=== PATIENT | female | born 1960 | race Caucasian/White ===

== ENCOUNTER 2017-04-27 23:20 | Inpatient (IN) ==
[2017-04-28] MEDS ORDERED: Naloxone 0.4 MG/ML INJ IVP PRN ×2 (04:39→05:28)
[2017-04-28] MEDS ORDERED: Ipratropium/Albuterol Neb 3 ML IH PRN (04:43)
--- NOTE | 2017-04-28 04:47 | Internal Med History&Physical ---
<Michael Armstrong - Last Filed: 04/28/17 05:49> Date of Encounter: 04/28/17 Time of Encounter: 04:30 Assessment and Plan (1) Acute respiratory failure with hypoxia and hypercapnia Current visit: Yes Status: Acute Acute resp failure with hypoxia and hypercapnia secondary to acute on chronic exacerbation of COPD +/- possible pneumonia. PA/Lat XR. Repeat ABG. Currently saturating 96% on bipap 40% Fio2 16/8. Duoneb q4, steroid, bipap titration with [employer]. Continue Rocephin and Azithromycin. (2) Acute exacerbation of chronic obstructive airways disease Current visit: No Status: Acute (1) (3) Cxeyy-6-pbeayvdlapx deficiency Current visit: Yes Status: Acute Receives supplementation once a week. (4) Rheumatoid arthritis Current visit: Yes Status: Acute On MTX, will hold in setting of possible pneumonia. Qualifiers: Rheumatoid arthritis location: unspecified site Rheumatoid factor presence : unspecified presence Qualified Code(s): M06.9 - Rheumatoid arthritis, unspecified (5) DVT prophylaxis Current visit: Yes Status: Acute Heparin 5000U SQ q12h. Internal Medicine - H&P: HPI Admitted From: Hospital to Hospital Transfer Plans for Post Hospital Care: Home History of present illness: Ms. Dawkins is a 57 year old female, transferred from [facility], presenting with 1 week onset of worsening difficulty breathing. Patient has PMH of alpha-1- antitrypsin deficiency, w/o liver involvement, former smoker 2PPD quit 8 years ago currently on 2.5-3L home O2. Patient states she has increased difficulty ambulating and breathing at rest despite compliance to COPD meds, baseline is minimal walking, has a home health aide that visits daily. Patient denies fever , chills, n/v/d, chest pain, or hemoptysis. No recent travel, and no hx malignancy/recent immobilization. [facility] workup shows negative troponin, negative UA, ABG pH of 7.32, pCO2 of 68, PO2 of 67. Pt responded to bipap in [facility], currently on 40% Fio2, saturating 95%+. Past Med Surg Social Fam HX - Past Medical History Medical history: asthma, COPD, fibromyalgia, hypertension, RA, other Psychiatric history: anxiety - Social History Smoking Status: Former smoker Smokeless Tobacco Status: No Alcohol use: none Drug use: none - Family History Father Name: Chandan Javed Age: 50 Family Member Ethnicity: Non- Living Status: Age at : 50 Cause of : throat cancer, ETOH Hx Family Cardiac Disorders: No Hx Family Respiratory Disorders: No Hx Family Cancer: Yes Hx Family GI Disorders: No Hx Family Genitourinary Disorders: No Hx Family Endocrine Disorder: Yes Hx Family Musculoskeletal Disorders: Yes Hx Family Neuromuscular Disorders: No Hx Family Neurologic Disorders: No Hx Family HEENT Disorders: No Hx Family Autoimmune Disorders: No Hx Family Reproductive Disorders: No Hx Family Psychosocial Disorders: No Hx Family Medical Disorders: No Internal Medicine - H&P: Meds Albuterol Sulfate [Albuterol Inhaler] 2 puff IH Q4HR PRN 12/18/14 [History] Aspirin 325 mg PO DAILY 12/18/14 [History] DULoxetine [Cymbalta] 60 mg PO DAILY 12/18/14 [History] Fluticasone/Salmeterol [Advair 500-50 Diskus] 1 each IH BID 12/18/14 [History] Folic Acid 1 mg PO DAILY 12/18/14 [History] GuaiFENesin ER [Mucinex] 600 mg PO BID 12/18/14 [History] Meloxicam [Mobic] 7.5 mg PO DAILY 12/18/14 [History] Methotrexate [Otrexup] 7.5 mg PO QWEEK 12/18/14 [History] Omeprazole [PriLOSEC] 40 mg PO DAILY 12/18/14 [History] OxyCODONE/APAP 10/325 [Percocet 10/325] 2 each PO Q4HR 12/18/14 [History] Roflumilast [Daliresp] 500 mcg PO DAILY 12/18/14 [History] Sertraline [Zoloft] 50 mg PO DAILY 12/18/14 [History] Tiotropium [Spiriva] 18 mcg IH DAILY 12/18/14 [History] Azithromycin [Zithromax] 250 mg PO Q24H #3 tablet 12/22/14 [Rx] clonazePAM [Klonopin] 0.5 mg PO TID #30 tablet 12/22/14 [Rx] predniSONE [PredniSONE] 10 mg PO DAILY #18 tablet 12/22/14 [Rx] Cyclobenzaprine [Flexeril] 10 mg PO TID #30 tablet 06/08/16 [Rx] Pregabalin [Lyrica] 75 mg PO BID #20 capsule 06/08/16 [Rx] 3 Allergy/AdvReac Type Severity Reaction Status Date / Time levofloxacin [From Levaquin] Allergy Swelling Verified 06/08/16 13:53 of Lip/Tongue/Throat morphine Allergy See Verified 06/08/16 13:53 Comments cinnamon [Cinnamon] AdvReac Nausea Verified 06/08/16 13:53 All Systems PM: A 10-system review of systems was performed and is negative for pertinent findings except as documented above in the HPI. - Constitutional Vitals: Temp Pulse Resp BP Pulse Ox 97.4 F L 106 18 93/60 99 04/28/17 04:44 04/28/17 04:44 04/28/17 04:44 04/28/17 04:44 04/28/17 02:17 General appearance: Present: A&O X 3, no acute distress - Head Head exam: Present: normal inspection, normocephalic - Eye Eye exam: Present: EOMI. Absent: scleral icterus - ENT ENT exam: Present: mucous membranes moist - Neck Neck exam general surgery: Present: full ROM. Absent: lymphadenopathy - Respiratory Respiratory exam: Present: prolonged expiratory phase. Absent: accessory muscle use, respiratory distress, tachypnea Additional comments: equal chest excursion bilaterally, clear to ausc without crackles. - Cardiovascular Cardiovascular exam: Present: RRR, +S1, +S2, tachycardia. Absent: JVD - Extremities Exam Extremities exam: Absent: calf tenderness, cyanotic, pedal edema - Neurological Exam Neurological exam: Present: no focal deficits - Skin Skin exam: Present: normal color. Absent: cyanosis Internal Med - H&P Results - Labs Labs: [facility] Labs: PT 13.1; INR 1.11 ABG: pH 7.32, pO2 67, PCO2 68. Troponin negative Flu swab negative ECG sinus tachycardia without ischemic changes. - ABG Interpretation Interpretation: ABG interpreted by me Interpretation: respiratory acidosis - EKG Data -: EKG Interpreted by Myself EKG shows normal: sinus rhythm Rate: tachycardia <Pablo Gonzalez H - Last Filed: 04/28/17 06:07> Date of Encounter: 04/28/17 Internal Medicine - H&P: HPI History of present illness: Ms. Dawkins is a 57 year old female All Systems PM: A 10-system review of systems was performed and is negative for pertinent findings except as documented above in the HPI. - Constitutional Vitals: Temp Pulse Resp BP Pulse Ox 97.4 F L 106 18 93/60 99 04/28/17 04:44 04/28/17 04:44 04/28/17 04:44 04/28/17 04:44 04/28/17 02:17 Internal Med - H&P Results - Impressions ITS Impressions Chest X-Ray 04/28/17 05:06 IMPRESSION: COPD and chronic interstitial change with no acute finding in the chest. D/ / Lucas Walker MD / Lucas Walker MD Interpreting Provider: Lucas Walker MD - Attending Attestation 1. Acute on chronic hypoxic hypercapnic respiratory failure secondary to acute COPD exacerbation due to possible community-acquired pneumonia No report of the checks x-ray has been sent from [facility] Influenza negative, white blood cell count 7.1 Repeat chest x-ray Repeat ABG Continue Rocephin and azithromycin, Solu-Medrol, BiPAP, DuoNeb nebs and oxygen therapy 2. History of alpha-1 antitrypsin deficiency, receiving enzyme supplements once weekly 3. History of rheumatoid arthritis, hold methotrexate for now 4. Fibromyalgia, stable 5. Depression, stable 6. GERD, stable History of multiple surgeries/abdominal surgeries, PEG tube removed, tracheostomy due to unclear reasons Quit smoking 8 years ago used to smoke 2 packs per day. Family history: Hypertension Metatarsal for GI prophylaxis and subcutaneous heparin for DVT prophylaxis patient will be admitted for observation, if her condition worsens she will be switched to inpatient status. Full code. Time spent on this admission 40 minutes. I examined this patient and my medical decision-making was reviewed with the Resident Physician. I agree with the documented findings, disposition and treatment plan as described except to the extent set forth below.
[2017-04-28] MEDS ORDERED: Ondansetron 4 MG/2 ML VIAL IVP PRN (05:28)
[2017-04-28] MEDS ORDERED: Acetaminophen 325 MG TABLET PO PRN (05:28)
[2017-04-28] MEDS ORDERED: *HR* OxyCODONE Immed Rel 5 MG TABLET PO PRN (05:28)
--- NOTE | 2017-04-28 05:35 | Event Note ---
Date of Encounter: 04/28/17 Time of Encounter: 05:32 1. Acute on chronic hypoxic hypercapnic respiratory failure secondary to acute COPD exacerbation due to possible community-acquired pneumonia No report of the checks x-ray has been sent from [facility] Influenza negative, white blood cell count 7.1 Repeat chest x-ray Repeat ABG Continue Rocephin and azithromycin, Solu-Medrol, BiPAP, DuoNeb nebs and oxygen therapy 2. History of alpha-1 antitrypsin deficiency, receiving enzyme supplements once weekly 3. History of pneumothorax arthritis, hold methotrexate for now 4. Fibromyalgia, stable 5. Depression, stable 6. GERD, stable History of multiple surgeries/abdominal surgeries, PEG tube removed, tracheostomy due to unclear reasons Quit smoking 8 years ago used to smoke 2 packs per day. Family history: Hypertension Metatarsal for GI prophylaxis and subcutaneous heparin for DVT prophylaxis patient will be admitted for observation, if her condition worsens she will be switched to inpatient status. Full code. Time spent on this admission 40 minutes.
[2017-04-28 06:23] LABS: ABG Base Excess 6 mEq/L (-2 to 3); ABG HCO3 34 mEq/L (21-27); ABG Oxygen Saturation 91 % (95-98); ABG PCO2 64 mmHg (35-45); ABG PH 7.34 pH Units (7.32-7.45); ABG PO2 68 mmHg (85-104); ABG TCO2 36 mEq/L (20-26)
[2017-04-28 06:45] LABS: BUN/Creatinine Ratio 21 (6-26); Blood Urea Nitrogen 13 mg/dL (6-20); Calcium 9.1 mg/dL (8.6-10.3); Carbon Dioxide 32 mEq/L (23-29); Chloride 103 mEq/L (98-107); Glucose 188 mg/dL (70-105); Osmolality,Calculated 291 (280-300); Potassium 4.2 mEq/L (3.5-5.1); Sodium 138 mEq/L (136-145); eGFR For African Americans > 60 (> 60); eGFR For Non-African Americans > 60 (> 60)
[2017-04-28] MEDS: 0.9 % Sodium Chloride 1,000 ML IVC SCH (07:39)
[2017-04-28] MEDS: *HR* Heparin 5,000 UNIT/ML VIAL SQ SCH ×2 (07:40→17:26)
[2017-04-28] MEDS: methylPREDNISolone 125 MG/2 ML VIAL IVP SCH ×3 (07:40→17:26)
[2017-04-28] MEDS: Azithromycin 500 MG in D5% in Water 250 ML IVPB SCH (07:40)
[2017-04-28] MEDS: cefTRIAXone 1,000 MG in Water for inj. (sterile) 20 ML 10 ML IVPB SCH (07:41)
[2017-04-28] MEDS: Pregabalin 75 MG CAPSULE PO SCH ×2 (07:42→19:55)
[2017-04-28] MEDS: clonazePAM 0.5 MG TABLET PO SCH ×3 (07:42→19:55)
[2017-04-28] MEDS: Aspirin 325 MG TABLET PO SCH (07:42)
[2017-04-28] MEDS: (Roflumilast [Daliresp] 500 MCG PO SCH (07:43)
[2017-04-28] MEDS ORDERED: *HR* OxyCODONE/APAP 10/325 TABLET PO SCH ×2 (08:00)
[2017-04-28] MEDS: Tiotropium 18 MCG inhalation IH SCH (09:54)
[2017-04-28] MEDS: Budesonide/Formoterol 160/4.5 MDI IH SCH ×2 (09:56→22:37)
[2017-04-28] MEDS: Ipratropium/Albuterol Neb 3 ML IH SCH ×3 (09:56→22:37)
[2017-04-28] MEDS: *HR* OxyCODONE/APAP 10/325 TABLET PO PRN ×2 (12:03→21:18)
--- NOTE | 2017-04-28 18:28 | Event Note ---
Date of Encounter: 04/28/17 Time of Encounter: 11:00 Patient evaluated by manager ethics this morning and also by myself Will continue coverage for acute on chronic hypoxic/hypercapnic respiratory failure secondary to COPD exacerbation with IV ceftriaxone and IV azithromycin in addition to IV Solu-Medrol and DuoNeb's
[2017-04-29] MEDS: 0.9 % Sodium Chloride 1,000 ML IVC SCH (00:24)
[2017-04-29] MEDS: methylPREDNISolone 125 MG/2 ML VIAL IVP SCH ×4 (00:25→17:31)
[2017-04-29] MEDS: Ipratropium/Albuterol Neb 3 ML IH SCH ×4 (04:42→22:25)
[2017-04-29 04:53] LABS: Basophils % 0.1 %; Eosinophils % 0.1 %; Hemoglobin 9.3 g/dL (11.5-15.4); Immature Granulocytes % 0.6 % (0-4); Lymphocytes # 0.6 K/mcL (0.6-4.6); Lymphocytes % 6.4 %; Mean Corpuscular Hemoglobin 30.6 pg (28.0-33.3); Mean Corpuscular Volume 98.7 fL (83.0-100.0); Mean Platelet Volume 10.1 fL (9.4-12.4); Monocytes # 0.5 K/mcL (0.0-1.3); Monocytes % 5.7 %; Platelet Count 401 K/mcL (140-400); Red Blood Count 3.04 M/mcL (3.82-4.97); Red Cell Distribution Width 13.4 % (11.5-14.5); Segmented Neutrophils % 87.1 %
[2017-04-29 05:06] LABS: Alanine Aminotransferase 5 Units/L (7-52); Albumin 3.2 g/dL (3.5-5.7); Albumin/Globulin Ratio 1.4 (1.1-2.2); Alkaline Phosphatase 64 Units/L (34-104); Aspartate Amino Transferase 7 Units/L (13-39); BUN/Creatinine Ratio 17 (6-26); Bilirubin,Total 0.2 mg/dL (0.3-1.0); Blood Urea Nitrogen 11 mg/dL (6-20); Carbon Dioxide 31 mEq/L (23-29); Chloride 107 mEq/L (98-107); Globulin 2.3 g/dL (2.4-3.5); Glucose 154 mg/dL (70-105); Osmolality,Calculated 300 (280-300); Sodium 144 mEq/L (136-145); Total Protein 5.5 g/dL (6.4-8.9); eGFR For African Americans > 60 (> 60); eGFR For Non-African Americans > 60 (> 60)
[2017-04-29] MEDS: Azithromycin 500 MG in D5% in Water 250 ML IVPB SCH (06:19)
[2017-04-29] MEDS: *HR* Heparin 5,000 UNIT/ML VIAL SQ SCH ×2 (06:19→17:31)
[2017-04-29] MEDS: clonazePAM 0.5 MG TABLET PO SCH ×3 (08:34→20:16)
[2017-04-29] MEDS: Aspirin 325 MG TABLET PO SCH (08:34)
[2017-04-29] MEDS: cefTRIAXone 1,000 MG in Water for inj. (sterile) 20 ML 10 ML IVPB SCH (08:35)
[2017-04-29] MEDS: Pregabalin 75 MG CAPSULE PO SCH ×2 (08:35→20:16)
[2017-04-29] MEDS: *HR* OxyCODONE/APAP 10/325 TABLET PO PRN ×3 (08:35→22:37)
[2017-04-29] MEDS: (Roflumilast [Daliresp] 500 MCG PO SCH (08:36)
[2017-04-29] MEDS: Budesonide/Formoterol 160/4.5 MDI IH SCH ×2 (10:02→22:25)
[2017-04-29] MEDS: Tiotropium 18 MCG inhalation IH SCH (10:02)
[2017-04-29 11:28] LABS: ABG Base Excess 9 mEq/L (-2 to 3); ABG HCO3 36 mEq/L (21-27); ABG Oxygen Saturation 94 % (95-98); ABG PCO2 63 mmHg (35-45); ABG PH 7.36 pH Units (7.32-7.45); ABG PO2 77 mmHg (85-104); ABG TCO2 38 mEq/L (20-26)
--- NOTE | 2017-04-29 16:08 | Pulmonology Consult Note ---
Date of Encounter: 04/29/17 Time of Encounter: 13:00 Assessment and Plan (1) Acute exacerbation of chronic obstructive airways disease Current Visit: No Status: Acute Patient with multiple hospitalization and advanced lung disease and I have explained to her I expect her condition would deteriorate based on her pulmonary function test which was done in 2013 she had very severe FEV1 and she has noticed her hypoxia is worsened. Patient has appointment in clinic clinic next Tuesday and I have told her to keep that appointment and twisting either to transfer her by ambulance or since her oxygen saturation is above 90% when she is not active and she feels better then she can be transported by the car with her family. Otherwise patient is on appropriate treatment currently. Bruce dilators and systemic steroids and noninvasive ventilation. (2) Qmffr-2-vmjmpdhmwrp deficiency Current Visit: Yes Status: Chronic Patient has been receiving IV augmentation therapy. History of Present Illness Consult date: 04/29/17 Requesting physician: Sea Finley Reason for consult: COPD Chief complaint: Shortness of breath History of present illness: This is a pleasant 57-year-old female with history of advanced lung disease with alpha-1 deficiency syndrome and advanced COPD. Patient is known to me when she was hospitalized in 2013 and she has been following up with Dr. Clark in [place] for her COPD and she has been seen in [facility]. Patient stated her oxygenation is worsening and she was told in [facility] that she has to wait 5 years. Patient has hypoxia on minimal activities and she has wheezing and some productive cough reactive she has been hospitalized multiple times in the past 6 months and she has been losing weight. Patient denies any chest pain and she has been concerned about her condition. Past Med Surg Social Fam HX - Past Medical History Medical history: asthma, COPD, fibromyalgia, hypertension, RA, other Psychiatric history: anxiety - Social History Smoking Status: Former smoker Smokeless Tobacco Status: No Alcohol use: none Drug use: none - Family History Father Name: Chandan Javed Age: 50 Family Member Ethnicity: Non- Living Status: Age at : 50 Cause of : throat cancer, ETOH Hx Family Cardiac Disorders: No Hx Family Respiratory Disorders: No Hx Family Cancer: Yes Hx Family GI Disorders: No Hx Family Genitourinary Disorders: No Hx Family Endocrine Disorder: Yes Hx Family Musculoskeletal Disorders: Yes Hx Family Neuromuscular Disorders: No Hx Family Neurologic Disorders: No Hx Family HEENT Disorders: No Hx Family Autoimmune Disorders: No Hx Family Reproductive Disorders: No Hx Family Psychosocial Disorders: No Hx Family Medical Disorders: No Medications and Allergies Albuterol Sulfate [Albuterol Inhaler] 2 puff IH Q4HR PRN 12/18/14 [History] Aspirin 325 mg PO DAILY 12/18/14 [History] DULoxetine [Cymbalta] 60 mg PO DAILY 12/18/14 [History] Fluticasone/Salmeterol [Advair 500-50 Diskus] 1 each IH BID 12/18/14 [History] Folic Acid 1 mg PO DAILY 12/18/14 [History] GuaiFENesin ER [Mucinex] 600 mg PO BID 12/18/14 [History] Meloxicam [Mobic] 7.5 mg PO DAILY 12/18/14 [History] Methotrexate [Otrexup] 17.5 mg PO TU 12/18/14 [History] Omeprazole [PriLOSEC] 40 mg PO DAILY 12/18/14 [History] OxyCODONE/APAP 10/325 [Percocet 10/325] 1 each PO Q6H PRN 12/18/14 [History] Roflumilast [Daliresp] 500 mcg PO DAILY 12/18/14 [History] Sertraline [Zoloft] 50 mg PO DAILY 12/18/14 [History] clonazePAM [Klonopin] 0.5 mg PO TID #30 tablet 12/22/14 [Rx] Cyclobenzaprine [Flexeril] 10 mg PO TID #30 tablet 06/08/16 [Rx] Pregabalin [Lyrica] 75 mg PO BID #20 capsule 06/08/16 [Rx] Riekp-8-Xfqcockavq Inhibitor [Zemaira] 1,000 mg IV TU 04/28/17 [History] Etanercept [Enbrel] 50 mg SQ TU 04/28/17 [History] Umeclidinium [place] [Incruse Ellipta] 62.5 mcg IH DAILY 04/28/17 [History] 3 Allergy/AdvReac Type Severity Reaction Status Date / Time levofloxacin [From Levaquin] Allergy Swelling Verified 06/08/16 13:53 of Lip/Tongue/Throat morphine Allergy See Verified 06/08/16 13:53 Comments cinnamon [Cinnamon] AdvReac Nausea Verified 06/08/16 13:53 All Systems: A 10-system review of systems was performed and is negative for pertinent findings except as documented above in the HPI. Physical Examination Vital Signs: Vital Signs, Last 4 Hours Temp Pulse Resp BP Pulse Ox 04/29/17 16:03 20 97 04/29/17 15:50 98.4 F 116 20 112/84 General appearance: other (Mild respiratory distress) Eyes: nonicteric ENT: oropharynx moist Neck: supple Effort: mildly labored Inspection: hyperextended Auscultation: bilateral: diminished breath sounds, rhonchi Percussion: bilateral: not dull Cardiovascular: regular rate and rhythm Gastrointestinal: normoactive bowel sounds, non-distended Integumentary: normal Extremities: no cyanosis, edema normal mental status, non-focal exam anxious Results - Laboratory Findings CBC and BMP: 04/29/17 04:30 04/29/17 04:30 ABG ABG pH 7.36 pH Units (7.32-7.45) 04/29/17 11:25 ABG pCO2 63 mmHg (35-45) H 04/29/17 11:25 ABG pO2 77 mmHg (85-104) L 04/29/17 11:25 ABG O2 Saturation 94 % (95-98) L 04/29/17 11:25 Abnormal lab findings: Abnormal lab results RBC 3.04 M/mcL (3.82-4.97) L 04/29/17 04:30 Hgb 9.3 g/dL (11.5-15.4) L 04/29/17 04:30 Hct 30.0 % (35.3-44.9) L 04/29/17 04:30 MCHC 31.0 g/dL (31.6-35.5) L 04/29/17 04:30 Plt Count 401 K/mcL (140-400) H 04/29/17 04:30 ABG pCO2 63 mmHg (35-45) H 04/29/17 11:25 ABG pO2 77 mmHg (85-104) L 04/29/17 11:25 ABG HCO3 36 mEq/L (21-27) H 04/29/17 11:25 ABG Total CO2 38 mEq/L (20-26) H 04/29/17 11:25 ABG O2 Saturation 94 % (95-98) L 04/29/17 11:25 ABG Base Excess 9 mEq/L (-2 to 3) H 04/29/17 11:25 Carbon Dioxide 31 mEq/L (23-29) H 04/29/17 04:30 Glucose 154 mg/dL (70-105) H 04/29/17 04:30 Total Bilirubin 0.2 mg/dL (0.3-1.0) L 04/29/17 04:30 AST 7 Units/L (13-39) L 04/29/17 04:30 ALT 5 Units/L (7-52) L 04/29/17 04:30 Serum Total Protein 5.5 g/dL (6.4-8.9) L 04/29/17 04:30 Albumin 3.2 g/dL (3.5-5.7) L 04/29/17 04:30 Globulin 2.3 g/dL (2.4-3.5) L 04/29/17 04:30 - Diagnostic Findings Chest x-ray: report reviewed, image reviewed - Clinical Findings Intake & Output: Intake & Output 04/29/17 04/29/17 04/29/17 07:59 15:59 23:59 Intake Total 1000 / 1000 1440 / 1440 Output Total 600 / 600 Balance 1000 / 1000 840 / 840 Weight 62.4 kg Consult Discharge Plan - Plan Referrals: Alana Abraham MD [Primary Care Provider] - 05/09/17 1:30 pm
--- NOTE | 2017-04-29 18:45 | Internal Med Progress Note ---
Date of Encounter: 04/29/17 Time of Encounter: 11:00 - Assessment and plan (1) Acute respiratory failure with hypoxia and hypercapnia Current Visit: Yes Status: Acute Assessment and plan: -Suspect secondary to COPD exacerbation complicated by end-stage lung disease -Pulmonology consulted and appreciate recommendations (2) Acute exacerbation of chronic obstructive airways disease Current Visit: No Status: Acute Assessment and plan: -Continue dual nebs with IV Solu-Medrol in addition to IV azithromycin and IV ceftriaxone. (3) Yuikd-3-mgtenpvsmhu deficiency Current Visit: Yes Status: Chronic Assessment and plan: -Patient with end-stage lung disease and being seen by [facility] with discussions of placing patient on lung transplant list (4) Rheumatoid arthritis Current Visit: Yes Status: Acute Assessment and plan: -MTX held due to infection Qualifiers: Rheumatoid arthritis location: unspecified site Rheumatoid factor presence : unspecified presence Qualified Code(s): M06.9 - Rheumatoid arthritis, unspecified (5) DVT prophylaxis Current Visit: Yes Status: Acute Assessment and plan: Subcutaneous heparin - Subjective Interval history: Patient continues to be on BiPAP this morning with not much improvement overnight Pulmonology consulted for recommendations to end-stage lung disease with alpha 1 antitrypsin deficiency - Constitutional Vitals: Temp Pulse Resp BP Pulse Ox 98.4 F 116 20 112/84 97 04/29/17 15:50 04/29/17 15:50 04/29/17 16:03 04/29/17 15:50 04/29/17 16:03 General appearance: Present: A&O X 3, no acute distress - Respiratory Respiratory exam: Present: CTAB. Absent: accessory muscle use, rales, rhonchi, wheezes - Cardiovascular Cardiovascular exam: Present: RRR, +S1, +S2. Absent: diastolic murmur, gallop, rubs, systolic murmur Internal Medicine: Result - Labs CBC & Chem 7: 04/29/17 04:30 04/29/17 04:30 Labs: Short CBC 04/29/17 Range/Units 04:30 WBC 9.2 (4.3-11.1) K/mcL Hgb 9.3 L (11.5-15.4) g/dL Hct 30.0 L (35.3-44.9) % Plt Count 401 H (140-400) K/mcL Neutrophils # 8.0 (1.6-8.9) K/mcL BMP 04/29/17 04:30 Sodium 144 Potassium 4.0 Chloride 107 Carbon Dioxide 31 H BUN 11 Creatinine 0.65 Glucose 154 H Calcium 9.0 Liver Function 04/29/17 Range/Units 04:30 Total Bilirubin 0.2 L (0.3-1.0) mg/dL AST 7 L (13-39) Units/L ALT 5 L (7-52) Units/L Alkaline Phosphatase 64 (34-104) Units/L Albumin 3.2 L (3.5-5.7) g/dL - ABG Interpretation ABG results: ABG ABG pH 7.36 pH Units (7.32-7.45) 04/29/17 11:25 ABG pCO2 63 mmHg (35-45) H 04/29/17 11:25 ABG pO2 77 mmHg (85-104) L 04/29/17 11:25 ABG O2 Saturation 94 % (95-98) L 04/29/17 11:25 Consult Discharge Plan - Plan Referrals: Alana Arbaham MD [Primary Care Provider] - 05/09/17 1:30 pm
--- NOTE | 2017-04-29 18:59 | Electrocardiograph Report ---
[place] [id number] Test Date: 2017-04-28 Pat Name: Effie Dawkins Department: 110 Room: 2N11 Gender: F Community Planning Technician: : 1960 Requested By: Sea Finley Order Number: [id number] Reading MD: Sid Hagen MD Measurements Intervals [place] Rate: 117 P: 77 VA: 167 QRS: 58 QRSD: 94 T: 73 QT: 304 QTc: 373 Interpretive Statements SINUS TACHYCARDIA Electronically Signed On 04-29-2017 18:58:28 EST by Sid Hagen MD
[2017-04-30] MEDS: methylPREDNISolone 125 MG/2 ML VIAL IVP SCH ×5 (00:41→23:50)
[2017-04-30] MEDS: Ipratropium/Albuterol Neb 3 ML IH SCH ×5 (03:51→21:00)
[2017-04-30] MEDS: Azithromycin 500 MG in D5% in Water 250 ML IVPB SCH (04:25)
[2017-04-30] MEDS: *HR* Heparin 5,000 UNIT/ML VIAL SQ SCH ×2 (04:25→17:28)
[2017-04-30] MEDS: *HR* OxyCODONE/APAP 10/325 TABLET PO PRN ×5 (04:26→21:07)
[2017-04-30] MEDS: Pregabalin 75 MG CAPSULE PO SCH ×2 (08:37→21:07)
[2017-04-30] MEDS: Aspirin 325 MG TABLET PO SCH (08:38)
[2017-04-30] MEDS: cefTRIAXone 1,000 MG in Water for inj. (sterile) 20 ML 10 ML IVPB SCH (08:38)
[2017-04-30] MEDS: clonazePAM 0.5 MG TABLET PO SCH ×3 (08:38→21:07)
[2017-04-30] MEDS: (Roflumilast [Daliresp] 500 MCG PO SCH (08:39)
[2017-04-30 09:19] LABS: Basophils % 0.1 %; Hematocrit 30.9 % (35.3-44.9); Hemoglobin 9.7 g/dL (11.5-15.4); Immature Granulocytes % 0.2 % (0-4); Lymphocytes # 1.1 K/mcL (0.6-4.6); Lymphocytes % 13.9 %; Mean Corpuscular HGB Conc 31.4 g/dL (31.6-35.5); Mean Corpuscular Hemoglobin 31.1 pg (28.0-33.3); Monocytes # 0.2 K/mcL (0.0-1.3); Monocytes % 1.8 %; Neutrophils # 6.9 K/mcL (1.6-8.9); Platelet Count 444 K/mcL (140-400); Red Blood Count 3.12 M/mcL (3.82-4.97); Red Cell Distribution Width 13.8 % (11.5-14.5)
[2017-04-30 09:47] LABS: BUN/Creatinine Ratio 28 (6-26); Blood Urea Nitrogen 16 mg/dL (6-20); Calcium 9.1 mg/dL (8.6-10.3); Carbon Dioxide 35 mEq/L (23-29); Chloride 103 mEq/L (98-107); Glucose 119 mg/dL (70-105); Osmolality,Calculated 296 (280-300); Potassium 3.7 mEq/L (3.5-5.1); Sodium 142 mEq/L (136-145); eGFR For African Americans > 60 (> 60); eGFR For Non-African Americans > 60 (> 60)
--- NOTE | 2017-04-30 10:41 | Pulmonology Progress Note ---
Date of Encounter: 04/30/17 Time of Encounter: 10:25 Assessment and Plan (1) Acute exacerbation of chronic obstructive airways disease Current Visit: No Status: Acute Overall patient is responding to the current treatment and she is making arrangement regarding her visit to [facility]. Continue the per systemic steroid and bronchodilators and please call for any questions patient is tolerating noninvasive ventilation. Thank you for the consult and will follow up when necessary (2) Qqrsn-8-nvxmltjyeej deficiency Current Visit: Yes Status: Chronic Subjective Principal diagnosis: COPD exacerbation Interval history: Patient had good night sleep and feeling slightly better but she still anxious about her condition and she goes home might deteriorate Objective PUL Vital signs: Last Vital Signs Temp 97.8 F 04/30/17 07:37 Pulse 110 04/30/17 08:40 Resp 26 04/30/17 07:37 BP 125/75 04/30/17 08:40 Pulse Ox 96 04/30/17 08:40 General appearance: no acute distress Eyes: nonicteric ENT: oropharynx moist Effort: normal Auscultation: bilateral: diminished breath sounds Percussion: bilateral: not dull Cardiovascular: regular rate and rhythm Gastrointestinal: normoactive bowel sounds, non-distended Extremities: no cyanosis normal mental status, non-focal exam Results - Laboratory Findings CBC and BMP: 04/30/17 08:54 04/30/17 08:54 ABG ABG pH 7.36 pH Units (7.32-7.45) 04/29/17 11:25 ABG pCO2 63 mmHg (35-45) H 04/29/17 11:25 ABG pO2 77 mmHg (85-104) L 04/29/17 11:25 ABG O2 Saturation 94 % (95-98) L 04/29/17 11:25 Abnormal lab findings: Abnormal lab results RBC 3.12 M/mcL (3.82-4.97) L 04/30/17 08:54 Hgb 9.7 g/dL (11.5-15.4) L 04/30/17 08:54 Hct 30.9 % (35.3-44.9) L 04/30/17 08:54 MCHC 31.4 g/dL (31.6-35.5) L 04/30/17 08:54 Plt Count 444 K/mcL (140-400) H 04/30/17 08:54 ABG pCO2 63 mmHg (35-45) H 04/29/17 11:25 ABG pO2 77 mmHg (85-104) L 04/29/17 11:25 ABG HCO3 36 mEq/L (21-27) H 04/29/17 11:25 ABG Total CO2 38 mEq/L (20-26) H 04/29/17 11:25 ABG O2 Saturation 94 % (95-98) L 04/29/17 11:25 ABG Base Excess 9 mEq/L (-2 to 3) H 04/29/17 11:25 Carbon Dioxide 35 mEq/L (23-29) H 04/30/17 08:54 Creatinine 0.58 mg/dL (0.60-1.20) L 04/30/17 08:54 BUN/Creatinine Ratio 28 (6-26) H 04/30/17 08:54 Glucose 119 mg/dL (70-105) H 04/30/17 08:54 Total Bilirubin 0.2 mg/dL (0.3-1.0) L 04/29/17 04:30 AST 7 Units/L (13-39) L 04/29/17 04:30 ALT 5 Units/L (7-52) L 04/29/17 04:30 Serum Total Protein 5.5 g/dL (6.4-8.9) L 04/29/17 04:30 Albumin 3.2 g/dL (3.5-5.7) L 04/29/17 04:30 Globulin 2.3 g/dL (2.4-3.5) L 04/29/17 04:30 - Clinical Findings Intake & Output: Intake & Output 04/29/17 04/30/17 04/30/17 23:59 07:59 15:59 Intake Total 240 / 240 730 / 730 510 / 510 Output Total 1000 / 1000 120 / 120 Balance -760 / -760 730 / 730 390 / 390 Weight 63.1 kg Consult Discharge Plan - Plan Referrals: Alana Abraham MD [Primary Care Provider] - 05/09/17 1:30 pm
[2017-04-30] MEDS: Budesonide/Formoterol 160/4.5 MDI IH SCH ×2 (10:43→21:00)
[2017-04-30] MEDS: Tiotropium 18 MCG inhalation IH SCH (10:43)
[2017-04-30] MEDS: Chloraseptic Spray 177 ML BOTTLE MM PRN ×3 (10:45→23:50)
--- NOTE | 2017-04-30 18:45 | Internal Med Progress Note ---
Date of Encounter: 04/30/17 Time of Encounter: 11:00 - Assessment and plan (1) Acute respiratory failure with hypoxia and hypercapnia Current Visit: Yes Status: Acute Assessment and plan: -Suspect secondary to COPD exacerbation complicated by end-stage lung disease -Pulmonology consulted with recommendations for patient to follow-up with [facility] -Patient trying to make arrangements with [facility] (2) Acute exacerbation of chronic obstructive airways disease Current Visit: No Status: Acute Assessment and plan: -Continue dual nebs with IV Solu-Medrol in addition to IV azithromycin and IV ceftriaxone. (3) Atzhz-8-ybauohemkpp deficiency Current Visit: Yes Status: Chronic Assessment and plan: -Patient with end-stage lung disease and being seen by [facility] with discussions of placing patient on lung transplant list (4) Rheumatoid arthritis Current Visit: Yes Status: Acute Assessment and plan: -MTX held due to infection Qualifiers: Rheumatoid arthritis location: unspecified site Rheumatoid factor presence : unspecified presence Qualified Code(s): M06.9 - Rheumatoid arthritis, unspecified (5) DVT prophylaxis Current Visit: Yes Status: Acute Assessment and plan: Subcutaneous heparin - Subjective Interval history: Patient continues to be on BiPAP this morning with not much improvement overnight Pulmonology consulted for recommendations to end-stage lung disease with alpha 1 antitrypsin deficiency Patient trying to make arrangements for evaluation at [facility] - Constitutional Vitals: Temp Pulse Resp BP Pulse Ox 97.8 F 122 20 112/76 93 04/30/17 13:00 04/30/17 13:00 04/30/17 16:16 04/30/17 13:00 04/30/17 16:16 General appearance: Present: A&O X 3, no acute distress - Respiratory Respiratory exam: Present: CTAB. Absent: accessory muscle use, rales, rhonchi, wheezes Internal Medicine: Result - Labs CBC & Chem 7: 04/30/17 08:54 04/30/17 08:54 Labs: Short CBC 04/30/17 Range/Units 08:54 WBC 8.2 (4.3-11.1) K/mcL Hgb 9.7 L (11.5-15.4) g/dL Hct 30.9 L (35.3-44.9) % Plt Count 444 H (140-400) K/mcL Neutrophils # 6.9 (1.6-8.9) K/mcL BMP 04/30/17 08:54 Sodium 142 Potassium 3.7 Chloride 103 Carbon Dioxide 35 H BUN 16 Creatinine 0.58 L Glucose 119 H Calcium 9.1 - ABG Interpretation ABG results: ABG ABG pH 7.36 pH Units (7.32-7.45) 04/29/17 11:25 ABG pCO2 63 mmHg (35-45) H 04/29/17 11:25 ABG pO2 77 mmHg (85-104) L 04/29/17 11:25 ABG O2 Saturation 94 % (95-98) L 04/29/17 11:25 Consult Discharge Plan - Plan Referrals: Alana Abraham MD [Primary Care Provider] - 05/09/17 1:30 pm
[2017-05-01] MEDS: Ipratropium/Albuterol Neb 3 ML IH SCH ×4 (03:40→22:19)
[2017-05-01] MEDS: Azithromycin 500 MG in D5% in Water 250 ML IVPB SCH (06:23)
[2017-05-01] MEDS: methylPREDNISolone 125 MG/2 ML VIAL IVP SCH ×4 (06:23→22:55)
[2017-05-01] MEDS: *HR* Heparin 5,000 UNIT/ML VIAL SQ SCH ×2 (06:24→19:17)
[2017-05-01] MEDS: *HR* OxyCODONE/APAP 10/325 TABLET PO PRN ×4 (06:35→22:57)
[2017-05-01] MEDS: clonazePAM 0.5 MG TABLET PO SCH ×3 (09:51→20:15)
[2017-05-01] MEDS: Aspirin 325 MG TABLET PO SCH (09:52)
[2017-05-01] MEDS: cefTRIAXone 1,000 MG in Water for inj. (sterile) 20 ML 10 ML IVPB SCH (09:52)
[2017-05-01] MEDS: Pregabalin 75 MG CAPSULE PO SCH ×2 (09:52→20:15)
[2017-05-01] MEDS: (Roflumilast [Daliresp] 500 MCG PO SCH (09:53)
[2017-05-01 10:43] LABS: Basophils % 0.1 %; Hematocrit 32.7 % (35.3-44.9); Hemoglobin 10.4 g/dL (11.5-15.4); Immature Granulocytes % 0.7 % (0-4); Lymphocytes # 0.4 K/mcL (0.6-4.6); Lymphocytes % 5.9 %; Mean Corpuscular HGB Conc 31.8 g/dL (31.6-35.5); Mean Corpuscular Hemoglobin 31.3 pg (28.0-33.3); Mean Corpuscular Volume 98.5 fL (83.0-100.0); Mean Platelet Volume 9.7 fL (9.4-12.4); Monocytes # 0.1 K/mcL (0.0-1.3); Monocytes % 0.8 %; Neutrophils # 6.6 K/mcL (1.6-8.9); Platelet Count 430 K/mcL (140-400); Red Blood Count 3.32 M/mcL (3.82-4.97); Red Cell Distribution Width 13.6 % (11.5-14.5); Segmented Neutrophils % 92.5 %
[2017-05-01 11:06] LABS: BUN/Creatinine Ratio 21 (6-26); Blood Urea Nitrogen 14 mg/dL (6-20); Calcium 9.2 mg/dL (8.6-10.3); Carbon Dioxide 32 mEq/L (23-29); Chloride 100 mEq/L (98-107); Glucose 192 mg/dL (70-105); Osmolality,Calculated 296 (280-300); Potassium 3.9 mEq/L (3.5-5.1); Sodium 140 mEq/L (136-145); eGFR For African Americans > 60 (> 60); eGFR For Non-African Americans > 60 (> 60)
[2017-05-01] MEDS: Budesonide/Formoterol 160/4.5 MDI IH SCH ×2 (11:19→22:20)
[2017-05-01] MEDS: Tiotropium 18 MCG inhalation IH SCH (11:21)
--- NOTE | 2017-05-01 11:33 | Discharge Summary ---
Date of Encounter: 05/01/17 Time of Encounter: 11:00 - Discharge Diagnosis (1) Acute respiratory failure with hypoxia and hypercapnia Status: Acute (2) Acute exacerbation of chronic obstructive airways disease Status: Acute (3) Xpfbg-6-djtglmddovj deficiency Status: Chronic (4) Rheumatoid arthritis Status: Acute Qualifiers: Rheumatoid arthritis location: unspecified site Rheumatoid factor presence : unspecified presence Qualified Code(s): M06.9 - Rheumatoid arthritis, unspecified (5) DVT prophylaxis Status: Acute - Discharge Medications Home Medications: Albuterol Sulfate [Albuterol Inhaler] 2 puff IH Q4HR PRN 12/18/14 [History] Aspirin 325 mg PO DAILY 12/18/14 [History] DULoxetine [Cymbalta] 60 mg PO DAILY 12/18/14 [History] Fluticasone/Salmeterol [Advair 500-50 Diskus] 1 each IH BID 12/18/14 [History] Folic Acid 1 mg PO DAILY 12/18/14 [History] GuaiFENesin ER [Mucinex] 600 mg PO BID 12/18/14 [History] Meloxicam [Mobic] 7.5 mg PO DAILY 12/18/14 [History] Methotrexate [Otrexup] 17.5 mg PO TU 12/18/14 [History] Omeprazole [PriLOSEC] 40 mg PO DAILY 12/18/14 [History] OxyCODONE/APAP 10/325 [Percocet 10/325] 1 each PO Q6H PRN 12/18/14 [History] Roflumilast [Daliresp] 500 mcg PO DAILY 12/18/14 [History] Sertraline [Zoloft] 50 mg PO DAILY 12/18/14 [History] clonazePAM [Klonopin] 0.5 mg PO TID #30 tablet 12/22/14 [Rx] Cyclobenzaprine [Flexeril] 10 mg PO TID #30 tablet 06/08/16 [Rx] Pregabalin [Lyrica] 75 mg PO BID #20 capsule 06/08/16 [Rx] Rzqbs-1-Amyciazkqr Inhibitor [Zemaira] 1,000 mg IV TU 04/28/17 [History] Etanercept [Enbrel] 50 mg SQ TU 04/28/17 [History] Umeclidinium [place] [Incruse Ellipta] 62.5 mcg IH DAILY 04/28/17 [History] Allergies/Adverse Reactions: 3 Allergy/AdvReac Type Severity Reaction Status Date / Time levofloxacin [From Levaquin] Allergy Swelling Verified 06/08/16 13:53 of Lip/Tongue/Throat morphine Allergy See Verified 06/08/16 13:53 Comments cinnamon [Cinnamon] AdvReac Nausea Verified 06/08/16 13:53 Procedures/tests Complete & Pending: Procedures Performed prior 72 hours Category Date Time Status EKG [ECG 12 lead ECG] [ECG] Routine Y 04/28/17 11:31 Completed Date of admission: 04/29/17 13:55 Primary care physician: Alana Delgado Consults: 04/28/17 03:01 Consult to Plant Hr Manager [CONS] Routine Reason for SW Consult: advance directives 04/29/17 10:52 Consult to Pulmonology [CONS] Routine Consulting Provider: Pulm Crit Care [facility] [place] Reason for Consult: copd, increasing shortness of breath. Dr. Finley to call Call Completed: No - Patient Status Disposition: Home, Self-Care - Discharge Instructions Follow Up With: Alana Abraham MD [Primary Care Provider] - 05/09/17 1:30 pm Hospital course: Ms. Dawkins is a 57 year old female - Time Spent with Patient Total time spent providing and/or coordinating discharge services: - Constitutional Vitals: Temp Pulse Resp BP Pulse Ox 98.5 F 100 18 121/69 97 05/01/17 10:34 05/01/17 10:34 05/01/17 11:21 05/01/17 10:34 05/01/17 11:21 General appearance: Present: A&O X 3, no acute distress - Respiratory Respiratory exam: Present: CTAB. Absent: accessory muscle use, rales, rhonchi, wheezes - Cardiovascular Cardiovascular exam: Present: RRR, +S1, +S2. Absent: diastolic murmur, gallop, rubs, systolic murmur
[2017-05-01] MEDS ORDERED: dilTIAZem HCl 100 MG in D5% in Water 50 ML IVC SCH (18:15)
--- NOTE | 2017-05-01 18:27 | Internal Med Progress Note ---
Date of Encounter: 05/01/17 Time of Encounter: 11:00 - Assessment and plan (1) Atrial flutter with rapid ventricular response Current Visit: Yes Status: Acute Assessment and plan: -We will elevated heart rate and 12-lead EKG showed atrial flutter with RVR -Patient given a Cardizem bolus and will be placed on Cardizem drip for rate control (2) Acute respiratory failure with hypoxia and hypercapnia Current Visit: Yes Status: Acute Assessment and plan: -Suspect secondary to COPD exacerbation complicated by end-stage lung disease -Pulmonology consulted with recommendations for patient to follow-up with [facility] -Patient trying to make arrangements with [facility] (3) Acute exacerbation of chronic obstructive airways disease Current Visit: No Status: Acute Assessment and plan: -Continue dual nebs with IV Solu-Medrol in addition to IV azithromycin and IV ceftriaxone. (4) Iqshd-4-jpvbixaccdu deficiency Current Visit: Yes Status: Chronic Assessment and plan: -Patient with end-stage lung disease and being seen by [facility] with discussions of placing patient on lung transplant list (5) Rheumatoid arthritis Current Visit: Yes Status: Acute Assessment and plan: -MTX held due to infection Qualifiers: Rheumatoid arthritis location: unspecified site Rheumatoid factor presence : unspecified presence Qualified Code(s): M06.9 - Rheumatoid arthritis, unspecified (6) DVT prophylaxis Current Visit: Yes Status: Acute Assessment and plan: Subcutaneous heparin - Subjective Interval history: Pulmonology consulted for recommendations to end-stage lung disease with alpha 1 antitrypsin deficiency Patient able from a respiratory standpoint per pulmonologyiit was scheduled to go to the [facility] for appointment on 05/02/17 Patient however developed atrial flutter with RVR and had to be started on Cardizem drip - Constitutional Vitals: Temp Pulse Resp BP Pulse Ox 98.2 F 119 19 130/73 91 05/01/17 15:30 05/01/17 15:30 05/01/17 16:34 05/01/17 15:30 05/01/17 16:34 General appearance: Present: A&O X 3, no acute distress - Cardiovascular Cardiovascular exam: Present: RRR, +S1, +S2. Absent: diastolic murmur, gallop, rubs, systolic murmur - GI/Abdominal GI/Abdominal exam: Present: normal bowel sounds, soft, no peritoneal signs. Absent: distended, tenderness Internal Medicine: Result - Labs CBC & Chem 7: 05/01/17 10:14 05/01/17 10:14 Labs: Short CBC 05/01/17 Range/Units 10:14 WBC 7.1 (4.3-11.1) K/mcL Hgb 10.4 L (11.5-15.4) g/dL Hct 32.7 L (35.3-44.9) % Plt Count 430 H (140-400) K/mcL Neutrophils # 6.6 (1.6-8.9) K/mcL BMP 05/01/17 10:14 Sodium 140 Potassium 3.9 Chloride 100 Carbon Dioxide 32 H BUN 14 Creatinine 0.66 Glucose 192 H Calcium 9.2 - ABG Interpretation ABG results: ABG ABG pH 7.36 pH Units (7.32-7.45) 04/29/17 11:25 ABG pCO2 63 mmHg (35-45) H 04/29/17 11:25 ABG pO2 77 mmHg (85-104) L 04/29/17 11:25 ABG O2 Saturation 94 % (95-98) L 04/29/17 11:25 Consult Discharge Plan - Plan Referrals: Alana Abraham MD [Primary Care Provider] - 05/09/17 1:30 pm
[2017-05-01] MEDS ORDERED: 0.9 % Sodium Chloride 500 ML ONE (18:59)
[2017-05-02] MEDS: Ipratropium/Albuterol Neb 3 ML IH SCH ×3 (03:33→15:58)
[2017-05-02] MEDS: methylPREDNISolone 125 MG/2 ML VIAL IVP SCH (06:15)
[2017-05-02] MEDS: *HR* Heparin 5,000 UNIT/ML VIAL SQ SCH (06:15)
[2017-05-02] MEDS: *HR* OxyCODONE/APAP 10/325 TABLET PO PRN ×2 (06:16→10:33)
[2017-05-02] MEDS: Azithromycin 500 MG in D5% in Water 250 ML IVPB SCH (06:16)
[2017-05-02] MEDS: Pregabalin 75 MG CAPSULE PO SCH (08:43)
[2017-05-02] MEDS: Aspirin 325 MG TABLET PO SCH (08:43)
[2017-05-02] MEDS: clonazePAM 0.5 MG TABLET PO SCH ×2 (08:43→14:58)
[2017-05-02] MEDS: cefTRIAXone 1,000 MG in Water for inj. (sterile) 20 ML 10 ML IVPB SCH (08:43)
[2017-05-02] MEDS: (Roflumilast [Daliresp] 500 MCG PO SCH (08:44)
--- NOTE | 2017-05-02 10:29 | Electrocardiograph Report ---
[place] [id number] Test Date: 2017-05-01 Pat Name: Effie Dawkins Department: 110 Room: 2N11 Gender: F Manufacturing Engineering Technologist: KELLY : 1960 Requested By: Sea Finley Order Number: [id number] Reading MD: Sid aHgen MD Measurements Intervals [place] Rate: 122 P: [place]: 0 QRS: 42 QRSD: 80 T: 65 QT: 285 QTc: 357 Interpretive Statements SINUS RHYTHM Poor R wave progression Electronically Signed On 05-02-2017 10:27:53 EST by Sid Hagen MD
[2017-05-02] MEDS: Budesonide/Formoterol 160/4.5 MDI IH SCH (10:32)
[2017-05-02] MEDS: Tiotropium 18 MCG inhalation IH SCH (10:33)
[2017-05-02 13:03] VITALS: BP 112/76
--- NOTE | 2017-05-02 16:31 | Discharge Summary ---
Date of Encounter: 05/02/17 Time of Encounter: 11:00 - Discharge Diagnosis (1) Acute respiratory failure with hypoxia and hypercapnia Priority: Primary Status: Acute (2) Acute exacerbation of chronic obstructive airways disease Priority: Primary Status: Acute (3) Hdfow-1-lxdpafbsmzy deficiency Priority: Primary Status: Chronic (4) Rheumatoid arthritis Priority: Secondary Status: Acute Qualifiers: Rheumatoid arthritis location: unspecified site Rheumatoid factor presence : unspecified presence Qualified Code(s): M06.9 - Rheumatoid arthritis, unspecified - Discharge Medications Prescriptions: Metoprolol [Lopressor] 25 mg PO BID #30 tablet Home Medications: Albuterol Sulfate [Albuterol Inhaler] 2 puff IH Q4HR PRN 12/18/14 [History] Aspirin 325 mg PO DAILY 12/18/14 [History] DULoxetine [Cymbalta] 60 mg PO DAILY 12/18/14 [History] Fluticasone/Salmeterol [Advair 500-50 Diskus] 1 each IH BID 12/18/14 [History] Folic Acid 1 mg PO DAILY 12/18/14 [History] GuaiFENesin ER [Mucinex] 600 mg PO BID 12/18/14 [History] Meloxicam [Mobic] 7.5 mg PO DAILY 12/18/14 [History] Methotrexate [Otrexup] 17.5 mg PO TU 12/18/14 [History] Omeprazole [PriLOSEC] 40 mg PO DAILY 12/18/14 [History] OxyCODONE/APAP 10/325 [Percocet 10/325] 1 each PO Q6H PRN 12/18/14 [History] Roflumilast [Daliresp] 500 mcg PO DAILY 12/18/14 [History] Sertraline [Zoloft] 50 mg PO DAILY 12/18/14 [History] clonazePAM [Klonopin] 0.5 mg PO TID #30 tablet 12/22/14 [Rx] Cyclobenzaprine [Flexeril] 10 mg PO TID #30 tablet 06/08/16 [Rx] Pregabalin [Lyrica] 75 mg PO BID #20 capsule 06/08/16 [Rx] Vkjkr-6-Qjjjmftnos Inhibitor [Zemaira] 1,000 mg IV TU 04/28/17 [History] Etanercept [Enbrel] 50 mg SQ TU 04/28/17 [History] Umeclidinium [place] [Incruse Ellipta] 62.5 mcg IH DAILY 04/28/17 [History] Metoprolol [Lopressor] 25 mg PO BID #30 tablet 05/02/17 [Rx] Allergies/Adverse Reactions: 3 Allergy/AdvReac Type Severity Reaction Status Date / Time levofloxacin [From Levaquin] Allergy Swelling Verified 06/08/16 13:53 of Lip/Tongue/Throat morphine Allergy See Verified 06/08/16 13:53 Comments cinnamon [Cinnamon] AdvReac Nausea Verified 06/08/16 13:53 Procedures/tests Complete & Pending: Procedures Performed prior 72 hours Category Date Time Status EKG [ECG 12 lead ECG] [ECG] Routine Y 05/01/17 12:42 Completed Date of admission: 04/29/17 13:55 Primary care physician: Alana Delgado Consults: 04/28/17 03:01 Consult to Human Resources Director [CONS] Routine Reason for SW Consult: advance directives 04/29/17 10:52 Consult to Pulmonology [CONS] Routine Consulting Provider: Pulm Crit Care [facility] Sleep [place] Reason for Consult: copd, increasing shortness of breath. Dr. Finley to call Call Completed: No - Patient Status Disposition: Home Health Service - Discharge Instructions Instructions: Metoprolol (By mouth), Acute Respiratory Distress Syndrome (DC) Follow Up With: Alana Abraham MD [Primary Care Provider] - 05/09/17 1:30 pm Hospital course: Patient is a 57-year-old female with past medical history significant for alpha 1 antitrypsin deficiency with chronic respiratory failure and COPD in addition to being a smoker who presents from [facility], due to 1 week onset of worsening difficulty breathing. Patient has mzcqv-9-ssnvmweozka deficiency, w/o liver involvement, former smoker 2PPD quit 8 years ago currently on 2.5-3L home O2. Patient states she has increased difficulty ambulating and breathing at rest despite compliance to COPD meds, baseline is minimal walking, has a home health aide that visits daily. In the ER at [facility], workup showed negative troponin, negative UA, ABG pH of 7.32, pCO2 of 68, PO2 of 67. Patient responded to bipap in [facility], currently on 40% Fio2, saturating 95%+. She was transferred to [facility] for further medical management. During patients hospital stay pulmonology, was consulted with recommendations that patient follow-up with [facility] as she has been considered for a lung transplant there. Patient also had elevated blood pressures and tachycardia which resolved after increasing her dose of beta ansley. Patient will be discharged to follow-up at the [facility]. - Time Spent with Patient Total time spent providing and/or coordinating discharge services: Less than 30 minutes - Constitutional Vitals: Temp Pulse Resp BP Pulse Ox 98.6 F 82 18 112/76 96 05/02/17 11:15 05/02/17 13:02 05/02/17 16:00 05/02/17 13:02 05/02/17 16:00 General appearance: Present: A&O X 3, no acute distress - Respiratory Respiratory exam: Present: CTAB. Absent: accessory muscle use, rales, rhonchi, wheezes - Cardiovascular Cardiovascular exam: Present: RRR, +S1, +S2. Absent: diastolic murmur, gallop, rubs, systolic murmur
--- NOTE | 2017-05-02 16:33 | Physician Discharge Referral ---
Home Health/Hosp Referral Info Transfer to: Home Health - Diagnosis (1) Acute respiratory failure with hypoxia and hypercapnia Priority: Primary Status: Acute (2) Acute exacerbation of chronic obstructive airways disease Priority: Primary Status: Acute (3) Qcshe-4-kayylktxgnj deficiency Priority: Primary Status: Chronic (4) Rheumatoid arthritis Priority: Secondary Status: Acute - Respiratory Orders Smoking Cessation: Smoking cessation has been advised. For more information, call the [place] Tobacco Quit Line at 2-205-WKDA-NOW. - Services Needed Following services are medically necessary services: Physical Therapy - Transfer Medications Prescriptions: Metoprolol [Lopressor] 25 mg PO BID #30 tablet Home Medications: Albuterol Sulfate [Albuterol Inhaler] 2 puff IH Q4HR PRN 12/18/14 [History] Aspirin 325 mg PO DAILY 12/18/14 [History] DULoxetine [Cymbalta] 60 mg PO DAILY 12/18/14 [History] Fluticasone/Salmeterol [Advair 500-50 Diskus] 1 each IH BID 12/18/14 [History] Folic Acid 1 mg PO DAILY 12/18/14 [History] GuaiFENesin ER [Mucinex] 600 mg PO BID 12/18/14 [History] Meloxicam [Mobic] 7.5 mg PO DAILY 12/18/14 [History] Methotrexate [Otrexup] 17.5 mg PO TU 12/18/14 [History] Omeprazole [PriLOSEC] 40 mg PO DAILY 12/18/14 [History] OxyCODONE/APAP 10/325 [Percocet 10/325] 1 each PO Q6H PRN 12/18/14 [History] Roflumilast [Daliresp] 500 mcg PO DAILY 12/18/14 [History] Sertraline [Zoloft] 50 mg PO DAILY 12/18/14 [History] clonazePAM [Klonopin] 0.5 mg PO TID #30 tablet 12/22/14 [Rx] Cyclobenzaprine [Flexeril] 10 mg PO TID #30 tablet 06/08/16 [Rx] Pregabalin [Lyrica] 75 mg PO BID #20 capsule 06/08/16 [Rx] Xtgeo-1-Ejpabwbcad Inhibitor [Zemaira] 1,000 mg IV TU 04/28/17 [History] Etanercept [Enbrel] 50 mg SQ 04/28/17 [History] Umeclidinium [place] [Incruse Ellipta] 62.5 mcg IH DAILY 04/28/17 [History] Metoprolol [Lopressor] 25 mg PO BID #30 tablet 05/02/17 [Rx] Allergies/Adverse Reactions: 3 Allergy/AdvReac Type Severity Reaction Status Date / Time levofloxacin [From Levaquin] Allergy Swelling Verified 06/08/16 13:53 of Lip/Tongue/Throat morphine Allergy See Verified 06/08/16 13:53 Comments cinnamon [Cinnamon] AdvReac Nausea Verified 06/08/16 13:53 Certification: Further, I certify that my clinical findings support that this patient is homebound (i.e. absences from home require considerable and taxing effort and are for medical reasons or mormon services or infrequently or short duration when for other reasons) because: Homebound Reason: Patient requires assistance of a person or device to safely leave home Attestation: My signature below is to certify that this patient is under my care and that I, or nurse practitioner, or a physician's assistant service manager working with me, has a face-to -face encounter with this patient.
[2017-05-03] MEDS ORDERED: Azithromycin 250 MG TABLET PO SCH (06:00)
== END 2017-05-02 16:40 | disposition home health service (06) | DRG 190 ==
LOC: 2NNU → SUATTDRO 04-28 01:44
PROVIDERS: ADMIT Internal Medicine; ATTEND Hospitalist

== ENCOUNTER 2018-06-05 17:20 | Inpatient (IN) ==
--- NOTE | 2018-06-05 20:20 | Internal Med History&Physical ---
Addendum entered and electronically signed by Magdi Ornelas MD 06/06/18 01:02: NOTE: Date and time of my encounter was 06-05-18 at 22:35, not 06-06-18. Original Note: <Evans Rosario S - Last Filed: 06/05/18 22:02> Date of Encounter: 06/05/18 Time of Encounter: 20:19 Internal Medicine - H&P: HPI Chief complaint: "short of breath" Admitted From: Hospital to Hospital Transfer Plans for Post Hospital Care: Home History of present illness: Ms. Dawkins is a 58 year old female w/ PMH of anxiety, GERD, rheumatoid arthritis, COPD on 2L, and alpha 1 antitrypsin deficinecy. She presented to the hospital as a [facility] transfer. reported a 4 day hx of increasing AMS and increasing cough. Pt reports that she had to turn oxygen up from 2 to 6 L and was having a hard time completing ADL, including walking from the couch to the bathroom. She does have a hx of A1AT and is in need of a lung transplant. reported that the pt began having a hard time telling him who she was or where she was. She was extremely disoriented. He denies that she has had any recent falls or head trauma. She reported that she has had increasing sputum production and that the color has changed. She has had increasing dyspnea on exertion. She denies any chest pain, N/V/D, or constipation. She denies any current confusion. She had a BM last night. At [facility] the pt had a CXR which was negatvie for acute cardiopulmonary process. Troponin negative. CBC and BMP unremarkable. She was given a dose of duonebs and transferred to [facility] for further workup and evaluation. Past Med Surg Social Fam HX - Past Medical History Medical history: asthma, COPD, fibromyalgia, hypertension, RA, other Additional medical history: Reynaud's disease, Alpha-1 Anti Tripson, emphasema, Psychiatric history: anxiety - Past Surgical History Additional surgical history: Trach, Tonsillectomy, Peg Tube, abdominal surgery r/t infection - Social History Smoking Status: Former smoker Smokeless Tobacco Status: No Alcohol use: none Drug use: none - Family History Father Family Member Ethnicity: Non- Living Status: Hx Family Cardiac Disorders: No Hx Family Respiratory Disorders: No Hx Family Cancer: Yes Hx Family GI Disorders: No Hx Family Endocrine Disorder: Yes Hx Family Neuromuscular Disorders: No Hx Family Neurologic Disorders: No Hx Family HEENT Disorders: No Hx Family Autoimmune Disorders: No Internal Medicine - H&P: Meds Albuterol Sulfate [Albuterol Inhaler] 1 puff IH Q4-6H PRN 06/05/18 [History] Cyclobenzaprine [Flexeril] mg PO HS 06/05/18 [History] Etanercept 06/05/18 [History] Fluticasone/Salmeterol [Advair 250-50 Diskus] 1 each IH BID 06/05/18 [History] Folic Acid 1 mg PO DAILY 06/05/18 [History] Methotrexate [Otrexup] PO DAILY 06/05/18 [History] Omeprazole [PriLOSEC] 40 mg PO DAILY 06/05/18 [History] OxyCODONE/APAP 5/325 [Percocet 5/325 MG] 1 each PO Q6-8H PRN 06/05/18 [History] Tiotropium [Spiriva] 18 mcg IH DAILY 06/05/18 [History] clonazePAM [Clonazepam] 0.5 mg PO TID 06/05/18 [History] Allergy/AdvReac Type Severity Reaction Status Date / Time levofloxacin [From Levaquin] Allergy Swelling Verified 06/08/16 13:53 of Lip/Tongue/Throat morphine Allergy See Verified 06/08/16 13:53 Comments cinnamon [Cinnamon] AdvReac Nausea Verified 06/08/16 13:53 All Systems PM: A 10-system review of systems was performed and is negative for pertinent find ings except as documented above in the HPI. - Constitutional Constitutional: chills, fever(s) - Cardiovascular Cardiovascular ROS IM: dyspnea, dyspnea on exertion, no chest pain - Respiratory Respiratory: cough, dyspnea, dyspnea on exertion, chest congestion, excessive phlegm production, change in phlegm color - Gastrointestinal Gastrointestinal: abdominal pain, no constipation, no nausea, no vomiting - Genitourinary Genitourinary: no urinary frequency, no urinary hesitancy, no urinary urgency - Musculoskeletal Musculoskeletal ROS IM: back pain - Integumentary Integumentary IM: no non-healing lesions, no rash, no jaundice - Neurological Neurological ROS: frequent falls, weakness - Psychiatric Psychiatric: behavioral changes - Endocrine Endocrine IM: fatigue - Hematologic/Lymphatic Hematologic/Lymphatic: no easy bruising - Constitutional Vitals: Temp Pulse Resp BP Pulse Ox 100.0 F H 105 15 126/85 97 06/05/18 07:15 06/05/18 07:15 06/05/18 07:15 06/05/18 07:15 06/05/18 07:15 General appearance: Present: cooperative, A&O X 3, pleasant Exam: x - Head Head exam: Present: atraumatic, normocephalic - Eye Eye exam: Present: sclera anicteric - ENT Additional comments: BiPAP in place - Neck Neck exam general surgery: Present: trachea midline - Respiratory Respiratory exam: Present: decreased breath sounds, prolonged expiratory phase. Absent: accessory muscle use, respiratory distress, rhonchi, stridor, wheezes - Expanded Respiratory Exam Location: decreased breath sounds: Left, Right, Upper, Lower - Cardiovascular Cardiovascular exam: Present: +S1, +S2, tachycardia. Absent: clicks, gallop, JVD, rubs - GI/Abdominal GI/Abdominal exam: Present: firm, tenderness, no peritoneal signs. Absent: distended, guarding, rebound, rigid - Extremities Exam Extremities exam: Present: normal capillary refill, normal inspection. Absent: calf tenderness, tenderness - Back Exam Back exam: Absent: rash noted - Neurological Exam Neurological exam: Present: alert, oriented X3, no focal deficits - Psychiatric Psychiatric exam: Present: normal affect, normal mood - Skin Skin exam: Present: dry, intact, warm Internal Med - H&P Results - Labs CBC & Chem 7: 06/05/18 21:13 06/05/18 21:13 - Assessment and plan (1) Acute exacerbation of chronic obstructive airways disease Current Visit: No Status: Acute Assessment and plan: 58yo female presents with increasing SOB and AMS x 4 days. [facility] transfer. - has had increasing SOB and sputum production, change of sputum color - increasing oxygen demands, increased 2L to 6L - unable to complete ADL and has had increasing trouble walking to bathroom from couch - reported AMS, unable to tell him where she was or what was going on At [facility] the pt had a negative CXR for acute cardopulmonary process - does NOT meet sepsis criteria; only SIRS criteria met is for HR of 105 - initial WBC count at [facility] was WNL EKG negative for acute ST changes at [facility] - HR was 124, normal axis, normal intervals - troponin negative ABG showed a respiratory acidosis - pH 7.19, pCO2 93, HCO3 35 - repeat ABG showed pH 7.2, pCO2 86, HCO3 36 Plan: - duonebs q4hr scheduled - ABG stat, with repeat in AM - CBC and BMP in AM - IV steroids 80mg q6hr - continue BiPAP, spoke to pt about CODE STATUS and she wishes to remain a FULL CODE she will want intubation if needed, however, at this time she is protecting her airway - NPO now - consult to pulmonology, known to Dr. Hawley. Will call in AM. - at this time will not start abx as pt is afebrile with no WBC count, CXR negative (2) [id number] deficiency Current Visit: No Status: Chronic Assessment and plan: Contributing to COPD exacerbation - pt has chronic hx of A1AT deficiency - is currently on lung transplant list (3) Altered mental status Current Visit: Yes Status: Acute Assessment and plan: Likely secondary to COPD exacerbation with respiratory acidosis, CO2 of 91 at [facility] - check ammonia - see plan as above - has largely resolved, pt is AOx3 and able to give hx of illness Qualifiers: Altered mental status type: disorientation Qualified Code(s): R41.0 - Disorientation, unspecified (4) Acute respiratory failure with hypoxia and hypercapnia Current Visit: No Status: Acute Assessment and plan: Acute on chronic - pt with increasing oxygen demands has required increasing 2L ---> 6L (5) Anxiety Current Visit: No Status: Acute Assessment and plan: On clonazepam - will switch to IV lorazepam 0.5mg , holding home PO meds (6) DVT prophylaxis Current Visit: No Status: Acute Assessment and plan: sq Heparin (7) Rheumatoid arthritis Current Visit: No Status: Acute Assessment and plan: Chronic - on MTX and etancercept Qualifiers: Rheumatoid arthritis location: unspecified site Rheumatoid factor presence: unspecified presence Qualified Code(s): M06.9 - Rheumatoid arthritis, unspecified (8) GERD (gastroesophageal reflux disease) Current Visit: No Status: Chronic Assessment and plan: Takes Prilosec at home, will hold home PO meds for now. Qualifiers: Esophagitis presence: esophagitis presence not specified Qualified Code(s): K21.9 - Gastro-esophageal reflux disease without esophagitis (9) Back pain Current Visit: No Status: Chronic Assessment and plan: Has chronic hx of LBP, no new changes - takes percocet at home, will hold home PO meds for now Qualifiers: Back pain location: low back pain Chronicity: chronic Back pain laterality: unspecified Sciatica presence: unspecified whether sciatica present Qualified Code(s): M54.5 - Low back pain; G89.29 - Other chronic pain - Time Spent With Patient Total time spent is greater than 50% in coordination of care (as documented) at patient's floor/unit and/or counseling patient: 25 - 35 minutes <Magdi Ornelas - Last Filed: 06/06/18 00:58> Date of Encounter: 06/06/18 Time of Encounter: 22:35 - Constitutional Constitutional: chills, fever(s) - EENT Ears: no ear pain, no tinnitus Nose, mouth and throat: nasal congestion, no sinus pressure, no sore throat - Cardiovascular Cardiovascular ROS IM: dyspnea, dyspnea on exertion - Respiratory Respiratory: cough, dyspnea on exertion, chest congestion, excessive phlegm production, change in phlegm color - Gastrointestinal Gastrointestinal: abdominal pain, no diarrhea, no vomiting - Constitutional Vitals: Temp Pulse Resp BP Pulse Ox 99.6 F 112 21 115/68 100 06/05/18 23:56 06/05/18 23:56 06/05/18 23:56 06/05/18 23:56 06/05/18 23:56 General appearance: Present: cooperative, A&O X 3, pleasant Exam: moderate respiratory distress, especially off BiPap - Head Head exam: Present: normal inspection - Eye Eye exam: Present: EOMI, PERRL. Absent: scleral icterus - ENT ENT exam: Present: mucous membranes dry, normal exam - Neck Neck exam general surgery: Present: supple, trachea midline - Respiratory Respiratory exam: Present: decreased breath sounds, prolonged expiratory phase, respiratory distress, rhonchi, wheezes, tachypnea - Cardiovascular Cardiovascular exam: Present: distant heart sounds, +S1, +S2. Absent: diastolic murmur, systolic murmur - GI/Abdominal GI/Abdominal exam: Present: normal bowel sounds, soft. Absent: tenderness - Extremities Exam Extremities exam: Present: normal capillary refill, warm, radial pulses palpable and symmetrical. Absent: calf tenderness, pedal edema, tenderness - Neurological Exam Neurological exam: Present: alert, oriented X3, no focal deficits - Psychiatric Psychiatric exam: Present: normal affect, normal mood Internal Med - H&P Results - Labs CBC & Chem 7: 06/05/18 21:13 06/05/18 21:13 Labs: Short CBC 06/05/18 Range/Units 21:13 WBC 6.6 (4.3-11.1) K/mcL Hgb 10.1 L (11.5-15.4) g/dL Hct 32.8 L (35.3-44.9) % Plt Count 286 (140-400) K/mcL Neutrophils # 3.8 (1.6-8.9) K/mcL BMP 06/05/18 21:13 Sodium 140 Potassium 4.0 Chloride 101 Carbon Dioxide 33 H BUN 10 Creatinine 0.81 Glucose 87 Calcium 9.2 Liver Function 06/05/18 Range/Units 21:13 Total Bilirubin 0.3 (0.3-1.0) mg/dL Direct Bilirubin 0.1 (0.0-0.2) mg/dL AST 14 (13-39) Units/L ALT 13 (7-52) Units/L Alkaline Phosphatase 80 (34-104) Units/L Albumin 3.7 (3.5-5.7) g/dL - ABG Interpretation ABG results: 06/05/18 20:30 ABG pH 7.30 L ABG pCO2 72 H* ABG pO2 89 ABG HCO3 35 H ABG Total CO2 37 H ABG O2 Saturation 95 ABG Base Excess 6 H - Time Spent With Patient Total time spent is greater than 50% in coordination of care (as documented) at patient's floor/unit and/or counseling patient: - Attending Attestation I discussed the patient [place], past medical history, review of systems, lab findings, and exam findings, and imaging findings from [facility] with Dr. Rosario. I then saw and examined and assessed patient independently as well. I met with both patient and her as well. Patient is currently being worked up at [facility] for lung transplantation. She is not officially on the transplant list. However, she is being followed closely by her funeral arranger in [place], Dr. Clark. He referred her to [facility] for lung transplant workup. She is dependent on her BiPAP now almost 24 hours a day for the last several weeks. Despite this, she was having increasing difficulty breathing, hypoxemia, and now with altered mental status. She has had subjective fevers, mucopurulent productive cough, and some GI upset. Based upon that, I would add antibiotics, culture sputum, and aggressively treat her COPD flareup. We will consult our pulmonologists. However, if she declines any further, I have a very low threshold to contact [facility] and transfer her there for further specialty care and possible transplantation workup. She and her voiced understanding and agreed to plan of care. Other than my documentation above and noted physical exam findings, I agree with Dr. Rosario's assessment and plan.
[2018-06-05] MEDS ORDERED: Ipratropium/Albuterol Neb 3 ML IH SCH (20:30)
[2018-06-05] MEDS: Ipratropium/Albuterol Neb 3 ML IH SCH ×2 (20:31→23:38)
[2018-06-05 20:48] LABS: ABG Base Excess 6 mEq/L (-2 to 3); ABG HCO3 35 mEq/L (21-27); ABG Oxygen Saturation 95 % (95-98); ABG PCO2 72 mmHg (35-45); ABG PO2 89 mmHg (85-104); ABG TCO2 37 mEq/L (20-26); Blood Gas Modality BIVENT; Blood Gas PEEP 6 cm H2O; Blood Gas Respiration Rate 10
[2018-06-05 21:32] LABS: Basophils % 0.6 %; Eosinophils % 0.3 %; Hematocrit 32.8 % (35.3-44.9); Hemoglobin 10.1 g/dL (11.5-15.4); Immature Granulocytes % 0.5 % (0-4); Lymphocytes # 1.8 K/mcL (0.6-4.6); Lymphocytes % 27.2 %; Mean Corpuscular HGB Conc 30.8 g/dL (31.6-35.5); Mean Corpuscular Hemoglobin 28.5 pg (28.0-33.3); Mean Corpuscular Volume 92.4 fL (83.0-100.0); Mean Platelet Volume 10.1 fL (9.4-12.4); Monocytes # 0.9 K/mcL (0.0-1.3); Monocytes % 14.1 %; Neutrophils # 3.8 K/mcL (1.6-8.9); Nucleated Red Blood Cells 0.3 /100 WBC (0); Platelet Count 286 K/mcL (140-400); Red Blood Count 3.55 M/mcL (3.82-4.97); Red Cell Distribution Width 13.4 % (11.5-14.5); Segmented Neutrophils % 57.3 %
[2018-06-05] MEDS: *HR* Heparin 5,000 UNIT/ML VIAL SQ SCH (21:43)
[2018-06-05 21:49] LABS: Alanine Aminotransferase 13 Units/L (7-52); Albumin 3.7 g/dL (3.5-5.7); Albumin/Globulin Ratio 1.4 (1.1-2.2); Alkaline Phosphatase 80 Units/L (34-104); Aspartate Amino Transferase 14 Units/L (13-39); BUN/Creatinine Ratio 12 (6-26); Bilirubin,Direct 0.1 mg/dL (0.0-0.2); Bilirubin,Indirect 0.2 mg/dL (0.0-1.2); Bilirubin,Total 0.3 mg/dL (0.3-1.0); Blood Urea Nitrogen 10 mg/dL (6-20); Calcium 9.2 mg/dL (8.6-10.3); Carbon Dioxide 33 mEq/L (23-29); Chloride 101 mEq/L (98-107); Globulin 2.7 g/dL (2.4-3.5); Glucose 87 mg/dL (70-105); Osmolality,Calculated 288 (280-300); Sodium 140 mEq/L (136-145); Total Protein 6.4 g/dL (6.4-8.9); eGFR For Non-African Americans > 60 (> 60)
[2018-06-05] MEDS ORDERED: Levalbuterol Neb 1.25 MG/3 ML IH SCH (22:00)
[2018-06-06] MEDS: *HR* LORazepam 2 MG/ML VIAL IVP SCH ×3 (00:09→17:04)
[2018-06-06] MEDS: methylPREDNISolone 125 MG/2 ML VIAL IVP SCH ×4 (00:09→17:04)
[2018-06-06] MEDS ORDERED: Albuterol 2.5 MG/3 ML NEBULIZER IH PRN (00:45)
[2018-06-06] MEDS: cefTRIAXone 2,000 MG in Water for inj. (sterile) 20 ML 20 ML IVPB SCH (01:43)
[2018-06-06] MEDS: Azithromycin 500 MG in D5% in Water 250 ML IVPB SCH (01:47)
[2018-06-06] MEDS: Ipratropium/Albuterol Neb 3 ML IH SCH ×2 (04:24→07:17)
[2018-06-06 04:46] LABS: ABG Base Excess 6 mEq/L (-2 to 3); ABG HCO3 35 mEq/L (21-27); ABG Oxygen Saturation 94 % (95-98); ABG PCO2 76 mmHg (35-45); ABG PH 7.27 pH Units (7.32-7.45); ABG PO2 86 mmHg (85-104); ABG TCO2 37 mEq/L (20-26); Blood Gas PEEP 6 cm H2O
[2018-06-06] MEDS: *HR* Heparin 5,000 UNIT/ML VIAL SQ SCH ×2 (04:59→17:05)
[2018-06-06] MEDS: Artificial Tears SOLN 15 ML BOTTLE BOTH EYES SCH ×5 (05:39→21:08)
--- NOTE | 2018-06-06 08:47 | Pulmonology Consult Note ---
<Norma Connors - Last Filed: 06/06/18 16:38> Date of Encounter: 06/06/18 Time of Encounter: 09:00 Assessment and Plan (1) Acute respiratory failure with hypercapnia Current Visit: Yes Status: Acute 58 year old female presented with increased shortness of breath as well as confusion for the past 4 days, secondary to underlying lung disease. Her oxygen demand increased from 2 L to 6 L she was unable to ambulate due to increased dyspnea. Her ABG is at [facility] showed: pH 7.19, pCO2 93, HCO3 35. This morning pH 7.27, pCO2 76, HCO3 35. -Continue DuoNeb's -Continue home daliresp -Continue theophylline (2) Acute exacerbation of chronic obstructive airways disease Current Visit: Yes Status: Acute 58 year old female presented with increased shortness of breath as well as confusion for the past 4 days, secondary to underlying lung disease. Her oxygen demand increased from 2 L to 6 L she was unable to ambulate due to increased dyspnea. Her ABG is at [facility] showed: pH 7.19, pCO2 93, HCO3 35. This morning pH 7.27, pCO2 76, HCO3 35. -Continue DuoNeb's -Continue supplemental oxygen, titrate as tolerated (3) Zjjqb-[id number] deficiency Current Visit: Yes Status: Chronic History of alpha-1 antitrypsin deficiency was diagnosed 13 years ago. Follows with [facility] for lung transplant workup. Currently getting immunologic therapy with Zemaira once a week. History of Present Illness Consult date: 06/05/18 Requesting physician: Evans Rosario Reason for consult: dyspnea Chief complaint: shortness of breath History of present illness: Ms. Dawkins is 58-year-old female with past medical history of anxiety, GERD, rheumatoid arthritis, COPD on home 2 L of oxygen. Also has history of alpha-1 antitrypsin deficiency and follows with a blaster helper at [place]. He additionally noted that she sees a lung transplant physician at [facility] but is currently not on the lung transplant list. He was presented to the hospital because for the past 4 days per she has had increased confusion as well as cough. She had also increased her luminal oxygen from 2 L to 6 L. She also noted increased dyspnea on exertion. She denies fever, chills, chest pain, nausea or emesis. Past Med Surg Social Fam HX - Past Medical History Medical history: asthma, COPD, fibromyalgia, hypertension, RA, other Additional medical history: Reynaud's disease, Alpha-1 Antitripsyn, emphasema, Psychiatric history: anxiety - Past Surgical History Additional surgical history: Trach, Tonsillectomy, Peg Tube, abdominal surgery r/t infection - Social History Smoking Status: Former smoker Smokeless Tobacco Status: No Alcohol use: none Drug use: none - Family History Father Family Member Ethnicity: Non- Living Status: Hx Family Cardiac Disorders: No Hx Family Respiratory Disorders: No Hx Family Cancer: Yes Hx Family GI Disorders: No Hx Family Endocrine Disorder: Yes Hx Family Neuromuscular Disorders: No Hx Family Neurologic Disorders: No Hx Family HEENT Disorders: No Hx Family Autoimmune Disorders: No Medications and Allergies 0.9 % Sodium Chloride [Normal Saline Flush] 10 ml IV AD PRN 06/06/18 [History] Acetaminophen [Acetaminophen ER] 650 mg PO Q4H PRN 06/06/18 [History] Csilo-2-[id number] Inhibitor [Zemaira] 3,816 mg IV QWEEK 06/06/18 [History] Aspirin Enteric Coated [Aspirin EC] 81 mg PO DAILY 06/06/18 [History] Atenolol [Tenormin] 12.5 mg PO BID 06/06/18 [History] Atorvastatin [Lipitor] 40 mg PO HS 06/06/18 [History] Azithromycin [Zithromax] 250 mg PO MOWEFR 06/06/18 [History] Cyclobenzaprine [Flexeril] 10 mg PO TID PRN 06/06/18 [History] DULoxetine [Cymbalta] 30 mg PO DAILY 06/06/18 [History] Etanercept [Enbrel] 50 mg SQ QWEEK 06/06/18 [History] Guaifenesin [Mucinex] 1,200 mg PO BID 06/06/18 [History] Meloxicam [Mobic] 7.5 mg PO DAILY 06/06/18 [History] Omeprazole [PriLOSEC] 40 mg PO DAILY 06/06/18 [History] Oxycodone HCl/Acetaminophen [Percocet 10-325 mg Tablet] 1 each PO TID PRN 06/06/18 [History] Potassium Chloride [Klor-Con 10] 10 meq PO DAILY 06/06/18 [History] Pregabalin [Lyrica] 75 mg PO BID 06/06/18 [History] RX: Folic Acid 1 mg PO DAILY 06/06/18 [History] RX: Heparin LOCK 500 unit IV AD PRN 06/06/18 [History] RX: Oxygen 3 l .ROUTE CONT 06/06/18 [History] Roflumilast [Daliresp] 500 mcg PO DAILY 06/06/18 [History] Sennosides [Senokot] 1 tab PO DAILY 06/06/18 [History] Sulfasalazine [Azulfidine] 500 mg PO DAILY 06/06/18 [History] Theophylline Anhydrous [Aubrey-24] 100 mg PO BID 06/06/18 [History] Umeclidinium [place] [Incruse Ellipta] 62.5 mcg IH DAILY 06/06/18 [History] clonazePAM [Clonazepam] 0.5 mg PO TID PRN 06/06/18 [History] Allergy/AdvReac Type Severity Reaction Status Date / Time levofloxacin [From Levaquin] Allergy Swelling Verified 06/08/16 13:53 of Lip/Tongue/Throat morphine Allergy See Verified 06/08/16 13:53 Comments cinnamon [Cinnamon] AdvReac Nausea Verified 06/08/16 13:53 All Systems: The remainder of the systems were reviewed and are negative - Constitutional Constitutional: weakness, no chills, no fever(s) - EENT Nose, mouth and throat: no dysphagia, no epistaxis - Cardiovascular Cardiovascular: dyspnea, dyspnea on exertion, no chest pain, no chest pain at rest, no palpitations - Respiratory Respiratory: dyspnea, dyspnea on exertion, no cough, no excessive phlegm produc tion - Gastrointestinal Gastrointestinal: no abdominal pain, no diarrhea - Integumentary Integumentary: no erythema, no rash - Neurological Neurological: confusion (Resolved), no focal weakness, no numbness, no paresthesias, no syncope - Hematologic/Lymphatic Hematologic/Lymphatic: no easy bleeding, no easy bruising Physical Examination Vital Signs: Vital Signs, Last 4 Hours Temp Pulse Resp BP Pulse Ox 06/06/18 07:48 98.3 F 109 20 98/62 90 06/06/18 07:22 24 100 06/06/18 07:18 19 95 06/06/18 05:20 78 General appearance: no acute distress Eyes: nonicteric ENT: oropharynx moist Neck: supple Auscultation: bilateral: diminished breath sounds Cardiovascular: regular rate and rhythm Gastrointestinal: normoactive bowel sounds, soft, non-tender, non-distended Extremities: no cyanosis, no edema normal mental status, pupils equal and round mood appropriate, affect normal Ventilator Settings Ventilator Settings: Ventilator Settings, Last 8 Hours Ventilator Respiratory Rate 10 Setting Results - Laboratory Findings CBC and BMP: 06/06/18 12:00 06/06/18 12:00 ABG ABG pH 7.27 pH Units (7.32-7.45) L 06/06/18 04:41 ABG pCO2 76 mmHg (35-45) H* 06/06/18 04:41 ABG pO2 86 mmHg (85-104) 06/06/18 04:41 ABG O2 Saturation 94 % (95-98) L 06/06/18 04:41 Abnormal lab findings: Abnormal lab results RBC 3.55 M/mcL (3.82-4.97) L 06/05/18 21:13 Hgb 10.1 g/dL (11.5-15.4) L 06/05/18 21:13 Hct 32.8 % (35.3-44.9) L 06/05/18 21:13 MCHC 30.8 g/dL (31.6-35.5) L 06/05/18 21:13 Nucleated RBCs/100 WBC 0.3 /100 WBC (0) H 06/05/18 21:13 ABG pH 7.27 pH Units (7.32-7.45) L 06/06/18 04:41 ABG pCO2 76 mmHg (35-45) H* 06/06/18 04:41 ABG HCO3 35 mEq/L (21-27) H 06/06/18 04:41 ABG Total CO2 37 mEq/L (20-26) H 06/06/18 04:41 ABG O2 Saturation 94 % (95-98) L 06/06/18 04:41 ABG Base Excess 6 mEq/L (-2 to 3) H 06/06/18 04:41 Carbon Dioxide 33 mEq/L (23-29) H 06/05/18 21:13 - Microbiology Findings Microbiology Findings: Microbiology, Last 48 Hours 06/06/18 01:29 Respiratory Syncytial Virus Ag - Final Nasopharyngeal Influenza Types A,B Antigen - Final 06/05/18 21:13 Blood Culture - Preliminary Peripheral Venipuncture Culture is incubating and being continuously monitored for growth. Final report to follow. 06/05/18 21:11 Blood Culture - Preliminary Peripheral Venipuncture Culture is incubating and being continuously monitored for growth. Final report to follow. - Clinical Findings Intake & Output: Intake & Output 06/05/18 06/06/18 06/06/18 23:59 07:59 15:59 Intake Total Output Total 500 / 500 Balance -480 / -480 Weight 64.6 kg Consult Discharge Plan - Plan Referrals: Alana Abraham MD [Non-Partnered Physician] - 06/13/18 2:00 pm <Kumar Hawley - Last Filed: 06/06/18 22:41> Date of Encounter: 06/06/18 All Systems: The remainder of the systems were reviewed and are negative Physical Examination Vital Signs: Vital Signs, Last 4 Hours Temp Pulse Resp BP Pulse Ox 06/06/18 22:16 19 130/76 100 06/06/18 19:45 98.6 F 115 20 130/76 98 Results - Laboratory Findings CBC and BMP: 06/06/18 12:00 06/06/18 12:00 ABG ABG pH 7.27 pH Units (7.32-7.45) L 06/06/18 04:41 ABG pCO2 76 mmHg (35-45) H* 06/06/18 04:41 ABG pO2 86 mmHg (85-104) 06/06/18 04:41 ABG O2 Saturation 94 % (95-98) L 06/06/18 04:41 Abnormal lab findings: Abnormal lab results WBC 3.2 K/mcL (4.3-11.1) L D 06/06/18 12:00 RBC 3.72 M/mcL (3.82-4.97) L 06/06/18 12:00 Hgb 10.6 g/dL (11.5-15.4) L 06/06/18 12:00 Hct 33.8 % (35.3-44.9) L 06/06/18 12:00 MCHC 31.4 g/dL (31.6-35.5) L 06/06/18 12:00 Nucleated RBCs/100 WBC 0.6 /100 WBC (0) H 06/06/18 12:00 ABG pH 7.27 pH Units (7.32-7.45) L 06/06/18 04:41 ABG pCO2 76 mmHg (35-45) H* 06/06/18 04:41 ABG HCO3 35 mEq/L (21-27) H 06/06/18 04:41 ABG Total CO2 37 mEq/L (20-26) H 06/06/18 04:41 ABG O2 Saturation 94 % (95-98) L 06/06/18 04:41 ABG Base Excess 6 mEq/L (-2 to 3) H 06/06/18 04:41 Carbon Dioxide 32 mEq/L (23-29) H 06/06/18 12:00 Glucose 149 mg/dL (70-105) H 06/06/18 12:00 - Microbiology Findings Microbiology Findings: Microbiology, Last 48 Hours 06/06/18 01:29 Respiratory Syncytial Virus Ag - Final Nasopharyngeal Influenza Types A,B Antigen - Final 06/05/18 21:13 Blood Culture - Preliminary Peripheral Venipuncture Culture is incubating and being continuously monitored for growth. Final report to follow. 06/05/18 21:11 Blood Culture - Preliminary Peripheral Venipuncture Culture is incubating and being continuously monitored for growth. Final report to follow. - Clinical Findings Intake & Output: Intake & Output 06/06/18 06/06/18 06/06/18 07:59 15:59 23:59 Intake Total 850 / 850 0 / 0 Output Total 500 / 500 1350 / 1350 200 / 200 Balance -480 / -480 -500 / -500 -200 / -200 - Attending Attestation I examined this patient and my medical decision-making was reviewed with the Resident Physician. I agree with the documented findings, disposition and kwame atment plan as described except to the extent set forth below. Patient seen and examined. Labs, radiology, chart personally reviewed. Agree with resident's history and physical, assessment, plan with following comments: DUST HANDLER: Patient follows commands, Pulmonary: Acceptable oxygenation and ventilation. this is very pleasant patient who is known to me and she has history of alpha-1 antitrypsin deficiency and I suspect her condition is worsening. She has never been listed for lung transplant, but she has been seen by the team in [facility]. I had long discussion with the patient and her family at the bedside in the presence of the nurse and in my opinion since she already has an appointment this month to follow up with transplant team and her overall condition stable at this time and does not need to be transferred to [facility] since most likely nothing will be done, but to treat her what looks like exacerbation with systemic steroid and bronchodilators, they agreed to wait for now and to keep her appointment this month with them. Continue BiPAP when necessary and at night and wean off FiO2 to keep SPO2 around 90%. As far as augmentation therapy for alpha-1 antitrypsin deficiency, there is no strong data to suggest it will change the outcome for her saturations. Thank you For consultation and we will continue follow-up.
[2018-06-06] MEDS ORDERED: Perflutren Lipid Microsphere 1.3 ML in 0.9 % Sodium Chloride 8.7 ML IVP ONE (10:51)
[2018-06-06 12:30] LABS: Basophils % 0.6 %; Hematocrit 33.8 % (35.3-44.9); Hemoglobin 10.6 g/dL (11.5-15.4); Immature Granulocytes % 0.3 % (0-4); Lymphocytes % 26.7 %; Mean Corpuscular HGB Conc 31.4 g/dL (31.6-35.5); Mean Corpuscular Hemoglobin 28.5 pg (28.0-33.3); Mean Corpuscular Volume 90.9 fL (83.0-100.0); Mean Platelet Volume 10.4 fL (9.4-12.4); Monocytes # 0.1 K/mcL (0.0-1.3); Monocytes % 3.8 %; Neutrophils # 2.2 K/mcL (1.6-8.9); Nucleated Red Blood Cells 0.6 /100 WBC (0); Platelet Count 329 K/mcL (140-400); Red Blood Count 3.72 M/mcL (3.82-4.97); Red Cell Distribution Width 13.2 % (11.5-14.5); Segmented Neutrophils % 68.6 %
[2018-06-06 12:31] LABS: Lymphocytes # 0.9 K/mcL (0.6-4.6)
[2018-06-06 12:50] LABS: BUN/Creatinine Ratio 14 (6-26); Blood Urea Nitrogen 12 mg/dL (6-20); Calcium 9.5 mg/dL (8.6-10.3); Carbon Dioxide 32 mEq/L (23-29); Chloride 100 mEq/L (98-107); Glucose 149 mg/dL (70-105); Osmolality,Calculated 295 (280-300); Potassium 3.8 mEq/L (3.5-5.1); Sodium 141 mEq/L (136-145); eGFR For Non-African Americans > 60 (> 60)
--- NOTE | 2018-06-06 14:14 | Internal Med Progress Note ---
<Augusto Mackey - Last Filed: 06/06/18 17:35> Hospitalist Progress Note - Encounter Date of Encounter: 06/06/18 Time of Encounter: 09:00 - Subjective Interval History: Ms. Dawkins is a 58 year old female w/ PMH of anxiety, GERD, rheumatoid arthritis, COPD on 2L, and alpha 1 antitrypsin deficinecy. She presented to the hospital as a fany transfer. Today she appears well nourished, well developed in moderate distress. Her oxygen was up to 6 L at home but she is now at 4 L of oxygen with 99% saturation when I saw her. She reports a cough w/ a blackish sputum over the last couple of days. She believes her breathing is better this morning. She is afebrile. - Exam Vitals: Temp Pulse Resp BP Pulse Ox 98.5 F 114 19 116/77 97 06/06/18 11:31 06/06/18 11:50 06/06/18 11:31 06/06/18 11:50 06/06/18 11:50 Exam: General appearance: Present: cooperative, A&O X 3 Exam: - Head Head exam: Present: atraumatic, normocephalic - ENT ENT exam: mucus membranes moist, oropharynx normal - Neck Neck exam general surgery: Present: trachea midline, non deviated - Respiratory Respiratory exam: Present: decreased breath sounds, prolonged expiratory phase. Absent: accessory muscle use, respiratory distress, rhonchi, stridor, wheezes - Expanded Respiratory Exam Location: decreased breath sounds: Left, Right, Upper, Lower - Cardiovascular Cardiovascular exam: Present: +S1, +S2, tachycardia. Absent: clicks, gallop, JVD, rubs - GI/Abdominal GI/Abdominal exam: Present: firm, tenderness, no peritoneal signs. Absent: distended, guarding, rebound, rigid - Extremities Exam Extremities exam: Present: normal capillary refill, normal inspection. Absent: calf tenderness, tenderness - Neurological Exam Neurological exam: Present: alert, oriented X3, no focal deficits - Psychiatric Psychiatric exam: Present: normal affect, normal mood - Skin Skin exam: Present: intact, warm - Assessment and Plan (1) Acute exacerbation of chronic obstructive airways disease Current Visit: Yes Status: Acute Assessment and Plan: 58yo female presents with increasing SOB and AMS x 4 days. Fany transfer. - has had increasing SOB and sputum production and change of sputum color - increasing oxygen demands, increased 2L to 6L at home - unable to complete ADL and has had increasing trouble walking to bathroom from couch. -Currently on 4L of oxygen, O2 sat 99% Patient currently meets SIRS criteria. CXR at [facility] was negative for any acute processes. Tachycardia HR of 110, Tachypnea at 22, and wbc is 3.2. Respiratory infectious panel is negative. Influenza panel is negative. No infectious process identified. CXR has been ordered, lactate ordered, started IV normal saline. EKG negative for acute ST changes at [facility]. - HR was 124, normal axis, normal intervals - troponin negative Repeat EKG done on 06/06/[address] Irby and showed sinus tachycardia. negative for any ischemic changes. Echo done today showed impression of LVEF 55-60% w/ normal left ventricular diastolic function, Mild concentric left ventricular hypertrophy, Normal right ventricular structure and function, Mild tricuspid regurgitation and Mild pulmonary hypertension. Plan: -Duoneb discontinued. Xopenex Q6 started. - continue IV steroids 80mg q6hr - continue BiPAP - NPO now - at this time will not start abx as pt is afebrile, CXR negative -Pulmonology consulted. They have ordered another CXR. (2) Fkxhb-4-[id number] deficiency Current Visit: Yes Status: Chronic Assessment and Plan: Contributing to COPD exacerbation - pt has chronic hx of A1AT deficiency (3) Metabolic encephalopathy Current Visit: Yes Status: Acute Assessment and Plan: Upon admission, reported AMS, unable to tell him where she was or what was going on. Most likely due to respiratory acidosis. - ABG upon admission showed respiratory acidosis. most recent ABG showed respiratory acidosis w/pH 7.27, pCO2 76, HCO3 35 -Today patients mental status is improved admits. -continue to monitor O2 saturation and electrolytes. (4) Acute respiratory failure with hypoxia and hypercapnia Current Visit: Yes Status: Acute Assessment and Plan: Acute on chronic - pt with increasing oxygen demands has required increasing 2L ---> 6L at home. -Currently on 5 L of oxygen. (5) Anxiety Current Visit: No Status: Acute Assessment and Plan: -On IV Lorazepam 0.5mg (6) Rheumatoid arthritis Current Visit: No Status: Acute Assessment and Plan: Chronic - on MTX and etancercept (7) GERD (gastroesophageal reflux disease) Current Visit: No Status: Chronic Assessment and Plan: Takes Prilosec at home, will hold home PO meds for now. (8) Back pain Current Visit: No Status: Chronic Assessment and Plan: Has chronic Low back pain. - takes percocet at home, will hold home PO meds for now DVT Prophylaxis: on sq heparin currently. - Time Spent with Patient Total time spent is greater than 50% in coordination of care (as documented) at patient's floor/unit and/or counseling patient: Internal Medicine: Result - Labs CBC & Chem 7: 06/06/18 12:00 06/06/18 12:00 Labs: Short CBC 06/05/18 06/06/18 Range/Units 21:13 12:00 WBC 6.6 3.2 L D (4.3-11.1) K/mcL Hgb 10.1 L 10.6 L (11.5-15.4) g/dL Hct 32.8 L 33.8 L (35.3-44.9) % Plt Count 286 329 (140-400) K/mcL Neutrophils # 3.8 2.2 (1.6-8.9) K/mcL BMP 06/05/18 06/06/18 21:13 12:00 Sodium 140 141 Potassium 4.0 3.8 Chloride 101 100 Carbon Dioxide 33 H 32 H BUN 10 12 Creatinine 0.81 0.85 Glucose 87 149 H Calcium 9.2 9.5 Liver Function 06/05/18 Range/Units 21:13 Total Bilirubin 0.3 (0.3-1.0) mg/dL Direct Bilirubin 0.1 (0.0-0.2) mg/dL AST 14 (13-39) Units/L ALT 13 (7-52) Units/L Alkaline Phosphatase 80 (34-104) Units/L Albumin 3.7 (3.5-5.7) g/dL - ABG Interpretation ABG results: ABG ABG pH 7.27 pH Units (7.32-7.45) L 06/06/18 04:41 ABG pCO2 76 mmHg (35-45) H* 06/06/18 04:41 ABG pO2 86 mmHg (85-104) 06/06/18 04:41 ABG O2 Saturation 94 % (95-98) L 06/06/18 04:41 Consult Discharge Plan - Plan Referrals: Alana Abraham MD [Non-Partnered Physician] - 06/13/18 2:00 pm <Shyanne Montoya - Last Filed: 06/06/18 17:42> Hospitalist Progress Note - Encounter Date of Encounter: 06/06/18 - Exam Vitals: Temp Pulse Resp BP Pulse Ox 98.3 F 115 20 136/96 96 06/06/18 16:53 06/06/18 17:19 06/06/18 16:53 06/06/18 16:53 06/06/18 17:19 - Time Spent with Patient Total time spent is greater than 50% in coordination of care (as documented) at patient's floor/unit and/or counseling patient: Internal Medicine: Result - Labs CBC & Chem 7: 06/06/18 12:00 06/06/18 12:00 Labs: Short CBC 06/05/18 06/06/18 Range/Units 21:13 12:00 WBC 6.6 3.2 L D (4.3-11.1) K/mcL Hgb 10.1 L 10.6 L (11.5-15.4) g/dL Hct 32.8 L 33.8 L (35.3-44.9) % Plt Count 286 329 (140-400) K/mcL Neutrophils # 3.8 2.2 (1.6-8.9) K/mcL BMP 06/05/18 06/06/18 21:13 12:00 Sodium 140 141 Potassium 4.0 3.8 Chloride 101 100 Carbon Dioxide 33 H 32 H BUN 10 12 Creatinine 0.81 0.85 Glucose 87 149 H Calcium 9.2 9.5 Liver Function 06/05/18 Range/Units 21:13 Total Bilirubin 0.3 (0.3-1.0) mg/dL Direct Bilirubin 0.1 (0.0-0.2) mg/dL AST 14 (13-39) Units/L ALT 13 (7-52) Units/L Alkaline Phosphatase 80 (34-104) Units/L Albumin 3.7 (3.5-5.7) g/dL - ABG Interpretation ABG results: ABG ABG pH 7.27 pH Units (7.32-7.45) L 06/06/18 04:41 ABG pCO2 76 mmHg (35-45) H* 06/06/18 04:41 ABG pO2 86 mmHg (85-104) 06/06/18 04:41 ABG O2 Saturation 94 % (95-98) L 06/06/18 04:41 - Impressions Impressions Echocardiogram 06/06/18 09:32 Impressions: LVEF 55-60%. Normal left ventricular diastolic function. Mild concentric left ventricular hypertrophy. Normal right ventricular structure and function. Mild tricuspid regurgitation. Mild pulmonary hypertension. Clinical correlation is advised. Left Ventricular Wall Motion: Rest Echo Findings All wall segments showed normal motion. Findings: Study Quality * Technically sub-optimal due to poor echocardiographic windows. ECG Findings * Sinus tachycardia. Left Ventricle * LVEF 55-60%. * Normal left ventricular diastolic function. * Mild concentric left ventricular hypertrophy. Right Ventricle * Normal right ventricular structure and function. Left Atrium * Normal left atrial size. Right Atrium * Normal right atrial size. Interatrial Septum * No evidence of PFO by color Doppler. Aortic Valve * Aortic valve not well visualized. * No aortic regurgitation. * No aortic stenosis. Mitral Valve * No mitral stenosis. * Normal mitral valve structure. * Mild mitral regurgitation. Tricuspid Valve * No tricuspid stenosis. * Normal tricuspid valve structure. * Mild tricuspid regurgitation. * Mild pulmonary hypertension. * Estimated RVSP is 41 mmHg. * Estimated RA pressure is 5 mmHg. Pulmonic Valve * Pulmonic valve not well visualized. Aorta * Normally sized aortic root. Pericardium * The pericardium appears normal. IVC * Normal IVC dimensions and inspiratory collapse. Pulmonary Artery * Normal visualized portions of the main pulmonary artery. Chest X-Ray 06/06/18 16:06 IMPRESSION: No acute cardiopulmonary process. COPD. D/ / 06/06/2018 16:47:11 Keegan Carroll MD / [email or web address] Interpreting Provider: Keegan Carroll MD - Attending Attestation The history, physical exam, and medical decision making was performed by the medical student Key either while I was physically present and actively involved or I personally re-performed the exam and medical decision making. I have verified the accuracy of the medical student's documentation with regards to the history, physical exam findings, and medical decision making. Ms Dawkins is admitted for acute on chronic resp failure. she has copd history and a1atd being worked up for lung transplant at [facility]. She was transferred from [facility] with mentation changes x4 days and increased o2 requirement, basically wearing bipap 15/11, with change in sputum color. Found to have resp acidosis and sent here for further management. at bedside. She is awake and alert, mildly confused, denies confusion and he feels not back to baseline but improved. She is refusing to wear bipap due to not liking the mask. Educated in detail about need to wear. She is denying cp, pressure, palpitations, sob on current o2 nc. no recent calf pain, edema or chest pain at home. No presyncope, syncope. iPERSONALLY D/W DR Cotton FIRST THING THIS SHIFT AND HE WILL SEE PT gen- alert, awake,appears stated age eyes- pupils equal round cv- tachy rate and regular rhythm, normal s1,s2, no murmurs appreciated, no le edema, no jvd, radial pulses 2+ and regular lungs- poor aeration throughout, scattered exp wheezing, no rhonchi or crackles, mild accessory muscle use on o2 nc abd- soft, non tender, non distended, + bs neuro- AAOxperson, city, hospital and situation, CN grossly intact, no focal deficits on exam 1. acute on chronic resp failure with hypoxia and hypercarbia -hx copd with sputum change and increased o2 requirement, A1ATD with [facility] transplant work up on immunosuppression suspect at this time this is a COPDE No evidence of yet of cardiac event, trop neg, ekg personally reviewed is sinus tach, no ischemic changes, we obtained echo and normal function, no wall motion abnormality and no RV strain Cannot rule out PE at this time, no cp or calf pain, would no be stable enough for a CTA at this time, dimer would be expected to be high, AWAIT PULM RECS -cont bipap as she allows, get abg for any mental status changes today, s upplemental o2 -awaiting pulm recs -treating as copde at this time- identify organism, labs ordered, azithro + rocephin, nebs, iv steroids 2. Metabolic encephalopathy- most likely 2/2 hypoxia and hypercarbia She has no focal neuro deficits to suggest neuro event at this time and mental status improved with bipap per -bipap, cont to monitor, treating with abx 3. Sinus tachycardia- personally reviewed ekg and sinus tach- treat hypoxia, awaiting pulm recs re further imaging, give gentle IVFs and monitor for improvement, monitor lytes, holding home benzo today but if persists may indica te withdrawal, changed duonebs to xopenex 4. Noted on admit to meet SIRS criteria Now given her HR, tachypnea and suspected pulm infection- she would technically meet for sepsis I suspect rate of breathing and heart is being driven by hypoxia and non compliance with biapap at this time, she is afebrile without leukocytosis however she is immunosuppressed -would hesitate to fluid bolus her and give aggressive fluids prior to pulm seeing her, in fear it could compromise her resp status, echo is reassuring -start with gentle ivfs, monitoring for fever, copde work up and treatment -if any fever, hemodynamic changes would have low threshold to bolus and broaden abx -check lactate as i do not see one obtained on admission, check ua with reflex to cx, bl cxs ngtd await pulm recs today vte ppx sqhep <Augusto Mackey - Last Filed: 06/06/18 17:35> (6) Rheumatoid arthritis Qualifiers: Rheumatoid arthritis location: unspecified site Rheumatoid factor presence: unspecified presence Qualified Code(s): M06.9 - Rheumatoid arthritis, unspecified (7) GERD (gastroesophageal reflux disease) Qualifiers: Esophagitis presence: esophagitis presence not specified Qualified Code(s): K21.9 - Gastro-esophageal reflux disease without esophagitis (8) Back pain Qualifiers: Back pain location: low back pain Chronicity: chronic Back pain laterality: unspecified Sciatica presence: unspecified whether sciatica present Qualified Code(s): M54.5 - Low back pain; G89.29 - Other chronic pain
[2018-06-06 15:07] LABS: Adenovirus Not Detected (Not Detect); Bordetella Pertussis Not Detected (Not Detect); Chlamydophila pneumoniae Not Detected (Not Detect); Coronavirus 229E Not Detected (Not Detect); Coronavirus HKU1 Not Detected (Not Detect); Coronavirus NL63 Not Detected (Not Detect); Coronavirus OC43 Not Detected (Not Detect); Human Metapneumovirus Not Detected (Not Detect); Human Rhinovirus/Enterovirus Not Detected (Not Detect); Influenza A Subtype 2009 H1 Not Detected (Not Detect); Influenza A Untypeable Not Detected (Not Detect); Influenza B Not Detected (Not Detect); Mycoplasma pneumoniae Not Detected (Not Detect); Parainfluenza Virus 1 Not Detected (Not Detect); Parainfluenza Virus 2 Not Detected (Not Detect); Parainfluenza Virus 3 Not Detected (Not Detect); Parainfluenza Virus 4 Not Detected (Not Detect); Respiratory Syncytial Virus Not Detected (Not Detect)
[2018-06-06] MEDS: Levalbuterol Neb 1.25 MG/3 ML IH SCH ×2 (16:07→22:16)
--- NOTE | 2018-06-06 17:41 | Event Note ---
Date of Encounter: 06/06/18 Time of Encounter: 09:00 The history, physical exam, and medical decision making was performed by the medical student Key either while I was physically present and actively involved or I personally re-performed the exam and medical decision making. I have verified the accuracy of the medical student's documentation with regards to the history, physical exam findings, and medical decision making. to serve as attestation pending completion of prog note by student Ms Dawkins is admitted for acute on chronic resp failure. she has copd history and a1atd being worked up for lung transplant at [facility]. She was transferred from [facility] with mentation changes x4 days and increased o2 requirement, basically wearing bipap 15/11, with change in sputum color. Found to have resp acidosis and sent here for further management. at bedside. She is awake and alert, mildly confused, denies confusion and he feels not back to baseline but improved. She is refusing to wear bipap due to not liking the mask. Educated in detail about need to wear. She is denying cp, pressure, palpitations, sob on current o2 nc. no recent calf pain, edema or chest pain at home. No presyncope, syncope. iPERSONALLY D/W DR Cotton FIRST THING THIS SHIFT AND HE WILL SEE PT gen- alert, awake,appears stated age eyes- pupils equal round cv- tachy rate and regular rhythm, normal s1,s2, no murmurs appreciated, no le edema, no jvd, radial pulses 2+ and regular lungs- poor aeration throughout, scattered exp wheezing, no rhonchi or crackles, mild accessory muscle use on o2 nc abd- soft, non tender, non distended, + bs neuro- AAOxperson, city, hospital and situation, CN grossly intact, no focal deficits on exam 1. acute on chronic resp failure with hypoxia and hypercarbia -hx copd with sputum change and increased o2 requirement, A1ATD with [facility] transplant work up on immunosuppression suspect at this time this is a COPDE No evidence of yet of cardiac event, trop neg, ekg personally reviewed is sinus tach, no ischemic changes, we obtained echo and normal function, no wall motion abnormality and no RV strain Cannot rule out PE at this time, no cp or calf pain, would no be stable enough for a CTA at this time, dimer would be expected to be high, AWAIT PULM RECS -cont bipap as she allows, get abg for any mental status changes today, supplemental o2 -awaiting pulm recs -treating as copde at this time- identify organism, labs ordered, azithro + rocephin, nebs, iv steroids 2. Metabolic encephalopathy- most likely 2/2 hypoxia and hypercarbia She has no focal neuro deficits to suggest neuro event at this time and mental status improved with bipap per -bipap, cont to monitor, treating with abx 3. Sinus tachycardia- personally reviewed ekg and sinus tach- treat hypoxia, awaiting pulm recs re further imaging, give gentle IVFs and monitor for improvement, monitor lytes, holding home benzo today but if persists may indicate withdrawal, changed duonebs to xopenex 4. Noted on admit to meet SIRS criteria Now given her HR, tachypnea and suspected pulm infection- she would technically meet for sepsis I suspect rate of breathing and heart is being driven by hypoxia and non compliance with biapap at this time, she is afebrile without leukocytosis however she is immunosuppressed -would hesitate to fluid bolus her and give aggressive fluids prior to pulm seeing her, in fear it could compromise her resp status, echo is reassuring -start with gentle ivfs, monitoring for fever, copde work up and treatment -if any fever, hemodynamic changes would have low threshold to bolus and broaden abx -check lactate as i do not see one obtained on admission, check ua with reflex to cx, bl cxs ngtd await pulm recs today vte ppx sqhep
--- NOTE | 2018-06-06 17:47 | Electrocardiograph Report ---
[place] [id number] Test Date: 2018-06-06 Pat Name: Effie Dawkins Department: 110 Room: 2N08 Gender: F Loom Operator: PACO : 1960 Requested By: Shyanne Montoya Order Number: [id number] Reading MD: Elaina Brown Measurements Intervals [place] Rate: 110 P: 75 NM: 164 QRS: 8 QRSD: 89 T: 66 QT: 336 QTc: 401 Interpretive Statements SINUS TACHYCARDIA ABNORMAL RHYTHM ECG Electronically Signed On 06-06-2018 17:45:44 EST by Elaina Brown
[2018-06-06] MEDS ORDERED: 0.9 % Sodium Chloride 1,000 ML ONE (18:12)
[2018-06-06] MEDS: 0.9 % Sodium Chloride 1,000 ML IVC SCH (19:00)
[2018-06-07] MEDS: methylPREDNISolone 125 MG/2 ML VIAL IVP SCH ×4 (00:26→17:23)
[2018-06-07] MEDS: *HR* LORazepam 2 MG/ML VIAL IVP SCH ×3 (00:26→15:31)
[2018-06-07] MEDS: Azithromycin 500 MG in D5% in Water 250 ML IVPB SCH (00:27)
[2018-06-07] MEDS: cefTRIAXone 2,000 MG in Water for inj. (sterile) 20 ML 20 ML IVPB SCH (00:27)
[2018-06-07 00:33] LABS: Bilirubin,Urine Negative (Negative); Blood,Urine Negative (Negative); Clarity,Urine Clear (Clear); Color,Urine Yellow (Yellow); Glucose,Urine (UA) Normal (Normal); Ketones,Urine Trace mg/dL (Negative); Leukocyte Esterase,Urine Negative (Negative); Nitrite,Urine Negative (Negative); PH,Urine 6.5 pH Units (5.0-8.0); Protein,Urine Trace mg/dL (Neg-Trace); Urobilinogen,Urine Normal (Normal)
[2018-06-07] MEDS: Levalbuterol Neb 1.25 MG/3 ML IH SCH ×4 (03:54→22:25)
[2018-06-07 05:04] LABS: ABG Base Excess 9 mEq/L (-2 to 3); ABG HCO3 36 mEq/L (21-27); ABG Oxygen Saturation 98 % (95-98); ABG PCO2 65 mmHg (35-45); ABG PH 7.35 pH Units (7.32-7.45); ABG PO2 114 mmHg (85-104); ABG TCO2 38 mEq/L (20-26); Blood Gas PEEP 6 cm H2O
[2018-06-07] MEDS: *HR* Heparin 5,000 UNIT/ML VIAL SQ SCH ×2 (05:27→17:23)
[2018-06-07 05:57] LABS: BUN/Creatinine Ratio 19 (6-26); Blood Urea Nitrogen 15 mg/dL (6-20); Calcium 9.5 mg/dL (8.6-10.3); Carbon Dioxide 34 mEq/L (23-29); Chloride 102 mEq/L (98-107); Glucose 153 mg/dL (70-105); Osmolality,Calculated 296 (280-300); Potassium 3.8 mEq/L (3.5-5.1); Sodium 141 mEq/L (136-145); eGFR For Non-African Americans > 60 (> 60)
[2018-06-07] MEDS: 0.9 % Sodium Chloride 1,000 ML IVC SCH (09:12)
[2018-06-07 09:46] LABS: Basophils % 0.2 %; Hematocrit 33.9 % (35.3-44.9); Hemoglobin 10.5 g/dL (11.5-15.4); Immature Granulocytes % 0.8 % (0-4); Lymphocytes # 0.7 K/mcL (0.6-4.6); Mean Corpuscular Volume 90.4 fL (83.0-100.0); Mean Platelet Volume 10.1 fL (9.4-12.4); Monocytes # 0.3 K/mcL (0.0-1.3); Monocytes % 4.6 %; Neutrophils # 5.3 K/mcL (1.6-8.9); Platelet Count 384 K/mcL (140-400); Red Blood Count 3.75 M/mcL (3.82-4.97); Red Cell Distribution Width 13.5 % (11.5-14.5); Segmented Neutrophils % 83.4 %
--- NOTE | 2018-06-07 10:09 | Pulmonology Progress Note ---
<Norma Connors - Last Filed: 06/07/18 14:53> Date of Encounter: 06/07/18 Time of Encounter: 09:15 Assessment and Plan (1) Acute respiratory failure with hypercapnia Current Visit: Yes Status: Acute 58 year old female presented with increased shortness of breath as well as confusion for the past 4 days, secondary to underlying lung disease. Her oxygen demand increased from 2 L to 6 L she was unable to ambulate due to increased dyspnea. Her ABG is at [facility] [place] showed: pH 7.19, pCO2 93, HCO3 35. This morning pH 7.35, pCO2 65, HCO3 36. -Continue DuoNeb's -Continue home daliresp -Continue theophylline -Continue IV solu medrol, titrate as tolerated (2) Acute exacerbation of chronic obstructive airways disease Current Visit: Yes Status: Acute 58 year old female presented with increased shortness of breath as well as confusion for the past 4 days, secondary to underlying lung disease. Her oxygen demand had increased from 2 L to 6 L at home and she was unable to ambulate due to increased dyspnea. Her ABG is at [facility] [place] showed: pH 7.19, pCO2 93, HCO3 35. This morning pH 7.35, pCO2 64, HCO3 36. -Continue DuoNeb's -Continue supplemental oxygen, titrate as tolerated (3) Npojn-9-floepuikbse deficiency Current Visit: Yes Status: Chronic History of alpha-1 antitrypsin deficiency was diagnosed 13 years ago. Follows with [facility] for lung transplant workup. Currently getting immunologic therapy with Zemaira once a week. Subjective Interval history: Ms. Dawkins was seen at bedside this morning. Her vitals remained stable overnight. This morning she was tachypneic and was on BiPAP. Per her she often wakes up in the morning confused though she is compliant with her BiPAP even at home. He was alert oriented to person place and time. She complained of ongoing shortness of breath. Denied fever, chills, nausea, emesis or chest pain. Objective PUL Vital signs: Last Vital Signs Temp 98.3 F 06/07/18 07:45 Pulse 92 06/07/18 07:45 Resp 24 06/07/18 07:45 BP 139/92 06/07/18 07:45 Pulse Ox 91 06/07/18 07:45 General appearance: no acute distress, alert Eyes: nonicteric ENT: oropharynx moist Auscultation: bilateral: diminished breath sounds (all lung lobes) Cardiovascular: regular rate and rhythm Gastrointestinal: normoactive bowel sounds, soft, non-tender Integumentary: normal Extremities: no cyanosis, no edema Musculoskeletal: no deformities normal mental status, non-focal exam mood appropriate, affect normal Results - Laboratory Findings CBC and BMP: 06/07/18 09:20 06/07/18 05:30 ABG ABG pH 7.35 pH Units (7.32-7.45) 06/07/18 05:00 ABG pCO2 65 mmHg (35-45) H 06/07/18 05:00 ABG pO2 114 mmHg (85-104) H 06/07/18 05:00 ABG O2 Saturation 98 % (95-98) 06/07/18 05:00 Abnormal lab findings: Abnormal lab results RBC 3.75 M/mcL (3.82-4.97) L 06/07/18 09:20 Hgb 10.5 g/dL (11.5-15.4) L 06/07/18 09:20 Hct 33.9 % (35.3-44.9) L 06/07/18 09:20 MCHC 31.0 g/dL (31.6-35.5) L 06/07/18 09:20 Nucleated RBCs/100 WBC 0.6 /100 WBC (0) H 06/06/18 12:00 ABG pCO2 65 mmHg (35-45) H 06/07/18 05:00 ABG pO2 114 mmHg (85-104) H 06/07/18 05:00 ABG HCO3 36 mEq/L (21-27) H 06/07/18 05:00 ABG Total CO2 38 mEq/L (20-26) H 06/07/18 05:00 ABG Base Excess 9 mEq/L (-2 to 3) H 06/07/18 05:00 Carbon Dioxide 34 mEq/L (23-29) H 06/07/18 05:30 Glucose 153 mg/dL (70-105) H 06/07/18 05:30 Urine Ketones Trace mg/dL (Negative) H 06/07/18 00:22 - Microbiology Findings Microbiology Findings: Microbiology, Last 48 Hours 06/06/18 01:29 Respiratory Syncytial Virus Ag - Final Nasopharyngeal Influenza Types A,B Antigen - Final 06/05/18 21:13 Blood Culture - Preliminary Peripheral Venipuncture Culture is incubating and being continuously monitored for growth. Final report to follow. 06/05/18 21:11 Blood Culture - Preliminary Peripheral Venipuncture Culture is incubating and being continuously monitored for growth. Final report to follow. - Clinical Findings Intake & Output: Intake & Output 06/06/18 06/07/18 06/07/18 23:59 07:59 15:59 Intake Total 0 / 0 1000 / 1000 Output Total 200 / 200 600 / 600 Balance -200 / -200 -600 / -600 1000 / 1000 Weight 65.3 kg Consult Discharge Plan - Plan Referrals: Alana Abraham MD [Non-Partnered Physician] - 06/13/18 2:00 pm <Kumar Hawley - Last Filed: 06/07/18 15:19> Date of Encounter: 06/07/18 Objective PUL Vital signs: Last Vital Signs Temp 97.8 F 06/07/18 11:12 Pulse 112 06/07/18 11:12 Resp 25 06/07/18 11:12 BP 124/80 06/07/18 11:12 Pulse Ox 99 06/07/18 11:12 Results - Laboratory Findings CBC and BMP: 06/07/18 09:20 06/07/18 05:30 ABG ABG pH 7.35 pH Units (7.32-7.45) 06/07/18 05:00 ABG pCO2 65 mmHg (35-45) H 06/07/18 05:00 ABG pO2 114 mmHg (85-104) H 06/07/18 05:00 ABG O2 Saturation 98 % (95-98) 06/07/18 05:00 Abnormal lab findings: Abnormal lab results RBC 3.75 M/mcL (3.82-4.97) L 06/07/18 09:20 Hgb 10.5 g/dL (11.5-15.4) L 06/07/18 09:20 Hct 33.9 % (35.3-44.9) L 06/07/18 09:20 MCHC 31.0 g/dL (31.6-35.5) L 06/07/18 09:20 Nucleated RBCs/100 WBC 0.6 /100 WBC (0) H 06/06/18 12:00 ABG pCO2 65 mmHg (35-45) H 06/07/18 05:00 ABG pO2 114 mmHg (85-104) H 06/07/18 05:00 ABG HCO3 36 mEq/L (21-27) H 06/07/18 05:00 ABG Total CO2 38 mEq/L (20-26) H 06/07/18 05:00 ABG Base Excess 9 mEq/L (-2 to 3) H 06/07/18 05:00 Carbon Dioxide 34 mEq/L (23-29) H 06/07/18 05:30 Glucose 153 mg/dL (70-105) H 06/07/18 05:30 Urine Ketones Trace mg/dL (Negative) H 06/07/18 00:22 - Microbiology Findings Microbiology Findings: Microbiology, Last 48 Hours 06/06/18 01:29 Respiratory Syncytial Virus Ag - Final Nasopharyngeal Influenza Types A,B Antigen - Final 06/05/18 21:13 Blood Culture - Preliminary Peripheral Venipuncture Culture is incubating and being continuously monitored for growth. Final report to follow. 06/05/18 21:11 Blood Culture - Preliminary Peripheral Venipuncture Culture is incubating and being continuously monit ored for growth. Final report to follow. - Clinical Findings Intake & Output: Intake & Output 06/06/18 06/07/18 06/07/18 23:59 07:59 15:59 Intake Total 0 / 0 1000 / 1000 Output Total 200 / 200 600 / 600 1350 / 1350 Balance -200 / -200 -600 / -600 -350 / -350 Weight 65.3 kg - Attending Attestation I examined this patient and my medical decision-making was reviewed with the Resident Physician. I agree with the documented findings, disposition and treatment plan as described except to the extent set forth below. Patient seen and examined. Labs, radiology, chart personally reviewed. Agree with resident's history and physical, assessment, plan with following comments: [employer] SPECIALIST: Patient follows commands, Pulmonary: Acceptable oxygenation and ventilation and continue current treatment with systemic steroids as well as bronchodilators and noninvasive ventilation. Physical therapy is important. Recommendation remain the same regarding patient visit at [facility].
[2018-06-07] MEDS: Patient Taking Own Medication 1 EACH PO SCH (10:26)
[2018-06-07] MEDS: Artificial Tears SOLN 15 ML BOTTLE BOTH EYES SCH ×4 (10:26→20:27)
--- NOTE | 2018-06-07 15:41 | Internal Med Progress Note ---
<Augusto Mackey - Last Filed: 06/07/18 16:04> Hospitalist Progress Note - Encounter Date of Encounter: 06/07/18 Time of Encounter: 09:30 - Subjective Interval History: Ms. Dawkins is a 58 year old female w/ PMH of anxiety, GERD, rheumatoid arthritis, COPD on 2L, and alpha 1 antitrypsin deficinecy. Today she appears well nourished, well developed in moderate distress. She believes her breathing is worse this morning. says her mental state is worse this morning. She is afebrile. - Exam Vitals: Temp Pulse Resp BP Pulse Ox 97.8 F 112 25 124/80 99 06/07/18 11:12 06/07/18 11:12 06/07/18 11:12 06/07/18 11:12 06/07/18 11:12 Exam: General appearance: Present: cooperative, A&O X 3. Able to tell place and person easily. Had difficulty with time. Exam: - Head Head exam: Present: atraumatic, normocephalic - ENT ENT exam: mucus membranes moist, oropharynx normal - Neck Neck exam general surgery: Present: trachea midline, non deviated - Respiratory Respiratory exam: Present: decreased breath sounds, wheezes heard on expiration - Expanded Respiratory Exam Location: decreased breath sounds: Left, Right, Upper, Lower - Cardiovascular Cardiovascular exam: Present: +S1, +S2, tachycardia. Absent: clicks, gallop, JVD, rubs - GI/Abdominal GI/Abdominal exam: Present: firm, tenderness, no peritoneal signs. Absent: distended, guarding, rebound, rigid - Extremities Exam Extremities exam: Present: normal capillary refill, normal inspection. Absent: calf tenderness, tenderness - Neurological Exam Neurological exam: Present: alert, no focal deficits - Psychiatric Psychiatric exam: Present: normal affect, normal mood - Assessment and Plan (1) Acute exacerbation of chronic obstructive airways disease Current Visit: Yes Status: Acute Assessment and Plan: - Prior to admission, has had increasing SOB and sputum production and change of sputum color most likely due to acute on chronic exacerbation of COPD - increasing oxygen demands, increased 2L to 6L at home - unable to complete ADL at home and has had increasing trouble walking to bath room from couch. -Currently on Bipap -Patient currently meets SIRS criteria. -CXR at [facility] was negative for any acute processes. -Tachycardia HR of 92, Tachypnea at 24, -resloved leukocytosis. wbc is normal again at 6.4 -Respiratory infectious panel is negative. Influenza panel is negative. No infectious process identified. -Repeat CXR yesterday was negative for any acute processes. UA normal findings. -lactate yesterday in normal range -on roscefin and azithromycin, day 2 EKG negative for acute ST changes at [facility]. - HR was 124, normal axis, normal intervals - troponin negative Repeat EKG done on 06/06/[address] Irby and showed sinus tachycardia. negative for any ischemic changes. Echo done today showed impression of LVEF 55-60% w/ normal left ventricular diastolic function, Mild concentric left ventricular hypertrophy, Normal right ventricular structure and function, Mild tricuspid regurgitation and Mild pulmonary hypertension. Plan: -Continue Xopenex Q6 - continue IV steroids 80mg q6hr and theophylline - continue BiPAP -Pulmonology consulted and following (2) Xwzlk-5-rjztnloshax deficiency Current Visit: Yes Status: Chronic Assessment and Plan: Contributing to COPD exacerbation - pt has chronic hx of A1AT deficiency (3) Metabolic encephalopathy Current Visit: Yes Status: Acute Assessment and Plan: Most likely due to respiratory acidosis state Upon admission, reported AMS, unable to tell him where she was or what was going on. - ABG upon admission showed respiratory acidosis. -ABG today showed improvement on the respiratory acidosis w/pH 7.35, pCO2 75, HCO3 36 -Today patients mental status is improved admits. -continue to monitor O2 saturation and electrolytes. (4) Acute respiratory failure with hypoxia and hypercapnia Current Visit: Yes Status: Acute Assessment and Plan: Acute on chronic - pt with increasing oxygen demands has required increasing 2L ---> 6L at home. (5) Anxiety Current Visit: Yes Status: Acute Assessment and Plan: -On IV Lorazepam 0.5mg (6) Rheumatoid arthritis Current Visit: No Status: Acute Assessment and Plan: Chronic - on MTX and etancercept (7) GERD (gastroesophageal reflux disease) Current Visit: No Status: Chronic Assessment and Plan: Takes Prilosec at home, will hold home PO meds for now. (8) Back pain Current Visit: No Status: Chronic Assessment and Plan: Has chronic Low back pain. - takes percocet at home, will hold home PO meds for now DVT Prophylaxis: on sq heparin currently. - Time Spent with Patient Total time spent is greater than 50% in coordination of care (as documented) at patient's floor/unit and/or counseling patient: Internal Medicine: Result - Labs CBC & Chem 7: 06/07/18 09:20 06/07/18 05:30 Labs: Short CBC 06/07/18 Range/Units 09:20 WBC 6.4 D (4.3-11.1) K/mcL Hgb 10.5 L (11.5-15.4) g/dL Hct 33.9 L (35.3-44.9) % Plt Count 384 (140-400) K/mcL Neutrophils # 5.3 (1.6-8.9) K/mcL BMP 06/07/18 05:30 Sodium 141 Potassium 3.8 Chloride 102 Carbon Dioxide 34 H BUN 15 Creatinine 0.80 Glucose 153 H Calcium 9.5 Urine 06/07/18 Range/Units 00:22 Urine Color Yellow (Yellow) Urine Clarity Clear (Clear) Urine pH 6.5 (5.0-8.0) pH Units Ur Specific [place] 1.010 (1.010-1.025) Urine Protein Trace (Neg-Trace) mg/dL Urine Glucose (UA) Normal (Normal) mg/dL - ABG Interpretation ABG results: ABG ABG pH 7.35 pH Units (7.32-7.45) 06/07/18 05:00 ABG pCO2 65 mmHg (35-45) H 06/07/18 05:00 ABG pO2 114 mmHg (85-104) H 06/07/18 05:00 ABG O2 Saturation 98 % (95-98) 06/07/18 05:00 - Impressions Impressions Chest X-Ray 06/06/18 16:06 IMPRESSION: No acute cardiopulmonary process. COPD. D/ / 06/06/2018 16:47:11 Keegan Carroll MD / bcarter Interpreting Provider: Keegan Carroll MD Consult Discharge Plan - Plan Referrals: Alana Abraham MD [Non-Partnered Physician] - 06/13/18 2:00 pm <Nolan Zavala - Last Filed: 06/07/18 19:19> Hospitalist Progress Note - Encounter Date of Encounter: 06/07/18 - Exam Vitals: Temp Pulse Resp BP Pulse Ox 98.5 F 108 21 124/74 96 06/07/18 19:11 06/07/18 19:11 06/07/18 19:11 06/07/18 19:11 06/07/18 19:11 - Assessment and Plan (1) Acute respiratory failure with hypoxia and hypercapnia Current Visit: Yes Status: Acute (2) Acute exacerbation of chronic obstructive airways disease Current Visit: Yes Status: Acute (3) Lvgih-6-prnmhznztyu deficiency Current Visit: Yes Status: Chronic (4) Rheumatoid arthritis Current Visit: No Status: Acute (5) Chronic respiratory failure with hypercapnia Current Visit: No Status: Chronic (6) GERD (gastroesophageal reflux disease) Current Visit: No Status: Chronic - Time Spent with Patient Total time spent is greater than 50% in coordination of care (as documented) at patient's floor/unit and/or counseling patient: Internal Medicine: Result - Labs CBC & Chem 7: 06/07/18 09:20 06/07/18 05:30 Labs: Short CBC 06/07/18 Range/Units 09:20 WBC 6.4 D (4.3-11.1) K/mcL Hgb 10.5 L (11.5-15.4) g/dL Hct 33.9 L (35.3-44.9) % Plt Count 384 (140-400) K/mcL Neutrophils # 5.3 (1.6-8.9) K/mcL BMP 06/07/18 05:30 Sodium 141 Potassium 3.8 Chloride 102 Carbon Dioxide 34 H BUN 15 Creatinine 0.80 Glucose 153 H Calcium 9.5 Urine 06/07/18 Range/Units 00:22 Urine Color Yellow (Yellow) Urine Clarity Clear (Clear) Urine pH 6.5 (5.0-8.0) pH Units Ur Specific [place] 1.010 (1.010-1.025) Urine Protein Trace (Neg-Trace) mg/dL Urine Glucose (UA) Normal (Normal) mg/dL - ABG Interpretation ABG results: ABG ABG pH 7.35 pH Units (7.32-7.45) 06/07/18 05:00 ABG pCO2 65 mmHg (35-45) H 06/07/18 05:00 ABG pO2 114 mmHg (85-104) H 06/07/18 05:00 ABG O2 Saturation 98 % (95-98) 06/07/18 05:00 - Impressions Impressions Chest X-Ray 06/06/18 16:06 IMPRESSION: No acute cardiopulmonary process. COPD. D/ / 06/06/2018 16:47:11 Keegan Carroll MD / [email or web address] Interpreting Provider: Keegan Carroll MD - Attending Attestation The history, physical exam, and medical decision making was performed by the medical student either while I was physically present and actively involved or I personally re-performed the exam and medical decision making. I have verified the accuracy of the medical student's documentation with regards to the history, physical exam findings, and medical decision making on 06/07/18. Ms Dawkins is currently admitted for acute on chronic resp failure. She remains moderate to high risk due to potential for worsening clinical status. Ms Dawkins woke up confused earlier. She was given meds and is now sleeping. No fever or chills. says she is on bipap most of the day at home. No GI issues. Exam alert but somnolent on bipap. Normocephalic Mucus membranes dry Heart reg - not tachy Lungs decreased with no wheeze at this time Abd soft and nontender No edema Moves all extremities Pulses palpable I/P 1. Resp failure - appreciate pulm help. On bipap. 2. A1ATD - continue home meds 3. RA 4. COPD exac - continue steroids, aerosols and home meds 5. GERD - chronic 6. ANxiety - on meds Further diagnoses and plan as above. <Augusto Mackey - Last Filed: 06/07/18 16:04> (6) Rheumatoid arthritis Qualifiers: Rheumatoid arthritis location: unspecified site Rheumatoid factor presence: unspecified presence Qualified Code(s): M06.9 - Rheumatoid arthritis, uns pecified (7) GERD (gastroesophageal reflux disease) Qualifiers: Esophagitis presence: esophagitis presence not specified Qualified Code(s): K21.9 - Gastro-esophageal reflux disease without esophagitis (8) Back pain Qualifiers: Back pain location: low back pain Chronicity: chronic Back pain laterality: unspecified Sciatica presence: unspecified whether sciatica present Qualified Code(s): M54.5 - Low back pain; G89.29 - Other chronic pain <Nolan Zavala - Last Filed: 06/07/18 19:19> (4) Rheumatoid arthritis Qualifiers: Rheumatoid arthritis location: multiple sites Rheumatoid factor presence: unspecified presence Qualified Code(s): M06.9 - Rheumatoid arthritis, unspecified (6) GERD (gastroesophageal reflux disease) Qualifiers: Esophagitis presence: esophagitis presence not specified Qualified Code(s): K21.9 - Gastro-esophageal reflux disease without esophagitis
[2018-06-07] MEDS: *HR* OxyCODONE/APAP 10/325 TABLET PO PRN ×2 (17:23→22:39)
[2018-06-08] MEDS: *HR* LORazepam 2 MG/ML VIAL IVP SCH ×3 (00:15→15:31)
[2018-06-08] MEDS: cefTRIAXone 2,000 MG in Water for inj. (sterile) 20 ML 20 ML IVPB SCH (00:15)
[2018-06-08] MEDS: methylPREDNISolone 125 MG/2 ML VIAL IVP SCH ×4 (00:15→17:12)
[2018-06-08] MEDS: Azithromycin 500 MG in D5% in Water 250 ML IVPB SCH (00:16)
[2018-06-08 04:14] LABS: Basophils % 0.1 %; Hematocrit 31.1 % (35.3-44.9); Hemoglobin 9.6 g/dL (11.5-15.4); Immature Granulocytes % 0.7 % (0-4); Lymphocytes # 0.7 K/mcL (0.6-4.6); Lymphocytes % 9.7 %; Mean Corpuscular HGB Conc 30.9 g/dL (31.6-35.5); Mean Corpuscular Hemoglobin 28.1 pg (28.0-33.3); Mean Corpuscular Volume 90.9 fL (83.0-100.0); Mean Platelet Volume 9.9 fL (9.4-12.4); Monocytes # 0.4 K/mcL (0.0-1.3); Monocytes % 5.6 %; Neutrophils # 6.1 K/mcL (1.6-8.9); Platelet Count 362 K/mcL (140-400); Red Blood Count 3.42 M/mcL (3.82-4.97); Red Cell Distribution Width 13.4 % (11.5-14.5); Segmented Neutrophils % 83.9 %
[2018-06-08] MEDS: Levalbuterol Neb 1.25 MG/3 ML IH SCH ×4 (04:18→22:32)
[2018-06-08 04:34] LABS: BUN/Creatinine Ratio 20 (6-26); Blood Urea Nitrogen 16 mg/dL (6-20); Calcium 9.1 mg/dL (8.6-10.3); Carbon Dioxide 32 mEq/L (23-29); Chloride 102 mEq/L (98-107); Glucose 163 mg/dL (70-105); Osmolality,Calculated 295 (280-300); Potassium 3.6 mEq/L (3.5-5.1); Sodium 140 mEq/L (136-145); eGFR For Non-African Americans > 60 (> 60)
[2018-06-08] MEDS: *HR* Heparin 5,000 UNIT/ML VIAL SQ SCH ×2 (05:35→17:13)
[2018-06-08] MEDS: Patient Taking Own Medication 1 EACH PO SCH (08:54)
[2018-06-08] MEDS: Artificial Tears SOLN 15 ML BOTTLE BOTH EYES SCH ×4 (08:55→20:37)
[2018-06-08] MEDS ORDERED: ALPHA 1 PROTEINASE INHIBITOR IVP ONE (10:00)
[2018-06-08] MEDS: *HR* OxyCODONE/APAP 10/325 TABLET PO PRN ×2 (12:45→20:36)
--- NOTE | 2018-06-08 15:14 | Pulmonology Progress Note ---
<Norma Connors - Last Filed: 06/08/18 15:12> Date of Encounter: 06/08/18 Time of Encounter: 09:20 Assessment and Plan (1) Acute respiratory failure with hypercapnia Current Visit: Yes Status: Acute 58 year old female presented with increased shortness of breath as well as confusion for the past 4 days, secondary to underlying lung disease. Re commended using BiPAP during the night. -Continue DuoNeb's -Continue Symbicort -Continue azithromycin -Continue home daliresp -Continue theophylline -Continue IV solu medrol, titrate as tolerated (2) Acute exacerbation of chronic obstructive airways disease Current Visit: Yes Status: Acute 58 year old female presented with increased shortness of breath as well as confusion 4 days prior to admission secondary to underlying lung disease. -Continue DuoNeb's -Continue Symbicort -Continue IV Solu-Medrol titrate as tolerated -Continue supplemental oxygen, titrate as tolerated (3) Aowfx-2-jxftjgtectx deficiency Current Visit: Yes Status: Chronic History of alpha-1 antitrypsin deficiency was diagnosed 13 years ago. Follows with [facility] for lung transplant workup. Currently getting immunologic therapy with Zemaira once a week. Subjective Interval history: Ms. Dawkins was seen at bedside this morning. Her vitals remained stable overnight. This morning she was tachypneic and was on BiPAP. She complained of ongoing shortness of breath. He did appear mildly anxious. Denied fever, chills, nausea, emesis or chest pain. Objective PUL Vital signs: Last Vital Signs Temp 98.2 F 06/08/18 15:06 Pulse 97 06/08/18 15:06 Resp 19 06/08/18 15:06 BP 149/93 06/08/18 15:06 Pulse Ox 99 06/08/18 15:06 General appearance: no acute distress, alert Eyes: nonicteric ENT: oropharynx moist Neck: supple Auscultation: bilateral: diminished breath sounds Cardiovascular: other (Increased heart rate with regular rhythm) Gastrointestinal: normoactive bowel sounds, soft, non-tender, non-distended Integumentary: normal Extremities: no cyanosis, no edema Musculoskeletal: no deformities normal mental status, non-focal exam mood appropriate, affect normal Results - Laboratory Findings CBC and BMP: 06/08/18 04:00 06/08/18 04:00 ABG ABG pH 7.35 pH Units (7.32-7.45) 06/07/18 05:00 ABG pCO2 65 mmHg (35-45) H 06/07/18 05:00 ABG pO2 114 mmHg (85-104) H 06/07/18 05:00 ABG O2 Saturation 98 % (95-98) 06/07/18 05:00 Abnormal lab findings: Abnormal lab results RBC 3.42 M/mcL (3.82-4.97) L 06/08/18 04:00 Hgb 9.6 g/dL (11.5-15.4) L 06/08/18 04:00 Hct 31.1 % (35.3-44.9) L 06/08/18 04:00 MCHC 30.9 g/dL (31.6-35.5) L 06/08/18 04:00 Nucleated RBCs/100 WBC 0.6 /100 WBC (0) H 06/06/18 12:00 ABG pCO2 65 mmHg (35-45) H 06/07/18 05:00 ABG pO2 114 mmHg (85-104) H 06/07/18 05:00 ABG HCO3 36 mEq/L (21-27) H 06/07/18 05:00 ABG Total CO2 38 mEq/L (20-26) H 06/07/18 05:00 ABG Base Excess 9 mEq/L (-2 to 3) H 06/07/18 05:00 Carbon Dioxide 32 mEq/L (23-29) H 06/08/18 04:00 Glucose 163 mg/dL (70-105) H 06/08/18 04:00 Urine Ketones Trace mg/dL (Negative) H 06/07/18 00:22 - Microbiology Findings Microbiology Findings: Microbiology, Last 48 Hours 06/07/18 15:15 Sputum Culture - Final Sputum - Clinical Findings Intake & Output: Intake & Output 06/07/18 06/08/18 06/08/18 23:59 07:59 15:59 Intake Total 1480 / 1480 240 / 240 Output Total 200 / 200 100 / 100 200 / 200 Balance 1280 / 1280 -100 / -100 40 / 40 Weight 66.4 kg Consult Discharge Plan - Plan Referrals: Alana Abraham MD [Non-Partnered Physician] - 06/13/18 2:00 pm <PankajstefanyKumar torres M - Last Filed: 06/08/18 15:37> Date of Encounter: 06/08/18 Objective PUL Vital signs: Last Vital Signs Temp 98.2 F 06/08/18 15:06 Pulse 97 06/08/18 15:06 Resp 19 06/08/18 15:06 BP 149/93 06/08/18 15:06 Pulse Ox 99 06/08/18 15:06 Results - Laboratory Findings CBC and BMP: 06/08/18 04:00 06/08/18 04:00 ABG ABG pH 7.35 pH Units (7.32-7.45) 06/07/18 05:00 ABG pCO2 65 mmHg (35-45) H 06/07/18 05:00 ABG pO2 114 mmHg (85-104) H 06/07/18 05:00 ABG O2 Saturation 98 % (95-98) 06/07/18 05:00 Abnormal lab findings: Abnormal lab results RBC 3.42 M/mcL (3.82-4.97) L 06/08/18 04:00 Hgb 9.6 g/dL (11.5-15.4) L 06/08/18 04:00 Hct 31.1 % (35.3-44.9) L 06/08/18 04:00 MCHC 30.9 g/dL (31.6-35.5) L 06/08/18 04:00 Nucleated RBCs/100 WBC 0.6 /100 WBC (0) H 06/06/18 12:00 ABG pCO2 65 mmHg (35-45) H 06/07/18 05:00 ABG pO2 114 mmHg (85-104) H 06/07/18 05:00 ABG HCO3 36 mEq/L (21-27) H 06/07/18 05:00 ABG Total CO2 38 mEq/L (20-26) H 06/07/18 05:00 ABG Base Excess 9 mEq/L (-2 to 3) H 06/07/18 05:00 Carbon Dioxide 32 mEq/L (23-29) H 06/08/18 04:00 Glucose 163 mg/dL (70-105) H 06/08/18 04:00 Urine Ketones Trace mg/dL (Negative) H 06/07/18 00:22 - Microbiology Findings Microbiology Findings: Microbiology, Last 48 Hours 06/07/18 15:15 Sputum Culture - Final Sputum - Clinical Findings Intake & Output: Intake & Output 06/07/18 06/08/18 06/08/18 23:59 07:59 15:59 Intake Total 1480 / 1480 240 / 240 Output Total 200 / 200 100 / 100 200 / 200 Balance 1280 / 1280 -100 / -100 40 / 40 Weight 66.4 kg - Attending Attestation I examined this patient and my medical decision-making was reviewed with the Resident Physician. I agree with the documented findings, disposition and treatment plan as described except to the extent set forth below. Patient seen and examined. Labs, radiology, chart personally reviewed. Agree with resident's history and physical, assessment, plan with following comments: [employer] BAIT PICKER: Patient follows commands, Pulmonary: Acceptable oxygenation and ventilation and patient is comfortable on noninvasive ventilation upon examination. Patient is still not stable enough to be discharge home and that is expected due to her advanced underlying lung disease and same recommendation has outlined previously.
[2018-06-08] MEDS: Budesonide/Formoterol 160/4.5 1 PUFF INH IH SCH ×2 (15:37→22:34)
--- NOTE | 2018-06-08 16:14 | Internal Med Progress Note ---
<Nolan Zavala - Last Filed: 06/08/18 16:35> Hospitalist Progress Note - Encounter Date of Encounter: 06/08/18 - Exam Vitals: Temp Pulse Resp BP Pulse Ox 98.2 F 97 19 149/93 99 06/08/18 15:06 06/08/18 15:06 06/08/18 15:06 06/08/18 15:06 06/08/18 15:06 - Assessment and Plan (1) Acute respiratory failure with hypoxia and hypercapnia Current Visit: Yes Status: Acute (2) Acute exacerbation of chronic obstructive airways disease Current Visit: Yes Status: Acute (3) Jedsk-4-pjqivzvyanh deficiency Current Visit: Yes Status: Chronic (4) Rheumatoid arthritis Current Visit: No Status: Acute (5) Chronic respiratory failure with hypercapnia Current Visit: No Status: Chronic (6) GERD (gastroesophageal reflux disease) Current Visit: No Status: Chronic - Time Spent with Patient Total time spent is greater than 50% in coordination of care (as documented) at patient's floor/unit and/or counseling patient: Internal Medicine: Result - Labs CBC & Chem 7: 06/08/18 04:00 06/08/18 04:00 Labs: Short CBC 06/08/18 Range/Units 04:00 WBC 7.3 (4.3-11.1) K/mcL Hgb 9.6 L (11.5-15.4) g/dL Hct 31.1 L (35.3-44.9) % Plt Count 362 (140-400) K/mcL Neutrophils # 6.1 (1.6-8.9) K/mcL BMP 06/08/18 04:00 Sodium 140 Potassium 3.6 Chloride 102 Carbon Dioxide 32 H BUN 16 Creatinine 0.82 Glucose 163 H Calcium 9.1 - ABG Interpretation ABG results: ABG ABG pH 7.35 pH Units (7.32-7.45) 06/07/18 05:00 ABG pCO2 65 mmHg (35-45) H 06/07/18 05:00 ABG pO2 114 mmHg (85-104) H 06/07/18 05:00 ABG O2 Saturation 98 % (95-98) 06/07/18 05:00 - Impressions Impressions Chest X-Ray 06/08/18 10:29 IMPRESSION: No acute cardiopulmonary disease. D/ / Christy Delvalle MD / Christy Delvalle MD Interpreting Provider: Christy Delvalle MD Consult Discharge Plan - Plan Referrals: Alana Abraham MD [Non-Partnered Physician] - 06/13/18 2:00 pm - Attending Attestation The history, physical exam, and medical decision making was performed by the medical student either while I was physically present and actively involved or I personally re-performed the exam and medical decision making. I have verified the accuracy of the medical student's documentation with regards to the history, physical exam findings, and medical decision making on 06/08/18. Ms. Dawkins is currently admitted with resp failure and COPD exacerbation. She remains moderate to high risk due to potential for worsening clinical status. Ms Dawkins is eating breakfast. She is doing a little better except when she exerts herself. No fever or chills. Coughing some. No GI issues. No CP at this time. Exam Alert More comfortable today. Mucus membranes dry Heart regular - not tachy now Decreased breath sounds throughout. No wheeze at this time Abd nontender Moves all extremities Normocephalic Pulses palpable Neck supple I/P 1. Resp failure - weaning down oxygen and bipap as able. 2. Exac COPD - on steroids, abx, aerosols, supportive care 3. A1ATD 4. RA - on meds from home Further diagnoses and plan as above. <Augusto Mackey P - Last Filed: 06/08/18 17:06> Hospitalist Progress Note - Encounter Date of Encounter: 06/08/18 Time of Encounter: 09:00 - Subjective Interval History: Ms. Dawkins is a 58 year old female w/ PMH of anxiety, GERD, rheumatoid arthritis, COPD on 2L, and alpha 1 antitrypsin deficinecy. Today she appears well nourished, well developed in moderate distress. Patient believes she is breathing better today. She is afebrile. - Exam Vitals: Temp Pulse Resp BP Pulse Ox 98.2 F 97 19 149/93 99 06/08/18 15:06 06/08/18 15:06 06/08/18 15:06 06/08/18 15:06 06/08/18 15:06 Exam: General appearance: Present: cooperative, A&O X 3. Able to tell place and person easily. Had difficulty with time. Exam: - Head Head exam: Present: atraumatic, normocephalic - ENT ENT exam: mucus membranes moist, oropharynx normal - Neck Neck exam general surgery: Present: trachea midline, non deviated - Respiratory Respiratory exam: Present: decreased breath sounds, wheezes heard on expiration - Expanded Respiratory Exam Location: decreased breath sounds: Left, Right, Upper, Lower - Cardiovascular Cardiovascular exam: Present: +S1, +S2, tachycardia. Absent: clicks, gallop, JVD, rubs - GI/Abdominal GI/Abdominal exam: Present: firm, tenderness, no peritoneal signs. Absent: di stended, guarding, rebound, rigid - Extremities Exam Extremities exam: Present: normal capillary refill, normal inspection. Absent: calf tenderness, tenderness - Neurological Exam Neurological exam: Present: alert, no focal deficits - Psychiatric Psychiatric exam: Present: normal affect, normal mood - Assessment and Plan (1) Acute exacerbation of chronic obstructive airways disease Current Visit: Yes Status: Acute Assessment and Plan: - Prior to admission, has had increasing SOB and sputum production and change of sputum color most likely due to acute on chronic exacerbation of COPD - increasing oxygen demands, increased 2L to 6L at home - unable to complete ADL at home and has had increasing trouble walking to bathroom from couch. -Currently on Bipap -Patient currently does not meet SIRS criteria. -CXR at [facility] was negative for any acute processes. -Tachycardia HR of 92, Tachypnea at 24, -resloved leukocytosis. wbc is normal again at 6.4 -Respiratory infectious panel is negative. Influenza panel is negative. No infectious process identified. -Repeat CXR yesterday was negative for any acute processes. UA normal findings. -lactate yesterday in normal range -on roscefin and azithromycin, day 3 EKG negative for acute ST changes at [facility]. - HR was 124, normal axis, normal intervals - troponin negative Repeat EKG done on 06/06/[address] Irby and showed sinus tachycardia. negative for any ischemic changes. Echo done today showed impression of LVEF 55-60% w/ normal left ventricular diastolic function, Mild concentric left ventricular hypertrophy, Normal right ventricular structure and function, Mild tricuspid regurgitation and Mild pulmonary hypertension. Plan: -Continue Xopenex Q6 - continue IV steroids 80mg q6hr and theophylline - continue BiPAP -Pulmonology consulted and following (2) Fnzau-4-tlcodnjievl deficiency Current Visit: Yes Status: Chronic Assessment and Plan: Contributing to COPD exacerbation - pt has chronic hx of A1AT deficiency (3) Metabolic encephalopathy Current Visit: Yes Status: Acute Assessment and Plan: Most likely due to respiratory acidosis state Upon admission, reported AMS, unable to tell him where she was or what was going on. - ABG upon admission showed respiratory acidosis. -most recent ABG showed improvement on the respiratory acidosis w/pH 7.35, pCO2 75, HCO3 36 -Today patients mental status is improved admits. -continue to monitor O2 saturation and electrolytes. (4) Acute respiratory failure with hypoxia and hypercapnia Current Visit: Yes Status: Acute Assessment and Plan: Acute on chronic - pt with increasing oxygen demands has required increasing 2L ---> 6L at home. (5) Anxiety Current Visit: Yes Status: Acute Assessment and Plan: -On IV Lorazepam 0.5mg (6) Rheumatoid arthritis Current Visit: No Status: Acute Assessment and Plan: Chronic - on MTX and etancercept (7) GERD (gastroesophageal reflux disease) Current Visit: No Status: Chronic Assessment and Plan: Takes Prilosec at home, will hold home PO meds for now. (8) Back pain Current Visit: No Status: Chronic Assessment and Plan: Has chronic Low back pain. - takes percocet at home, will hold home PO meds for now DVT Prophylaxis: on sq heparin currently. - Time Spent with Patient Total time spent is greater than 50% in coordination of care (as documented) at patient's floor/unit and/or counseling patient: Internal Medicine: Result - Labs CBC & Chem 7: 06/08/18 04:00 06/08/18 04:00 Labs: Short CBC 06/08/18 Range/Units 04:00 WBC 7.3 (4.3-11.1) K/mcL Hgb 9.6 L (11.5-15.4) g/dL Hct 31.1 L (35.3-44.9) % Plt Count 362 (140-400) K/mcL Neutrophils # 6.1 (1.6-8.9) K/mcL BMP 06/08/18 04:00 Sodium 140 Potassium 3.6 Chloride 102 Carbon Dioxide 32 H BUN 16 Creatinine 0.82 Glucose 163 H Calcium 9.1 - ABG Interpretation ABG results: ABG ABG pH 7.35 pH Units (7.32-7.45) 06/07/18 05:00 ABG pCO2 65 mmHg (35-45) H 06/07/18 05:00 ABG pO2 114 mmHg (85-104) H 06/07/18 05:00 ABG O2 Saturation 98 % (95-98) 06/07/18 05:00 - Impressions Impressions Chest X-Ray 06/08/18 10:29 IMPRESSION: No acute cardiopulmonary disease. D/ / Christy Delvalle MD / Christy Delvalle MD Interpreting Provider: Christy Delvalle MD <Nolan Zavala - Last Filed: 06/08/18 16:35> (4) Rheumatoid arthritis Qualifiers: Rheumatoid arthritis location: multiple sites Rheumatoid factor presence: unspecified presence Qualified Code(s): M06.9 - Rheumatoid arthritis, unspecified (6) GERD (gastroesophageal reflux disease) Qualifiers: Esophagitis presence: esophagitis presence not specified Qualified Code(s): K21.9 - Gastro-esophageal reflux disease without esophagitis <Augusto Mackey P - Last Filed: 06/08/18 17:06> (6) Rheumatoid arthritis Qualifiers: Rheumatoid arthritis location: multiple sites Rheumatoid factor presence: unspecified presence Qualified Code(s): M06.9 - Rheumatoid arthritis, unspecifi ed (7) GERD (gastroesophageal reflux disease) Qualifiers: Esophagitis presence: esophagitis presence not specified Qualified Code(s): K21.9 - Gastro-esophageal reflux disease without esophagitis (8) Back pain Qualifiers: Back pain location: low back pain Chronicity: chronic Back pain laterality: unspecified Sciatica presence: unspecified whether sciatica present Qualified Code(s): M54.5 - Low back pain; G89.29 - Other chronic pain
[2018-06-09] MEDS: *HR* LORazepam 2 MG/ML VIAL IVP SCH ×3 (00:37→15:29)
[2018-06-09] MEDS: methylPREDNISolone 125 MG/2 ML VIAL IVP SCH ×2 (00:37→07:13)
[2018-06-09] MEDS: cefTRIAXone 2,000 MG in Water for inj. (sterile) 20 ML 20 ML IVPB SCH (00:38)
[2018-06-09] MEDS: Azithromycin 500 MG in D5% in Water 250 ML IVPB SCH (00:39)
[2018-06-09] MEDS: *HR* OxyCODONE/APAP 10/325 TABLET PO PRN ×2 (03:52→13:40)
[2018-06-09] MEDS: Levalbuterol Neb 1.25 MG/3 ML IH SCH ×4 (04:28→22:25)
[2018-06-09] MEDS: *HR* Heparin 5,000 UNIT/ML VIAL SQ SCH ×2 (07:13→17:25)
[2018-06-09] MEDS: Patient Taking Own Medication 1 EACH PO SCH (08:58)
[2018-06-09] MEDS: Artificial Tears SOLN 15 ML BOTTLE BOTH EYES SCH ×4 (08:58→21:21)
--- NOTE | 2018-06-09 10:07 | Pulmonology Progress Note ---
<Norma Connors - Last Filed: 06/09/18 15:21> Date of Encounter: 06/09/18 Time of Encounter: 08:15 Assessment and Plan (1) Acute respiratory failure with hypercapnia Current Visit: Yes Status: Acute 58 year old female presented with increased shortness of breath as well as confusion for the past 4 days, secondary to underlying lung disease. Comfortable on nasal canula. Recommended using BiPAP during the night. -Continue DuoNeb's -Continue Symbicort -Continue azithromycin, day four, stop after 5 total days -Continue theophylline -Stopped IV solu medrol -Oral prednisone added, continue to titrate (2) Acute exacerbation of chronic obstructive airways disease Current Visit: Yes Status: Acute 58 year old female presented with increased shortness of breath as well as conf usion 4 days prior to admission secondary to underlying lung disease. -Continue DuoNeb's -Continue Symbicort -Stopped IV Solu-Medrol -Continue oral prednisone, titrate as tolerated -Continue supplemental oxygen, titrate as tolerated (3) Kzdbz-8-jttgzplpsvv deficiency Current Visit: Yes Status: Chronic History of alpha-1 antitrypsin deficiency was diagnosed 13 years ago. Follows with [facility] for lung transplant workup. Currently getting immunologic therapy with Zemaira once a week. -Would benefit from physical therapy Subjective Interval history: Ms. Dawkins was seen at bedside this morning. Her vitals remained stable overnight. This morning she was comfortable on BiPaP. Later transitioned to nasal cannula and noted that her shortness of breath has improved. She was on 6 L of nasal cannula same as home and her oxygen saturation was 100%. Denied fever, chills, nausea, emesis or chest pain. Objective PUL Vital signs: Last Vital Signs Temp 98.6 F 06/09/18 06:38 Pulse 100 06/09/18 06:38 Resp 18 06/09/18 06:38 BP 127/74 06/09/18 06:38 Pulse Ox 98 06/09/18 06:38 General appearance: no acute distress Eyes: nonicteric ENT: oropharynx moist Neck: supple Auscultation: bilateral: diminished breath sounds Cardiovascular: regular rate and rhythm Gastrointestinal: normoactive bowel sounds, soft, non-tender, non-distended Integumentary: normal Extremities: no cyanosis, no edema Musculoskeletal: no deformities normal mental status, non-focal exam mood appropriate, affect normal Results - Laboratory Findings CBC and BMP: 06/09/18 13:35 06/09/18 13:35 ABG ABG pH 7.35 pH Units (7.32-7.45) 06/07/18 05:00 ABG pCO2 65 mmHg (35-45) H 06/07/18 05:00 ABG pO2 114 mmHg (85-104) H 06/07/18 05:00 ABG O2 Saturation 98 % (95-98) 06/07/18 05:00 Abnormal lab findings: Abnormal lab results RBC 3.42 M/mcL (3.82-4.97) L 06/08/18 04:00 Hgb 9.6 g/dL (11.5-15.4) L 06/08/18 04:00 Hct 31.1 % (35.3-44.9) L 06/08/18 04:00 MCHC 30.9 g/dL (31.6-35.5) L 06/08/18 04:00 Nucleated RBCs/100 WBC 0.6 /100 WBC (0) H 06/06/18 12:00 ABG pCO2 65 mmHg (35-45) H 06/07/18 05:00 ABG pO2 114 mmHg (85-104) H 06/07/18 05:00 ABG HCO3 36 mEq/L (21-27) H 06/07/18 05:00 ABG Total CO2 38 mEq/L (20-26) H 06/07/18 05:00 ABG Base Excess 9 mEq/L (-2 to 3) H 06/07/18 05:00 Carbon Dioxide 32 mEq/L (23-29) H 06/08/18 04:00 Glucose 163 mg/dL (70-105) H 06/08/18 04:00 Urine Ketones Trace mg/dL (Negative) H 06/07/18 00:22 - Microbiology Findings Microbiology Findings: Microbiology, Last 48 Hours 06/07/18 15:15 Sputum Culture - Final Sputum - Clinical Findings Intake & Output: Intake & Output 06/08/18 06/09/18 06/09/18 23:59 07:59 15:59 Intake Total 500 / 500 970 / 970 Output Total 400 / 400 400 / 400 200 / 200 Balance 100 / 100 570 / 570 -200 / -200 Consult Discharge Plan - Plan Referrals: Alana Abraham MD [Non-Partnered Physician] - 06/13/18 2:00 pm <Kumar Hawley - Last Filed: 06/09/18 17:09> Date of Encounter: 06/09/18 Objective PUL Vital signs: Last Vital Signs Temp 97.9 F 06/09/18 15:30 Pulse 99 06/09/18 15:30 Resp 18 06/09/18 15:54 BP 136/89 06/09/18 15:30 Pulse Ox 100 06/09/18 15:54 Results - Laboratory Findings CBC and BMP: 06/09/18 13:35 06/09/18 13:35 ABG ABG pH 7.35 pH Units (7.32-7.45) 06/07/18 05:00 ABG pCO2 65 mmHg (35-45) H 06/07/18 05:00 ABG pO2 114 mmHg (85-104) H 06/07/18 05:00 ABG O2 Saturation 98 % (95-98) 06/07/18 05:00 Abnormal lab findings: Abnormal lab results Hgb 11.0 g/dL (11.5-15.4) L 06/09/18 13:35 MCH 27.9 pg (28.0-33.3) L 06/09/18 13:35 MCHC 31.1 g/dL (31.6-35.5) L 06/09/18 13:35 Plt Count 407 K/mcL (140-400) H 06/09/18 13:35 Lymphocytes # 0.5 K/mcL (0.6-4.6) L 06/09/18 13:35 Nucleated RBCs/100 WBC 0.4 /100 WBC (0) H 06/09/18 13:35 ABG pCO2 65 mmHg (35-45) H 06/07/18 05:00 ABG pO2 114 mmHg (85-104) H 06/07/18 05:00 ABG HCO3 36 mEq/L (21-27) H 06/07/18 05:00 ABG Total CO2 38 mEq/L (20-26) H 06/07/18 05:00 ABG Base Excess 9 mEq/L (-2 to 3) H 06/07/18 05:00 Potassium 3.1 mEq/L (3.5-5.1) L 06/09/18 13:35 Chloride 97 mEq/L (98-107) L 06/09/18 13:35 Carbon Dioxide 39 mEq/L (23-29) H 06/09/18 13:35 Glucose 159 mg/dL (70-105) H 06/09/18 13:35 Urine Ketones Trace mg/dL (Negative) H 06/07/18 00:22 - Microbiology Findings Microbiology Findings: Microbiology, Last 48 Hours 06/07/18 15:15 Sputum Culture - Final Sputum - Clinical Findings Intake & Output: Intake & Output 06/09/18 06/09/18 06/09/18 07:59 15:59 23:59 Intake Total 970 / 970 Output Total 400 / 400 200 / 200 Balance 570 / 570 -200 / -200 Weight 61.5 kg - Attending Attestation I examined this patient and my medical decision-making was reviewed with the Resident Physician. I agree with the documented findings, disposition and treatment plan as described except to the extent set forth below. Patient seen and examined. Labs, radiology, chart personally reviewed. Agree with resident's history and physical, assessment, plan with following comments: MAINTENANCE LEADER: Patient follows commands, Pulmonary: Acceptable oxygenation and ventilation Overall patient is improving and explained to the nurse to wean off FiO2 to keep SPO2 around 90% and encouraged patient to participate in physical therapy. Patient will need to be tapered on her systemic steroid and continue bronchodilators. Please call for any questions.
[2018-06-09] MEDS: Budesonide/Formoterol 160/4.5 1 PUFF INH IH SCH ×2 (10:14→22:25)
[2018-06-09 14:01] LABS: Basophils % 0.2 %; Hematocrit 35.4 % (35.3-44.9); Immature Granulocytes % 0.9 % (0-4); Lymphocytes # 0.5 K/mcL (0.6-4.6); Lymphocytes % 9.3 %; Mean Corpuscular HGB Conc 31.1 g/dL (31.6-35.5); Mean Corpuscular Hemoglobin 27.9 pg (28.0-33.3); Mean Corpuscular Volume 89.8 fL (83.0-100.0); Mean Platelet Volume 9.9 fL (9.4-12.4); Monocytes # 0.5 K/mcL (0.0-1.3); Monocytes % 8.8 %; Neutrophils # 4.5 K/mcL (1.6-8.9); Nucleated Red Blood Cells 0.4 /100 WBC (0); Platelet Count 407 K/mcL (140-400); Red Blood Count 3.94 M/mcL (3.82-4.97); Red Cell Distribution Width 13.6 % (11.5-14.5); Segmented Neutrophils % 80.8 %
--- NOTE | 2018-06-09 14:10 | Internal Med Progress Note ---
<Augusto Mackey - Last Filed: 06/09/18 14:20> Hospitalist Progress Note - Encounter Date of Encounter: 06/09/18 Time of Encounter: 09:30 - Subjective Interval History: Ms. Dawkins is a 58 year old female w/ PMH of anxiety, GERD, rheumatoid arthritis, COPD on 2L, and alpha 1 antitrypsin deficinecy. Today she appears well nourished, well developed in moderate distress. Patient believes she is breathing better today. She is afebrile. - Exam Vitals: Temp Pulse Resp BP Pulse Ox 98.4 F 109 16 135/84 99 06/09/18 11:37 06/09/18 11:37 06/09/18 11:37 06/09/18 11:37 06/09/18 11:37 Exam: General appearance: Present: cooperative, A&O X 3. Able to tell place and person easily. Had difficulty with time. Exam: - Head Head exam: Present: atraumatic, normocephalic - ENT ENT exam: mucus membranes moist, oropharynx normal - Neck Neck exam general surgery: Present: trachea midline, non deviated - Respiratory Respiratory exam: Present: decreased breath sounds, wheezes heard on expiration - Expanded Respiratory Exam Location: decreased breath sounds: Left, Right, Upper, Lower - Cardiovascular Cardiovascular exam: Present: +S1, +S2, tachycardia. Absent: clicks, gallop, JVD, rubs - GI/Abdominal GI/Abdominal exam: Present: firm, tenderness, no peritoneal signs. Absent: distended, guarding, rebound, rigid - Extremities Exam Extremities exam: Present: normal capillary refill, normal inspection. Absent: calf tenderness, tenderness - Neurological Exam Neurological exam: Present: alert, no focal deficits - Psychiatric Psychiatric exam: Present: normal affect, normal mood - Assessment and Plan (1) Acute exacerbation of chronic obstructive airways disease Current Visit: Yes Status: Acute Assessment and Plan: - Prior to admission, has had increasing SOB and sputum production and change of sputum color most likely due to acute on chronic exacerbation of COPD - increasing oxygen demands, increased 2L to 6L at home - unable to complete ADL at home and has had increasing trouble walking to bathroom from couch. -Currently on Bipap -Patient currently does not meet SIRS criteria. -CXR at [facility] was negative for any acute processes. -Tachycardia HR of 100. all other vitals normal -resloved leukocytosis. wbc is normal -Respiratory infectious panel is negative. Influenza panel is negative. No infectious process identified. -Repeat CXR yesterday was negative for any acute processes. UA normal findings. -lactate yesterday in normal range -on roscefin and azithromycin, day 4. stop azithromycin after 5 days per pulmonology recommendation. EKG negative for acute ST changes at [facility]. - HR was 124, normal axis, normal intervals - troponin negative Repeat EKG done on 06/06/[address] Irby and showed sinus tachycardia. negative for any ischemic changes. Echo done today showed impression of LVEF 55-60% w/ normal left ventricular diastolic function, Mild concentric left ventricular hypertrophy, Normal right ventricular structure and function, Mild tricuspid regurgitation and Mild pulmonary hypertension. Plan: -Continue Xopenex Q6 - continue theophylline - continue BiPAP -IV methylprednisolone d/c. Oral prednisone has been started per pulmonology recommendation. -Pulmonology consulted and following (2) Tukqj-0-cmvilummaya deficiency Current Visit: Yes Status: Chronic Assessment and Plan: Contributing to COPD exacerbation - pt has chronic hx of A1AT deficiency (3) Metabolic encephalopathy Current Visit: Yes Status: Acute Assessment and Plan: Most likely due to respiratory acidosis state Upon admission, reported AMS, unable to tell him where she was or what was going on. - ABG upon admission showed respiratory acidosis. -most recent ABG showed improvement on the respiratory acidosis w/pH 7.35, pCO2 75, HCO3 36 -Today patients mental status is improved admits. -continue to monitor O2 saturation and electrolytes. (4) Acute respiratory failure with hypoxia and hypercapnia Current Visit: Yes Status: Acute Assessment and Plan: Acute on chronic - pt with increasing oxygen demands has required increasing 2L ---> 6L at home. (5) Anxiety Current Visit: Yes Status: Acute Assessment and Plan: -On IV Lorazepam 0.5mg (6) Rheumatoid arthritis Current Visit: No Status: Acute Assessment and Plan: Chronic - on MTX and etancercept (7) GERD (gastroesophageal reflux disease) Current Visit: No Status: Chronic Assessment and Plan: Takes Prilosec at home, will hold home PO meds for now. (8) Back pain Current Visit: No Status: Chronic Assessment and Plan: Has chronic Low back pain. - takes percocet at home, will hold home PO meds for now DVT Prophylaxis: on sq heparin currently. - Time Spent with Patient Total time spent is greater than 50% in coordination of care (as documented) at patient's floor/unit and/or counseling patient: Internal Medicine: Result - Labs CBC & Chem 7: 06/09/18 13:35 06/08/18 04:00 Labs: Short CBC 06/09/18 Range/Units 13:35 WBC 5.6 (4.3-11.1) K/mcL Hgb 11.0 L (11.5-15.4) g/dL Hct 35.4 (35.3-44.9) % Plt Count 407 H (140-400) K/mcL Neutrophils # 4.5 (1.6-8.9) K/mcL - ABG Interpretation ABG results: ABG ABG pH 7.35 pH Units (7.32-7.45) 06/07/18 05:00 ABG pCO2 65 mmHg (35-45) H 06/07/18 05:00 ABG pO2 114 mmHg (85-104) H 06/07/18 05:00 ABG O2 Saturation 98 % (95-98) 06/07/18 05:00 - Impressions Impressions Chest X-Ray 06/08/18 10:29 IMPRESSION: No acute cardiopulmonary disease. D/ / Christy Delvalle MD / Christy Delvalle MD Interpreting Provider: Christy Delvalle MD Consult Discharge Plan - Plan Referrals: Alana Abraham MD [Non-Partnered Physician] - 06/13/18 2:00 pm <Nolan Zavala - Last Filed: 06/09/18 16:43> Hospitalist Progress Note - Encounter Date of Encounter: 06/09/18 - Exam Vitals: Temp Pulse Resp BP Pulse Ox 97.9 F 99 18 136/89 100 06/09/18 15:30 06/09/18 15:30 06/09/18 15:54 06/09/18 15:30 02/15/19 15:54 - Assessment and Plan (1) Acute respiratory failure with hypoxia and hypercapnia Current Visit: Yes Status: Acute (2) Acute exacerbation of chronic obstructive airways disease Current Visit: Yes Status: Acute (3) Pddml-1-fucrhbqvooc deficiency Current Visit: Yes Status: Chronic (4) Rheumatoid arthritis Current Visit: No Status: Acute (5) Chronic respiratory failure with hypercapnia Current Visit: No Status: Chronic (6) GERD (gastroesophageal reflux disease) Current Visit: No Status: Chronic - Time Spent with Patient Total time spent is greater than 50% in coordination of care (as documented) at patient's floor/unit and/or counseling patient: Internal Medicine: Result - Labs CBC & Chem 7: 06/09/18 13:35 06/09/18 13:35 Labs: Short CBC 06/09/18 Range/Units 13:35 WBC 5.6 (4.3-11.1) K/mcL Hgb 11.0 L (11.5-15.4) g/dL Hct 35.4 (35.3-44.9) % Plt Count 407 H (140-400) K/mcL Neutrophils # 4.5 (1.6-8.9) K/mcL BMP 06/09/18 13:35 Sodium 141 Potassium 3.1 L Chloride 97 L Carbon Dioxide 39 H BUN 16 Creatinine 0.92 Glucose 159 H Calcium 9.3 - ABG Interpretation ABG results: ABG ABG pH 7.35 pH Units (7.32-7.45) 06/07/18 05:00 ABG pCO2 65 mmHg (35-45) H 06/07/18 05:00 ABG pO2 114 mmHg (85-104) H 06/07/18 05:00 ABG O2 Saturation 98 % (95-98) 06/07/18 05:00 - Attending Attestation The history, physical exam, and medical decision making was performed by the medical student either while I was physically present and actively involved or I personally re-performed the exam and medical decision making. I have verified the accuracy of the medical student's documentation with regards to the history, physical exam findings, and medical decision making on 06/09/18. Ms Dawkins is currently admitted for resp failure related to COPD and A1ATD. She remains moderate to high risk due to potential for worsening clinical status. Ms Dawkins is doing a little better. She has times off bipap. No CP. No fever or chills. No GI issues. Exam alert Comfortable Normocephalic Mucus membranes dry Heart not tachy at this time. Abd nontender Moves all extremities Pulses palpable No edema I/P 1. Resp failure - continues to slowly improve with currently treatment. 2. COPD exac - steroids, abx, aerosols, 3. A1ATD - continue home meds Further diagnoses and plan as above. <Augusto Mackey - Last Filed: 06/09/18 14:20> (6) Rheumatoid arthritis Qualifiers: Rheumatoid arthritis location: multiple sites Rheumatoid factor presence: unspecified presence Qualified Code(s): M06.9 - Rheumatoid arthritis, unspecified (7) GERD (gastroesophageal reflux disease) Qualifiers: Esophagitis presence: esophagitis presence not specified Qualified Code(s): K21.9 - Gastro-esophageal reflux disease without esophagitis (8) Back pain Qualifiers: Back pain location: low back pain Chronicity: chronic Back pain laterality: unspecified Sciatica presence: unspecified whether sciatica present Qualified Code(s): M54.5 - Low back pain; G89.29 - Other chronic pain <Nolan Zavala - Last Filed: 06/09/18 16:43> (4) Rheumatoid arthritis Qualifiers: Rheumatoid arthritis location: multiple sites Rheumatoid factor presence: unspecified presence Qualified Code(s): M06.9 - Rheumatoid arthritis, unspecified (6) GERD (gastroesophageal reflux disease) Qualifiers: Esophagitis presence: esophagitis presence not specified Qualified Code(s): K21.9 - Gastro-esophageal reflux disease without esophagitis
[2018-06-09 14:20] LABS: BUN/Creatinine Ratio 17 (6-26); Blood Urea Nitrogen 16 mg/dL (6-20); Calcium 9.3 mg/dL (8.6-10.3); Carbon Dioxide 39 mEq/L (23-29); Chloride 97 mEq/L (98-107); Glucose 159 mg/dL (70-105); Osmolality,Calculated 297 (280-300); Potassium 3.1 mEq/L (3.5-5.1); Sodium 141 mEq/L (136-145); eGFR For Non-African Americans > 60 (> 60)
[2018-06-09] MEDS: predniSONE 20 MG TABLET PO SCH (17:25)
[2018-06-10] MEDS: Azithromycin 500 MG in D5% in Water 250 ML IVPB SCH (00:35)
[2018-06-10] MEDS: *HR* LORazepam 2 MG/ML VIAL IVP SCH ×3 (00:35→16:59)
[2018-06-10] MEDS: cefTRIAXone 2,000 MG in Water for inj. (sterile) 20 ML 20 ML IVPB SCH (00:35)
[2018-06-10] MEDS: *HR* OxyCODONE/APAP 10/325 TABLET PO PRN ×3 (00:44→20:51)
[2018-06-10] MEDS ORDERED: *HR* LORazepam 2 MG/ML VIAL IVP ONE (04:12)
[2018-06-10 05:05] LABS: Basophils % 0.1 %; Hematocrit 34.6 % (35.3-44.9); Hemoglobin 10.4 g/dL (11.5-15.4); Immature Granulocytes % 0.8 % (0-4); Lymphocytes % 14.5 %; Mean Corpuscular HGB Conc 30.1 g/dL (31.6-35.5); Mean Corpuscular Hemoglobin 27.1 pg (28.0-33.3); Mean Corpuscular Volume 90.1 fL (83.0-100.0); Mean Platelet Volume 9.8 fL (9.4-12.4); Monocytes # 1.1 K/mcL (0.0-1.3); Neutrophils # 4.9 K/mcL (1.6-8.9); Platelet Count 408 K/mcL (140-400); Red Blood Count 3.84 M/mcL (3.82-4.97); Red Cell Distribution Width 13.3 % (11.5-14.5); Segmented Neutrophils % 69.6 %
[2018-06-10 05:15] LABS: BUN/Creatinine Ratio 20 (6-26); Blood Urea Nitrogen 18 mg/dL (6-20); Calcium 9.1 mg/dL (8.6-10.3); Carbon Dioxide 39 mEq/L (23-29); Chloride 96 mEq/L (98-107); Glucose 127 mg/dL (70-105); Osmolality,Calculated 291 (280-300); Potassium 3.4 mEq/L (3.5-5.1); Sodium 139 mEq/L (136-145); eGFR For Non-African Americans > 60 (> 60)
[2018-06-10] MEDS: Levalbuterol Neb 1.25 MG/3 ML IH SCH ×4 (05:32→21:07)
[2018-06-10] MEDS: *HR* Heparin 5,000 UNIT/ML VIAL SQ SCH ×2 (06:22→18:22)
--- NOTE | 2018-06-10 08:14 | Internal Med Progress Note ---
Hospitalist Progress Note - Encounter Date of Encounter: 06/10/18 Time of Encounter: 09:30 - Subjective Interval History: Ms Dawkins is currently admitted for hypoxic resp failure from COPD. She remains moderate to high risk due to potential for worsening clinical status. Ms Dawkins just returned from bathroom. She is dyspneic but oxygenating well. Ready to eat breakfast. Needs Mucinex and Prilosec. No CP. No GI issues. at bedside. - Exam Vitals: Temp Pulse Resp BP Pulse Ox 98.0 F 90 19 138/90 99 06/10/18 06:37 06/10/18 06:37 06/10/18 06:37 06/10/18 06:37 06/10/18 06:37 Exam: General: Alert and oriented. Mild respiratory distress at rest. Skin: Normal color, no rash, no lesions. H: Normocephalic. EENT: EOMI, pupils equal. Mucus membranes moist. Cardiovascular: Tachycardic but regular. No murmur. Lungs: Decreased breath sounds with scant end exp wheeze Abdomen: Soft, non-tender, no rigidity. Normal bowel sounds. Extremities: No deformity, no edema or tenderness, Neurological: Normal cognition and motor skills. Pulses: radial pulses normal +2. Rest of the physical exam is non contributory - Assessment and Plan (1) Hypokalemia Current Visit: No Status: Acute Assessment and Plan: New today. Replace. (2) Acute respiratory failure with hypoxia and hypercapnia Current Visit: Yes Status: Acute Assessment and Plan: Pt presented to ED with significant hypoxic resp failure and found to be hypercarbic as well. She has slowly improved with current treatment. Will continue to decrease amount of bipap use as able. Continue oxygen supplementation. (3) Acute exacerbation of chronic obstructive airways disease Current Visit: Yes Status: Acute Assessment and Plan: Pt currently on oxygen, steroids (high dose), aerosols. Appreciate pulmonary input. Add home Mucinex today. (4) Iylml-1-varuxjsvvaz deficiency Current Visit: Yes Status: Chronic Assessment and Plan: Continue home medications. (5) Rheumatoid arthritis Current Visit: No Status: Chronic Assessment and Plan: No acute issues at this time. Continue current home meds. (6) Chronic respiratory failure with hypercapnia Current Visit: No Status: Chronic Assessment and Plan: Chronic issue. (7) GERD (gastroesophageal reflux disease) Current Visit: No Status: Chronic Assessment and Plan: Pt with hx of GERD. Has had symptoms. Restart Prolosec. - Time Spent with Patient Total time spent is greater than 50% in coordination of care (as documented) at patient's floor/unit and/or counseling patient: Internal Medicine: Result - Labs CBC & Chem 7: 06/10/18 04:35 06/10/18 04:35 Labs: Short CBC 06/09/18 06/10/18 Range/Units 13:35 04:35 WBC 5.6 7.1 (4.3-11.1) K/mcL Hgb 11.0 L 10.4 L (11.5-15.4) g/dL Hct 35.4 34.6 L (35.3-44.9) % Plt Count 407 H 408 H (140-400) K/mcL Neutrophils # 4.5 4.9 (1.6-8.9) K/mcL BMP 06/09/18 06/10/18 13:35 04:35 Sodium 141 139 Potassium 3.1 L 3.4 L Chloride 97 L 96 L Carbon Dioxide 39 H 39 H BUN 16 18 Creatinine 0.92 0.91 Glucose 159 H 127 H Calcium 9.3 9.1 - ABG Interpretation ABG results: ABG ABG pH 7.35 pH Units (7.32-7.45) 06/07/18 05:00 ABG pCO2 65 mmHg (35-45) H 06/07/18 05:00 ABG pO2 114 mmHg (85-104) H 06/07/18 05:00 ABG O2 Saturation 98 % (95-98) 06/07/18 05:00 Consult Discharge Plan - Plan Referrals: Alana Abraham MD [Non-Partnered Physician] - 06/13/18 2:00 pm (5) Rheumatoid arthritis Qualifiers: Rheumatoid arthritis location: multiple sites Rheumatoid factor presence: unspecified presence Qualified Code(s): M06.9 - Rheumatoid arthritis, unspecified (7) GERD (gastroesophageal reflux disease) Qualifiers: Esophagitis presence: esophagitis presence not specified Qualified Code(s): K21.9 - Gastro-esophageal reflux disease without esophagitis
[2018-06-10] MEDS: predniSONE 20 MG TABLET PO SCH ×2 (08:42→16:59)
[2018-06-10] MEDS: Artificial Tears SOLN 15 ML BOTTLE BOTH EYES SCH ×4 (08:44→20:52)
[2018-06-10] MEDS: Patient Taking Own Medication 1 EACH PO SCH (08:44)
[2018-06-10] MEDS ORDERED: *HR* OxyCODONE/APAP 10/325 TABLET PO PRN (08:59)
[2018-06-10] MEDS ORDERED: NON-FORMULARY MEDICATION 1 EACH EACH (Oxygen [Oxygen] 3 L) SCH (09:00)
[2018-06-10] MEDS: Budesonide/Formoterol 160/4.5 1 PUFF INH IH SCH ×2 (09:43→21:07)
--- NOTE | 2018-06-10 11:26 | Pulmonology Progress Note ---
Date of Encounter: 06/10/18 Time of Encounter: 09:35 Assessment and Plan (1) Acute exacerbation of chronic obstructive airways disease Current Visit: Yes Status: Acute Overall patient is improving and to wean off FiO2 as recommended to keep SPO2 around 90%. Same recommendations regarding her systemic steroid and bronchodilators. Physical therapy would be extremely important for this patient. Patient to follow-up with her appointment including clinic this month when she is discharged. 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 Please call for any questions. (2) Chronic respiratory failure with hypercapnia Current Visit: No Status: Chronic Subjective Principal diagnosis: Chronic respiratory failure Interval history: Patient stated she is breathing better, however she still feel weak. Objective PUL Vital signs: Last Vital Signs Temp 98.6 F 06/10/18 10:57 Pulse 106 06/10/18 10:57 Resp 14 06/10/18 10:57 BP 154/98 06/10/18 10:57 Pulse Ox 99 06/10/18 10:57 General: Patient is in no acute distress. HEENT: Normocephalic atraumatic, pupils are equal round and reactive to light and accommodation, anicteric sclera, nares is patent, mucous membranes moist, no JVD, trachea is midline Cardiovascular: Normal sinus rhythm, S1 and S2 audible, no murmur or rubs Respiratory: Diminished to auscultation bilaterally. No acute distress. No wheezing. Patient not using accessory muscles. Abdomen: Soft, nontender, nondistended, positive bowel sounds in all 4 quadrants Extremities: Warm, dry, trace lower extremity edema. Normal capillary refill. Neuro: Alert and oriented and follows commands. Grossly no neuro deficits. Skin: Warm to touch : No obvious abnormalities. Psych: Depressed Results - Laboratory Findings CBC and BMP: 06/10/18 04:35 06/10/18 04:35 ABG ABG pH 7.35 pH Units (7.32-7.45) 06/07/18 05:00 ABG pCO2 65 mmHg (35-45) H 06/07/18 05:00 ABG pO2 114 mmHg (85-104) H 06/07/18 05:00 ABG O2 Saturation 98 % (95-98) 06/07/18 05:00 Abnormal lab findings: Abnormal lab results Hgb 10.4 g/dL (11.5-15.4) L 06/10/18 04:35 Hct 34.6 % (35.3-44.9) L 06/10/18 04:35 MCH 27.1 pg (28.0-33.3) L 06/10/18 04:35 MCHC 30.1 g/dL (31.6-35.5) L 06/10/18 04:35 Plt Count 408 K/mcL (140-400) H 06/10/18 04:35 Nucleated RBCs/100 WBC 0.4 /100 WBC (0) H 06/09/18 13:35 ABG pCO2 65 mmHg (35-45) H 06/07/18 05:00 ABG pO2 114 mmHg (85-104) H 06/07/18 05:00 ABG HCO3 36 mEq/L (21-27) H 06/07/18 05:00 ABG Total CO2 38 mEq/L (20-26) H 06/07/18 05:00 ABG Base Excess 9 mEq/L (-2 to 3) H 06/07/18 05:00 Potassium 3.4 mEq/L (3.5-5.1) L 06/10/18 04:35 Chloride 96 mEq/L (98-107) L 06/10/18 04:35 Carbon Dioxide 39 mEq/L (23-29) H 06/10/18 04:35 Glucose 127 mg/dL (70-105) H 06/10/18 04:35 Urine Ketones Trace mg/dL (Negative) H 06/07/18 00:22 - Clinical Findings Intake & Output: Intake & Output 06/09/18 06/10/18 06/10/18 23:59 07:59 15:59 Intake Total 510 / 510 0 / 0 Output Total 0 / 0 250 / 250 Balance 510 / 510 -250 / -250 Weight 68 kg Consult Discharge Plan - Plan Referrals: Alana Abraham MD [Non-Partnered Physician] - 06/13/18 2:00 pm
[2018-06-10] MEDS: Pregabalin 75 MG CAPSULE PO SCH ×2 (12:01→20:52)
[2018-06-10] MEDS: Aspirin Enteric Coated 81 MG Tablet PO SCH (12:01)
[2018-06-10] MEDS: Sennosides 8.6 MG TABLET PO SCH (12:02)
[2018-06-10] MEDS: sulfaSALAzine 500 MG TABLET PO SCH (12:03)
[2018-06-10] MEDS: Folic Acid 1 MG TABLET PO SCH (12:04)
[2018-06-11] MEDS: cefTRIAXone 2,000 MG in Water for inj. (sterile) 20 ML 20 ML IVPB SCH (01:14)
[2018-06-11] MEDS: *HR* LORazepam 2 MG/ML VIAL IVP SCH ×3 (01:14→16:15)
[2018-06-11] MEDS: Azithromycin 500 MG in D5% in Water 250 ML IVPB SCH (01:15)
[2018-06-11] MEDS: *HR* OxyCODONE/APAP 10/325 TABLET PO PRN ×3 (04:47→21:16)
[2018-06-11] MEDS: clonazePAM 0.5 MG TABLET PO PRN ×3 (04:47→21:40)
[2018-06-11] MEDS: Levalbuterol Neb 1.25 MG/3 ML IH SCH ×2 (04:51→10:58)
[2018-06-11 04:57] LABS: Basophils % 0.1 %; Eosinophils % 0.1 %; Hemoglobin 10.8 g/dL (11.5-15.4); Immature Granulocytes % 1.5 % (0-4); Lymphocytes # 1.5 K/mcL (0.6-4.6); Lymphocytes % 21.9 %; Mean Corpuscular HGB Conc 30.9 g/dL (31.6-35.5); Mean Corpuscular Hemoglobin 27.9 pg (28.0-33.3); Mean Corpuscular Volume 90.4 fL (83.0-100.0); Mean Platelet Volume 9.8 fL (9.4-12.4); Monocytes # 1.2 K/mcL (0.0-1.3); Monocytes % 16.8 %; Neutrophils # 4.1 K/mcL (1.6-8.9); Platelet Count 379 K/mcL (140-400); Red Blood Count 3.87 M/mcL (3.82-4.97); Red Cell Distribution Width 13.5 % (11.5-14.5); Segmented Neutrophils % 59.6 %
[2018-06-11 05:12] LABS: BUN/Creatinine Ratio 21 (6-26); Blood Urea Nitrogen 15 mg/dL (6-20); Calcium 8.7 mg/dL (8.6-10.3); Carbon Dioxide 38 mEq/L (23-29); Chloride 101 mEq/L (98-107); Glucose 118 mg/dL (70-105); Osmolality,Calculated 290 (280-300); Potassium 3.7 mEq/L (3.5-5.1); Sodium 139 mEq/L (136-145); eGFR For Non-African Americans > 60 (> 60)
[2018-06-11] MEDS: *HR* Heparin 5,000 UNIT/ML VIAL SQ SCH ×2 (06:26→16:15)
[2018-06-11] MEDS: Aspirin Enteric Coated 81 MG Tablet PO SCH (09:37)
[2018-06-11] MEDS: Pregabalin 75 MG CAPSULE PO SCH ×2 (09:37→21:09)
[2018-06-11] MEDS: predniSONE 20 MG TABLET PO SCH ×2 (09:38→16:15)
[2018-06-11] MEDS: Patient Taking Own Medication 1 EACH PO SCH (09:38)
[2018-06-11] MEDS: sulfaSALAzine 500 MG TABLET PO SCH (09:38)
[2018-06-11] MEDS: Folic Acid 1 MG TABLET PO SCH (09:38)
[2018-06-11] MEDS: Sennosides 8.6 MG TABLET PO SCH (09:38)
[2018-06-11] MEDS: Artificial Tears SOLN 15 ML BOTTLE BOTH EYES SCH ×4 (09:39→21:10)
[2018-06-11] MEDS: Budesonide/Formoterol 160/4.5 1 PUFF INH IH SCH ×2 (10:58→20:36)
[2018-06-11] MEDS ORDERED: Fluconazole 100 MG TABLET PO ONE (11:09)
--- NOTE | 2018-06-11 13:13 | Internal Med Progress Note ---
Hospitalist Progress Note - Encounter Date of Encounter: 06/11/18 Time of Encounter: 10:30 - Subjective Interval History: Ms Dawkins is currently admitted for hypoxic resp failure from COPD. She remains moderate to high risk due to potential for worsening clinical status. Ms Dawkins is beginning to feel better. She is having vaginal yeast symptoms. No fever or chills. Less time on bipap. Sleeping better. No GI issues. - Exam Vitals: Temp Pulse Resp BP Pulse Ox 98.0 F 70 16 118/76 99 06/11/18 11:35 06/11/18 11:35 06/11/18 11:35 06/11/18 11:35 06/11/18 11:35 Exam: General: Alert and oriented. Lying in bed - no dyspnea at this time. Skin: Normal color, no rash, no lesions. H: Normocephalic. EENT: EOMI, pupils equal. Mucus membranes moist. Cardiovascular: Tachycardic but regular. No murmur. Lungs: Decreased breath sounds with scant end exp wheeze Abdomen: Soft, non-tender, no rigidity. Normal bowel sounds. Extremities: No deformity, no edema or tenderness, Neurological: Normal cognition and motor skills. Pulses: radial pulses normal +2. Rest of the physical exam is non contributory - Assessment and Plan (1) Vaginal yeast infection Current Visit: Yes Status: Suspected Assessment and Plan: Pt feels symptoms - usually takes Diflucan Add dose today. Repeat Tuesday. (2) Hypokalemia Current Visit: No Status: Resolved Assessment and Plan: Resolved after replacement. (3) Acute respiratory failure with hypoxia and hypercapnia Current Visit: Yes Status: Acute Assessment and Plan: Pt presented to ED with significant hypoxic resp failure and found to be hypercarbic as well. She has slowly improved with current treatment. Continues to slowly improve. Able to tolerate less time off bipap. Continue to wean. (4) Acute exacerbation of chronic obstructive airways disease Current Visit: Yes Status: Acute Assessment and Plan: Pt currently on oxygen, steroids (high dose), aerosols. Appreciate pulmonary input. Mucinex added with improvement. Will begin wean steroids some tomorrow. (5) Fijtm-5-aifhnjifncd deficiency Current Visit: Yes Status: Chronic Assessment and Plan: Continue home medications. (6) Rheumatoid arthritis Current Visit: No Status: Chronic Assessment and Plan: No acute issues at this time. Continue current home meds. Does not appear to be in flare. (7) Chronic respiratory failure with hypercapnia Current Visit: No Status: Chronic Assessment and Plan: Chronic issue. (8) GERD (gastroesophageal reflux disease) Current Visit: No Status: Chronic Assessment and Plan: Pt with hx of GERD. Has had symptoms. Improved with addition of home Prilosec. - Time Spent with Patient Total time spent is greater than 50% in coordination of care (as documented) at patient's floor/unit and/or counseling patient: Internal Medicine: Result - Labs CBC & Chem 7: 06/11/18 04:46 06/11/18 04:46 Labs: Short CBC 06/11/18 Range/Units 04:46 WBC 6.9 (4.3-11.1) K/mcL Hgb 10.8 L (11.5-15.4) g/dL Hct 35.0 L (35.3-44.9) % Plt Count 379 (140-400) K/mcL Neutrophils # 4.1 (1.6-8.9) K/mcL BMP 06/11/18 04:46 Sodium 139 Potassium 3.7 Chloride 101 Carbon Dioxide 38 H BUN 15 Creatinine 0.72 Glucose 118 H Calcium 8.7 - ABG Interpretation ABG results: ABG ABG pH 7.35 pH Units (7.32-7.45) 06/07/18 05:00 ABG pCO2 65 mmHg (35-45) H 06/07/18 05:00 ABG pO2 114 mmHg (85-104) H 06/07/18 05:00 ABG O2 Saturation 98 % (95-98) 06/07/18 05:00 Consult Discharge Plan - Plan Referrals: Alana Abraham MD [Non-Partnered Physician] - 06/13/18 2:00 pm (6) Rheumatoid arthritis Qualifiers: Rheumatoid arthritis location: multiple sites Rheumatoid factor presence: unspecified presence Qualified Code(s): M06.9 - Rheumatoid arthritis, unspecified (8) GERD (gastroesophageal reflux disease) Qualifiers: Esophagitis presence: esophagitis presence not specified Qualified Code(s): K21.9 - Gastro-esophageal reflux disease without esophagitis
[2018-06-11] MEDS ORDERED: Levalbuterol Neb 1.25 MG/3 ML IH PRN (14:38)
[2018-06-12] MEDS: cefTRIAXone 2,000 MG in Water for inj. (sterile) 20 ML 20 ML IVPB SCH (00:51)
[2018-06-12] MEDS: *HR* LORazepam 2 MG/ML VIAL IVP SCH ×4 (00:51→23:45)
[2018-06-12] MEDS: Azithromycin 500 MG in D5% in Water 250 ML IVPB SCH (00:52)
[2018-06-12 04:13] LABS: Basophils % 0.4 %; Hematocrit 35.3 % (35.3-44.9); Hemoglobin 10.7 g/dL (11.5-15.4); Immature Granulocytes % 1.7 % (0-4); Lymphocytes # 1.3 K/mcL (0.6-4.6); Lymphocytes % 16.8 %; Mean Corpuscular HGB Conc 30.3 g/dL (31.6-35.5); Mean Corpuscular Hemoglobin 27.4 pg (28.0-33.3); Mean Corpuscular Volume 90.5 fL (83.0-100.0); Mean Platelet Volume 9.8 fL (9.4-12.4); Monocytes # 0.9 K/mcL (0.0-1.3); Monocytes % 11.2 %; Neutrophils # 5.5 K/mcL (1.6-8.9); Platelet Count 405 K/mcL (140-400); Red Cell Distribution Width 13.5 % (11.5-14.5); Segmented Neutrophils % 69.9 %
[2018-06-12 04:34] LABS: BUN/Creatinine Ratio 21 (6-26); Blood Urea Nitrogen 17 mg/dL (6-20); Calcium 8.6 mg/dL (8.6-10.3); Carbon Dioxide 36 mEq/L (23-29); Chloride 99 mEq/L (98-107); Glucose 130 mg/dL (70-105); Osmolality,Calculated 291 (280-300); Potassium 3.9 mEq/L (3.5-5.1); Sodium 139 mEq/L (136-145); eGFR For Non-African Americans > 60 (> 60)
[2018-06-12] MEDS: *HR* Heparin 5,000 UNIT/ML VIAL SQ SCH ×2 (06:02→16:59)
[2018-06-12] MEDS: *HR* OxyCODONE/APAP 10/325 TABLET PO PRN ×3 (09:30→21:12)
[2018-06-12] MEDS: Pregabalin 75 MG CAPSULE PO SCH ×2 (09:30→21:12)
[2018-06-12] MEDS: Aspirin Enteric Coated 81 MG Tablet PO SCH (09:31)
[2018-06-12] MEDS: sulfaSALAzine 500 MG TABLET PO SCH (09:31)
[2018-06-12] MEDS: Folic Acid 1 MG TABLET PO SCH (09:31)
[2018-06-12] MEDS: predniSONE 20 MG TABLET PO SCH (09:31)
[2018-06-12] MEDS: Sennosides 8.6 MG TABLET PO SCH (09:32)
[2018-06-12] MEDS: Patient Taking Own Medication 1 EACH PO SCH (09:33)
[2018-06-12] MEDS: Artificial Tears SOLN 15 ML BOTTLE BOTH EYES SCH ×4 (09:33→21:13)
[2018-06-12] MEDS: Budesonide/Formoterol 160/4.5 1 PUFF INH IH SCH ×2 (11:18→20:26)
--- NOTE | 2018-06-12 11:47 | Internal Med Progress Note ---
<Augusto Mackey - Last Filed: 06/12/18 13:23> Hospitalist Progress Note - Encounter Date of Encounter: 06/12/18 Time of Encounter: 09:00 - Subjective Interval History: Ms. Dawkins is a 58 year old female w/ PMH of anxiety, GERD, rheumatoid arthritis, COPD on 2L, and alpha 1 antitrypsin deficinecy. Today she appears well nourished, well developed resting comfortably. Patient believes she is breathing better today. She is afebrile. - Exam Vitals: Temp Pulse Resp BP Pulse Ox 97.9 F 78 17 124/63 93 06/12/18 08:03 06/12/18 08:03 06/12/18 11:20 06/12/18 08:03 06/12/18 11:20 Exam: General appearance: Present: cooperative, A&O X 3. Exam: - Head Head exam: Present: atraumatic, normocephalic - ENT ENT exam: mucus membranes moist, oropharynx normal - Neck Neck exam general surgery: Present: trachea midline, non deviated - Respiratory Respiratory exam: Present: decreased breath sounds - Expanded Respiratory Exam Location: decreased breath sounds: Left, Right, Upper, Lower - Cardiovascular Cardiovascular exam: Present: +S1, +S2, tachycardia. Absent: clicks, gallop, JVD, rubs - GI/Abdominal GI/Abdominal exam: Present: firm, tenderness, no peritoneal signs. Absent: distended, guarding, rebound, rigid - Extremities Exam Extremities exam: Present: normal capillary refill, normal inspection. Absent: calf tenderness, tenderness - Neurological Exam Neurological exam: Present: alert, no focal deficits - Psychiatric Psychiatric exam: Present: normal affect, normal mood - Assessment and Plan (1) Acute exacerbation of chronic obstructive airways disease Current Visit: Yes Status: Acute Assessment and Plan: - Prior to admission, has had increasing SOB and sputum production and change of sputum color most likely due to acute on chronic exacerbation of COPD - increasing oxygen demands, increased 2L to 6L at home - unable to complete ADL at home and has had increasing trouble walking to bathroom from couch. -Currently on 3 L of oxygen and Bipap at night -Patient currently does not meet SIRS criteria. -CXR at [facility] was negative for any acute processes. -Tachycardia HR of 100. all other vitals normal -resloved leukocytosis. wbc is normal -Respiratory infectious panel is negative. Influenza panel is negative. No infectious process identified. -Repeat CXR yesterday was negative for any acute processes. UA normal findings. -lactate yesterday in normal range -roscefin and azithromycin discontinued today EKG negative for acute ST changes at [facility]. - HR was 124, normal axis, normal intervals - troponin negative Repeat EKG done on 06/06/[address] Irby and showed sinus tachycardia. negative for any ischemic changes. Echo done today showed impression of LVEF 55-60% w/ normal left ventricular diastolic function, Mild concentric left ventricular hypertrophy, Normal right ventricular structure and function, Mild tricuspid regurgitation and Mild pulmonary hypertension. Plan: -Continue Xopenex Q6 - continue theophylline - continue BiPAP prn -Start to wean patient off oral prednisone. Was on 40 mg BID prednisone wean to 40 mg once prednisone today -Pulmonology consulted and following (2) Jmvyf-6-jfvrjbhcfso deficiency Current Visit: Yes Status: Chronic Assessment and Plan: Contributing to COPD exacerbation - pt has chronic hx of A1AT deficiency (3) Metabolic encephalopathy Current Visit: Yes Status: Acute Assessment and Plan: Most likely due to respiratory acidosis state Upon admission, reported AMS, unable to tell him where she was or what was going on. - ABG upon admission showed respiratory acidosis. -most recent ABG showed improvement on the respiratory acidosis w/pH 7.35, pCO2 75, HCO3 36 -Today patients mental status is improved admits. -continue to monitor O2 saturation and electrolytes. (4) Acute respiratory failure with hypoxia and hypercapnia Current Visit: Yes Status: Acute Assessment and Plan: Acute on chronic - pt with increasing oxygen demands has required increasing 2L ---> 6L at home. (5) Anxiety Current Visit: Yes Status: Acute Assessment and Plan: -On IV Lorazepam 0.5mg (6) Rheumatoid arthritis Current Visit: No Status: Chronic Assessment and Plan: Chronic - on MTX and etancercept (7) GERD (gastroesophageal reflux disease) Current Visit: No Status: Chronic Assessment and Plan: Takes Prilosec at home, will hold home PO meds for now. (8) Back pain Current Visit: No Status: Chronic Assessment and Plan: Has chronic Low back pain. - takes percocet at home, will hold home PO meds for now DVT Prophylaxis: on sq heparin currently. - Time Spent with Patient Total time spent is greater than 50% in coordination of care (as documented) at patient's floor/unit and/or counseling patient: Internal Medicine: Result - Labs CBC & Chem 7: 06/12/18 04:00 06/12/18 04:00 Labs: Short CBC 06/12/18 Range/Units 04:00 WBC 7.8 (4.3-11.1) K/mcL Hgb 10.7 L (11.5-15.4) g/dL Hct 35.3 (35.3-44.9) % Plt Count 405 H (140-400) K/mcL Neutrophils # 5.5 (1.6-8.9) K/mcL BMP 06/12/18 04:00 Sodium 139 Potassium 3.9 Chloride 99 Carbon Dioxide 36 H BUN 17 Creatinine 0.80 Glucose 130 H Calcium 8.6 - ABG Interpretation ABG results: ABG ABG pH 7.35 pH Units (7.32-7.45) 06/07/18 05:00 ABG pCO2 65 mmHg (35-45) H 06/07/18 05:00 ABG pO2 114 mmHg (85-104) H 06/07/18 05:00 ABG O2 Saturation 98 % (95-98) 06/07/18 05:00 Consult Discharge Plan - Plan Referrals: Alana Abraham MD [Non-Partnered Physician] - 06/13/18 2:00 pm <Nolan Zavala - Last Filed: 06/12/18 15:00> Hospitalist Progress Note - Encounter Date of Encounter: 06/12/18 - Exam Vitals: Temp Pulse Resp BP Pulse Ox 97.9 F 72 16 115/69 100 06/12/18 11:55 06/12/18 11:55 06/12/18 11:55 06/12/18 11:55 06/12/18 11:55 - Assessment and Plan (1) Vaginal yeast infection Current Visit: Yes Status: Suspected (2) Hypokalemia Current Visit: No Status: Resolved (3) Acute respiratory failure with hypoxia and hypercapnia Current Visit: Yes Status: Acute (4) Acute exacerbation of chronic obstructive airways disease Current Visit: Yes Status: Acute (5) Udlle-3-gzylwbmvjqt deficiency Current Visit: Yes Status: Chronic (6) Rheumatoid arthritis Current Visit: No Status: Chronic (7) Chronic respiratory failure with hypercapnia Current Visit: No Status: Chronic (8) GERD (gastroesophageal reflux disease) Current Visit: No Status: Chronic - Time Spent with Patient Total time spent is greater than 50% in coordination of care (as documented) at patient's floor/unit and/or counseling patient: Internal Medicine: Result - Labs CBC & Chem 7: 06/12/18 04:00 06/12/18 04:00 Labs: Short CBC 06/12/18 Range/Units 04:00 WBC 7.8 (4.3-11.1) K/mcL Hgb 10.7 L (11.5-15.4) g/dL Hct 35.3 (35.3-44.9) % Plt Count 405 H (140-400) K/mcL Neutrophils # 5.5 (1.6-8.9) K/mcL BMP 06/12/18 04:00 Sodium 139 Potassium 3.9 Chloride 99 Carbon Dioxide 36 H BUN 17 Creatinine 0.80 Glucose 130 H Calcium 8.6 - ABG Interpretation ABG results: ABG ABG pH 7.35 pH Units (7.32-7.45) 06/07/18 05:00 ABG pCO2 65 mmHg (35-45) H 06/07/18 05:00 ABG pO2 114 mmHg (85-104) H 06/07/18 05:00 ABG O2 Saturation 98 % (95-98) 06/07/18 05:00 - Attending Attestation The history, physical exam, and medical decision making was performed by the medical student either while I was physically present and actively involved or I personally re-performed the exam and medical decision making. I have verified the accuracy of the medical student's documentation with regards to the history, physical exam findings, and medical decision making on06/12/18. Ms Dawkins is currently admitted for acute on chronic resp failure due to COPD. She remains moderate to high risk due to potential for worsening clinical status. Ms Dawkins just got up with therapy. No fever or chills. Breathing is labored after exertion but overall she is slowly improving. No CP. No GI issues. Exam alert Mild resp distress at rest Normocephalic Mucus membranes dry Heart not tachy. Regular Decreased breath sounds. No wheeze at this time. Neck supple Abd soft and nontender No edema Moves all extremities Pulses palpable I/P 1. Resp failure - continues to slowly improve. 2. COPD exac - continue to try to wean steroids. Stop abx. Continue aerosols. 3. A1ATD - on home meds. 4. RA - on home meds 5. GERD - on PPI Further diagnoses and plan as above. Anticipate d/c in next 24-48 hours. <Augusto Mackey - Last Filed: 06/12/18 13:23> (6) Rheumatoid arthritis Qualifiers: Rheumatoid arthritis location: multiple sites Rheumatoid factor presence: unspecified presence Qualified Code(s): M06.9 - Rheumatoid arthritis, unspecified (7) GERD (gastroesophageal reflux disease) Qualifiers: Esophagitis presence: esophagitis presence not specified Qualified Code(s): K21.9 - Gastro-esophageal reflux disease without esophagitis (8) Back pain Qualifiers: Back pain location: low back pain Chronicity: chronic Back pain laterality: unspecified Sciatica presence: unspecified whether sciatica present Qualified Code(s): M54.5 - Low back pain; G89.29 - Other chronic pain <Nolan Zavala - Last Filed: 06/12/18 15:00> (6) Rheumatoid arthritis Qualifiers: Rheumatoid arthritis location: multiple sites Rheumatoid factor presence: unspecified presence Qualified Code(s): M06.9 - Rheumatoid arthritis, unspecified (8) GERD (gastroesophageal reflux disease) Qualifiers: Esophagitis presence: esophagitis presence not specified Qualified Code(s): K21.9 - Gastro-esophageal reflux disease without esophagitis
[2018-06-12] MEDS: clonazePAM 0.5 MG TABLET PO PRN ×2 (13:43→21:12)
[2018-06-13] MEDS: *HR* OxyCODONE/APAP 10/325 TABLET PO PRN ×3 (03:42→16:12)
[2018-06-13] MEDS: clonazePAM 0.5 MG TABLET PO PRN ×2 (03:43→21:07)
[2018-06-13 04:31] LABS: Basophils % 0.3 %; Eosinophils # 0.1 K/mcL (0.0-0.6); Eosinophils % 1.3 %; Hematocrit 35.9 % (35.3-44.9); Hemoglobin 10.8 g/dL (11.5-15.4); Immature Granulocytes % 1.8 % (0-4); Lymphocytes # 2.5 K/mcL (0.6-4.6); Mean Corpuscular HGB Conc 30.1 g/dL (31.6-35.5); Mean Corpuscular Hemoglobin 27.4 pg (28.0-33.3); Mean Corpuscular Volume 91.1 fL (83.0-100.0); Mean Platelet Volume 10.1 fL (9.4-12.4); Monocytes # 1.2 K/mcL (0.0-1.3); Monocytes % 12.2 %; Neutrophils # 5.6 K/mcL (1.6-8.9); Platelet Count 440 K/mcL (140-400); Red Blood Count 3.94 M/mcL (3.82-4.97); Red Cell Distribution Width 13.6 % (11.5-14.5); Segmented Neutrophils % 58.4 %
[2018-06-13 04:40] LABS: BUN/Creatinine Ratio 20 (6-26); Blood Urea Nitrogen 17 mg/dL (6-20); Calcium 8.7 mg/dL (8.6-10.3); Carbon Dioxide 37 mEq/L (23-29); Chloride 100 mEq/L (98-107); Glucose 100 mg/dL (70-105); Osmolality,Calculated 292 (280-300); Potassium 3.5 mEq/L (3.5-5.1); Sodium 140 mEq/L (136-145); eGFR For Non-African Americans > 60 (> 60)
[2018-06-13] MEDS: *HR* Heparin 5,000 UNIT/ML VIAL SQ SCH ×2 (05:46→17:38)
[2018-06-13] MEDS ORDERED: Fluconazole 100 MG TABLET PO ONE (09:00)
[2018-06-13] MEDS: sulfaSALAzine 500 MG TABLET PO SCH (09:41)
[2018-06-13] MEDS: predniSONE 20 MG TABLET PO SCH (09:41)
[2018-06-13] MEDS: Sennosides 8.6 MG TABLET PO SCH (09:42)
[2018-06-13] MEDS: Folic Acid 1 MG TABLET PO SCH (09:42)
[2018-06-13] MEDS: Aspirin Enteric Coated 81 MG Tablet PO SCH (09:42)
[2018-06-13] MEDS: Pregabalin 75 MG CAPSULE PO SCH ×2 (09:42→21:06)
[2018-06-13] MEDS: Artificial Tears SOLN 15 ML BOTTLE BOTH EYES SCH ×4 (09:44→21:08)
[2018-06-13] MEDS: Patient Taking Own Medication 1 EACH PO SCH (09:44)
[2018-06-13] MEDS: Budesonide/Formoterol 160/4.5 1 PUFF INH IH SCH ×2 (10:38→22:23)
--- NOTE | 2018-06-13 14:14 | Internal Med Progress Note ---
<Nolan Zavala - Last Filed: 06/13/18 15:34> Hospitalist Progress Note - Encounter Date of Encounter: 06/13/18 - Exam Vitals: Temp Pulse Resp BP Pulse Ox 97.9 F 75 17 104/67 100 06/13/18 11:21 06/13/18 11:21 06/13/18 10:43 06/13/18 11:21 06/13/18 11:21 - Assessment and Plan (1) Acute respiratory failure with hypoxia and hypercapnia Current Visit: Yes Status: Acute (2) Acute exacerbation of chronic obstructive airways disease Current Visit: Yes Status: Acute (3) Rcgzs-5-foaibleepla deficiency Current Visit: Yes Status: Chronic (4) Rheumatoid arthritis Current Visit: No Status: Chronic (5) Vaginal yeast infection Current Visit: Yes Status: Suspected (6) Chronic respiratory failure with hypercapnia Current Visit: No Status: Chronic (7) GERD (gastroesophageal reflux disease) Current Visit: No Status: Chronic - Time Spent with Patient Total time spent is greater than 50% in coordination of care (as documented) at patient's floor/unit and/or counseling patient: Internal Medicine: Result - Labs CBC & Chem 7: 06/13/18 03:50 06/13/18 03:50 Labs: Short CBC 06/13/18 Range/Units 03:50 WBC 9.5 (4.3-11.1) K/mcL Hgb 10.8 L (11.5-15.4) g/dL Hct 35.9 (35.3-44.9) % Plt Count 440 H (140-400) K/mcL Neutrophils # 5.6 (1.6-8.9) K/mcL BMP 06/13/18 03:50 Sodium 140 Potassium 3.5 Chloride 100 Carbon Dioxide 37 H BUN 17 Creatinine 0.84 Glucose 100 Calcium 8.7 - ABG Interpretation ABG results: ABG ABG pH 7.35 pH Units (7.32-7.45) 06/07/18 05:00 ABG pCO2 65 mmHg (35-45) H 06/07/18 05:00 ABG pO2 114 mmHg (85-104) H 06/07/18 05:00 ABG O2 Saturation 98 % (95-98) 06/07/18 05:00 Consult Discharge Plan - Plan Referrals: Alana Abraham MD [Non-Partnered Physician] - 06/13/18 2:00 pm - Attending Attestation The history, physical exam, and medical decision making was performed by the medical student either while I was physically present and actively involved or I personally re-performed the exam and medical decision making. I have verified the accuracy of the medical student's documentation with regards to the history, physical exam findings, and medical decision making on 06/13/18. Ms Dawkins is currently admitted for acute resp failure and COPD exac. She remains moderate to high risk due to potential for worsening clinical status. Ms Dawkins is breathing about the same. She awoke during the night and had a lot of pain from RA (says it is the weather). Has not moved around much today. No fever or chills. No CP. No GI issues. Exam alert Comfortable in bed. Mucus membranes dry Heart distant - not tachy currently No rhonchi or rales. Scant end exp wheeze Normocephalic Neck supple Abd soft and nontender No edema Moves all extremities - no overt synovitis noted or joint flare I/P 1. Resp failure - slowly improving to baseline. Continue oxygen and supportive care 2. COPD exac - currently on PO steroids. Continue same dose today. 3. A1ATD - infusion today 4. RA - feels she has more joint pain today. Supportive care. Anticipate d/c in next 1-2 days Further diagnoses and plan as above <Augusto Mackey P - Last Filed: 06/13/18 16:36> Hospitalist Progress Note - Encounter Date of Encounter: 06/13/18 Time of Encounter: 09:00 - Subjective Interval History: Ms. Dawkins is a 58 year old female w/ PMH of anxiety, GERD, rheumatoid arthritis, COPD, and alpha 1 antitrypsin deficinecy. Today she appears well nourished, well developed resting comfortably. Patients breathing is seemingly near her baseline. Her only complaint today is that her "joints are hurting her". Nothing seems to make her pain better/worse. No associated symptoms. She attributes her joint pain due to the weather. - Exam Vitals: Temp Pulse Resp BP Pulse Ox 97.9 F 75 17 104/67 100 06/13/18 11:21 06/13/18 11:21 06/13/18 10:43 06/13/18 11:21 06/13/18 11:21 Exam: General appearance: Present: cooperative, A&O X 3. Exam: - Head Head exam: Present: atraumatic, normocephalic - ENT ENT exam: mucus membranes moist, oropharynx normal - Neck Neck exam general surgery: Present: trachea midline, non deviated - Respiratory Respiratory exam: Present: decreased breath sounds - Expanded Respiratory Exam Location: decreased breath sounds: Left, Right, Upper, Lower - Cardiovascular Cardiovascular exam: Present: +S1, +S2, tachycardia. Absent: clicks, gallop, JVD, rubs - GI/Abdominal GI/Abdominal exam: Present: firm, tenderness, no peritoneal signs. Absent: distended, guarding, rebound, rigid - Extremities Exam Extremities exam: Present: normal capillary refill, normal inspection. Absent: calf tenderness, tenderness - Neurological Exam Neurological exam: Present: alert, no focal deficits - Psychiatric Psychiatric exam: Present: normal affect, normal mood Musculoskeletal: no joint swelling or redness - Assessment and Plan (1) Acute exacerbation of chronic obstructive airways disease Current Visit: Yes Status: Acute Assessment and Plan: - Prior to admission, has had increasing SOB and sputum production and change of sputum color most likely due to acute on chronic exacerbation of COPD - increasing oxygen demands, increased 2L to 6L at home - unable to complete ADL at home and has had increasing trouble walking to bathroom from couch. -Currently on 3 L of oxygen and Bipap at night -Patient currently does not meet SIRS criteria. -CXR at [facility] was negative for any acute processes. -Tachycardia HR of 100. all other vitals normal -resloved leukocytosis. wbc is normal -Respiratory infectious panel is negative. Influenza panel is negative. No infectious process identified. -Repeat CXR yesterday was negative for any acute processes. UA normal findings. -lactate yesterday in normal range -roscefin and azithromycin discontinued today EKG negative for acute ST changes at [facility]. - HR was 124, normal axis, normal intervals - troponin negative Repeat EKG done on 06/06/[address] Irby and showed sinus tachycardia. negative for any ischemic changes. Echo done today showed impression of LVEF 55-60% w/ normal left ventricular diastolic function, Mild concentric left ventricular hypertrophy, Normal right ventricular structure and function, Mild tricuspid regurgitation and Mild pulmonary hypertension. (2) Jwrnr-8-wpbszkyxdcb deficiency Current Visit: Yes Status: Chronic Assessment and Plan: Contributing to COPD exacerbation - pt has chronic hx of A1AT deficiency (3) Metabolic encephalopathy Current Visit: Yes Status: Acute Assessment and Plan: Most likely due to respiratory acidosis state Upon admission, reported AMS, unable to tell him where she was or what was going on. - ABG upon admission showed respiratory acidosis. -most recent ABG showed improvement on the respiratory acidosis w/pH 7.35, pCO2 75, HCO3 36 -Today patients mental status is improved admits. -continue to monitor O2 saturation and electrolytes. (4) Acute respiratory failure with hypoxia and hypercapnia Current Visit: Yes Status: Acute Assessment and Plan: Acute on chronic - pt with increasing oxygen demands has required increasing 2L ---> 6L at home. (5) Anxiety Current Visit: Yes Status: Acute Assessment and Plan: -On IV Lorazepam 0.5mg (6) Rheumatoid arthritis Current Visit: No Status: Chronic Assessment and Plan: Chronic - on MTX and etancercept (7) GERD (gastroesophageal reflux disease) Current Visit: No Status: Chronic Assessment and Plan: Takes Prilosec at home, will hold home PO meds for now. (8) Back pain Current Visit: No Status: Chronic Assessment and Plan: Has chronic Low back pain. - takes percocet at home, will hold home PO meds for now DVT Prophylaxis: subcutaneous heparin. - Time Spent with Patient Total time spent is greater than 50% in coordination of care (as documented) at patient's floor/unit and/or counseling patient: Internal Medicine: Result - Labs CBC & Chem 7: 06/13/18 03:50 06/13/18 03:50 Labs: Short CBC 06/13/18 Range/Units 03:50 WBC 9.5 (4.3-11.1) K/mcL Hgb 10.8 L (11.5-15.4) g/dL Hct 35.9 (35.3-44.9) % Plt Count 440 H (140-400) K/mcL Neutrophils # 5.6 (1.6-8.9) K/mcL BMP 06/13/18 03:50 Sodium 140 Potassium 3.5 Chloride 100 Carbon Dioxide 37 H BUN 17 Creatinine 0.84 Glucose 100 Calcium 8.7 - ABG Interpretation ABG results: ABG ABG pH 7.35 pH Units (7.32-7.45) 06/07/18 05:00 ABG pCO2 65 mmHg (35-45) H 06/07/18 05:00 ABG pO2 114 mmHg (85-104) H 06/07/18 05:00 ABG O2 Saturation 98 % (95-98) 06/07/18 05:00 <Nolan Zavala - Last Filed: 06/13/18 15:34> (4) Rheumatoid arthritis Qualifiers: Rheumatoid arthritis location: multiple sites Rheumatoid factor presence: unspecified presence Qualified Code(s): M06.9 - Rheumatoid arthritis, unspecified (7) GERD (gastroesophageal reflux disease) Qualifiers: Esophagitis presence: esophagitis presence not specified Qualified Code(s): K21.9 - Gastro-esophageal reflux disease without esophagitis <Augusto Mackey P - Last Filed: 06/13/18 16:36> (6) Rheumatoid arthritis Qualifiers: Rheumatoid arthritis location: multiple sites Rheumatoid factor presence: unspecified presence Qualified Code(s): M06.9 - Rheumatoid arthritis, unspecified (7) GERD (gastroesophageal reflux disease) Qualifiers: Esophagitis presence: esophagitis presence not specified Qualified Code(s): K21.9 - Gastro-esophageal reflux disease without esophagitis (8) Back pain Qualifiers: Back pain location: low back pain Chronicity: chronic Back pain laterality: unspecified Sciatica presence: unspecified whether sciatica present Qualified Code(s): M54.5 - Low back pain; G89.29 - Other chronic pain
[2018-06-14] MEDS: *HR* OxyCODONE/APAP 10/325 TABLET PO PRN ×4 (02:34→20:01)
[2018-06-14 04:35] LABS: Basophils % 0.2 %; Eosinophils # 0.1 K/mcL (0.0-0.6); Eosinophils % 1.3 %; Immature Granulocytes % 2.1 % (0-4); Lymphocytes % 20.8 %; Mean Corpuscular HGB Conc 30.3 g/dL (31.6-35.5); Mean Corpuscular Hemoglobin 27.8 pg (28.0-33.3); Mean Corpuscular Volume 91.7 fL (83.0-100.0); Mean Platelet Volume 9.8 fL (9.4-12.4); Monocytes # 1.1 K/mcL (0.0-1.3); Monocytes % 11.5 %; Neutrophils # 6.2 K/mcL (1.6-8.9); Platelet Count 400 K/mcL (140-400); Red Cell Distribution Width 13.8 % (11.5-14.5); Segmented Neutrophils % 64.1 %
[2018-06-14 04:52] LABS: BUN/Creatinine Ratio 18 (6-26); Blood Urea Nitrogen 16 mg/dL (6-20); Calcium 8.4 mg/dL (8.6-10.3); Carbon Dioxide 36 mEq/L (23-29); Chloride 103 mEq/L (98-107); Glucose 106 mg/dL (70-105); Osmolality,Calculated 296 (280-300); Potassium 3.8 mEq/L (3.5-5.1); Sodium 142 mEq/L (136-145); eGFR For Non-African Americans > 60 (> 60)
[2018-06-14] MEDS: clonazePAM 0.5 MG TABLET PO PRN ×2 (05:35→20:01)
[2018-06-14] MEDS: *HR* Heparin 5,000 UNIT/ML VIAL SQ SCH ×2 (05:36→18:55)
[2018-06-14] MEDS: Folic Acid 1 MG TABLET PO SCH (08:32)
[2018-06-14] MEDS: sulfaSALAzine 500 MG TABLET PO SCH (08:32)
[2018-06-14] MEDS: Sennosides 8.6 MG TABLET PO SCH (08:32)
[2018-06-14] MEDS: Pregabalin 75 MG CAPSULE PO SCH ×2 (08:33→19:55)
[2018-06-14] MEDS: Artificial Tears SOLN 15 ML BOTTLE BOTH EYES SCH ×4 (08:33→19:54)
[2018-06-14] MEDS: predniSONE 20 MG TABLET PO SCH (08:33)
[2018-06-14] MEDS: Aspirin Enteric Coated 81 MG Tablet PO SCH (08:33)
[2018-06-14] MEDS: Patient Taking Own Medication 1 EACH PO SCH (08:34)
[2018-06-14] MEDS: Budesonide/Formoterol 160/4.5 1 PUFF INH IH SCH ×2 (09:38→20:22)
--- NOTE | 2018-06-14 11:14 | Internal Med Progress Note ---
<Shyanne Montoya - Last Filed: 06/14/18 13:59> Hospitalist Progress Note - Encounter Date of Encounter: 06/14/18 - Exam Vitals: Temp Pulse Resp BP Pulse Ox 98.0 F 69 16 107/60 100 06/14/18 08:00 06/14/18 08:00 06/14/18 09:38 06/14/18 08:00 06/14/18 09:38 - Assessment and Plan (1) Acute exacerbation of chronic obstructive airways disease Current Visit: Yes Status: Acute (2) Chronic respiratory failure with hypercapnia Current Visit: No Status: Chronic (3) Zxddk-2-yimmedbbuhy deficiency Current Visit: Yes Status: Chronic (4) Acute respiratory failure with hypoxia and hypercapnia Current Visit: Yes Status: Acute (5) Rheumatoid arthritis Current Visit: No Status: Chronic (6) GERD (gastroesophageal reflux disease) Current Visit: No Status: Chronic (7) Vaginal yeast infection Current Visit: Yes Status: Suspected - Time Spent with Patient Total time spent is greater than 50% in coordination of care (as documented) at patient's floor/unit and/or counseling patient: Internal Medicine: Result - Labs CBC & Chem 7: 06/14/18 04:05 06/14/18 04:05 Labs: Short CBC 06/14/18 Range/Units 04:05 WBC 9.7 (4.3-11.1) K/mcL Hgb 10.0 L (11.5-15.4) g/dL Hct 33.0 L (35.3-44.9) % Plt Count 400 (140-400) K/mcL Neutrophils # 6.2 (1.6-8.9) K/mcL BMP 06/14/18 04:05 Sodium 142 Potassium 3.8 Chloride 103 Carbon Dioxide 36 H BUN 16 Creatinine 0.87 Glucose 106 H Calcium 8.4 L - ABG Interpretation ABG results: ABG ABG pH 7.35 pH Units (7.32-7.45) 06/07/18 05:00 ABG pCO2 65 mmHg (35-45) H 06/07/18 05:00 ABG pO2 114 mmHg (85-104) H 06/07/18 05:00 ABG O2 Saturation 98 % (95-98) 06/07/18 05:00 Consult Discharge Plan - Plan Referrals: Alana Abraham MD [Non-Partnered Physician] - 06/13/18 2:00 pm - Attending Attestation The history, physical exam, and medical decision making was performed by medical student Key either while I was physically present and actively involved or I personally re-performed the exam and medical decision making. I have verified the accuracy of the medical student's documentation with regards to the history, physical exam findings, and medical decision making on 06/13/18. Ms Dawkins is currently admitted for acute resp failure and COPD exac. Ms Dawkins is awake, and has just ambulated back from bathroom. family at bedside. She is sob with exertion but catches her breath with some time. no cough, wheezing, fevers or chills. overall greatly improved. gen- alert, awake,appears stated age eyes- pupils equal round cv- reg rate and rhythm, normal s1,s2, no murmurs appreciated, no le edema lungs- ctabl, no wheezing, rhonchi or crackles but diminsihed throughout, after sitting for a few minutes she has normal resp effort on nc neuro- AAOx3 1. Acute on Chronic Resp failure - slowly improving to baseline. Continue oxygen and supportive care, SW confirming home rxs and if needs 6 min walk prior to dc 2. COPD exac - currently on PO steroids. Continue same dose today.begin to taper tomorrow, s/p course of azithro + rocephin 3. A1ATD - infusion as per outpt scheduled, pharm assisting 4. RA - Supportive care. Anticipate d/c in next 1-2 days, SW aware and beginning prep for dc to home with C RN PT, bipap and O2 nc, she will fu with Dr Velez outpt <Augusto Mackey P - Last Filed: 06/14/18 16:44> Hospitalist Progress Note - Encounter Date of Encounter: 06/14/18 Time of Encounter: 09:00 - Subjective Interval History: Ms. Dawkins is a 58 year old female w/ PMH of anxiety, GERD, rheumatoid arthritis, COPD, and alpha 1 antitrypsin deficinecy. Today she appears well nourished, well developed resting comfortably. Patients breathing is seemingly near her baseline. Continues to complain today that her "joints are hurting her". Nothing seems to make her pain better/worse. No associated symptoms. She attributes her joint pain due to the weather. - Exam Vitals: Temp Pulse Resp BP Pulse Ox 98.0 F 69 17 107/60 94 06/14/18 08:00 06/14/18 08:00 06/14/18 08:00 06/14/18 08:00 06/14/18 08:00 Exam: General appearance: Present: cooperative, A&O X 3. Exam: - Head Head exam: Present: atraumatic, normocephalic - ENT ENT exam: mucus membranes moist, oropharynx normal - Neck Neck exam general surgery: Present: trachea midline, non deviated - Respiratory Respiratory exam: Present: decreased breath sounds - Expanded Respiratory Exam Location: decreased breath sounds: Left, Right, Upper, Lower - Cardiovascular Cardiovascular exam: Present: +S1, +S2, tachycardia. Absent: clicks, gallop, JVD, rubs - GI/Abdominal GI/Abdominal exam: Present: firm, tenderness, no peritoneal signs. Absent: distended, guarding, rebound, rigid - Extremities Exam Extremities exam: Present: normal capillary refill, normal inspection. Absent: calf tenderness, tenderness - Neurological Exam Neurological exam: Present: alert, no focal deficits - Psychiatric Psychiatric exam: Present: normal affect, normal mood Musculoskeletal: no joint swelling or redness - Assessment and Plan (1) Acute exacerbation of chronic obstructive airways disease Current Visit: Yes Status: Acute Assessment and Plan: - Prior to admission, has had increasing SOB and sputum production and change of sputum color most likely due to acute on chronic exacerbation of COPD - increasing oxygen demands, increased 2L to 6L at home - unable to complete ADL at home and has had increasing trouble walking to bathroom from couch. -Currently on 3 L of oxygen and Bipap at night -Patient currently does not meet SIRS criteria. -CXR at [facility] was negative for any acute processes. -Tachycardia HR of 100. all other vitals normal -resloved leukocytosis. wbc is normal -Respiratory infectious panel is negative. Influenza panel is negative. No infectious process identified. -Repeat CXR yesterday was negative for any acute processes. UA normal findings. -lactate yesterday in normal range -roscefin and azithromycin discontinued today EKG negative for acute ST changes at [facility]. - HR was 124, normal axis, normal intervals - troponin negative Repeat EKG done on 06/06/[address] Irby and showed sinus tachycardia. negative for any ischemic changes. Echo done today showed impression of LVEF 55-60% w/ normal left ventricular diastolic function, Mild concentric left ventricular hypertrophy, Normal right ventricular structure and function, Mild tricuspid regurgitation and Mild pulmonary hypertension. Plan: -Continue Xopenex Q6 - continue theophylline - continue BiPAP -continue w/ Oral prednisone same dose today, begin tapering tomorrow -Pulmonology consulted and following -can do a 6 min walk test if need be (2) Rlznr-0-rzrcosrzxos deficiency Current Visit: Yes Status: Chronic Assessment and Plan: Contributing to COPD exacerbation - pt has chronic hx of A1AT deficiency -Patient has A1AT medication at hospital, pharmacy here is assisting (3) Metabolic encephalopathy Current Visit: Yes Status: Acute Assessment and Plan: Most likely due to respiratory acidosis state Upon admission, reported AMS, unable to tell him where she was or what was going on. - ABG upon admission showed respiratory acidosis. -most recent ABG showed improvement on the respiratory acidosis w/pH 7.35, pCO2 75, HCO3 36 -Today patients mental status is improved admits. -continue to monitor O2 saturation and electrolytes. (4) Acute respiratory failure with hypoxia and hypercapnia Current Visit: Yes Status: Acute Assessment and Plan: Acute on chronic - pt with increasing oxygen demands has required increasing 2L ---> 6L at home. (5) Anxiety Current Visit: Yes Status: Acute Assessment and Plan: -On IV Lorazepam 0.5mg (6) Rheumatoid arthritis Current Visit: No Status: Chronic Assessment and Plan: Chronic - on MTX and etancercept (7) GERD (gastroesophageal reflux disease) Current Visit: No Status: Chronic Assessment and Plan: Takes Prilosec at home, will hold home PO meds for now. (8) Back pain Current Visit: No Status: Chronic Assessment and Plan: Has chronic Low back pain. - takes percocet at home, will hold home PO meds for now DVT Prophylaxis: subcutaneous heparin. - Time Spent with Patient Total time spent is greater than 50% in coordination of care (as documented) at patient's floor/unit and/or counseling patient: Internal Medicine: Result - Labs CBC & Chem 7: 06/14/18 04:05 06/14/18 04:05 Labs: Short CBC 06/14/18 Range/Units 04:05 WBC 9.7 (4.3-11.1) K/mcL Hgb 10.0 L (11.5-15.4) g/dL Hct 33.0 L (35.3-44.9) % Plt Count 400 (140-400) K/mcL Neutrophils # 6.2 (1.6-8.9) K/mcL BMP 06/14/18 04:05 Sodium 142 Potassium 3.8 Chloride 103 Carbon Dioxide 36 H BUN 16 Creatinine 0.87 Glucose 106 H Calcium 8.4 L - ABG Interpretation ABG results: ABG ABG pH 7.35 pH Units (7.32-7.45) 06/07/18 05:00 ABG pCO2 65 mmHg (35-45) H 06/07/18 05:00 ABG pO2 114 mmHg (85-104) H 06/07/18 05:00 ABG O2 Saturation 98 % (95-98) 06/07/18 05:00 <Shyanne Montoya M - Last Filed: 06/14/18 13:59> (5) Rheumatoid arthritis Qualifiers: Rheumatoid arthritis location: multiple sites Rheumatoid factor presence: unspecified presence Qualified Code(s): M06.9 - Rheumatoid arthritis, unspecified (6) GERD (gastroesophageal reflux disease) Qualifiers: Esophagitis presence: esophagitis presence not specified Qualified Code(s): K21.9 - Gastro-esophageal reflux disease without esophagitis <Augusto Mackey P - Last Filed: 06/14/18 16:44> (6) Rheumatoid arthritis Qualifiers: Rheumatoid arthritis location: multiple sites Rheumatoid factor presence: unspecified presence Qualified Code(s): M06.9 - Rheumatoid arthritis, unspecified (7) GERD (gastroesophageal reflux disease) Qualifiers: Esophagitis presence: esophagitis presence not specified Qualified Code(s): K21.9 - Gastro-esophageal reflux disease without esophagitis (8) Back pain Qualifiers: Back pain location: low back pain Chronicity: chronic Back pain laterality: unspecified Sciatica presence: unspecified whether sciatica present Qualified Code(s): M54.5 - Low back pain; G89.29 - Other chronic pain
[2018-06-15] MEDS: *HR* OxyCODONE/APAP 10/325 TABLET PO PRN ×3 (04:56→20:49)
[2018-06-15] MEDS: *HR* Heparin 5,000 UNIT/ML VIAL SQ SCH ×2 (04:56→18:02)
[2018-06-15 05:22] LABS: Basophils % 0.3 %; Eosinophils # 0.2 K/mcL (0.0-0.6); Eosinophils % 1.6 %; Hematocrit 32.1 % (35.3-44.9); Hemoglobin 9.6 g/dL (11.5-15.4); Immature Granulocytes % 2.2 % (0-4); Lymphocytes # 2.7 K/mcL (0.6-4.6); Lymphocytes % 28.9 %; Mean Corpuscular HGB Conc 29.9 g/dL (31.6-35.5); Mean Corpuscular Hemoglobin 27.7 pg (28.0-33.3); Mean Corpuscular Volume 92.5 fL (83.0-100.0); Monocytes % 11.1 %; Neutrophils # 5.3 K/mcL (1.6-8.9); Platelet Count 384 K/mcL (140-400); Red Blood Count 3.47 M/mcL (3.82-4.97); Segmented Neutrophils % 55.9 %
[2018-06-15 05:46] LABS: BUN/Creatinine Ratio 18 (6-26); Blood Urea Nitrogen 14 mg/dL (6-20); Calcium 8.6 mg/dL (8.6-10.3); Carbon Dioxide 33 mEq/L (23-29); Chloride 102 mEq/L (98-107); Glucose 82 mg/dL (70-105); Osmolality,Calculated 296 (280-300); Potassium 3.8 mEq/L (3.5-5.1); Sodium 143 mEq/L (136-145); eGFR For Non-African Americans > 60 (> 60)
[2018-06-15] MEDS: Budesonide/Formoterol 160/4.5 1 PUFF INH IH SCH ×2 (07:38→20:12)
[2018-06-15] MEDS ORDERED: ALPHA IVP ONE (09:00)
[2018-06-15] MEDS ORDERED: PROTEINASE INHIBITOR IVP ONE (09:00)
[2018-06-15] MEDS: predniSONE 10 MG TABLET PO SCH (09:18)
[2018-06-15] MEDS: Pregabalin 75 MG CAPSULE PO SCH ×2 (09:18→20:49)
[2018-06-15] MEDS: sulfaSALAzine 500 MG TABLET PO SCH (09:19)
[2018-06-15] MEDS: Folic Acid 1 MG TABLET PO SCH (09:19)
[2018-06-15] MEDS: Sennosides 8.6 MG TABLET PO SCH (09:19)
[2018-06-15] MEDS: Aspirin Enteric Coated 81 MG Tablet PO SCH (09:19)
[2018-06-15] MEDS: Patient Taking Own Medication 1 EACH PO SCH (09:25)
[2018-06-15] MEDS: clonazePAM 0.5 MG TABLET PO PRN ×2 (09:25→20:49)
[2018-06-15] MEDS: Artificial Tears SOLN 15 ML BOTTLE BOTH EYES SCH ×4 (09:26→20:51)
--- NOTE | 2018-06-15 14:23 | Internal Med Progress Note ---
<Shyanne Montoya - Last Filed: 06/15/18 14:24> Hospitalist Progress Note - Encounter Date of Encounter: 06/15/18 - Exam Vitals: Temp Pulse Resp BP Pulse Ox 98.3 F 69 16 127/83 100 06/15/18 11:47 06/15/18 11:47 06/15/18 11:47 06/15/18 11:47 06/15/18 11:47 - Assessment and Plan (1) Acute exacerbation of chronic obstructive airways disease Current Visit: Yes Status: Acute (2) Chronic respiratory failure with hypercapnia Current Visit: No Status: Chronic (3) Pptxk-7-dvwheieloks deficiency Current Visit: Yes Status: Chronic (4) Acute respiratory failure with hypoxia and hypercapnia Current Visit: Yes Status: Acute (5) Rheumatoid arthritis Current Visit: No Status: Chronic (6) GERD (gastroesophageal reflux disease) Current Visit: No Status: Chronic (7) Vaginal yeast infection Current Visit: Yes Status: Suspected - Time Spent with Patient Total time spent is greater than 50% in coordination of care (as documented) at patient's floor/unit and/or counseling patient: Internal Medicine: Result - Labs CBC & Chem 7: 06/15/18 05:03 06/15/18 05:03 Labs: Short CBC 06/15/18 Range/Units 05:03 WBC 9.4 (4.3-11.1) K/mcL Hgb 9.6 L (11.5-15.4) g/dL Hct 32.1 L (35.3-44.9) % Plt Count 384 (140-400) K/mcL Neutrophils # 5.3 (1.6-8.9) K/mcL BMP 06/15/18 05:03 Sodium 143 Potassium 3.8 Chloride 102 Carbon Dioxide 33 H BUN 14 Creatinine 0.80 Glucose 82 Calcium 8.6 - ABG Interpretation ABG results: ABG ABG pH 7.35 pH Units (7.32-7.45) 06/07/18 05:00 ABG pCO2 65 mmHg (35-45) H 06/07/18 05:00 ABG pO2 114 mmHg (85-104) H 06/07/18 05:00 ABG O2 Saturation 98 % (95-98) 06/07/18 05:00 Consult Discharge Plan - Plan Referrals: Alana Abraham MD [Non-Partnered Physician] - 06/13/18 2:00 pm - Attending Attestation The history, physical exam, and medical decision making was performed by medical student Key either while I was physically present and actively involved or I personally re-performed the exam and medical decision making. I have verified the accuracy of the medical student's documentation with regards to the history, physical exam findings, and medical decision making on 06/13/18. Ms Dawkins is currently admitted for acute resp failure and COPD exac. She was using 6L NC home o2 prior to admission (as per family) and she has remained stable for some days now. We are prepping her for dc to home with assistance of social work. Ms Dawkins is awake, at bedside. She has no sob at rest on 5L NC. no cough, wheezing or sputum production. She continues to have sob on exertion that alleviates with rest. Vick and long discussion with she and regarding her clinical picture. They are aware that she has progressive lung disease, as demonstrated by being work up for lung transplant at [facility], that disease process is not expected to reverse and that with each insult to the lungs, she can expect slow recovery and perhaps new baseline. She and he were encouraged to follow up with dr Velez but also the [facility]. She has appt there monday 06/19. They are aware she is stable at this time, SW is setting up home o2 rxs as there is confusion if she actually has a rx for the amount she has been using at home, and then dc to home will be later today or in am. They are fearful of her resp status on a whole and her prognosis but understand that there is nothing further being done here at this time that she cannot continue at home. Follow up will be of the utmost importance and she understand. gen- alert, awake,appears stated age cv- reg rate and rhythm, normal s1,s2, no murmurs appreciated, no le edema lungs- ctabl, no wheezing, rhonchi or crackles , improved aearation anteriorly and upper posterior lung jones, normal resp effort on o2 nc abd- soft, nt, nd, + bs neuro- AAOx3 1. Acute on Chronic Resp failure - improved. Continue oxygen and supportive care, JOHN confirming home rxs, has been evaluated and followed by pulm this admission and copde exacerbation with underlying progressive lung disease - outpt fu essential, [facility] appt (transplant work up 06/19/18 er family) 2. COPD exac - PO steroids. s/p course of azithro + rocephin. Will complete taper as outpt, jayesh, pcp and [facility] fu 3. A1ATD - infusion as per outpt scheduled, pharm assisting 4. RA - Supportive care. Anticipate d/c today or tomorrow pending O2 rx confirmation, obtain 6 min walk, SW aware and beginning prep for dc to home with C RN PT, bipap and O2 nc, she will fu with Dr Velez outpt and appt being scheduled, [facility] appt 06/19/18 and pt encouraged to keep this appt <Augusto Mackey P - Last Filed: 06/15/18 15:10> Hospitalist Progress Note - Encounter Date of Encounter: 06/15/18 Time of Encounter: 09:30 - Subjective Interval History: Ms. Dawkins is a 58 year old female w/ PMH of anxiety, GERD, rheumatoid arthritis, COPD, and alpha 1 antitrypsin deficinecy. Today she appears well nourished, well developed resting comfortably. Patients breathing is seemingly near her baseline. - Exam Vitals: Temp Pulse Resp BP Pulse Ox 98.3 F 69 16 127/83 100 06/15/18 11:47 06/15/18 11:47 06/15/18 11:47 06/15/18 11:47 06/15/18 11:47 Exam: General appearance: Present: cooperative, A&O X 3. Exam: - Head Head exam: Present: atraumatic, normocephalic - ENT ENT exam: mucus membranes moist, oropharynx normal - Neck Neck exam general surgery: Present: trachea midline, non deviated - Respiratory Respiratory exam: Present: decreased breath sounds - Expanded Respiratory Exam Location: decreased breath sounds: Left, Right, Upper, Lower - Cardiovascular Cardiovascular exam: Present: +S1, +S2, tachycardia. Absent: clicks, gallop, JVD, rubs - GI/Abdominal GI/Abdominal exam: Present: firm, tenderness, no peritoneal signs. Absent: distended, guarding, rebound, rigid - Extremities Exam Extremities exam: Present: normal capillary refill, normal inspection. Absent: calf tenderness, tenderness - Neurological Exam Neurological exam: Present: alert, no focal deficits - Psychiatric Psychiatric exam: Present: normal affect, normal mood Musculoskeletal: no joint swelling or redness - Assessment and Plan (1) Acute exacerbation of chronic obstructive airways disease Current Visit: Yes Status: Acute Assessment and Plan: - Prior to admission, has had increasing SOB and sputum production and change of sputum color most likely due to acute on chronic exacerbation of COPD - increasing oxygen demands, increased 2L to 6L at home - unable to complete ADL at home and has had increasing trouble walking to bathroom from couch. -Currently on 3 L of oxygen and Bipap at night -Patient currently does not meet SIRS criteria. -CXR at [facility] was negative for any acute processes. -Tachycardia HR of 100. all other vitals normal -resloved leukocytosis. wbc is normal -Respiratory infectious panel is negative. Influenza panel is negative. No infectious process identified. -Repeat CXR yesterday was negative for any acute processes. UA normal findings. -lactate yesterday in normal range -roscefin and azithromycin discontinued today EKG negative for acute ST changes at [facility]. - HR was 124, normal axis, normal intervals - troponin negative Repeat EKG done on 06/06/[address] Irby and showed sinus tachycardia. negative for any ischemic changes. Echo done today showed impression of LVEF 55-60% w/ normal left ventricular diastolic function, Mild concentric left ventricular hypertrophy, Normal right ventricular structure and function, Mild tricuspid regurgitation and Mild pulmonary hypertension. Plan: -Continue Xopenex Q6 - continue theophylline - continue BiPAP -recieved 30 mg Oral prednisone dose today, follow 10 day steroid taper plan -Pulmonology consulted and following -6 min walk test to be done today -patient is set to be d/c tomorrow (2) Qpazx-0-rohjqdtfmid deficiency Current Visit: Yes Status: Chronic Assessment and Plan: Contributing to COPD exacerbation - pt has chronic hx of A1AT deficiency -Patient has A1AT medication, pharmacy will assist in outpatient infusion, already scheduled (3) Metabolic encephalopathy Current Visit: Yes Status: Acute Assessment and Plan: Most likely due to respiratory acidosis state Upon admission, reported AMS, unable to tell him where she was or what was going on. - ABG upon admission showed respiratory acidosis. -most recent ABG showed improvement on the respiratory acidosis w/pH 7.35, pCO2 75, HCO3 36 -Today patients mental status is improved admits. -continue to monitor O2 saturation and electrolytes. (4) Acute respiratory failure with hypoxia and hypercapnia Current Visit: Yes Status: Acute Assessment and Plan: Acute on chronic - pt with increasing oxygen demands has required increasing 2L ---> 6L at home. (5) Anxiety Current Visit: Yes Status: Acute Assessment and Plan: -On IV Lorazepam 0.5mg (6) Rheumatoid arthritis Current Visit: No Status: Chronic Assessment and Plan: Chronic - on MTX and etancercept (7) GERD (gastroesophageal reflux disease) Current Visit: No Status: Chronic Assessment and Plan: Takes Prilosec at home, will hold home PO meds for now. (8) Back pain Current Visit: No Status: Chronic Assessment and Plan: Has chronic Low back pain. - takes percocet at home, will hold home PO meds for now DVT Prophylaxis: subcutaneous heparin. - Time Spent with Patient Total time spent is greater than 50% in coordination of care (as documented) at patient's floor/unit and/or counseling patient: Internal Medicine: Result - Labs CBC & Chem 7: 06/15/18 05:03 06/15/18 05:03 Labs: Short CBC 06/15/18 Range/Units 05:03 WBC 9.4 (4.3-11.1) K/mcL Hgb 9.6 L (11.5-15.4) g/dL Hct 32.1 L (35.3-44.9) % Plt Count 384 (140-400) K/mcL Neutrophils # 5.3 (1.6-8.9) K/mcL BMP 06/15/18 05:03 Sodium 143 Potassium 3.8 Chloride 102 Carbon Dioxide 33 H BUN 14 Creatinine 0.80 Glucose 82 Calcium 8.6 - ABG Interpretation ABG results: ABG ABG pH 7.35 pH Units (7.32-7.45) 06/07/18 05:00 ABG pCO2 65 mmHg (35-45) H 06/07/18 05:00 ABG pO2 114 mmHg (85-104) H 06/07/18 05:00 ABG O2 Saturation 98 % (95-98) 06/07/18 05:00 <Shyanne Montoya M - Last Filed: 06/15/18 14:24> (5) Rheumatoid arthritis Qualifiers: Rheumatoid arthritis location: multiple sites Rheumatoid factor presence: unspecified presence Qualified Code(s): M06.9 - Rheumatoid arthritis, unspecified (6) GERD (gastroesophageal reflux disease) Qualifiers: Esophagitis presence: esophagitis presence not specified Qualified Code(s): K21.9 - Gastro-esophageal reflux disease without esophagitis <Augusto Mackey P - Last Filed: 06/15/18 15:10> (6) Rheumatoid arthritis Qualifiers: Rheumatoid arthritis location: multiple sites Rheumatoid factor presence: unspecified presence Qualified Code(s): M06.9 - Rheumatoid arthritis, unspecified (7) GERD (gastroesophageal reflux disease) Qualifiers: Esophagitis presence: esophagitis presence not specified Qualified Code(s): K21.9 - Gastro-esophageal reflux disease without esophagitis (8) Back pain Qualifiers: Back pain location: low back pain Chronicity: chronic Back pain laterality: unspecified Sciatica presence: unspecified whether sciatica present Qualified Code(s): M54.5 - Low back pain; G89.29 - Other chronic pain
--- NOTE | 2018-06-15 18:52 | Physician Discharge Referral ---
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 Concentrator and portable tanks. Length of need: lifetime Height: 1.52 Weight 70.8) Smoking Cessation: Smoking cessation has been advised. For more information, call the [place] Tobacco Quit Line at 2-515-GCQU-NOW. - Diet/Nutrition Diet/Nutrition Orders: Regular - Activity Activity Orders: Ambulate - Services Needed Following services are medically necessary services: Nursing, Home Health Aide, Physical Therapy, Occupational Therapy - Transfer Medications Prescriptions: predniSONE [PredniSONE] See Taper PO DAILY #12 tablet Home Medications: 0.9 % Sodium Chloride [Normal Saline Flush] 10 ml IV AD PRN 06/06/18 [History] Acetaminophen [Acetaminophen ER] 650 mg PO Q4H PRN 06/06/18 [History] Ciaot-3-Ymygnnjzjv Inhibitor [Zemaira] 3,816 mg IV QWEEK 06/06/18 [History] Aspirin Enteric Coated [Aspirin EC] 81 mg PO DAILY 06/06/18 [History] Atenolol [Tenormin] 12.5 mg PO BID 06/06/18 [History] Atorvastatin [Lipitor] 40 mg PO HS 06/06/18 [History] Azithromycin [Zithromax] 250 mg PO MOWEFR 06/06/18 [History] Cyclobenzaprine [Flexeril] 10 mg PO TID PRN 06/06/18 [History] DULoxetine [Cymbalta] 30 mg PO DAILY 06/06/18 [History] Etanercept [Enbrel] 50 mg SQ QWEEK 06/06/18 [History] Folic Acid 1 mg PO DAILY 06/06/18 [History] Guaifenesin [Mucinex] 1,200 mg PO BID 06/06/18 [History] Heparin LOCK 500 unit IV AD PRN 06/06/18 [History] Meloxicam [Mobic] 7.5 mg PO DAILY 06/06/18 [History] Omeprazole [PriLOSEC] 40 mg PO DAILY 06/06/18 [History] Oxycodone HCl/Acetaminophen [Percocet 10-325 mg Tablet] 1 each PO TID PRN 06/06/18 [History] Potassium Chloride [Klor-Con 10] 10 meq PO DAILY 06/06/18 [History] Pregabalin [Lyrica] 75 mg PO BID 06/06/18 [History] Roflumilast [Daliresp] 500 mcg PO DAILY 06/06/18 [History] Sennosides [Senokot] 1 tab PO DAILY 06/06/18 [History] Sulfasalazine [Azulfidine] 500 mg PO DAILY 06/06/18 [History] Theophylline Anhydrous [Aubrey-24] 100 mg PO BID 06/06/18 [History] Umeclidinium [place] [Incruse Ellipta] 62.5 mcg IH DAILY 06/06/18 [History] clonazePAM [Clonazepam] 0.5 mg PO TID PRN 06/06/18 [History] Oxygen 3 l .ROUTE CONT #0 06/16/18 [Rx] predniSONE [PredniSONE] See Taper PO DAILY #12 tablet 06/16/18 [Rx] Allergies/Adverse Reactions: Allergy/AdvReac Type Severity Reaction Status Date / Time levofloxacin [From Levaquin] Allergy Swelling Verified 06/08/16 13:53 of Lip/Tongue/Throat morphine Allergy See Verified 06/08/16 13:53 Comments cinnamon [Cinnamon] AdvReac Nausea Verified 06/08/16 13:53 Certification: Further, I certify that my clinical findings support that this patient is homebound (i.e. absences from home require considerable and taxing effort and are for medical reasons or anabaptism services or infrequently or short duration when for other reasons) because: Homebound Reason: Leaving home requires considerable and taxing effort due to condition, Severity of cardiac or pulmonary status limits activity tolerance Attestation: My signature below is to certify that this patient is under my care and that I, or nurse practitioner, or a physician's podiatric assistant working with me, has a [id number] encounter with this patient. <Shyanne Montoya - Last Filed: 06/16/18 13:58> - Diagnosis (1) Acute exacerbation of chronic obstructive airways disease Status: Acute (2) Chronic respiratory failure with hypercapnia Status: Chronic (3) Ldfjw-2-ypoaoxygfce deficiency Status: Chronic (4) Acute respiratory failure with hypoxia and hypercapnia Status: Resolved (5) Rheumatoid arthritis Status: Chronic (6) GERD (gastroesophageal reflux disease) Status: Chronic (7) Vaginal yeast infection Status: Suspected - Respiratory Orders Smoking Cessation: Smoking cessation has been advised. For more information, call the [employer] Tobacco Quit Line at 0-390-BAJB-NOW. - Diet/Nutrition Diet/Nutrition Orders: Cardiac Certification: Further, I certify that my clinical findings support that this patient is homebound (i.e. absences from home require considerable and taxing effort and are for medical reasons or anabaptism services or infrequently or short duration when for other reasons) because: Attestation: My signature below is to certify that this patient is under my care and that I, or nurse practitioner, or a physician's podiatric assistant working with me, has a [id number]-[id number]-[id number] encounter with this patient.
[2018-06-16] MEDS: *HR* OxyCODONE/APAP 10/325 TABLET PO PRN ×2 (03:07→11:48)
[2018-06-16] MEDS: clonazePAM 0.5 MG TABLET PO PRN ×2 (03:09→11:50)
[2018-06-16] MEDS: *HR* Heparin 5,000 UNIT/ML VIAL SQ SCH (05:09)
[2018-06-16] MEDS: Budesonide/Formoterol 160/4.5 1 PUFF INH IH SCH (07:39)
[2018-06-16] MEDS: predniSONE 10 MG TABLET PO SCH (08:22)
[2018-06-16] MEDS: Pregabalin 75 MG CAPSULE PO SCH (08:23)
[2018-06-16] MEDS: Folic Acid 1 MG TABLET PO SCH (08:23)
[2018-06-16] MEDS: sulfaSALAzine 500 MG TABLET PO SCH (08:23)
[2018-06-16] MEDS: Aspirin Enteric Coated 81 MG Tablet PO SCH (08:24)
[2018-06-16] MEDS: Patient Taking Own Medication 1 EACH PO SCH (08:25)
[2018-06-16] MEDS: Sennosides 8.6 MG TABLET PO SCH (08:26)
[2018-06-16] MEDS: Artificial Tears SOLN 15 ML BOTTLE BOTH EYES SCH ×2 (08:26→11:48)
--- NOTE | 2018-06-16 09:38 | Discharge Summary ---
<Shyanne Montoya - Last Filed: 06/16/18 12:52> Date of Encounter: 06/16/18 - Discharge Diagnosis (1) Acute exacerbation of chronic obstructive airways disease Status: Acute (2) Chronic respiratory failure with hypercapnia Status: Chronic (3) Povse-0-tgbjxdvgseg deficiency Status: Chronic (4) Acute respiratory failure with hypoxia and hypercapnia Status: Resolved (5) Rheumatoid arthritis Status: Chronic Qualifiers: Rheumatoid arthritis location: multiple sites Rheumatoid factor presence: unspecified presence Qualified Code(s): M06.9 - Rheumatoid arthritis, unspecified (6) GERD (gastroesophageal reflux disease) Status: Chronic Qualifiers: Esophagitis presence: esophagitis presence not specified Qualified Code(s): K21.9 - Gastro-esophageal reflux disease without esophagitis (7) Vaginal yeast infection Status: Suspected Hospital course: Ms. Dawkins is a 58 year old female - Time Spent with Patient Total time spent providing and/or coordinating discharge services: Greater than 30 minutes (50 min) - Discharge Medications Prescriptions: New predniSONE [PredniSONE] See Taper PO DAILY #12 tablet Continue Oxycodone HCl/Acetaminophen [Percocet 10-325 mg Tablet] 1 each PO TID PRN PRN Reason: Pain Umeclidinium [place] [Incruse Ellipta] 62.5 mcg IH DAILY DULoxetine [Cymbalta] 30 mg PO DAILY Cyclobenzaprine [Flexeril] 10 mg PO TID PRN PRN Reason: Muscle Spasm Azithromycin [Zithromax] 250 mg PO MOWEFR Eywcb-1-Ukctwxdhan Inhibitor [Zemaira] 3,816 mg IV QWEEK Sulfasalazine [Azulfidine] 500 mg PO DAILY Omeprazole [PriLOSEC] 40 mg PO DAILY Meloxicam [Mobic] 7.5 mg PO DAILY Sennosides [Senokot] 1 tab PO DAILY Pregabalin [Lyrica] 75 mg PO BID Guaifenesin [Mucinex] 1,200 mg PO BID Atorvastatin [Lipitor] 40 mg PO HS Atenolol [Tenormin] 12.5 mg PO BID Acetaminophen [Acetaminophen ER] 650 mg PO Q4H PRN PRN Reason: Pain Potassium Chloride [Klor-Con 10] 10 meq PO DAILY Roflumilast [Daliresp] 500 mcg PO DAILY clonazePAM [Clonazepam] 0.5 mg PO TID PRN PRN Reason: Anxiety Aspirin Enteric Coated [Aspirin EC] 81 mg PO DAILY Folic Acid 1 mg PO DAILY Theophylline Anhydrous [Aubrey-24] 100 mg PO BID Heparin LOCK 500 unit IV AD PRN PRN Reason: AFTER PORT ACCESS 0.9 % Sodium Chloride [Normal Saline Flush] 10 ml IV AD PRN PRN Reason: FOR PORT ACCESS Etanercept [Enbrel] 50 mg SQ QWEEK Oxygen 3 l .ROUTE CONT #0 Home Medications: 0.9 % Sodium Chloride [Normal Saline Flush] 10 ml IV AD PRN 06/06/18 [History] Acetaminophen [Acetaminophen ER] 650 mg PO Q4H PRN 06/06/18 [History] Cxgea-3-Otvvvizvrt Inhibitor [Zemaira] 3,816 mg IV QWEEK 06/06/18 [History] Aspirin Enteric Coated [Aspirin EC] 81 mg PO DAILY 06/06/18 [History] Atenolol [Tenormin] 12.5 mg PO BID 06/06/18 [History] Atorvastatin [Lipitor] 40 mg PO HS 06/06/18 [History] Azithromycin [Zithromax] 250 mg PO MOWEFR 06/06/18 [History] Cyclobenzaprine [Flexeril] 10 mg PO TID PRN 06/06/18 [History] DULoxetine [Cymbalta] 30 mg PO DAILY 06/06/18 [History] Etanercept [Enbrel] 50 mg SQ QWEEK 06/06/18 [History] Folic Acid 1 mg PO DAILY 06/06/18 [History] Guaifenesin [Mucinex] 1,200 mg PO BID 06/06/18 [History] Heparin LOCK 500 unit IV AD PRN 06/06/18 [History] Meloxicam [Mobic] 7.5 mg PO DAILY 06/06/18 [History] Omeprazole [PriLOSEC] 40 mg PO DAILY 06/06/18 [History] Oxycodone HCl/Acetaminophen [Percocet 10-325 mg Tablet] 1 each PO TID PRN 06/06/18 [History] Potassium Chloride [Klor-Con 10] 10 meq PO DAILY 06/06/18 [History] Pregabalin [Lyrica] 75 mg PO BID 06/06/18 [History] Roflumilast [Daliresp] 500 mcg PO DAILY 06/06/18 [History] Sennosides [Senokot] 1 tab PO DAILY 06/06/18 [History] Sulfasalazine [Azulfidine] 500 mg PO DAILY 06/06/18 [History] Theophylline Anhydrous [Aubrey-24] 100 mg PO BID 06/06/18 [History] Umeclidinium [place] [Incruse Ellipta] 62.5 mcg IH DAILY 06/06/18 [History] clonazePAM [Clonazepam] 0.5 mg PO TID PRN 06/06/18 [History] Oxygen 3 l .ROUTE CONT #0 06/16/18 [Rx] predniSONE [PredniSONE] See Taper PO DAILY #12 tablet 06/16/18 [Rx] Allergies/Adverse Reactions: Allergy/AdvReac Type Severity Reaction Status Date / Time levofloxacin [From Levaquin] Allergy Swelling Verified 06/08/16 13:53 of Lip/Tongue/Throat morphine Allergy See Verified 06/08/16 13:53 Comments cinnamon [Cinnamon] AdvReac Nausea Verified 06/08/16 13:53 Date of admission: 06/05/18 23:24 Primary care physician: PCP NONE Consults: 06/05/18 21:57 Consult to Pulmonology [CONS] Routine Consulting Provider: [facility] Reason for Consult: copd on 2L, A1AT hx, needs lung transplant. will call pu lm in AM Call Completed: No 06/08/18 08:53 Consult to Nurse Navigator [CONS] Routine Comment: COPD 06/09/18 13:56 Consult to Occupational Therapy [CONS] Routine Comment: Evaluate, develop and implement POC Reason for Consult: discharge planning Does patient have active BEDREST order?: No Is patient medically & hemodynamically stable?: Yes Patient assessed for mobility or mobilized this visit?: Yes Consult to Physical Therapy [CONS] Routine Comment: Evaluate, develop and implement POC Reason for Consult: discharge planning Does patient have active BEDREST order?: No Is patient medically & hemodynamically stable?: Yes Patient assessed for mobility or mobilized this visit?: Yes 06/15/18 07:52 Consult to Credit Clerk [CONS] Routine Reason for SW Consult: home health & home oxygen - Constitutional Vitals: Temp Pulse Resp BP Pulse Ox 97.9 F 65 18 127/84 94 06/16/18 07:18 06/16/18 07:18 06/16/18 07:39 06/16/18 07:18 06/16/18 07:39 - Patient Status Disposition: Home Health Service Condition: Fair - Discharge Instructions Instructions: Acute Respiratory Distress Syndrome (DC), Chronic Obstructive Pulmonary Disease (DC), Anxiety (DC) Follow Up With: Kumar Hawley MD [Partnered Physician] - 06/30/18 8:45 am Alana Abraham MD [Non-Partnered Physician] - 06/13/18 2:00 pm Additional Instructions: Follow up appointment with [facility] as scheduled - Diet and Activity Diet: low fat, low cholesterol, low salt diet - Attending Attestation I examined this patient and my medical decision-making was reviewed with the Resident Physician Daniela. I agree with the documented findings, disposition and treatment plan as described except to the extent set forth below. Ms Dawkins is admitted for acute resp failure suspected to be 2/2 COPD exac. She has had a long course to recovery given her underlying lung disease related to alpha 1 antitrypsin deficiency and currently being worked up at [facility] for lung transplant. She preferred to stay at [facility] early this admission to treat exacerbation and see Pulm here with plan to follow up both here and in [place]. She worked with Dr Velez here. No infectious organism was identified, she was not thought to have PE or cardiovscular cause to symptoms and pulm recommened treatment for COPD exacerbation. She has remained stable for some days now and discharge plans are in place for her to home with HHC and fu at [facility] and with Dr Velez. Awake, alert, at bedside. no sob, cough or wheezing. no fevers or chills. discussed discharge plan with pt/ as well as her nurse and ansewred any questions. gen- alert, awake,appears stated age cv- reg rate and rhythm, normal s1,s2, no murmurs appreciated, no le edema lungs- ctabl, no wheezing, rhonchi or crackles , normal resp effort on o2 nc abd- soft, nt, nd, + bs neuro- AAOx3 1. Acute on Chronic Resp failure - improved. Continue oxygen and supportive care, home o2 now in place, followed by pulm this admission and copde exacerbation with underlying progressive lung disease - outpt fu essential, [facility] appt (transplant work up 06/20/18 945 am as confirmed with [facility]) and Dr Velze outpt fu 2. COPD exac - PO steroids to compelte taper outpt. s/p course of azithro + rocephin. jayesh, pcp and [facility] fu 3. A1ATD - infusion as per outpt schedule while she was here, pharm assisted 4. RA - Supportive care. 5. Chronic anemia, stable- fu with outpt provider for further monitoring/work up further diagnoses and plan as noted by resident time spent on discharge 50 min <Jayne Suarez - Last Filed: 06/16/18 15:13> - NOTES TO OUTPATIENT PROVIDER Notes to Outpatient Provider: Treated for acute on chronic COPD exacerbation. Discharged on steroid taper. Encouraged patient to follow up with [facility] pulmonology/transplant team and [facility] (Dr. Velez) as an outpatient. Needs follow up for normocytic anemia with CBC to check Hgb. Date of Encounter: 06/16/18 Time of Encounter: 09:34 Hospital course: Ms. Dawkins is a 58 year old female w/ PMH of anxiety, GERD, rheumatoid arthritis, COPD, fibromyalgia, hypertension and alpha 1 antitrypsin deficiency who was admitted to the hospital on 06/05/[address] [facility] transfer for AMS and cough. Patient presented to [facility] after 4 days of cough w/ black sputum, SOB while doing ADLs. At [facility], CXR was negative for acute cardiopulmonary process. Troponin negative. CBC and BMP unremarkable. She was given a dose of duonebs and transferred to [facility] for further workup and evaluation. Upon admission, HR 105, all other vitals within normal limits. Labs were unremarkable beyond ABG showing respiratory acidosis. CXR at [place] showed no acute cardiopulmonary process. EKGs done at [facility] and [facility] showed no ST changes or ischemia. Echo showed LVEF 55-60% w/ normal left ventricular diastolic function, Mild concentric left ventricular hypertrophy, Normal right ventricular structure and function, Mild tricuspid regurgitation and Mild pulmonary hypertension. Patient was started on treatment for acute on chronic COPD exacerbation. Pulmonology was consulted. Repeat ABG showed respiratory acidosis w/ compensation. Patient met sepsis criteria during hospital day 2 with Tachycardia HR of 110, Tachypnea at 22, wbc is 3.2 and suspected pulmonary source of infection. Patient received 6 days total of azithromycin and rocephin for pulmonary infection. Sepsis resolved. Normocytic anemia with Hgb around 10. During patients stay she started off using Bipap and 5 L of oxygen and was gradually weaned down to 3 L of oxygen. A 6 minute walk test was done for d/c oxygen prescription. Patient is in the process of being weaned down on steroids. Patient being discharged in stable medical condition after 12 day hospital course. At time of discharge, SpO2 100% on 3L nasal cannula. She was encouraged to keep her appoints with [facility], [facility], and PCP. Discharge discussed with: patient - Time Spent with Patient Total time spent providing and/or coordinating discharge services: Date of admission: 06/05/18 23:24 Primary care physician: PCP NONE Consults: 06/05/18 21:57 Consult to Pulmonology [CONS] Routine Consulting Provider: [facility] Reason for Consult: copd on 2L, A1AT hx, needs lung transplant. will call pulm in AM Call Completed: No 06/08/18 08:53 Consult to Nurse Navigator [CONS] Routine Comment: COPD 06/09/18 13:56 Consult to Occupational Therapy [CONS] Routine Comment: Evaluate, develop and implement POC Reason for Consult: discharge planning Does patient have active BEDREST order?: No Is patient medically & hemodynamically stable?: Yes Patient assessed for mobility or mobilized this visit?: Yes Consult to Physical Therapy [CONS] Routine Comment: Evaluate, develop and implement POC Reason for Consult: discharge planning Does patient have active BEDREST order?: No Is patient medically & hemodynamically stable?: Yes Patient assessed for mobility or mobilized this visit?: Yes 06/15/18 07:52 Consult to Credit Clerk [CONS] Routine Reason for SW Consult: home health & home oxygen - Constitutional Vitals: Temp Pulse Resp BP Pulse Ox 97.9 F 65 18 127/84 94 06/16/18 07:18 06/16/18 07:18 06/16/18 07:39 06/16/18 07:18 06/16/18 07:39 General appearance: Present: cooperative, A&O X 3, pleasant Exam: General appearance: Present: cooperative, A&O X 3. Exam: - Head Head exam: Present: atraumatic, normocephalic - ENT ENT exam: mucus membranes moist, oropharynx normal - Neck Neck exam general surgery: Present: trachea midline, non deviated - Respiratory Respiratory exam: Present: decreased breath sounds - Expanded Respiratory Exam Location: decreased breath sounds: Left, Right, Upper, Lower - Cardiovascular Cardiovascular exam: Present: +S1, +S2, tachycardia. Absent: clicks, gallop, JVD, rubs - GI/Abdominal GI/Abdominal exam: Present: firm, tenderness, no peritoneal signs. Absent: distended, guarding, rebound, rigid - Extremities Exam Extremities exam: Present: normal capillary refill, normal inspection. Absent: calf tenderness, tenderness - Neurological Exam Neurological exam: Present: alert, no focal deficits - Psychiatric Psychiatric exam: Present: normal affect, normal mood Musculoskeletal: no joint swelling or redness - Patient Status Overall status at discharge: patient is progressing back to baseline - Diet and Activity Activity: increase activity as tolerated, wear oxygen at all times Diet: advance to your usual diet
[2018-06-16 11:16] VITALS: BP 128/70
== END 2018-06-16 14:35 | disposition home health service (06) | DRG 871 ==
LOC: 2NNU → SUATTDRO 23:24 → 2NENU 06-09 10:33
PROVIDERS: ADMIT Internal Medicine; ATTEND Internal Medicine

== ENCOUNTER 2018-07-31 15:51 | Inpatient (IN) ==
[2018-07-31] MEDS ORDERED: Acetaminophen 325 MG TABLET PO PRN (17:57)
[2018-07-31] MEDS ORDERED: Naloxone 0.4 MG/ML INJ IVP PRN (17:57)
[2018-07-31] MEDS ORDERED: Ipratropium Neb 0.5 MG NEBULIZER IH PRN (18:05)
--- NOTE | 2018-07-31 18:12 | Internal Med History&Physical ---
Date of Encounter: 07/31/18 Time of Encounter: 17:40 Internal Medicine - H&P: HPI Chief complaint: sob Admitted From: Intrahospital Transfer Plans for Post Hospital Care: Home History of present illness: Ms. Dawkins is a 58 year old female pmhx A1ATD, COPD, Chronic resp failure on 5-6L nC continuously at home, RA, chronic back pain, anxiety disorder, chronic anemia presents as transfer from [facility] for resp failure, pna, and influenza B. [facility] records reviewed CXR neg CTA chest bibasila opacities suggesting pna, unchanged left apex spiculated mass, fibrotic changes Influenza B + EKG Sinus tach without any ischemic changes wbc 6.7, hgb 10.5, hct 34.8, plts 280 na 145, K+ 3.8, cl 101, bicarb 39, bun 11, creat 0.97 abg: ph 7.290/pco2 94/ po2 88/ b 45 on 4L NC She was started on bipap, bl cxs drawn and given a dose of rocpehin She is awake, RT at bedside placing bipap on. No family present Has steadily declined from resp standpoint since may. has been seeing Dr Velez, not seeing [facility] transplant team per her report. In last three days worsened sob described as sob with any exertion, not alleviated by home o2nc. Better with nothing. came in today bc "couldn't breath". Associated cough with c lear sputum, sometimes yellow. no hemoptysis. No fevers or chills, + body aches. + wheezing cv- no cp, pressure, palpitations, orthopnea or le edema gi- no abd pain, n/v/d gen- + myalgias, no night sweats weight loss, fever or chills confirmed full code and intubate status Past Med Surg Social Fam HX - Past Medical History Medical history: asthma, COPD, fibromyalgia, hypertension, RA, other Additional medical history: Reynaud's disease, Alpha-1 Antitripsyn, emphasema, Psychiatric history: anxiety - Past Surgical History Additional surgical history: Trach, Tonsillectomy, Peg Tube, abdominal surgery r/t infection - Social History Smoking Status: Former smoker Smokeless Tobacco Status: No Alcohol use: none Drug use: none - Family History Mother Living Status: Still Living Cause of : [place] Hx Family Cardiac Disorders: Yes Hx Family Medical Disorders: Yes Father Family Member Ethnicity: Non- Living Status: Hx Family Cardiac Disorders: No Hx Family Respiratory Disorders: No Hx Family Cancer: Yes Hx Family GI Disorders: No Hx Family Endocrine Disorder: Yes Hx Family Neuromuscular Disorders: No Hx Family Neurologic Disorders: No Hx Family HEENT Disorders: No Hx Family Autoimmune Disorders: No Internal Medicine - H&P: Meds 0.9 % Sodium Chloride [Normal Saline Flush] 10 ml IV AD PRN 06/06/18 [History] Acetaminophen [Acetaminophen ER] 650 mg PO Q4H PRN 06/06/18 [History] Fiaii-5-Unzxptemee Inhibitor [Zemaira] 3,816 mg IV QWEEK 06/06/18 [History] Aspirin Enteric Coated [Aspirin EC] 81 mg PO DAILY 06/06/18 [History] Atenolol [Tenormin] 12.5 mg PO BID 06/06/18 [History] Atorvastatin [Lipitor] 40 mg PO HS 06/06/18 [History] Azithromycin [Zithromax] 250 mg PO MOWEFR 06/06/18 [History] Cyclobenzaprine [Flexeril] 10 mg PO TID PRN 06/06/18 [History] DULoxetine [Cymbalta] 30 mg PO DAILY 06/06/18 [History] Etanercept [Enbrel] 50 mg SQ QWEEK 06/06/18 [History] Folic Acid 1 mg PO DAILY 06/06/18 [History] Guaifenesin [Mucinex] 1,200 mg PO BID 06/06/18 [History] Heparin LOCK 500 unit IV AD PRN 06/06/18 [History] Meloxicam [Mobic] 7.5 mg PO DAILY 06/06/18 [History] Omeprazole [PriLOSEC] 40 mg PO DAILY 06/06/18 [History] Oxycodone HCl/Acetaminophen [Percocet 10-325 mg Tablet] 1 each PO TID PRN 06/06/18 [History] Potassium Chloride [Klor-Con 10] 10 meq PO DAILY 06/06/18 [History] Pregabalin [Lyrica] 75 mg PO BID 06/06/18 [History] Roflumilast [Daliresp] 500 mcg PO DAILY 06/06/18 [History] Sennosides [Senokot] 1 tab PO DAILY 06/06/18 [History] Sulfasalazine [Azulfidine] 500 mg PO DAILY 06/06/18 [History] Theophylline Anhydrous [Aubrey-24] 100 mg PO BID 06/06/18 [History] Umeclidinium [place] [Incruse Ellipta] 62.5 mcg IH DAILY 06/06/18 [History] clonazePAM [Clonazepam] 0.5 mg PO TID PRN 06/06/18 [History] Oxygen 3 l .ROUTE CONT #0 06/16/18 [Rx] predniSONE [PredniSONE] See Taper PO DAILY #12 tablet 06/16/18 [Rx] Allergy/AdvReac Type Severity Reaction Status Date / Time levofloxacin [From Levaquin] Allergy Swelling Verified 06/08/16 13:53 of Lip/Tongue/Throat morphine Allergy See Verified 06/08/16 13:53 Comments cinnamon [Cinnamon] AdvReac Nausea Verified 06/08/16 13:53 All Systems PM: A 10-system review of systems was performed and is negative for pertinent findings except as documented above in the HPI. - Constitutional Vitals: Temp Pulse Resp BP Pulse Ox 99.2 F 104 20 111/71 96 07/31/18 17:50 07/31/18 17:50 07/31/18 17:50 07/31/18 17:50 07/31/18 17:50 Exam: General: awake, alert, appears stated age HEENT:EOM intact, pupils equal, round, dry lipss, bipap face mask in place Neck: supple, trachea midline Cardiovascular:regular rate and rhythm, normal S1 & S2, no rubs, murmurs or gallops. No JVD. radial pulses 2+ and regular, no lower extremity edema Lungs:diminsihed throughout, severely posteriorly and in bases, no wheezes,rhonchi or crackles. Normal respiratory effort bipap Abdomen:Soft, non-tender, non-distended, no rigidity, + bowel sounds Neurological: AAOx3, CN grossly intact, no focal deficits Skin:Normal color, no rash, no pallor, no jaundice - Assessment and Plan (1) Acute and chronic respiratory failure with hypercapnia Current Visit: Yes Status: Acute (2) Multifocal pneumonia Current Visit: Yes Status: Acute (3) Influenza B Current Visit: Yes Status: Acute (4) Chronic anemia Current Visit: Yes Status: Chronic (5) Yudsq-0-qzdjsjmdcev deficiency Current Visit: No Status: Chronic (6) Rheumatoid arthritis Current Visit: No Status: Chronic Qualifiers: Rheumatoid arthritis location: multiple sites Rheumatoid factor presence: unspecified presence Qualified Code(s): M06.9 - Rheumatoid arthritis, unsp ecified - Summary of Assessment and Plan Summary of Assessment and Plan: Acute on Chronic RF with Hypercapnea 2/2 Acute Multifocal Bibasilar pna, organism unknown and Influenza B Infection Alpha 1 Antitrypsin deficiency with Chronic Lung Impairment and COPD on 5-6 L NC continuously at baseline She does not meet SIRS criteria at this time as only has HR >90 and no other criteria CXR neg CTA chest bibasila opacities suggesting pna, unchanged left apex spiculated mass, fibrotic changes Influenza B + abg: ph 7.290/pco2 94/ po2 88/ b 45 on 4L NC at [facility] There is no indication this is cardiovascular related resp failure given her significant findings as above- EKG personally reviewed and no ischemic changes, pt without cp, pressure -tele, pulse ox -npo and continuos bipap--check abg at 9pm -vanc + zosyn -attempt to ID addl organisms- we know flu B +, check legionella, strep ag, sputum cx -obtain bl cxs now -her pulm is Dr Velez and will consult as needed -given her acute infection hold any immunosuppression -IV steroids, nebs prn and standing -awaiting home med rec for home inhalers confirmation Chronic anemia, baseline hgb 9-10, stable RA- hold immunosuppressive agents at this time given infection, await home med confirmation Anxiety- home med is clonazepam, await pt no longer being npo and repeat vbg prior to initiating any benzos tonight HTN, stable- hold meds while on bipap, currently normotensive, awaiting home med confirmation vte ppx scds given chronic anemia - Time Spent With Patient Total time spent is greater than 50% in coordination of care (as documented) at patient's floor/unit and/or counseling patient: Greater than 35 minutes
[2018-07-31] MEDS: Ipratropium/Albuterol Neb 3 ML IH SCH ×2 (20:01→23:36)
[2018-07-31] MEDS: MethylPREDNISolone 40 MG/ML VIAL IVP SCH (20:21)
[2018-07-31] MEDS: Piperacillin/Tazobactam 3.375 GM in 0.9 % Sodium Chloride Mini Bag 100 ML IVPB SCH (20:22)
[2018-07-31 23:47] LABS: VBG HCO3 37 mEq/L (21-27); VBG PCO2 81 mmHg (41-51); VBG PH 7.28 pH Units (7.32-7.42); VBG PO2 76 mmHg (25-50)
[2018-08-01] MEDS: Piperacillin/Tazobactam 3.375 GM in 0.9 % Sodium Chloride Mini Bag 100 ML IVPB SCH ×3 (01:44→18:25)
[2018-08-01] MEDS: MethylPREDNISolone 40 MG/ML VIAL IVP SCH ×3 (01:45→17:40)
[2018-08-01] MEDS: Ipratropium/Albuterol Neb 3 ML IH SCH ×6 (04:04→23:15)
[2018-08-01 05:16] LABS: Basophils % 0.6 %; Hematocrit 34.8 % (35.3-44.9); Hemoglobin 10.3 g/dL (11.5-15.4); Immature Granulocytes % 0.3 % (0-4); Lymphocytes # 0.6 K/mcL (0.6-4.6); Lymphocytes % 18.2 %; Mean Corpuscular HGB Conc 29.6 g/dL (31.6-35.5); Mean Corpuscular Hemoglobin 27.2 pg (28.0-33.3); Mean Corpuscular Volume 91.8 fL (83.0-100.0); Mean Platelet Volume 10.7 fL (9.4-12.4); Monocytes % 1.2 %; Neutrophils # 2.8 K/mcL (1.6-8.9); Platelet Count 299 K/mcL (140-400); Red Blood Count 3.79 M/mcL (3.82-4.97); Red Cell Distribution Width 14.1 % (11.5-14.5); Segmented Neutrophils % 79.7 %
[2018-08-01 05:35] LABS: VBG HCO3 37 mEq/L (21-27); VBG PCO2 74 mmHg (41-51); VBG PH 7.31 pH Units (7.32-7.42); VBG PO2 78 mmHg (25-50)
[2018-08-01 05:35] LABS: BUN/Creatinine Ratio 16 (6-26); Blood Urea Nitrogen 13 mg/dL (6-20); Calcium 9.3 mg/dL (8.6-10.3); Carbon Dioxide 36 mEq/L (23-29); Chloride 96 mEq/L (98-107); Glucose 143 mg/dL (70-105); Osmolality,Calculated 293 (280-300); Phosphorous 3.9 mg/dL (2.7-4.5); Sodium 140 mEq/L (136-145); eGFR For Non-African Americans > 60 (> 60)
--- NOTE | 2018-08-01 14:11 | Internal Med Progress Note ---
Hospitalist Progress Note - Encounter Date of Encounter: 08/01/18 Time of Encounter: 11:00 - Subjective Interval History: asleep onbipap, awakes to name. denies sob, cough currently. denies wheezing and feeling better than when came to hospital. somnolent. no family at bedside. - Exam Vitals: Temp Pulse Resp BP Pulse Ox 99.0 F 108 22 120/73 92 08/01/18 12:14 08/01/18 12:14 08/01/18 12:14 08/01/18 12:14 08/01/18 12:14 Exam: General: somnolent, appears stated age HEENT:EOM intact, pupils equal, round, bipap face mask in place Cardiovascular:regular rate and rhythm, normal S1 & S2, radial pulses 2+ and regular, no lower extremity edema Lungs:diminished throughout, no wheezes,rhonchi or crackles. Normal respiratory effort bipap Abdomen:Soft, non-tender, non-distended, , + bowel sounds Neurological: AAOx3, CN grossly intact, no focal deficits - Assessment and Plan (1) Acute and chronic respiratory failure with hypercapnia Current Visit: Yes Status: Acute (2) Multifocal pneumonia Current Visit: Yes Status: Acute (3) Influenza B Current Visit: Yes Status: Acute (4) Chronic anemia Current Visit: Yes Status: Chronic (5) Kpvda-7-nseojyoizdl deficiency Current Visit: No Status: Chronic (6) Rheumatoid arthritis Current Visit: No Status: Chronic - Summary of Assessment and Plan Summary of Assessment and Plan: Acute on Chronic RF with Hypercapnea 2/2 Acute Multifocal Bibasilar pna, organism unknown and Influenza B Infection Alpha 1 Antitrypsin deficiency with Chronic Lung Impairment and COPD on 5-6 L NC continuously at baseline She does not meet SIRS criteria at this time as only has HR >90 and no other criteria CXR neg CTA chest bibasila opacities suggesting pna, unchanged left apex spiculated mass, fibrotic changes Influenza B + abg: ph 7.290/pco2 94/ po2 88/ b 45 on 4L NC at [facility] repeats improving here There is no indication this is cardiovascular related resp failure given her significant findings as above- EKG personally reviewed and no ischemic changes, pt without cp, pressure -npo and continuos bipap--check vbg this afternoon -am vbg reviewed -vanc + zosyn -attempt to ID addl organisms- we know flu B +, check legionella, strep ag, sputum cx -obtain bl cxs now -her pulm is Dr Velez and will consult as needed -given her acute infection hold any immunosuppression -IV steroids, nebs prn and standing -no tamiflu as had sxs for 3 days prior to presentation and npo with bipap mask, risk outweighs benefit Chronic anemia, baseline hgb 9-10, stable RA- hold immunosuppressive agents at this time given infection Anxiety- home med is clonazepam, await pt no longer being npo and on continuous bipap HTN, stable- hold meds while on bipap, currently normotensive vte ppx scds given chronic anemia - Time Spent with Patient Total time spent is greater than 50% in coordination of care (as documented) at patient's floor/unit and/or counseling patient: Plan of Care Discussed with: patient Internal Medicine: Result - Labs CBC & Chem 7: 08/01/18 04:27 08/01/18 04:27 Labs: Short CBC 08/01/18 Range/Units 04:27 WBC 3.5 L (4.3-11.1) K/mcL Hgb 10.3 L (11.5-15.4) g/dL Hct 34.8 L (35.3-44.9) % Plt Count 299 (140-400) K/mcL Neutrophils # 2.8 (1.6-8.9) K/mcL BMP 08/01/18 04:27 Sodium 140 Potassium 4.0 Chloride 96 L Carbon Dioxide 36 H BUN 13 Creatinine 0.83 Glucose 143 H Calcium 9.3 Consult Discharge Plan - Plan Referrals: Alana Abraham MD [Primary Care Provider] - (6) Rheumatoid arthritis Qualifiers: Rheumatoid arthritis location: multiple sites Rheumatoid factor presence: unspecified presence Qualified Code(s): M06.9 - Rheumatoid arthritis, unspecified
[2018-08-01 14:27] LABS: VBG HCO3 36 mEq/L (21-27); VBG PCO2 71 mmHg (41-51); VBG PH 7.32 pH Units (7.32-7.42); VBG PO2 82 mmHg (25-50)
[2018-08-01] MEDS: Pregabalin 75 MG CAPSULE PO SCH (22:20)
[2018-08-01] MEDS: clonazePAM 1 MG TABLET PO PRN (22:20)
[2018-08-02] MEDS: MethylPREDNISolone 40 MG/ML VIAL IVP SCH ×2 (03:12→12:30)
[2018-08-02] MEDS: Piperacillin/Tazobactam 3.375 GM in 0.9 % Sodium Chloride Mini Bag 100 ML IVPB SCH ×3 (03:13→19:48)
[2018-08-02] MEDS: Ipratropium/Albuterol Neb 3 ML IH SCH ×6 (03:29→23:41)
[2018-08-02 06:18] LABS: Basophils % 0.1 %; Hematocrit 30.4 % (35.3-44.9); Hemoglobin 9.1 g/dL (11.5-15.4); Immature Granulocytes % 0.4 % (0-4); Lymphocytes # 0.6 K/mcL (0.6-4.6); Mean Corpuscular HGB Conc 29.9 g/dL (31.6-35.5); Mean Corpuscular Hemoglobin 27.2 pg (28.0-33.3); Mean Corpuscular Volume 90.7 fL (83.0-100.0); Mean Platelet Volume 10.1 fL (9.4-12.4); Monocytes # 0.5 K/mcL (0.0-1.3); Monocytes % 6.3 %; Platelet Count 308 K/mcL (140-400); Red Blood Count 3.35 M/mcL (3.82-4.97); Red Cell Distribution Width 14.5 % (11.5-14.5); Segmented Neutrophils % 84.2 %
[2018-08-02 06:28] LABS: VBG HCO3 36 mEq/L (21-27); VBG PCO2 64 mmHg (41-51); VBG PH 7.36 pH Units (7.32-7.42); VBG PO2 98 mmHg (25-50)
[2018-08-02 06:36] LABS: BUN/Creatinine Ratio 21 (6-26); Blood Urea Nitrogen 17 mg/dL (6-20); Calcium 9.2 mg/dL (8.6-10.3); Carbon Dioxide 34 mEq/L (23-29); Chloride 99 mEq/L (98-107); Glucose 125 mg/dL (70-105); Osmolality,Calculated 299 (280-300); Potassium 3.9 mEq/L (3.5-5.1); Sodium 143 mEq/L (136-145); eGFR For Non-African Americans > 60 (> 60)
--- NOTE | 2018-08-02 07:48 | Internal Med Progress Note ---
Hospitalist Progress Note - Encounter Date of Encounter: 08/02/18 Time of Encounter: 08:00 - Exam Vitals: Temp Pulse Resp BP Pulse Ox 98.4 F 85 27 111/67 97 08/02/18 07:33 08/02/18 07:33 08/02/18 07:33 08/02/18 07:33 08/02/18 07:33 Exam: General: somnolent, appears stated age HEENT:EOM intact, pupils equal, round, bipap face mask in place Cardiovascular:regular rate and rhythm, normal S1 & S2, radial pulses 2+ and regular, no lower extremity edema Lungs:diminished throughout, no wheezes,rhonchi or crackles. Normal respiratory effort bipap Abdomen:Soft, non-tender, non-distended, , + bowel sounds Neurological: AAOx3, CN grossly intact, no focal deficits - Assessment and Plan (1) Acute and chronic respiratory failure with hypercapnia Current Visit: Yes Status: Acute Assessment and Plan: Pt comes in with coughing and SOB with acute hypercapneic hypoxic respiratory failure likely secondary to viral influenza and COPD exacerbation Improved with symptomatic management, nebs, and steroids (2) Saeqb-1-pekgplsitvf deficiency Current Visit: Yes Status: Chronic Assessment and Plan: Continue home meds (3) Rheumatoid arthritis Current Visit: Yes Status: Chronic Assessment and Plan: No acute exacerbation. Resume home meds (4) Multifocal pneumonia Current Visit: Yes Status: Acute Assessment and Plan: Continue zosyn (5) Influenza B Current Visit: Yes Status: Acute Assessment and Plan: Improved with supportive management (6) Chronic anemia Current Visit: Yes Status: Chronic Assessment and Plan: Stable DVT Prophylaxis: heparin sc - Time Spent with Patient Total time spent is greater than 50% in coordination of care (as documented) at patient's floor/unit and/or counseling patient: Internal Medicine: Result - Labs CBC & Chem 7: 08/02/18 06:00 08/02/18 06:00 Labs: Short CBC 08/02/18 Range/Units 06:00 WBC 7.1 D (4.3-11.1) K/mcL Hgb 9.1 L (11.5-15.4) g/dL Hct 30.4 L (35.3-44.9) % Plt Count 308 (140-400) K/mcL Neutrophils # 6.0 (1.6-8.9) K/mcL BMP 08/02/18 06:00 Sodium 143 Potassium 3.9 Chloride 99 Carbon Dioxide 34 H BUN 17 Creatinine 0.80 Glucose 125 H Calcium 9.2 Consult Discharge Plan - Plan Referrals: Alana Abraham MD [Primary Care Provider] - (3) Rheumatoid arthritis Qualifiers: Rheumatoid arthritis location: multiple sites Rheumatoid factor presence: unspecified presence Qualified Code(s): M06.9 - Rheumatoid arthritis, unspecified
[2018-08-02] MEDS: Furosemide 20 MG TABLET PO SCH (08:24)
[2018-08-02] MEDS: clonazePAM 1 MG TABLET PO PRN ×2 (08:24→19:56)
[2018-08-02] MEDS: sulfaSALAzine 500 MG TABLET PO SCH (08:25)
[2018-08-02] MEDS: Pregabalin 75 MG CAPSULE PO SCH ×3 (08:25→19:54)
[2018-08-02] MEDS: Folic Acid 1 MG TABLET PO SCH (08:26)
[2018-08-02] MEDS: Aspirin Enteric Coated 81 MG Tablet PO SCH (08:26)
[2018-08-02] MEDS ORDERED: (Umeclidinium Bromide [Incruse Ellipta] 62.5 MCG) IH SCH (09:00)
[2018-08-02] MEDS ORDERED: (Roflumilast [Daliresp] 500 MCG) PO SCH (09:00)
[2018-08-02] MEDS ORDERED: Aminoglycoside Consult 1 EACH MC ONE (09:21)
[2018-08-02] MEDS: *HR* OxyCODONE/APAP 5/325 TABLET PO PRN ×2 (15:44→22:10)
[2018-08-02] MEDS: *HR* Heparin 5,000 UNIT/ML VIAL SQ SCH (17:33)
[2018-08-03] MEDS: Piperacillin/Tazobactam 3.375 GM in 0.9 % Sodium Chloride Mini Bag 100 ML IVPB SCH ×3 (03:47→19:47)
[2018-08-03] MEDS: Ipratropium/Albuterol Neb 3 ML IH SCH ×5 (04:02→20:23)
[2018-08-03 04:45] LABS: Basophils % 0.3 %; Eosinophils % 0.1 %; Hematocrit 31.8 % (35.3-44.9); Hemoglobin 9.4 g/dL (11.5-15.4); Immature Granulocytes % 0.3 % (0-4); Lymphocytes # 1.8 K/mcL (0.6-4.6); Lymphocytes % 24.3 %; Mean Corpuscular HGB Conc 29.6 g/dL (31.6-35.5); Mean Corpuscular Hemoglobin 27.4 pg (28.0-33.3); Mean Corpuscular Volume 92.7 fL (83.0-100.0); Monocytes % 13.9 %; Neutrophils # 4.5 K/mcL (1.6-8.9); Platelet Count 321 K/mcL (140-400); Red Blood Count 3.43 M/mcL (3.82-4.97); Segmented Neutrophils % 61.1 %
[2018-08-03 05:05] LABS: BUN/Creatinine Ratio 22 (6-26); Blood Urea Nitrogen 22 mg/dL (6-20); Calcium 8.9 mg/dL (8.6-10.3); Carbon Dioxide 37 mEq/L (23-29); Chloride 102 mEq/L (98-107); Glucose 102 mg/dL (70-105); Magnesium 2.3 mg/dL (1.6-2.6); Osmolality,Calculated 302 (280-300); Phosphorous 3.6 mg/dL (2.7-4.5); Potassium 3.4 mEq/L (3.5-5.1); Sodium 144 mEq/L (136-145); eGFR For Non-African Americans 57 (> 60)
[2018-08-03] MEDS: *HR* Heparin 5,000 UNIT/ML VIAL SQ SCH ×2 (05:25→17:43)
--- NOTE | 2018-08-03 07:46 | Discharge Summary ---
Orders not resulted at time of discharge: Pending orders 07/31/18 18:02 Culture,Sputum with Gram Stain [RM] Stat 07/31/18 18:44 Culture,Blood [BC] Stat 08/04/18 04:00 Basic Metabolic Panel AM 0400 CBC [Complete Blood Count] [HEME] AM 0400 Magnesium AM 0400 Phosphorous AM 0400 08/05/18 04:00 Basic Metabolic Panel AM 0400 CBC [Complete Blood Count] [HEME] AM 0400 Magnesium AM 0400 Phosphorous AM 0400 08/06/18 04:00 Basic Metabolic Panel AM 0400 CBC [Complete Blood Count] [HEME] AM 0400 Magnesium AM 0400 Phosphorous AM 0400 08/07/18 04:00 Basic Metabolic Panel AM 0400 CBC [Complete Blood Count] [HEME] AM 0400 Magnesium AM 0400 Phosphorous AM 0400 08/08/18 04:00 Basic Metabolic Panel AM 0400 CBC [Complete Blood Count] [HEME] AM 0400 Magnesium AM 0400 Phosphorous AM 0400 Date of Encounter: 08/03/18 - Discharge Diagnosis (1) Acute and chronic respiratory failure with hypercapnia Status: Acute (2) Wqeyb-8-xfizfkotrtk deficiency Status: Chronic (3) Rheumatoid arthritis Status: Chronic Qualifiers: Rheumatoid arthritis location: multiple sites Rheumatoid factor presence: unspecified presence Qualified Code(s): M06.9 - Rheumatoid arthritis, unspecified (4) Multifocal pneumonia Status: Acute (5) Influenza B Status: Acute (6) Chronic anemia Status: Chronic Hospital course: Ms. Dawkins is a 58 year old female - Time Spent with Patient Total time spent providing and/or coordinating discharge services: - Discharge Medications Prescriptions: No Action Oxycodone HCl/Acetaminophen [Percocet 10-325 mg Tablet] 1 tab PO Q8H PRN PRN Reason: Pain Umeclidinium [place] [Incruse Ellipta] 62.5 mcg IH DAILY DULoxetine [Cymbalta] 30 mg PO DAILY Cyclobenzaprine [Flexeril] 10 mg PO TID PRN PRN Reason: Muscle Spasm Azithromycin [Zithromax] 250 mg PO MOWEFR Msubm-1-Bycnzwjfsp Inhibitor [Zemaira] 4,196 mg IV QWEEK Sulfasalazine [Azulfidine] 1,000 mg PO QAM Omeprazole [PriLOSEC] 40 mg PO DAILY Meloxicam [Mobic] 7.5 mg PO DAILY Sennosides [Senokot] 1 tab PO DAILY PRN PRN Reason: Constipation Pregabalin [Lyrica] 75 mg PO TID Guaifenesin [Mucinex] 1,200 mg PO BID Atenolol [Tenormin] 12.5 mg PO BID Acetaminophen [Acetaminophen ER] 650 mg PO Q4H PRN PRN Reason: Pain Potassium Chloride [Klor-Con 10] 10 meq PO DAILY Roflumilast [Daliresp] 500 mcg PO DAILY Aspirin Enteric Coated [Aspirin EC] 81 mg PO DAILY Folic Acid 1 mg PO DAILY Theophylline Anhydrous [Aubrey-24] 100 mg PO BID Heparin LOCK 500 unit IV AD PRN PRN Reason: AFTER PORT ACCESS 0.9 % Sodium Chloride [Normal Saline Flush] 10 ml IV AD PRN PRN Reason: FOR PORT ACCESS Etanercept [Enbrel] 50 mg SQ TU Albuterol Neb [Proventil Neb] 2.5 mg IH TID PRN PRN Reason: Shortness Of Breath clonazePAM [Clonazepam] 1 mg PO BID PRN PRN Reason: Anxiety Furosemide [Lasix] 20 mg PO DAILY Methotrexate [Otrexup] 17.5 mg PO QWEEK sulfaSALAzine [Sulfasalazine] 500 mg PO HS Atorvastatin [Lipitor] 10 mg PO DAILY Oxygen 3 - 6 l IH CONT Ipratropium/Albuterol Sulfate [Iprat-Albut 0.5-3(2.5) mg/3 ml] 3 ml IH TID Ibuprofen [Motrin] 600 mg PO Q6-8H PRN PRN Reason: Pain Home Medications: 0.9 % Sodium Chloride [Normal Saline Flush] 10 ml IV AD PRN 06/06/18 [History] Acetaminophen [Acetaminophen ER] 650 mg PO Q4H PRN 06/06/18 [History] Beidw-0-Yjuhmffjis Inhibitor [Zemaira] 4,196 mg IV QWEEK 06/06/18 [History] Aspirin Enteric Coated [Aspirin EC] 81 mg PO DAILY 06/06/18 [History] Atenolol [Tenormin] 12.5 mg PO BID 06/06/18 [History] Azithromycin [Zithromax] 250 mg PO MOWEFR 06/06/18 [History] Cyclobenzaprine [Flexeril] 10 mg PO TID PRN 06/06/18 [History] DULoxetine [Cymbalta] 30 mg PO DAILY 06/06/18 [History] Etanercept [Enbrel] 50 mg SQ TU 06/06/18 [History] Folic Acid 1 mg PO DAILY 06/06/18 [History] Guaifenesin [Mucinex] 1,200 mg PO BID 06/06/18 [History] Heparin LOCK 500 unit IV AD PRN 06/06/18 [History] Meloxicam [Mobic] 7.5 mg PO DAILY 06/06/18 [History] Omeprazole [PriLOSEC] 40 mg PO DAILY 06/06/18 [History] Oxycodone HCl/Acetaminophen [Percocet 10-325 mg Tablet] 1 tab PO Q8H PRN 06/06/18 [History] Potassium Chloride [Klor-Con 10] 10 meq PO DAILY 06/06/18 [History] Pregabalin [Lyrica] 75 mg PO TID 06/06/18 [History] Roflumilast [Daliresp] 500 mcg PO DAILY 06/06/18 [History] Sennosides [Senokot] 1 tab PO DAILY PRN 06/06/18 [History] Sulfasalazine [Azulfidine] 1,000 mg PO QAM 06/06/18 [History] Theophylline Anhydrous [Aubrey-24] 100 mg PO BID 06/06/18 [History] Umeclidinium [place] [Incruse Ellipta] 62.5 mcg IH DAILY 06/06/18 [History] Albuterol Neb [Proventil Neb] 2.5 mg IH TID PRN 08/01/18 [History] Atorvastatin [Lipitor] 10 mg PO DAILY 08/01/18 [History] Furosemide [Lasix] 20 mg PO DAILY 08/01/18 [History] Ibuprofen [Motrin] 600 mg PO Q6-8H PRN 08/01/18 [History] Ipratropium/Albuterol Sulfate [Iprat-Albut 0.5-3(2.5) mg/3 ml] 3 ml IH TID 08/01/18 [History] Methotrexate [Otrexup] 17.5 mg PO QWEEK 08/01/18 [History] Oxygen 3 - 6 l IH CONT 08/01/18 [History] clonazePAM [Clonazepam] 1 mg PO BID PRN 08/01/18 [History] sulfaSALAzine [Sulfasalazine] 500 mg PO HS 08/01/18 [History] Allergies/Adverse Reactions: Allergy/AdvReac Type Severity Reaction Status Date / Time levofloxacin [From Levaquin] Allergy Swelling Verified 08/01/18 12:55 of Lip/Tongue/Throat morphine Allergy See Verified 08/01/18 12:55 Comments cinnamon [Cinnamon] AdvReac Nausea Verified 06/08/16 13:53 Date of admission: 07/31/18 17:55 Primary care physician: Alana Abraham MD Consults: 07/31/18 18:04 Consult to Adoption Specialist [CONS] Routine Reason for SW Consult: Has Home Health and Home o2, and Bipap 08/02/18 16:52 Consult to Nurse Navigator [CONS] Routine Comment: Pneumonia; COPD; Alpha 1 antitrypsin def - Constitutional Vitals: Temp Pulse Resp BP Pulse Ox 97.5 F L 75 18 113/77 99 08/03/18 07:35 08/03/18 07:35 08/03/18 07:33 08/03/18 07:35 08/03/18 07:35 - Discharge Instructions Follow Up With: Alana Abraham MD [Primary Care Provider] -
[2018-08-03] MEDS: Potassium Chloride Elixir 20 MEQ/15 ML UDC PO SCH ×2 (08:47→12:39)
[2018-08-03] MEDS: Aspirin Enteric Coated 81 MG Tablet PO SCH (08:47)
[2018-08-03] MEDS: Pregabalin 75 MG CAPSULE PO SCH ×3 (08:48→19:46)
[2018-08-03] MEDS: Furosemide 20 MG TABLET PO SCH (08:48)
[2018-08-03] MEDS: sulfaSALAzine 500 MG TABLET PO SCH (08:49)
[2018-08-03] MEDS: predniSONE 20 MG TABLET PO SCH (08:49)
[2018-08-03] MEDS: Folic Acid 1 MG TABLET PO SCH (08:50)
[2018-08-03] MEDS: clonazePAM 1 MG TABLET PO PRN ×2 (08:54→22:40)
[2018-08-03] MEDS ORDERED: MethylPREDNISolone 40 MG/ML VIAL IVP SCH (09:00)
[2018-08-03] MEDS: *HR* OxyCODONE/APAP 5/325 TABLET PO PRN ×3 (09:02→22:40)
--- NOTE | 2018-08-03 11:06 | Internal Med Progress Note ---
Hospitalist Progress Note - Encounter Date of Encounter: 08/03/18 Time of Encounter: 08:00 - Subjective Interval History: No acute events overnight - Exam Vitals: Temp Pulse Resp BP Pulse Ox 97.5 F L 75 18 113/77 99 08/03/18 07:35 08/03/18 07:35 08/03/18 07:33 08/03/18 07:35 08/03/18 07:35 Exam: General: somnolent, appears stated age HEENT:EOM intact, pupils equal, round, bipap face mask in place Cardiovascular:regular rate and rhythm, normal S1 & S2, radial pulses 2+ and regular, no lower extremity edema Lungs:diminished throughout, no wheezes,rhonchi or crackles. Normal respiratory effort bipap Abdomen:Soft, non-tender, non-distended, , + bowel sounds Neurological: AAOx3, CN grossly intact, no focal deficits - Assessment and Plan (1) Acute and chronic respiratory failure with hypercapnia Current Visit: Yes Status: Acute Assessment and Plan: Pt comes in with coughing and SOB with acute hypercapneic hypoxic respiratory failure likely secondary to viral influenza and COPD exacerbation Improved with symptomatic management, nebs, and steroids. Still has some SOB this am. Continue present plan of care Wean down steroids to PO (2) Uusyg-1-pjmskixucpa deficiency Current Visit: Yes Status: Chronic Assessment and Plan: Continue home meds (3) Rheumatoid arthritis Current Visit: Yes Status: Chronic Assessment and Plan: No acute exacerbation. Resume home meds (4) Multifocal pneumonia Current Visit: Yes Status: Acute Assessment and Plan: Continue zosyn (5) Influenza B Current Visit: Yes Status: Acute Assessment and Plan: Improved with supportive management (6) Chronic anemia Current Visit: Yes Status: Chronic Assessment and Plan: Stable DVT Prophylaxis: heparin sc - Time Spent with Patient Total time spent is greater than 50% in coordination of care (as documented) at patient's floor/unit and/or counseling patient: Internal Medicine: Result - Labs CBC & Chem 7: 08/03/18 04:20 08/03/18 04:20 Labs: Short CBC 08/03/18 Range/Units 04:20 WBC 7.3 (4.3-11.1) K/mcL Hgb 9.4 L (11.5-15.4) g/dL Hct 31.8 L (35.3-44.9) % Plt Count 321 (140-400) K/mcL Neutrophils # 4.5 (1.6-8.9) K/mcL BMP 08/03/18 04:20 Sodium 144 Potassium 3.4 L Chloride 102 Carbon Dioxide 37 H BUN 22 H Creatinine 1.00 Glucose 102 Calcium 8.9 Consult Discharge Plan - Plan Instructions: Atrial Flutter (DC), Acute Respiratory Distress Syndrome (DC), Chronic Obstructive Pulmonary Disease (DC), Anemia (GEN), Anxiety (DC), Pneumonia (DC) Referrals: Alana Abraham MD [Primary Care Provider] - 08/10/18 10:00 am (appt is with Archana Logan) (3) Rheumatoid arthritis Qualifiers: Rheumatoid arthritis location: multiple sites Rheumatoid factor presence: unspecified presence Qualified Code(s): M06.9 - Rheumatoid arthritis, unspecified
[2018-08-03] MEDS: Budesonide/Formoterol 160/4.5 1 PUFF INH IH SCH (20:23)
[2018-08-04] MEDS: Ipratropium/Albuterol Neb 3 ML IH SCH ×4 (00:38→11:01)
[2018-08-04] MEDS: Piperacillin/Tazobactam 3.375 GM in 0.9 % Sodium Chloride Mini Bag 100 ML IVPB SCH (04:02)
[2018-08-04 04:22] LABS: Basophils % 0.2 %; Eosinophils # 0.1 K/mcL (0.0-0.6); Eosinophils % 0.7 %; Hematocrit 32.2 % (35.3-44.9); Hemoglobin 9.6 g/dL (11.5-15.4); Immature Granulocytes % 0.2 % (0-4); Lymphocytes % 24.4 %; Mean Corpuscular HGB Conc 29.8 g/dL (31.6-35.5); Mean Corpuscular Hemoglobin 27.4 pg (28.0-33.3); Mean Corpuscular Volume 91.7 fL (83.0-100.0); Mean Platelet Volume 10.1 fL (9.4-12.4); Monocytes # 1.2 K/mcL (0.0-1.3); Monocytes % 14.2 %; Neutrophils # 4.9 K/mcL (1.6-8.9); Platelet Count 308 K/mcL (140-400); Red Blood Count 3.51 M/mcL (3.82-4.97); Red Cell Distribution Width 14.6 % (11.5-14.5); Segmented Neutrophils % 60.3 %
[2018-08-04 04:41] LABS: BUN/Creatinine Ratio 16 (6-26); Blood Urea Nitrogen 15 mg/dL (6-20); Calcium 8.8 mg/dL (8.6-10.3); Carbon Dioxide 37 mEq/L (23-29); Chloride 99 mEq/L (98-107); Glucose 117 mg/dL (70-105); Magnesium 2.2 mg/dL (1.6-2.6); Osmolality,Calculated 292 (280-300); Phosphorous 3.4 mg/dL (2.7-4.5); Potassium 3.7 mEq/L (3.5-5.1); Sodium 140 mEq/L (136-145); eGFR For Non-African Americans > 60 (> 60)
[2018-08-04] MEDS: *HR* Heparin 5,000 UNIT/ML VIAL SQ SCH (06:29)
[2018-08-04] MEDS: Budesonide/Formoterol 160/4.5 1 PUFF INH IH SCH (07:41)
[2018-08-04] MEDS: Pregabalin 75 MG CAPSULE PO SCH (09:18)
[2018-08-04] MEDS: *HR* OxyCODONE/APAP 5/325 TABLET PO PRN (09:18)
[2018-08-04] MEDS: sulfaSALAzine 500 MG TABLET PO SCH (09:18)
[2018-08-04] MEDS: Aspirin Enteric Coated 81 MG Tablet PO SCH (09:19)
[2018-08-04] MEDS: Furosemide 20 MG TABLET PO SCH (09:20)
[2018-08-04] MEDS: predniSONE 20 MG TABLET PO SCH (09:20)
[2018-08-04] MEDS: Folic Acid 1 MG TABLET PO SCH (09:20)
--- NOTE | 2018-08-04 11:10 | Discharge Summary ---
Date of Encounter: 08/04/18 Time of Encounter: 11:00 - Discharge Diagnosis (1) Acute and chronic respiratory failure with hypercapnia Priority: Primary Status: Acute Assessment and Plan: 58 year old female pmhx A1ATD, COPD, Chronic resp failure on 5-6L nC continuously at home,BIPAP dependent RA, chronic back pain, anxiety disorder, chronic anemia presents as transfer from [facility] for resp failure, pna, and influenza B. [facility] records reviewed CXR neg. CTA chest bibasilar opacities suggesting pna, unchanged left apex spiculated mass, fibrotic changes. Influenza B positive. She came in with coughing and SOB with acute on chronic hypercapneic hypoxic respiratory failure likely secondary to viral influenza, multifocal pneumonia and COPD exacerbation. Improved with symptomatic management, nebs, and steroids. Patient has improved symptomatically and will be discharged home to complete a course of steroids and antibiotics. 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 Dawkins is a 58 year old female - Time Spent with Patient Total time spent providing and/or coordinating discharge services: - Discharge Medications Prescriptions: New predniSONE [PredniSONE] 40 mg PO DAILY 7 Days #14 tablet Cefdinir [Omnicef] 300 mg PO BID #6 capsule Continue Oxycodone HCl/Acetaminophen [Percocet 10-325 mg Tablet] 1 tab PO Q8H PRN PRN Reason: Pain Umeclidinium [place] [Incruse Ellipta] 62.5 mcg IH DAILY DULoxetine [Cymbalta] 30 mg PO DAILY Cyclobenzaprine [Flexeril] 10 mg PO TID PRN PRN Reason: Muscle Spasm Azithromycin [Zithromax] 250 mg PO MOWEFR Kcwyw-8-Rajallmyce Inhibitor [Zemaira] 4,196 mg IV QWEEK Sulfasalazine [Azulfidine] 1,000 mg PO QAM Omeprazole [PriLOSEC] 40 mg PO DAILY Meloxicam [Mobic] 7.5 mg PO DAILY Sennosides [Senokot] 1 tab PO DAILY PRN PRN Reason: Constipation Pregabalin [Lyrica] 75 mg PO TID Guaifenesin [Mucinex] 1,200 mg PO BID Atenolol [Tenormin] 12.5 mg PO BID Acetaminophen [Acetaminophen ER] 650 mg PO Q4H PRN PRN Reason: Pain Potassium Chloride [Klor-Con 10] 10 meq PO DAILY Roflumilast [Daliresp] 500 mcg PO DAILY Aspirin Enteric Coated [Aspirin EC] 81 mg PO DAILY Folic Acid 1 mg PO DAILY Theophylline Anhydrous [Aubrey-24] 100 mg PO BID Heparin LOCK 500 unit IV AD PRN PRN Reason: AFTER PORT ACCESS 0.9 % Sodium Chloride [Normal Saline Flush] 10 ml IV AD PRN PRN Reason: FOR PORT ACCESS Etanercept [Enbrel] 50 mg SQ TU Albuterol Neb [Proventil Neb] 2.5 mg IH TID PRN PRN Reason: Shortness Of Breath clonazePAM [Clonazepam] 1 mg PO BID PRN PRN Reason: Anxiety Furosemide [Lasix] 20 mg PO DAILY Methotrexate [Otrexup] 17.5 mg PO QWEEK sulfaSALAzine [Sulfasalazine] 500 mg PO HS Atorvastatin [Lipitor] 10 mg PO DAILY Oxygen 3 - 6 l IH CONT Ipratropium/Albuterol Sulfate [Iprat-Albut 0.5-3(2.5) mg/3 ml] 3 ml IH TID Ibuprofen [Motrin] 600 mg PO Q6-8H PRN PRN Reason: Pain Home Medications: 0.9 % Sodium Chloride [Normal Saline Flush] 10 ml IV AD PRN 06/06/18 [History] Acetaminophen [Acetaminophen ER] 650 mg PO Q4H PRN 06/06/18 [History] Yprzj-4-Apkpufiarp Inhibitor [Zemaira] 4,196 mg IV QWEEK 06/06/18 [History] Aspirin Enteric Coated [Aspirin EC] 81 mg PO DAILY 06/06/18 [History] Atenolol [Tenormin] 12.5 mg PO BID 06/06/18 [History] Azithromycin [Zithromax] 250 mg PO MOWEFR 06/06/18 [History] Cyclobenzaprine [Flexeril] 10 mg PO TID PRN 06/06/18 [History] DULoxetine [Cymbalta] 30 mg PO DAILY 06/06/18 [History] Etanercept [Enbrel] 50 mg SQ TU 06/06/18 [History] Folic Acid 1 mg PO DAILY 06/06/18 [History] Guaifenesin [Mucinex] 1,200 mg PO BID 06/06/18 [History] Heparin LOCK 500 unit IV AD PRN 06/06/18 [History] Meloxicam [Mobic] 7.5 mg PO DAILY 06/06/18 [History] Omeprazole [PriLOSEC] 40 mg PO DAILY 06/06/18 [History] Oxycodone HCl/Acetaminophen [Percocet 10-325 mg Tablet] 1 tab PO Q8H PRN 06/06/18 [History] Potassium Chloride [Klor-Con 10] 10 meq PO DAILY 06/06/18 [History] Pregabalin [Lyrica] 75 mg PO TID 06/06/18 [History] Roflumilast [Daliresp] 500 mcg PO DAILY 06/06/18 [History] Sennosides [Senokot] 1 tab PO DAILY PRN 06/06/18 [History] Sulfasalazine [Azulfidine] 1,000 mg PO QAM 06/06/18 [History] Theophylline Anhydrous [Aubrey-24] 100 mg PO BID 06/06/18 [History] Umeclidinium [place] [Incruse Ellipta] 62.5 mcg IH DAILY 06/06/18 [History] Albuterol Neb [Proventil Neb] 2.5 mg IH TID PRN 08/01/18 [History] Atorvastatin [Lipitor] 10 mg PO DAILY 08/01/18 [History] Furosemide [Lasix] 20 mg PO DAILY 08/01/18 [History] Ibuprofen [Motrin] 600 mg PO Q6-8H PRN 08/01/18 [History] Ipratropium/Albuterol Sulfate [Iprat-Albut 0.5-3(2.5) mg/3 ml] 3 ml IH TID 08/01/18 [History] Methotrexate [Otrexup] 17.5 mg PO QWEEK 08/01/18 [History] Oxygen 3 - 6 l IH CONT 08/01/18 [History] clonazePAM [Clonazepam] 1 mg PO BID PRN 08/01/18 [History] sulfaSALAzine [Sulfasalazine] 500 mg PO HS 08/01/18 [History] Cefdinir [Omnicef] 300 mg PO BID #6 capsule 08/04/18 [Rx] predniSONE [PredniSONE] 40 mg PO DAILY 7 Days #14 tablet 08/04/18 [Rx] Allergies/Adverse Reactions: Allergy/AdvReac Type Severity Reaction Status Date / Time levofloxacin [From Levaquin] Allergy Swelling Verified 08/01/18 12:55 of Lip/Tongue/Throat morphine Allergy See Verified 08/01/18 12:55 Comments cinnamon [Cinnamon] AdvReac Nausea Verified 06/08/16 13:53 Date of admission: 07/31/18 17:55 Primary care physician: Alana Abraham MD Consults: 07/31/18 18:04 Consult to Tax Intern [CONS] Routine Reason for SW Consult: Has Home Health and Home o2, and Bipap 08/02/18 16:52 Consult to Nurse Navigator [CONS] Routine Comment: Pneumonia; COPD; Alpha 1 antitrypsin def 08/03/18 11:06 Consult to Physical Therapy [CONS] Routine Comment: Evaluate, develop and implement POC Reason for Consult: weakness Does patient have active BEDREST order?: No Is patient medically & hemodynamically stable?: Yes Patient assessed for mobility or mobilized this visit?: No - Constitutional Vitals: Temp Pulse Resp BP Pulse Ox 97.8 F 80 16 107/72 99 08/04/18 07:28 08/04/18 07:28 08/04/18 11:04 08/04/18 11:04 08/04/18 11:04 Exam: General: somnolent, appears stated age HEENT:EOM intact, pupils equal, round, bipap face mask in place Cardiovascular:regular rate and rhythm, normal S1 & S2, radial pulses 2+ and regular, no lower extremity edema Lungs:diminished throughout, no wheezes,rhonchi or crackles. Normal respiratory effort bipap Abdomen:Soft, non-tender, non-distended, , + bowel sounds Neurological: AAOx3, CN grossly intact, no focal deficits - Patient Status Disposition: Home Health Service - Discharge Instructions Instructions: Atrial Flutter (DC), Acute Respiratory Distress Syndrome (DC), Influenza (GEN), Chronic Obstructive Pulmonary Disease (DC), Anemia (GEN), Anxiety (DC), Pneumonia (DC) Follow Up With: Alana Abraham MD [Primary Care Provider] - 08/10/18 10:00 am (appt is with Archana Logan)
--- NOTE | 2018-08-04 11:13 | Physician Discharge Referral ---
Home Health/Hosp Referral Info Transfer to: Home Health - Diagnosis (1) Acute and chronic respiratory failure with hypercapnia Priority: Primary Status: Acute (2) Pmtkf-6-osvrdgjmbof deficiency Priority: Primary Status: Chronic (3) Rheumatoid arthritis Priority: Primary Status: Chronic (4) Multifocal pneumonia Priority: Primary Status: Acute (5) Influenza B Priority: Primary Status: Acute (6) Chronic anemia Priority: Primary Status: Chronic - Respiratory Orders Smoking Cessation: Smoking cessation has been advised. For more information, call the [place] Tobacco Quit Line at 8-483-VOAU-NOW. - Diet/Nutrition Diet/Nutrition Orders: Cardiac - Activity Activity Orders: Ambulate - Services Needed Following services are medically necessary services: Nursing, Home Health Aide, Physical Therapy - Transfer Medications Prescriptions: Cefdinir [Omnicef] 300 mg PO BID #6 capsule predniSONE [PredniSONE] 40 mg PO DAILY 7 Days #14 tablet Home Medications: 0.9 % Sodium Chloride [Normal Saline Flush] 10 ml IV AD PRN 06/06/18 [History] Acetaminophen [Acetaminophen ER] 650 mg PO Q4H PRN 06/06/18 [History] Kfzfa-5-Didjbwwebw Inhibitor [Zemaira] 4,196 mg IV QWEEK 06/06/18 [History] Aspirin Enteric Coated [Aspirin EC] 81 mg PO DAILY 06/06/18 [History] Atenolol [Tenormin] 12.5 mg PO BID 06/06/18 [History] Azithromycin [Zithromax] 250 mg PO MOWEFR 06/06/18 [History] Cyclobenzaprine [Flexeril] 10 mg PO TID PRN 06/06/18 [History] DULoxetine [Cymbalta] 30 mg PO DAILY 06/06/18 [History] Etanercept [Enbrel] 50 mg SQ TU 06/06/18 [History] Folic Acid 1 mg PO DAILY 06/06/18 [History] Guaifenesin [Mucinex] 1,200 mg PO BID 06/06/18 [History] Heparin LOCK 500 unit IV AD PRN 06/06/18 [History] Meloxicam [Mobic] 7.5 mg PO DAILY 06/06/18 [History] Omeprazole [PriLOSEC] 40 mg PO DAILY 06/06/18 [History] Oxycodone HCl/Acetaminophen [Percocet 10-325 mg Tablet] 1 tab PO Q8H PRN 06/06/18 [History] Potassium Chloride [Klor-Con 10] 10 meq PO DAILY 06/06/18 [History] Pregabalin [Lyrica] 75 mg PO TID 06/06/18 [History] Roflumilast [Daliresp] 500 mcg PO DAILY 06/06/18 [History] Sennosides [Senokot] 1 tab PO DAILY PRN 06/06/18 [History] Sulfasalazine [Azulfidine] 1,000 mg PO QAM 06/06/18 [History] Theophylline Anhydrous [Aubrey-24] 100 mg PO BID 06/06/18 [History] Umeclidinium [place] [Incruse Ellipta] 62.5 mcg IH DAILY 06/06/18 [History] Albuterol Neb [Proventil Neb] 2.5 mg IH TID PRN 08/01/18 [History] Atorvastatin [Lipitor] 10 mg PO DAILY 08/01/18 [History] Furosemide [Lasix] 20 mg PO DAILY 08/01/18 [History] Ibuprofen [Motrin] 600 mg PO Q6-8H PRN 08/01/18 [History] Ipratropium/Albuterol Sulfate [Iprat-Albut 0.5-3(2.5) mg/3 ml] 3 ml IH TID 08/01/18 [History] Methotrexate [Otrexup] 17.5 mg PO QWEEK 08/01/18 [History] Oxygen 3 - 6 l IH CONT 08/01/18 [History] clonazePAM [Clonazepam] 1 mg PO BID PRN 08/01/18 [History] sulfaSALAzine [Sulfasalazine] 500 mg PO HS 08/01/18 [History] Cefdinir [Omnicef] 300 mg PO BID #6 capsule 08/04/18 [Rx] predniSONE [PredniSONE] 40 mg PO DAILY 7 Days #14 tablet 08/04/18 [Rx] Allergies/Adverse Reactions: Allergy/AdvReac Type Severity Reaction Status Date / Time levofloxacin [From Levaquin] Allergy Swelling Verified 08/01/18 12:55 of Lip/Tongue/Throat morphine Allergy See Verified 08/01/18 12:55 Comments cinnamon [Cinnamon] AdvReac Nausea Verified 06/08/16 13:53 Certification: Further, I certify that my clinical findings support that this patient is homebound (i.e. absences from home require considerable and taxing effort and are for medical reasons or taoist services or infrequently or short duration when for other reasons) because: Homebound Reason: Patient requires assistance of a person or device to safely leave home Attestation: My signature below is to certify that this patient is under my care and that I, or nurse practitioner, or a physician's housekeeper and laundry assistant working with me, has a [id number] encounter with this patient.
[2018-08-04 11:41] VITALS: BP 132/71
== END 2018-08-04 13:13 | disposition home health service (06) | DRG 193 ==
LOC: 2NENU → SUATTDRO 17:55
PROVIDERS: ADMIT Internal Medicine Nephrology; ATTEND Student in an Organized Health Care Education/Training Program

== ENCOUNTER 2018-11-10 02:48 | Observation (INO) ==
[2018-11-10] MEDS ORDERED: Naloxone 0.4 MG/ML INJ IVP PRN (05:56)
--- NOTE | 2018-11-10 06:02 | Internal Med History&Physical ---
<Emily Olivo M - Last Filed: 11/10/18 07:18> Date of Encounter: 11/10/18 Time of Encounter: 06:02 Internal Medicine - H&P: HPI Admitted From: Hospital to Hospital Transfer History of present illness: Ms. Dawkins is a 58 year old female with history of COPD, alpha-1 antitrypsin deficiency, rheumatoid arthritis, Raynaud's disease who presented from [facility] secondary to shortness of breath. Patient states she has had worsening shortness of breath over the last day, using her BiPAP throughout the day without significant improvement in her shortness of breath. has also noted intermittent confusion per reports. The patient has COPD and uses 4 L chronically. She notes production of yellow sputum but otherwise denies any fever, chills, nausea, vomiting, diarrhea, chest pain, dysuria, hematuria. Abdomen positive patient was found to have no significant abnormalities on chest x-ray. ABG shows decompensated respiratory failure without significant improvement on BiPAP. Initial pH 7.27, PCO2 83, PO2 70.4. BMP shows sodium of 140, potassium 3.9, hemoglobin 12.1, creatinine 1.10. No significant leukocytosis or thrombocytopenia. Past Med Surg Social Fam HX - Past Medical History Medical history: asthma, COPD, fibromyalgia, hypertension, RA, other Additional medical history: Reynaud's disease, Alpha-1 Antitripsyn, emphasema, Psychiatric history: anxiety - Past Surgical History Additional surgical history: Trach, Tonsillectomy, Peg Tube, abdominal surgery r/t infection - Social History Smoking Status: Former smoker Smokeless Tobacco Status: No Alcohol use: none Drug use: none - Family History Mother Living Status: Still Living Hx Family Cardiac Disorders: Yes Father Family Member Ethnicity: Non- Living Status: Hx Family Cardiac Disorders: No Hx Family Respiratory Disorders: No Hx Family Cancer: Yes Hx Family GI Disorders: No Hx Family Endocrine Disorder: Yes Hx Family Neuromuscular Disorders: No Hx Family Neurologic Disorders: No Hx Family HEENT Disorders: No Hx Family Autoimmune Disorders: No Internal Medicine - H&P: Meds 0.9 % Sodium Chloride 10 ml IV AD PRN 06/06/18 [History] Acetaminophen [Acetaminophen ER] 650 mg PO Q4H PRN 06/06/18 [History] Wbhnz-1-Datfubiduz Inhibitor [Zemaira] 4,196 mg IV QWEEK 06/06/18 [History] Aspirin Enteric Coated [Aspirin EC] 81 mg PO DAILY 06/06/18 [History] Atenolol [Tenormin] 12.5 mg PO BID 06/06/18 [History] Azithromycin [Zithromax] 250 mg PO MOWEFR 06/06/18 [History] Cyclobenzaprine [Flexeril] 10 mg PO TID PRN 06/06/18 [History] DULoxetine [Cymbalta] 30 mg PO DAILY 06/06/18 [History] Etanercept [Enbrel] 50 mg SQ TU 06/06/18 [History] Folic Acid 1 mg PO DAILY 06/06/18 [History] Guaifenesin [Mucinex] 1,200 mg PO BID 06/06/18 [History] Heparin LOCK 500 unit IV AD PRN 06/06/18 [History] Meloxicam [Mobic] 7.5 mg PO DAILY 06/06/18 [History] Omeprazole [PriLOSEC] 40 mg PO DAILY 06/06/18 [History] Oxycodone HCl/Acetaminophen [Percocet 10-325 mg Tablet] 1 tab PO Q8H PRN 06/06/18 [History] Potassium Chloride [Klor-Con 10] 10 meq PO DAILY 06/06/18 [History] Pregabalin [Lyrica] 75 mg PO TID 06/06/18 [History] Roflumilast [Daliresp] 500 mcg PO DAILY 06/06/18 [History] Sennosides [Senokot] 1 tab PO DAILY PRN 06/06/18 [History] Sulfasalazine [Azulfidine] 1,000 mg PO QAM 06/06/18 [History] Theophylline Anhydrous [Aubrey-24] 100 mg PO BID 06/06/18 [History] Umeclidinium [place] [Incruse Ellipta] 62.5 mcg IH DAILY 06/06/18 [History] Albuterol Neb [Proventil Neb] 2.5 mg IH TID PRN 08/01/18 [History] Atorvastatin [Lipitor] 10 mg PO DAILY 08/01/18 [History] Furosemide [Lasix] 20 mg PO DAILY 08/01/18 [History] Ibuprofen [Motrin] 600 mg PO Q6-8H PRN 08/01/18 [History] Ipratropium/Albuterol Sulfate [Iprat-Albut 0.5-3(2.5) mg/3 ml] 3 ml IH TID 08/01/18 [History] Methotrexate [Otrexup] 17.5 mg PO QWEEK 08/01/18 [History] Oxygen 3 - 6 l IH CONT 08/01/18 [History] clonazePAM [Clonazepam] 0.5 mg PO TID 08/01/18 [History] sulfaSALAzine [Sulfasalazine] 500 mg PO HS 08/01/18 [History] Cefdinir [Omnicef] 300 mg PO BID #6 capsule 08/04/18 [Rx] Albuterol Sulfate [Proair Respiclick] 90 mcg IH Q6H PRN 11/10/18 [History] Fluticasone/Salmeterol [Advair 250-50 Diskus] 1 each IH BID 11/10/18 [History] NIFEdipine XL (24 HR) [Procardia XL] 60 mg PO DAILY 11/10/18 [History] Oxycodone HCl/Acetaminophen [Percocet 5-325 mg Tablet] 1 each PO Q6-8H PRN 11/10/18 [History] Tiotropium [Spiriva] 18 mcg IH DAILY 11/10/18 [History] Allergy/AdvReac Type Severity Reaction Status Date / Time levofloxacin [From Levaquin] Allergy Swelling Verified 08/01/18 12:55 of Lip/Tongue/Throat morphine Allergy See Verified 08/01/18 12:55 Comments cinnamon [Cinnamon] AdvReac Nausea Verified 06/08/16 13:53 All Systems PM: A 10-system review of systems was performed and is negative for pertinent findings except as documented above in the HPI. - Constitutional Constitutional: no chills, no fever(s) - EENT Eyes: no change in vision, no discharge Nose, mouth and throat: no dysphagia, no epistaxis - Cardiovascular Cardiovascular ROS IM: dyspnea, no chest pain, no edema - Respiratory Respiratory: cough, dyspnea, no wheezing - Gastrointestinal Gastrointestinal: no abdominal pain, no cramping, no diarrhea, no nausea, no vomiting - Genitourinary Genitourinary: no dysuria, no hematuria - Musculoskeletal Musculoskeletal ROS IM: no arthralgias, no back pain - Integumentary Integumentary IM: no erythema, no rash - Neurological Neurological ROS: confusion, no dizziness, no tingling - Psychiatric Psychiatric: no anxiety, no depression - Constitutional Vitals: Temp Pulse Resp BP Pulse Ox 100.2 F H 105 21 134/76 94 11/10/18 05:45 11/10/18 05:45 11/10/18 05:45 11/10/18 05:45 11/10/18 05:45 Exam: General: Conversant. No apparent distress. Follow commands. Appears stated age. On BiPAP. Neck: No JVD. Trachea midline. Neck supple. Eyes: PERRL. No scleral icterus. HENT: Normocephalic and atraumatic. Moist mucus membranes. Cardiovascular: Regular rate and rhythm. Normal S1 and S2. No murmurs appreciated. Normal capillary refill. Extremities well perfused with 2+ distal pulses bilaterally. No edema. Pulmonary: Decreased breath sounds diffusely. No appreciable crackles or wheezing Not in respiratory distress on BiPAP. Speaks in full sentences. Abdomen: Soft, nondistended, and tontender. No bruits or masses. No guarding. Neuro: Alert and oriented x3. No slurred speech. No focal deficits noted. Skin: No rashes noted on visualized skin. Musculoskeletal: No bony abnormalities visualized. Moves all extremities. Psych: Normal mood. Pleasant. Makes appropriate eye contact. - Assessment and Plan (1) Acute exacerbation of chronic obstructive airways disease Current Visit: Yes Status: Acute Assessment and plan: * Likely causing the patient's hypercapnia and respiratory depression * Stable on BiPAP * Will continue with IV steroids, duonebs initiate azithromycin * Patient had a dose of IV steroids at [facility] * Continue to monitor oxygen saturation and work of breathing with continued BiPAP, wean as tolerated * Repeat Chest XR (2) Acute respiratory failure with hypoxia and hypercapnia Current Visit: Yes Status: Acute Assessment and plan: * Likely secondary to COPD (3) Qfbzm-0-tvaydqlwhxt deficiency Current Visit: Yes Status: Chronic Assessment and plan: * Likely contributing to patients respiratory depression (4) Rheumatoid arthritis Current Visit: Yes Status: Chronic Assessment and plan: * On methotrexate infusions * PRN pain medication Qualifiers: Rheumatoid arthritis location: multiple sites Rheumatoid factor presence: unspecified presence Qualified Code(s): M06.9 - Rheumatoid arthritis, unspecified (5) DVT prophylaxis Current Visit: Yes Status: Acute Assessment and plan: * Heparin subcutaneous - Time Spent With Patient Total time spent is greater than 50% in coordination of care (as documented) at patient's floor/unit and/or counseling patient: <Eryn Burnham - Last Filed: 11/11/18 06:55> Date of Encounter: 11/10/18 Internal Medicine - H&P: HPI History of present illness: Ms. Dawkins is a 58 year old female All Systems PM: A 10-system review of systems was performed and is negative for pertinent findings except as documented above in the HPI. - Constitutional Vitals: Temp Pulse Resp BP Pulse Ox 97.6 F 95 16 106/58 100 11/11/18 06:33 11/11/18 06:33 11/11/18 06:33 11/11/18 06:33 11/11/18 06:33 Internal Med - H&P Results - Labs CBC & Chem 7: 11/11/18 03:40 11/11/18 03:40 Labs: Short CBC 11/10/18 11/11/18 Range/Units 08:40 03:40 WBC 4.8 5.4 (4.3-11.1) K/mcL Hgb 11.7 10.2 L D (11.5-15.4) g/dL Hct 39.1 34.7 L (35.3-44.9) % Plt Count 292 233 (140-400) K/mcL Neutrophils # 2.8 2.6 (1.6-8.9) K/mcL BMP 11/10/18 11/11/18 08:40 03:40 Sodium 143 137 Potassium 4.1 3.4 L Chloride 91 L 93 L Carbon Dioxide 42 H* 39 H BUN 14 11 Creatinine 0.96 0.90 Glucose 140 H 115 H Calcium 9.4 8.9 - Impressions ITS Impressions Chest X-Ray 11/10/18 07:11 IMPRESSION: Trace right pleural effusion. No other acute cardiopulmonary findings. D/ / Rina Carroll MD / Rina Carroll MD Interpreting Provider: Rina Carroll MD - Time Spent With Patient Total time spent is greater than 50% in coordination of care (as documented) at patient's floor/unit and/or counseling patient: - Attending Attestation I performed a history and physical examination of the patient and discussed his management with the resident. I reviewed the residents note and agree with the documented findings and plan of care.
[2018-11-10] MEDS: Ipratropium/Albuterol Neb 3 ML IH SCH ×4 (08:11→19:31)
[2018-11-10] MEDS: Budesonide/Formoterol 80/4.5 MDI IH SCH ×2 (08:12→19:32)
[2018-11-10] MEDS: NIFEdipine XL (24 HR) 60 MG TAB.ER.24 PO SCH (08:22)
[2018-11-10] MEDS: Azithromycin 250 MG TABLET PO SCH (08:22)
[2018-11-10] MEDS: *HR* Heparin 5,000 UNIT/ML VIAL SQ SCH ×2 (08:23→18:11)
[2018-11-10] MEDS: *HR* OxyCODONE/APAP 5/325 TABLET PO PRN ×2 (08:31→18:11)
[2018-11-10] MEDS ORDERED: levoFLOXacin 750 MG TABLET PO SCH (09:00)
[2018-11-10 09:04] LABS: Basophils % 0.6 %; Hematocrit 39.1 % (35.3-44.9); Hemoglobin 11.7 g/dL (11.5-15.4); Immature Granulocytes % 0.6 % (0-4); Lymphocytes # 1.6 K/mcL (0.6-4.6); Lymphocytes % 33.9 %; Mean Corpuscular HGB Conc 29.9 g/dL (31.6-35.5); Mean Corpuscular Hemoglobin 28.1 pg (28.0-33.3); Mean Platelet Volume 10.2 fL (9.4-12.4); Monocytes # 0.3 K/mcL (0.0-1.3); Monocytes % 5.6 %; Neutrophils # 2.8 K/mcL (1.6-8.9); Platelet Count 292 K/mcL (140-400); Red Blood Count 4.16 M/mcL (3.82-4.97); Segmented Neutrophils % 59.3 %; White Blood Count 4.8 K/mcL (4.3-11.1)
[2018-11-10 09:41] LABS: BUN/Creatinine Ratio 15 (6-26); Blood Urea Nitrogen 14 mg/dL (6-20); Calcium 9.4 mg/dL (8.6-10.3); Carbon Dioxide 42 mEq/L (23-29); Chloride 91 mEq/L (98-107); Glucose 140 mg/dL (70-105); Osmolality,Calculated 299 (280-300); Potassium 4.1 mEq/L (3.5-5.1); Sodium 143 mEq/L (136-145); eGFR For African Americans > 60 (> 60); eGFR For Non-African Americans 60 (> 60)
--- NOTE | 2018-11-10 11:52 | Event Note ---
Date of Encounter: 11/10/18 Time of Encounter: 08:45 H&P reviewed. Patient with history of oxygen-dependent COPD, alpha-1 antitrypsin deficiency, rheumatoid arthritis, Raynaud's disease, was transferred from OSH overnight due to acute on chronic respiratory failure with hypercapnia secondary to COPD exacerbation. ABG reportedly showed pH 7.27, PCO2 83, PO2 70.4. Required BiPAP briefly but she is currently saturating well on 4 L of oxygen. Chest x-ray without consolidative findings, no leukocytosis. She did have temp of 100.2 upon arrival at [facility]; will check respiratory viral panel and continue azithromycin, IV Solu-Medrol, and bronchodilators.
[2018-11-10 12:27] LABS: Adenovirus Not Detected (Not Detect); Coronavirus 229E Not Detected (Not Detect); Coronavirus HKU1 Not Detected (Not Detect); Coronavirus NL63 Not Detected (Not Detect); Coronavirus OC43 Not Detected (Not Detect); Human Metapneumovirus Not Detected (Not Detect); Human Rhinovirus/Enterovirus Not Detected (Not Detect); Influenza A Subtype 2009 H1 Not Detected (Not Detect); Influenza A Untypeable Not Detected (Not Detect); Influenza B Not Detected (Not Detect)
[2018-11-10 12:28] LABS: Bordetella Pertussis Not Detected (Not Detect); Chlamydophila pneumoniae Not Detected (Not Detect); Mycoplasma pneumoniae Not Detected (Not Detect); Parainfluenza Virus 1 Not Detected (Not Detect); Parainfluenza Virus 2 Not Detected (Not Detect); Parainfluenza Virus 3 Not Detected (Not Detect); Parainfluenza Virus 4 Not Detected (Not Detect); Respiratory Syncytial Virus Not Detected (Not Detect)
[2018-11-10] MEDS ORDERED: Acetaminophen 325 MG TABLET PO ONE (20:54)
[2018-11-11] MEDS: Ipratropium/Albuterol Neb 3 ML IH SCH ×3 (00:22→07:32)
[2018-11-11] MEDS: *HR* OxyCODONE/APAP 5/325 TABLET PO PRN ×2 (02:05→11:41)
[2018-11-11] MEDS ORDERED: clonazePAM 1 MG TABLET PO PRN (03:21)
[2018-11-11 03:53] LABS: Basophils % 0.7 %; Eosinophils # 0.2 K/mcL (0.0-0.6); Eosinophils % 3.7 %; Hematocrit 34.7 % (35.3-44.9); Hemoglobin 10.2 g/dL (11.5-15.4); Immature Granulocytes % 0.2 % (0-4); Lymphocytes # 1.9 K/mcL (0.6-4.6); Lymphocytes % 35.5 %; Mean Corpuscular HGB Conc 29.4 g/dL (31.6-35.5); Mean Corpuscular Hemoglobin 28.4 pg (28.0-33.3); Mean Corpuscular Volume 96.7 fL (83.0-100.0); Monocytes # 0.6 K/mcL (0.0-1.3); Monocytes % 11.6 %; Neutrophils # 2.6 K/mcL (1.6-8.9); Platelet Count 233 K/mcL (140-400); Red Blood Count 3.59 M/mcL (3.82-4.97); Red Cell Distribution Width 15.3 % (11.5-14.5); Segmented Neutrophils % 48.3 %; White Blood Count 5.4 K/mcL (4.3-11.1)
[2018-11-11 04:15] LABS: BUN/Creatinine Ratio 12 (6-26); Blood Urea Nitrogen 11 mg/dL (6-20); Calcium 8.9 mg/dL (8.6-10.3); Carbon Dioxide 39 mEq/L (23-29); Chloride 93 mEq/L (98-107); Glucose 115 mg/dL (70-105); Osmolality,Calculated 284 (280-300); Potassium 3.4 mEq/L (3.5-5.1); Sodium 137 mEq/L (136-145); eGFR For African Americans > 60 (> 60); eGFR For Non-African Americans > 60 (> 60)
[2018-11-11] MEDS: *HR* Heparin 5,000 UNIT/ML VIAL SQ SCH (06:14)
[2018-11-11] MEDS ORDERED: MethylPREDNISolone 40 MG/ML VIAL IVP SCH (07:30)
[2018-11-11] MEDS: Budesonide/Formoterol 80/4.5 MDI IH SCH (07:32)
[2018-11-11] MEDS ORDERED: Ipratropium/Albuterol Neb 3 ML IH PRN (08:00)
[2018-11-11] MEDS: NIFEdipine XL (24 HR) 60 MG TAB.ER.24 PO SCH (09:36)
[2018-11-11] MEDS: Azithromycin 250 MG TABLET PO SCH (09:37)
[2018-11-11] MEDS ORDERED: Acetaminophen 325 MG TABLET PO ONE (09:48)
--- NOTE | 2018-11-11 10:28 | Discharge Summary ---
- NOTES TO OUTPATIENT PROVIDER Notes to Outpatient Provider: Follow-up with pulmonology as outpatient Orders not resulted at time of discharge: Pending orders 11/12/18 04:00 BMP [Basic Metabolic Panel] AM 0400 Complete Blood Count [HEME] AM 0400 11/13/18 04:00 BMP [Basic Metabolic Panel] AM 0400 Complete Blood Count [HEME] AM 0400 11/14/18 04:00 BMP [Basic Metabolic Panel] AM 0400 Complete Blood Count [HEME] AM 0400 11/15/18 04:00 BMP [Basic Metabolic Panel] AM 0400 Complete Blood Count [HEME] AM 0400 Date of Encounter: 11/11/18 Time of Encounter: 07:30 - Discharge Diagnosis (1) Acute respiratory failure with hypoxia and hypercapnia Priority: Primary Status: Acute (2) Acute exacerbation of chronic obstructive airways disease Priority: Secondary Status: Acute (3) [id number] deficiency Priority: Secondary Status: Chronic (4) Rheumatoid arthritis Priority: Secondary Status: Chronic Qualifiers: Rheumatoid arthritis location: multiple sites Rheumatoid factor presence: unspecified presence Qualified Code(s): M06.9 - Rheumatoid arthritis, unspecified (5) Anxiety Priority: Secondary Status: Acute Hospital course: Ms. Dawkins is a 58 year old female with history of advanced COPD on 4L O2, alpha-1 antitrypsin deficiency, rheumatoid arthritis, Raynaud's disease, who was transferred from [facility] due to acute on chronic respiratory failure with hypercapn ia secondary to COPD exacerbation. ABG reportedly showed pH 7.27, PCO2 83, PO2 70.4. Required BiPAP briefly but she is quickly weaned to her baseline O2 of 4L on day 1 of her hospital stay. No evidence of PNA, respirator viral panel -ve. She seems to have poorly controlled anxiety as well as fibromyalgia hence Cymbalta was increased to 60mg QD. She will be discharged on 2 week steroid taper, 5 days of macrolide daily followed by 250mg MWF (which is her home dose), and close pulmonology follow up as outpatient. Discharge discussed with: patient, family, nurse - Time Spent with Patient Total time spent providing and/or coordinating discharge services: 32 mins - Discharge Medications Prescriptions: New predniSONE [PredniSONE] 40 mg PO DAILY #19 tablet Azithromycin [Zithromax] 500 mg PO DAILY 4 Days #8 tablet Continued Oxycodone HCl/Acetaminophen [Percocet 10-325 mg Tablet] 1 tab PO Q8H PRN PRN Reason: Pain Umeclidinium Rosepine [Incruse Ellipta] 62.5 mcg IH DAILY [id number] Inhibitor [Zemaira] 4,196 mg IV QWEEK Sulfasalazine [Azulfidine] 1,000 mg PO QAM Omeprazole [PriLOSEC] 40 mg PO DAILY Meloxicam [Mobic] 7.5 mg PO DAILY Sennosides [Senokot] 1 tab PO DAILY PRN PRN Reason: Constipation Pregabalin [Lyrica] 75 mg PO TID Guaifenesin [Mucinex] 1,200 mg PO BID Atenolol [Tenormin] 12.5 mg PO BID Acetaminophen [Acetaminophen ER] 650 mg PO Q4H PRN PRN Reason: Pain Potassium Chloride [Klor-Con 10] 10 meq PO DAILY Roflumilast [Daliresp] 500 mcg PO DAILY Aspirin Enteric Coated [Aspirin EC] 81 mg PO DAILY Folic Acid 1 mg PO DAILY Theophylline Anhydrous [Aubrey-24] 100 mg PO BID Heparin LOCK 500 unit IV AD PRN PRN Reason: AFTER PORT ACCESS 0.9 % Sodium Chloride 10 ml IV AD PRN PRN Reason: FOR PORT ACCESS Etanercept [Enbrel] 50 mg SQ TU Albuterol Neb [Proventil Neb] 2.5 mg IH TID PRN PRN Reason: Shortness Of Breath clonazePAM [Clonazepam] 0.5 mg PO TID Furosemide [Lasix] 20 mg PO DAILY Methotrexate [Otrexup] 17.5 mg PO QWEEK sulfaSALAzine [Sulfasalazine] 500 mg PO HS Atorvastatin [Lipitor] 10 mg PO DAILY Oxygen 3 - 6 l IH CONT Ipratropium/Albuterol Sulfate [Iprat-Albut 0.5-3(2.5) mg/3 ml] 3 ml IH TID Ibuprofen [Motrin] 600 mg PO Q6-8H PRN PRN Reason: Pain Cefdinir [Omnicef] 300 mg PO BID #6 capsule Oxycodone HCl/Acetaminophen [Percocet 5-325 mg Tablet] 1 each PO Q6-8H PRN PRN Reason: Pain Fluticasone/Salmeterol [Advair 250-50 Diskus] 1 each IH BID Albuterol Sulfate [Proair Respiclick] 90 mcg IH Q6H PRN PRN Reason: Shortness Of Breath NIFEdipine XL (24 HR) [Procardia XL] 60 mg PO DAILY Tiotropium [Spiriva] 18 mcg IH DAILY Cyclobenzaprine [Flexeril] 10 mg PO TID PRN 10 Days #30 tablet PRN Reason: Muscle Spasm Changed DULoxetine [Cymbalta] 60 mg PO DAILY #60 capsule.dr Discontinued Azithromycin [Zithromax] 250 mg PO [id number] Home Medications: 0.9 % Sodium Chloride 10 ml IV AD PRN 06/06/18 [History] Acetaminophen [Acetaminophen ER] 650 mg PO Q4H PRN 06/06/18 [History] [id number]-[id number] Inhibitor [Zemaira] 4,196 mg IV QWEEK 06/06/18 [History] Aspirin Enteric Coated [Aspirin EC] 81 mg PO DAILY 06/06/18 [History] Atenolol [Tenormin] 12.5 mg PO BID 06/06/18 [History] Etanercept [Enbrel] 50 mg SQ TU 06/06/18 [History] Folic Acid 1 mg PO DAILY 06/06/18 [History] Guaifenesin [Mucinex] 1,200 mg PO BID 06/06/18 [History] Heparin LOCK 500 unit IV AD PRN 06/06/18 [History] Meloxicam [Mobic] 7.5 mg PO DAILY 06/06/18 [History] Omeprazole [PriLOSEC] 40 mg PO DAILY 06/06/18 [History] Oxycodone HCl/Acetaminophen [Percocet 10-325 mg Tablet] 1 tab PO Q8H PRN 06/06/18 [History] Potassium Chloride [Klor-Con 10] 10 meq PO DAILY 06/06/18 [History] Pregabalin [Lyrica] 75 mg PO TID 06/06/18 [History] Roflumilast [Daliresp] 500 mcg PO DAILY 06/06/18 [History] Sennosides [Senokot] 1 tab PO DAILY PRN 06/06/18 [History] Sulfasalazine [Azulfidine] 1,000 mg PO QAM 06/06/18 [History] Theophylline Anhydrous [Aubrey-24] 100 mg PO BID 06/06/18 [History] Umeclidinium Rosepine [Incruse Ellipta] 62.5 mcg IH DAILY 06/06/18 [History] Albuterol Neb [Proventil Neb] 2.5 mg IH TID PRN 08/01/18 [History] Atorvastatin [Lipitor] 10 mg PO DAILY 08/01/18 [History] Furosemide [Lasix] 20 mg PO DAILY 08/01/18 [History] Ibuprofen [Motrin] 600 mg PO Q6-8H PRN 08/01/18 [History] Ipratropium/Albuterol Sulfate [Iprat-Albut 0.5-3(2.5) mg/3 ml] 3 ml IH TID 08/01/18 [History] Methotrexate [Otrexup] 17.5 mg PO QWEEK 08/01/18 [History] Oxygen 3 - 6 l IH CONT 08/01/18 [History] clonazePAM [Clonazepam] 0.5 mg PO TID 08/01/18 [History] sulfaSALAzine [Sulfasalazine] 500 mg PO HS 08/01/18 [History] Cefdinir [Omnicef] 300 mg PO BID #6 capsule 08/04/18 [Rx] Albuterol Sulfate [Proair Respiclick] 90 mcg IH Q6H PRN 11/10/18 [History] Fluticasone/Salmeterol [Advair 250-50 Diskus] 1 each IH BID 11/10/18 [History] NIFEdipine XL (24 HR) [Procardia XL] 60 mg PO DAILY 11/10/18 [History] Oxycodone HCl/Acetaminophen [Percocet 5-325 mg Tablet] 1 each PO Q6-8H PRN 11/10/18 [History] Tiotropium [Spiriva] 18 mcg IH DAILY 11/10/18 [History] Azithromycin [Zithromax] 500 mg PO DAILY 4 Days #8 tablet 11/11/18 [Rx] Cyclobenzaprine [Flexeril] 10 mg PO TID PRN 10 Days #30 tablet 11/11/18 [Rx] DULoxetine [Cymbalta] 60 mg PO DAILY #60 capsule. 11/11/18 [Rx] predniSONE [PredniSONE] 40 mg PO DAILY #19 tablet 11/11/18 [Rx] Allergies/Adverse Reactions: Allergy/AdvReac Type Severity Reaction Status Date / Time levofloxacin [From Levaquin] Allergy Swelling Verified 08/01/18 12:55 of Lip/Tongue/Throat morphine Allergy See Verified 08/01/18 12:55 Comments cinnamon [Cinnamon] AdvReac Nausea Verified 06/08/16 13:53 Date of admission: 11/10/18 05:33 Primary care physician: Alana Abraham MD Consults: 11/10/18 05:57 Consult to Flue Gas Analyst [CONS] Routine Reason for SW Consult: Discharge needs/plans - Constitutional Vitals: Temp Pulse Resp BP Pulse Ox 98.4 F 95 16 130/74 95 11/11/18 09:58 11/11/18 09:58 11/11/18 09:58 11/11/18 09:58 11/11/18 09:58 Exam: General: Conversant. No apparent distress. Follow commands. Cardiovascular: Regular rate and rhythm. Normal S1 and S2. No murmurs ap preciated. Pulmonary: Although diminished bilaterally, no appreciable crackles or wheezing Abdomen: Soft, nondistended, and tontender. No bruits or masses. No guarding. Neuro: Alert and oriented x3. No slurred speech. No focal deficits noted. Skin: No rashes noted on visualized skin. - Patient Status Disposition: Home, Self-Care Condition: Fair - Discharge Instructions Instructions: Chronic Obstructive Pulmonary Disease (DC), Acute Respiratory Distress Syndrome (DC), Anxiety (DC) Follow Up With: Alana Abraham MD [Primary Care Provider] - 11/14/18 1:30 pm Kumar Hawley MD [Partnered Physician] - - Diet and Activity Activity: resume usual activities as tolerated Diet: regular diet
[2018-11-11 12:24] VITALS: BP 130/74
== END 2018-11-11 12:36 | disposition home or self-care (01) ==
LOC: 2NNU → SUATTDRO 05:33 → 3ANU 12:45
PROVIDERS: ADMIT Internal Medicine; ATTEND Internal Medicine

== ENCOUNTER 2019-01-31 23:29 | Inpatient (IN) ==
[2019-02-01] MEDS ORDERED: Naloxone 0.4 MG/ML INJ IVP PRN (02:01)
[2019-02-01] MEDS ORDERED: 0.9 % Sodium Chloride 1,000 ML IVC SCH (02:15)
[2019-02-01] MEDS ORDERED: Artificial Tears SOLN 15 ML BOTTLE BOTH EYES PRN (02:30)
[2019-02-01] MEDS ORDERED: FentaNYL (PF) 1,000 MCG in 0.9 % Sodium Chloride 80 ML IVC SCH (02:30)
[2019-02-01] MEDS: Ipratropium Neb 0.5 MG NEBULIZER IH SCH ×4 (03:30→16:12)
[2019-02-01] MEDS: Albuterol 2.5 MG/3 ML NEBULIZER IH SCH ×4 (03:30→16:12)
[2019-02-01 04:09] LABS: Basophils % 0.2 %; Eosinophils % 0.1 %; Hematocrit 36.6 % (35.3-44.9); Hemoglobin 11.5 g/dL (11.5-15.4); Immature Granulocytes % 0.7 % (0-4); Lymphocytes # 1.2 K/mcL (0.6-4.6); Lymphocytes % 13.2 %; Mean Corpuscular HGB Conc 31.4 g/dL (31.6-35.5); Mean Corpuscular Hemoglobin 30.6 pg (28.0-33.3); Mean Corpuscular Volume 97.3 fL (83.0-100.0); Mean Platelet Volume 9.9 fL (9.4-12.4); Monocytes # 0.3 K/mcL (0.0-1.3); Monocytes % 3.6 %; Neutrophils # 7.1 K/mcL (1.6-8.9); Platelet Count 268 K/mcL (140-400); Red Blood Count 3.76 M/mcL (3.82-4.97); Red Cell Distribution Width 12.8 % (11.5-14.5); Segmented Neutrophils % 82.2 %; White Blood Count 8.7 K/mcL (4.3-11.1)
[2019-02-01 04:25] LABS: ABG Base Excess 3 mEq/L (-2 to 3); ABG HCO3 31 mEq/L (21-27); ABG Oxygen Saturation 91 % (95-98); ABG PCO2 63 mmHg (35-45); ABG PO2 70 mmHg (85-104); ABG TCO2 33 mEq/L (20-26); Blood Gas Modality ASSIST CONTROL; Blood Gas VT 450 cc
[2019-02-01 04:25] LABS: BUN/Creatinine Ratio 14 (6-26); Blood Urea Nitrogen 13 mg/dL (6-20); Calcium 8.8 mg/dL (8.6-10.3); Carbon Dioxide 30 mEq/L (23-29); Chloride 101 mEq/L (98-107); Glucose 159 mg/dL (70-105); Osmolality,Calculated 285 (280-300); Potassium 4.4 mEq/L (3.5-5.1); Sodium 136 mEq/L (136-145); eGFR For African Americans > 60 (> 60); eGFR For Non-African Americans 59 (> 60)
[2019-02-01 04:52] LABS: Prothrombin Time 11.3 Seconds (9.4-12.1)
[2019-02-01 04:54] LABS: Activated Partial Thrombo Time 40.1 Seconds (26.0-36.0)
[2019-02-01] MEDS: Artificial Tears SOLN 15 ML BOTTLE BOTH EYES SCH ×3 (04:59→12:47)
[2019-02-01] MEDS: *HR* Heparin 5,000 UNIT/ML VIAL SQ SCH ×2 (05:06→17:30)
[2019-02-01] MEDS: MethylPREDNISolone 40 MG/ML VIAL IVP SCH ×2 (05:06→17:30)
[2019-02-01] MEDS ORDERED: methylPREDNISolone 125 MG/2 ML VIAL IVP SCH (06:00)
[2019-02-01 07:49] LABS: Influenza A PCR Negative (Negative); Influenza B PCR Negative (Negative); Resp. Syncytial Virus PCR Negative (Negative)
[2019-02-01] MEDS ORDERED: Azithromycin 500 MG in 0.9 % Sodium Chloride 250 ML IVPB ONE (07:53)
[2019-02-01] MEDS ORDERED: Chlorhexidine Rinse 15 ML MOUTHWASH MM SCH (09:00)
[2019-02-01] MEDS ORDERED: Budesonide/Formoterol 160/4.5 1 PUFF INH IH SCH (10:00)
[2019-02-01] MEDS: Dexmedetomidine HCl 400 MCG/100 ML MLS IVC SCH ×4 (12:27→22:29)
[2019-02-01 15:40] LABS: ABG Base Excess 5 mEq/L (-2 to 3); ABG HCO3 34 mEq/L (21-27); ABG Oxygen Saturation 96 % (95-98); ABG PCO2 74 mmHg (35-45); ABG PH 7.27 pH Units (7.32-7.45); ABG PO2 94 mmHg (85-104); ABG TCO2 36 mEq/L (20-26); Blood Gas Modality ST; Blood Gas Pressure Support 12 cm H2O
[2019-02-01] MEDS ORDERED: *HR* LORazepam 2 MG/ML VIAL ONE (16:58)
[2019-02-01] MEDS: *HR* LORazepam 2 MG/ML VIAL IVP PRN ×2 (17:00→22:30)
[2019-02-01] MEDS: Haloperidol Lactate 5 MG/ML VIAL IVP PRN (19:36)
[2019-02-01] MEDS: Ipratropium/Albuterol Neb 3 ML IH SCH ×2 (20:12→23:12)
[2019-02-02] MEDS: Dexmedetomidine HCl 400 MCG/100 ML MLS IVC SCH ×2 (02:37→22:22)
[2019-02-02] MEDS: Ipratropium/Albuterol Neb 3 ML IH SCH ×5 (03:58→20:33)
[2019-02-02 05:34] LABS: Hematocrit 34.1 % (35.3-44.9); Hemoglobin 10.7 g/dL (11.5-15.4); Mean Corpuscular HGB Conc 31.4 g/dL (31.6-35.5); Mean Corpuscular Hemoglobin 31.2 pg (28.0-33.3); Mean Corpuscular Volume 99.4 fL (83.0-100.0); Mean Platelet Volume 10.1 fL (9.4-12.4); Platelet Count 231 K/mcL (140-400); Red Blood Count 3.43 M/mcL (3.82-4.97); White Blood Count 6.2 K/mcL (4.3-11.1)
[2019-02-02] MEDS: *HR* Heparin 5,000 UNIT/ML VIAL SQ SCH ×2 (05:47→18:04)
[2019-02-02] MEDS: MethylPREDNISolone 40 MG/ML VIAL IVP SCH (05:50)
[2019-02-02] MEDS: Haloperidol Lactate 5 MG/ML VIAL IVP PRN (05:54)
[2019-02-02 05:55] LABS: BUN/Creatinine Ratio 16 (6-26); Blood Urea Nitrogen 13 mg/dL (6-20); Calcium 9.1 mg/dL (8.6-10.3); Carbon Dioxide 35 mEq/L (23-29); Chloride 102 mEq/L (98-107); Glucose 127 mg/dL (70-105); Osmolality,Calculated 296 (280-300); Potassium 4.5 mEq/L (3.5-5.1); Sodium 142 mEq/L (136-145); eGFR For African Americans > 60 (> 60); eGFR For Non-African Americans > 60 (> 60)
[2019-02-02] MEDS: *HR* LORazepam 2 MG/ML VIAL IVP PRN (08:02)
[2019-02-02] MEDS ORDERED: predniSONE 20 MG TABLET PO SCH (09:00)
[2019-02-02] MEDS ORDERED: Aspirin Enteric Coated 81 MG Tablet PO SCH (09:00)
[2019-02-02] MEDS ORDERED: clonazePAM 0.5 MG TABLET PO PRN (11:01)
[2019-02-02] MEDS ORDERED: Haloperidol Lactate 5 MG/ML VIAL IVP PRN (12:10)
[2019-02-02] MEDS ORDERED: Naloxone 0.4 MG/ML INJ IVP PRN (12:10)
[2019-02-02] MEDS ORDERED: Furosemide 40 MG in 0.9 % Sodium Chloride 50 ML IVPB ONE (19:12)
[2019-02-02] MEDS ORDERED: Haloperidol Lactate 5 MG/ML VIAL IVP ONE (20:25)
[2019-02-02] MEDS ORDERED: *HR* Metoprolol 5 MG/5 ML VIAL IVP ONE ×2 (20:26→20:32)
[2019-02-02] MEDS ORDERED: Furosemide 40 MG/4 ML VIAL IVP ONE (20:26)
[2019-02-02] MEDS ORDERED: *HR* LORazepam 2 MG/ML VIAL IVP ONE (20:28)
[2019-02-02] MEDS ORDERED: Furosemide 40 MG/4 ML VIAL ONE (20:32)
[2019-02-02] MEDS ORDERED: *HR* LORazepam 2 MG/ML VIAL ONE (20:43)
[2019-02-02 23:21] LABS: BUN/Creatinine Ratio 17 (6-26); Blood Urea Nitrogen 13 mg/dL (6-20); Calcium 9.3 mg/dL (8.6-10.3); Carbon Dioxide 30 mEq/L (23-29); Chloride 102 mEq/L (98-107); Glucose 101 mg/dL (70-105); Osmolality,Calculated 292 (280-300); Potassium 3.7 mEq/L (3.5-5.1); Sodium 141 mEq/L (136-145); eGFR For African Americans > 60 (> 60); eGFR For Non-African Americans > 60 (> 60)
[2019-02-03] MEDS: Ipratropium/Albuterol Neb 3 ML IH SCH ×6 (00:56→20:39)
[2019-02-03 01:15] LABS: ABG Base Excess 9 mEq/L (-2 to 3); ABG HCO3 41 mEq/L (21-27); ABG Oxygen Saturation 92 % (95-98); ABG PCO2 89 mmHg (35-45); ABG PH 7.27 pH Units (7.32-7.45); ABG PO2 78 mmHg (85-104); ABG TCO2 43 mEq/L (20-26)
[2019-02-03 02:58] LABS: ABG Base Excess 12 mEq/L (-2 to 3); ABG HCO3 40 mEq/L (21-27); ABG Oxygen Saturation 97 % (95-98); ABG PCO2 69 mmHg (35-45); ABG PH 7.38 pH Units (7.32-7.45); ABG PO2 98 mmHg (85-104); ABG TCO2 42 mEq/L (20-26); Blood Gas VT 500 cc
[2019-02-03] MEDS: *HR* Heparin 5,000 UNIT/ML VIAL SQ SCH ×2 (04:54→18:15)
[2019-02-03] MEDS ORDERED: 0.9 % Sodium Chloride 500 ML IVC PRN ×2 (07:59→08:28)
[2019-02-03] MEDS ORDERED: 0.9 % Sodium Chloride 500 ML ONE (08:17)
[2019-02-03] MEDS: Dexmedetomidine HCl 400 MCG/100 ML MLS IVC SCH ×2 (08:32→19:35)
[2019-02-03] MEDS: Aspirin Enteric Coated 81 MG Tablet PO SCH (08:34)
[2019-02-03] MEDS: predniSONE 20 MG TABLET PO SCH (08:35)
[2019-02-03] MEDS ORDERED: Azithromycin 250 MG TABLET PO SCH (09:00)
[2019-02-03 10:47] LABS: Basophils % 0.5 %; Eosinophils # 0.1 K/mcL (0.0-0.6); Eosinophils % 1.2 %; Hematocrit 36.5 % (35.3-44.9); Hemoglobin 11.5 g/dL (11.5-15.4); Immature Granulocytes % 0.5 % (0-4); Lymphocytes # 0.9 K/mcL (0.6-4.6); Lymphocytes % 15.3 %; Mean Corpuscular HGB Conc 31.5 g/dL (31.6-35.5); Mean Corpuscular Hemoglobin 31.2 pg (28.0-33.3); Mean Corpuscular Volume 98.9 fL (83.0-100.0); Mean Platelet Volume 10.1 fL (9.4-12.4); Monocytes # 0.6 K/mcL (0.0-1.3); Monocytes % 10.5 %; Neutrophils # 4.3 K/mcL (1.6-8.9); Platelet Count 293 K/mcL (140-400); Red Blood Count 3.69 M/mcL (3.82-4.97); Red Cell Distribution Width 13.1 % (11.5-14.5)
[2019-02-03 11:06] LABS: BUN/Creatinine Ratio 19 (6-26); Blood Urea Nitrogen 18 mg/dL (6-20); Calcium 9.2 mg/dL (8.6-10.3); Carbon Dioxide 34 mEq/L (23-29); Chloride 95 mEq/L (98-107); Glucose 93 mg/dL (70-105); Magnesium 1.8 mg/dL (1.6-2.6); Osmolality,Calculated 294 (280-300); Potassium 3.5 mEq/L (3.5-5.1); Sodium 141 mEq/L (136-145); eGFR For African Americans > 60 (> 60); eGFR For Non-African Americans > 60 (> 60)
[2019-02-03] MEDS: cefTRIAXone 1,000 MG in Water for inj. (sterile) 10 ML IVPB SCH (11:31)
[2019-02-03] MEDS: Metoprolol XL (24 HR) Succ 25 MG TAB.ER.24H PO SCH (12:07)
[2019-02-03] MEDS: Azithromycin 500 MG in 0.9 % Sodium Chloride 250 ML IVPB SCH (12:09)
[2019-02-03] MEDS ORDERED: Sennosides 8.6 MG TABLET PO PRN (12:39)
[2019-02-03 13:22] LABS: VBG HCO3 36 mEq/L (21-27); VBG PCO2 64 mmHg (41-51); VBG PH 7.36 pH Units (7.32-7.42); VBG PO2 148 mmHg (25-50)
[2019-02-03] MEDS: Pregabalin 75 MG CAPSULE PO SCH ×2 (16:09→22:34)
[2019-02-04] MEDS: Ipratropium/Albuterol Neb 3 ML IH SCH ×6 (00:06→20:22)
[2019-02-04 04:22] LABS: Basophils % 0.7 %; Eosinophils # 0.3 K/mcL (0.0-0.6); Eosinophils % 4.3 %; Hematocrit 34.9 % (35.3-44.9); Hemoglobin 10.9 g/dL (11.5-15.4); Immature Granulocytes % 0.3 % (0-4); Lymphocytes # 1.5 K/mcL (0.6-4.6); Lymphocytes % 25.3 %; Mean Corpuscular HGB Conc 31.2 g/dL (31.6-35.5); Mean Corpuscular Volume 99.1 fL (83.0-100.0); Mean Platelet Volume 9.6 fL (9.4-12.4); Monocytes # 0.8 K/mcL (0.0-1.3); Monocytes % 14.1 %; Neutrophils # 3.3 K/mcL (1.6-8.9); Platelet Count 255 K/mcL (140-400); Red Blood Count 3.52 M/mcL (3.82-4.97); Segmented Neutrophils % 55.3 %; White Blood Count 5.9 K/mcL (4.3-11.1)
[2019-02-04 04:43] LABS: BUN/Creatinine Ratio 25 (6-26); Blood Urea Nitrogen 21 mg/dL (6-20); Carbon Dioxide 34 mEq/L (23-29); Chloride 93 mEq/L (98-107); Glucose 81 mg/dL (70-105); Magnesium 1.9 mg/dL (1.6-2.6); Osmolality,Calculated 288 (280-300); Potassium 3.2 mEq/L (3.5-5.1); Sodium 138 mEq/L (136-145); eGFR For African Americans > 60 (> 60); eGFR For Non-African Americans > 60 (> 60)
[2019-02-04 04:55] LABS: Thyroid Stimulating Hormone 1.173 mcIU/mL (0.340-5.600)
[2019-02-04] MEDS: Dexmedetomidine HCl 400 MCG/100 ML MLS IVC SCH ×2 (05:17→16:17)
[2019-02-04] MEDS: *HR* Heparin 5,000 UNIT/ML VIAL SQ SCH ×2 (05:18→18:22)
[2019-02-04] MEDS ORDERED: NON-FORMULARY MEDICATION 1 EACH EACH (Roflumilast [Daliresp] 500 MCG) PO SCH (09:00)
[2019-02-04] MEDS ORDERED: Metoprolol XL (24 HR) Succ 25 MG TAB.ER.24H PO SCH (09:00)
[2019-02-04] MEDS: cefTRIAXone 1,000 MG in Water for inj. (sterile) 10 ML IVPB SCH (09:46)
[2019-02-04] MEDS: Azithromycin 500 MG in 0.9 % Sodium Chloride 250 ML IVPB SCH (09:50)
[2019-02-04] MEDS: Pregabalin 75 MG CAPSULE PO SCH ×3 (09:57→21:30)
[2019-02-04] MEDS: Metoprolol XL (24 HR) Succ 25 MG TAB.ER.24H PO SCH (09:58)
[2019-02-04] MEDS: predniSONE 20 MG TABLET PO SCH (10:00)
[2019-02-04] MEDS: Furosemide 20 MG TABLET PO SCH (10:00)
[2019-02-04] MEDS: Aspirin Enteric Coated 81 MG Tablet PO SCH (10:12)
[2019-02-04] MEDS: Folic Acid 1 MG TABLET PO SCH (10:12)
[2019-02-04] MEDS: Potassium Chloride 30 MEQ in D5% in 0.9% NACL 1,000 ML IVC SCH (16:05)
[2019-02-04] MEDS: clonazePAM 1 MG TABLET PO PRN (21:29)
[2019-02-05] MEDS: Ipratropium/Albuterol Neb 3 ML IH SCH ×7 (00:24→23:27)
[2019-02-05] MEDS: Potassium Chloride 30 MEQ in D5% in 0.9% NACL 1,000 ML IVC SCH ×2 (04:41→20:22)
[2019-02-05 05:24] LABS: Basophils % 0.6 %; Eosinophils # 0.1 K/mcL (0.0-0.6); Eosinophils % 1.3 %; Hematocrit 36.5 % (35.3-44.9); Hemoglobin 11.8 g/dL (11.5-15.4); Immature Granulocytes % 0.4 % (0-4); Lymphocytes # 1.7 K/mcL (0.6-4.6); Lymphocytes % 24.7 %; Mean Corpuscular HGB Conc 32.3 g/dL (31.6-35.5); Mean Corpuscular Hemoglobin 31.6 pg (28.0-33.3); Mean Corpuscular Volume 97.6 fL (83.0-100.0); Mean Platelet Volume 9.8 fL (9.4-12.4); Monocytes # 0.9 K/mcL (0.0-1.3); Platelet Count 314 K/mcL (140-400); Red Blood Count 3.74 M/mcL (3.82-4.97); Red Cell Distribution Width 13.2 % (11.5-14.5); White Blood Count 6.7 K/mcL (4.3-11.1)
[2019-02-05 05:45] LABS: BUN/Creatinine Ratio 23 (6-26); Blood Urea Nitrogen 18 mg/dL (6-20); Calcium 9.1 mg/dL (8.6-10.3); Carbon Dioxide 32 mEq/L (23-29); Chloride 100 mEq/L (98-107); Glucose 103 mg/dL (70-105); Osmolality,Calculated 292 (280-300); Potassium 4.3 mEq/L (3.5-5.1); Sodium 140 mEq/L (136-145); eGFR For African Americans > 60 (> 60); eGFR For Non-African Americans > 60 (> 60)
[2019-02-05] MEDS: *HR* Heparin 5,000 UNIT/ML VIAL SQ SCH ×2 (05:48→17:47)
[2019-02-05] MEDS: Pregabalin 75 MG CAPSULE PO SCH ×3 (10:03→20:17)
[2019-02-05] MEDS: Metoprolol XL (24 HR) Succ 25 MG TAB.ER.24H PO SCH (10:04)
[2019-02-05] MEDS: Aspirin Enteric Coated 81 MG Tablet PO SCH (10:05)
[2019-02-05] MEDS: predniSONE 20 MG TABLET PO SCH (10:05)
[2019-02-05] MEDS: Folic Acid 1 MG TABLET PO SCH (10:06)
[2019-02-05] MEDS: Furosemide 20 MG TABLET PO SCH (10:06)
[2019-02-05] MEDS: cefTRIAXone 1,000 MG in Water for inj. (sterile) 10 ML IVPB SCH (10:07)
[2019-02-05] MEDS: Azithromycin 500 MG in 0.9 % Sodium Chloride 250 ML IVPB SCH (10:09)
[2019-02-05 17:04] LABS: VBG HCO3 33 mEq/L (21-27); VBG PCO2 52 mmHg (41-51); VBG PH 7.42 pH Units (7.32-7.42); VBG PO2 220 mmHg (25-50)
[2019-02-05] MEDS: clonazePAM 1 MG TABLET PO PRN (21:47)
[2019-02-05] MEDS: *HR* OxyCODONE/APAP 5/325 TABLET PO PRN (23:24)
[2019-02-06] MEDS: Ipratropium/Albuterol Neb 3 ML IH SCH ×6 (03:23→23:56)
[2019-02-06 03:47] LABS: Basophils # 0.1 K/mcL (0.0-0.2); Basophils % 0.7 %; Eosinophils # 0.1 K/mcL (0.0-0.6); Eosinophils % 1.2 %; Hematocrit 38.7 % (35.3-44.9); Immature Granulocytes % 0.6 % (0-4); Lymphocytes # 2.3 K/mcL (0.6-4.6); Lymphocytes % 27.8 %; Mean Corpuscular Hemoglobin 30.6 pg (28.0-33.3); Mean Corpuscular Volume 98.7 fL (83.0-100.0); Mean Platelet Volume 9.7 fL (9.4-12.4); Monocytes # 1.1 K/mcL (0.0-1.3); Monocytes % 12.6 %; Neutrophils # 4.8 K/mcL (1.6-8.9); Platelet Count 365 K/mcL (140-400); Red Blood Count 3.92 M/mcL (3.82-4.97); Red Cell Distribution Width 13.5 % (11.5-14.5); Segmented Neutrophils % 57.1 %; White Blood Count 8.4 K/mcL (4.3-11.1)
[2019-02-06 04:06] LABS: BUN/Creatinine Ratio 17 (6-26); Blood Urea Nitrogen 16 mg/dL (6-20); Calcium 9.4 mg/dL (8.6-10.3); Carbon Dioxide 33 mEq/L (23-29); Chloride 99 mEq/L (98-107); Glucose 97 mg/dL (70-105); Osmolality,Calculated 291 (280-300); Potassium 4.2 mEq/L (3.5-5.1); Sodium 140 mEq/L (136-145); eGFR For African Americans > 60 (> 60); eGFR For Non-African Americans > 60 (> 60)
[2019-02-06] MEDS: *HR* Heparin 5,000 UNIT/ML VIAL SQ SCH ×2 (05:38→17:15)
[2019-02-06] MEDS: predniSONE 20 MG TABLET PO SCH (08:13)
[2019-02-06] MEDS: Metoprolol XL (24 HR) Succ 25 MG TAB.ER.24H PO SCH (08:13)
[2019-02-06] MEDS: Aspirin Enteric Coated 81 MG Tablet PO SCH (08:13)
[2019-02-06] MEDS: Folic Acid 1 MG TABLET PO SCH (08:14)
[2019-02-06] MEDS: cefTRIAXone 1,000 MG in Water for inj. (sterile) 10 ML IVPB SCH (08:14)
[2019-02-06] MEDS: Furosemide 20 MG/2 ML VIAL IVP SCH (08:14)
[2019-02-06] MEDS: Pregabalin 75 MG CAPSULE PO SCH ×3 (08:14→20:27)
[2019-02-06] MEDS: Azithromycin 500 MG in 0.9 % Sodium Chloride 250 ML IVPB SCH (08:15)
[2019-02-06] MEDS: clonazePAM 1 MG TABLET PO PRN (09:26)
[2019-02-06] MEDS: *HR* OxyCODONE/APAP 5/325 TABLET PO PRN (17:26)
[2019-02-07] MEDS: Ipratropium/Albuterol Neb 3 ML IH SCH ×5 (04:16→20:40)
[2019-02-07] MEDS: clonazePAM 1 MG TABLET PO PRN ×2 (04:21→22:28)
[2019-02-07 04:24] LABS: Basophils # 0.1 K/mcL (0.0-0.2); Basophils % 0.7 %; Eosinophils # 0.4 K/mcL (0.0-0.6); Eosinophils % 4.1 %; Hematocrit 37.6 % (35.3-44.9); Hemoglobin 11.7 g/dL (11.5-15.4); Immature Granulocytes % 0.6 % (0-4); Lymphocytes # 3.3 K/mcL (0.6-4.6); Lymphocytes % 34.9 %; Mean Corpuscular HGB Conc 31.1 g/dL (31.6-35.5); Mean Corpuscular Hemoglobin 30.3 pg (28.0-33.3); Mean Corpuscular Volume 97.4 fL (83.0-100.0); Mean Platelet Volume 9.8 fL (9.4-12.4); Monocytes # 1.2 K/mcL (0.0-1.3); Monocytes % 12.6 %; Neutrophils # 4.4 K/mcL (1.6-8.9); Platelet Count 388 K/mcL (140-400); Red Blood Count 3.86 M/mcL (3.82-4.97); Red Cell Distribution Width 13.3 % (11.5-14.5); Segmented Neutrophils % 47.1 %; White Blood Count 9.3 K/mcL (4.3-11.1)
[2019-02-07 04:41] LABS: BUN/Creatinine Ratio 18 (6-26); Blood Urea Nitrogen 18 mg/dL (6-20); Calcium 8.9 mg/dL (8.6-10.3); Carbon Dioxide 33 mEq/L (23-29); Chloride 96 mEq/L (98-107); Glucose 86 mg/dL (70-105); Magnesium 1.8 mg/dL (1.6-2.6); Osmolality,Calculated 287 (280-300); Potassium 3.7 mEq/L (3.5-5.1); Sodium 138 mEq/L (136-145); eGFR For African Americans > 60 (> 60); eGFR For Non-African Americans 56 (> 60)
[2019-02-07] MEDS: *HR* Heparin 5,000 UNIT/ML VIAL SQ SCH ×2 (05:36→17:13)
[2019-02-07] MEDS: Folic Acid 1 MG TABLET PO SCH (07:28)
[2019-02-07] MEDS: Pregabalin 75 MG CAPSULE PO SCH ×3 (07:28→20:57)
[2019-02-07] MEDS: Metoprolol XL (24 HR) Succ 25 MG TAB.ER.24H PO SCH (07:28)
[2019-02-07] MEDS: predniSONE 20 MG TABLET PO SCH (07:28)
[2019-02-07] MEDS: Aspirin Enteric Coated 81 MG Tablet PO SCH (07:29)
[2019-02-07] MEDS: cefTRIAXone 1,000 MG in Water for inj. (sterile) 10 ML IVPB SCH (07:29)
[2019-02-07] MEDS: Azithromycin 250 MG TABLET PO SCH (07:29)
[2019-02-07] MEDS: Furosemide 20 MG/2 ML VIAL IVP SCH (07:29)
[2019-02-07] MEDS: *HR* OxyCODONE/APAP 5/325 TABLET PO PRN ×2 (14:21→20:55)
[2019-02-08] MEDS: Ipratropium/Albuterol Neb 3 ML IH SCH ×7 (00:17→23:23)
[2019-02-08] MEDS: *HR* OxyCODONE/APAP 5/325 TABLET PO PRN ×3 (03:22→20:29)
[2019-02-08] MEDS: *HR* Heparin 5,000 UNIT/ML VIAL SQ SCH ×2 (06:17→17:28)
[2019-02-08] MEDS: predniSONE 20 MG TABLET PO SCH (07:47)
[2019-02-08] MEDS: Pregabalin 75 MG CAPSULE PO SCH ×3 (07:48→20:29)
[2019-02-08] MEDS: Aspirin Enteric Coated 81 MG Tablet PO SCH (07:48)
[2019-02-08] MEDS: Folic Acid 1 MG TABLET PO SCH (07:48)
[2019-02-08] MEDS: Azithromycin 250 MG TABLET PO SCH (07:48)
[2019-02-08] MEDS: Metoprolol XL (24 HR) Succ 25 MG TAB.ER.24H PO SCH (07:48)
[2019-02-08] MEDS: cefTRIAXone 1,000 MG in Water for inj. (sterile) 10 ML IVPB SCH (07:50)
[2019-02-08] MEDS: Furosemide 20 MG/2 ML VIAL IVP SCH (07:50)
[2019-02-08] MEDS: clonazePAM 1 MG TABLET PO PRN ×2 (13:22→21:56)
[2019-02-09] MEDS: *HR* OxyCODONE/APAP 5/325 TABLET PO PRN ×2 (03:29→11:54)
[2019-02-09] MEDS: Ipratropium/Albuterol Neb 3 ML IH SCH ×3 (04:11→11:12)
[2019-02-09] MEDS: *HR* Heparin 5,000 UNIT/ML VIAL SQ SCH (05:29)
[2019-02-09] MEDS: predniSONE 20 MG TABLET PO SCH (08:26)
[2019-02-09] MEDS: clonazePAM 1 MG TABLET PO PRN (08:26)
[2019-02-09] MEDS: Aspirin Enteric Coated 81 MG Tablet PO SCH (08:26)
[2019-02-09] MEDS: Metoprolol XL (24 HR) Succ 25 MG TAB.ER.24H PO SCH (08:26)
[2019-02-09] MEDS: Pregabalin 75 MG CAPSULE PO SCH (08:26)
[2019-02-09] MEDS: Azithromycin 250 MG TABLET PO SCH (08:27)
[2019-02-09] MEDS: Folic Acid 1 MG TABLET PO SCH (08:27)
[2019-02-09] MEDS: cefTRIAXone 1,000 MG in Water for inj. (sterile) 10 ML IVPB SCH (08:28)
[2019-02-09] MEDS: Furosemide 20 MG/2 ML VIAL IVP SCH (08:28)
[2019-02-09] MEDS ORDERED: FLU Vac QV 19-20 (6Month+)/PF 0.5 ML SYRINGE IM ONE (10:34)
[2019-02-09 11:23] VITALS: BP 131/79
== END 2019-02-09 15:37 | disposition home health service (06) | DRG 208 ==
LOC: SUATTDRO 02-01 01:45 → ICNU 02-01 01:45 → 2ANU 02-02 14:12 → 2NNU 02-02 22:12
PROVIDERS: ADMIT Internal Medicine; ATTEND Internal Medicine

== ENCOUNTER 2020-02-03 21:50 | Inpatient (IN) ==
[2020-02-04 01:39] LABS: Adenovirus Not Detected (Not Detect); Coronavirus 229E Not Detected (Not Detect); Coronavirus HKU1 Not Detected (Not Detect); Coronavirus NL63 Not Detected (Not Detect); Coronavirus OC43 Not Detected (Not Detect)
[2020-02-04 01:40] LABS: Bordetella Pertussis Not Detected (Not Detect); Chlamydophila pneumoniae Not Detected (Not Detect); Human Metapneumovirus Not Detected (Not Detect); Human Rhinovirus/Enterovirus Not Detected (Not Detect); Influenza A Subtype 2009 H1 Not Detected (Not Detect); Influenza B Not Detected (Not Detect); Mycoplasma pneumoniae Not Detected (Not Detect); Parainfluenza Virus 1 Not Detected (Not Detect); Parainfluenza Virus 2 Not Detected (Not Detect); Parainfluenza Virus 3 Not Detected (Not Detect); Parainfluenza Virus 4 Not Detected (Not Detect); Respiratory Syncytial Virus Not Detected (Not Detect); SARS-CoV-2 Not Detected (Not Detect)
[2020-02-04] MEDS ORDERED: *HR* Promethazine 25 MG/ML VIAL IVP PRN (02:04)
[2020-02-04] MEDS ORDERED: Naloxone 0.4 MG/ML INJ IVP PRN (02:04)
[2020-02-04] MEDS: 0.9 % Sodium Chloride 1,000 ML IVC SCH ×2 (05:03→17:43)
[2020-02-04 05:08] LABS: Basophils % 0.1 %; Hemoglobin 10.6 g/dL (11.5-15.4); Immature Granulocytes % 1.2 % (0-4); Lymphocytes # 0.9 K/mcL (0.6-4.6); Lymphocytes % 7.5 %; Mean Corpuscular HGB Conc 30.3 g/dL (31.6-35.5); Mean Corpuscular Volume 99.2 fL (83.0-100.0); Mean Platelet Volume 10.3 fL (9.4-12.4); Monocytes # 0.6 K/mcL (0.0-1.3); Monocytes % 4.7 %; Neutrophils # 10.2 K/mcL (1.6-8.9); Platelet Count 235 K/mcL (140-400); Red Blood Count 3.53 M/mcL (3.82-4.97); Red Cell Distribution Width 11.9 % (11.5-14.5); Segmented Neutrophils % 86.5 %; White Blood Count 11.8 K/mcL (4.3-11.1)
[2020-02-04 05:16] LABS: INR 1.1
[2020-02-04 05:27] LABS: Alanine Aminotransferase 4 Units/L (7-52); Albumin 3.3 g/dL (3.5-5.7); Albumin/Globulin Ratio 1.3 (1.1-2.2); Alkaline Phosphatase 66 Units/L (34-104); Aspartate Amino Transferase 7 Units/L (13-39); BUN/Creatinine Ratio 12 (6-26); Bilirubin,Total 0.3 mg/dL (0.3-1.0); Blood Urea Nitrogen 9 mg/dL (8-23); Calcium 8.6 mg/dL (8.6-10.3); Carbon Dioxide 27 mEq/L (23-29); Chloride 105 mEq/L (98-107); Globulin 2.6 g/dL (2.4-3.5); Glucose 149 mg/dL (70-105); Magnesium 2.2 mg/dL (1.6-2.6); Osmolality,Calculated 287 (280-300); Phosphorous 2.6 mg/dL (2.7-4.5); Potassium 4.1 mEq/L (3.5-5.1); Sodium 138 mEq/L (136-145); Total Protein 5.9 g/dL (6.4-8.9); Troponin I < 0.03 ng/mL (< 0.04); eGFR For African Americans > 60 (> 60); eGFR For Non-African Americans > 60 (> 60)
[2020-02-04 05:49] LABS: Bilirubin,Urine Negative (Negative); Blood,Urine Negative (Negative); Clarity,Urine Clear (Clear); Color,Urine Light-Yellow (Yellow); Glucose,Urine (UA) Normal (Normal); Ketones,Urine 10 mg/dL (Negative); Leukocyte Esterase,Urine Negative (Negative); Nitrite,Urine Negative (Negative); PH,Urine 6.5 pH Units (5.0-8.0); Protein,Urine Trace mg/dL (Neg-Trace); Specific Gravity,Urine > 1.030 (1.010-1.025); Urobilinogen,Urine Normal (Normal)
[2020-02-04] MEDS: methylPREDNISolone 125 MG/2 ML VIAL IVP SCH ×3 (09:00→23:34)
[2020-02-04] MEDS: Piperacillin/Tazobactam 3.375 GM in 0.9 % Sodium Chloride Mini Bag 100 ML IVPB SCH ×3 (09:01→23:35)
[2020-02-04] MEDS: Vancomycin 1,250 MG/262.5 ML IV.SOLN IVPB SCH ×2 (09:01→20:52)
[2020-02-04] MEDS ORDERED: Azithromycin 250 MG TABLET PO ONE (11:41)
[2020-02-04] MEDS ORDERED: *HR* OxyCODONE/APAP 10/325 TABLET PO ONE (14:28)
[2020-02-04] MEDS ORDERED: Sennosides 8.6 MG TABLET PO PRN (15:17)
[2020-02-04] MEDS ORDERED: Acetaminophen 325 MG TABLET PO PRN (15:17)
[2020-02-04 16:29] LABS: ABG Base Excess 2 mEq/L (-2 to 3); ABG HCO3 29 mEq/L (21-27); ABG Oxygen Saturation 98 % (95-98); ABG PCO2 58 mmHg (35-45); ABG PH 7.31 pH Units (7.32-7.45); ABG PO2 123 mmHg (85-104); ABG TCO2 31 mEq/L (20-26); Blood Gas Modality PC; Blood Gas VT 20 cc
[2020-02-04] MEDS: sulfaSALAzine 500 MG TABLET PO SCH (20:52)
[2020-02-04] MEDS: Pregabalin 75 MG CAPSULE PO SCH (20:52)
[2020-02-04] MEDS: atenoloL 25 MG TABLET PO SCH (20:52)
[2020-02-04] MEDS: *HR* OxyCODONE/APAP 10/325 TABLET PO PRN (23:33)
[2020-02-05] MEDS: Ipratropium/Albuterol Neb 3 ML IH PRN (03:10)
[2020-02-05 03:20] LABS: ABG Base Excess -1 mEq/L (-2 to 3); ABG HCO3 28 mEq/L (21-27); ABG Oxygen Saturation 93 % (95-98); ABG PCO2 64 mmHg (35-45); ABG PH 7.24 pH Units (7.32-7.45); ABG PO2 82 mmHg (85-104); ABG TCO2 29 mEq/L (20-26); Blood Gas Modality BiLevel; Blood Gas VT 450 cc
[2020-02-05 05:45] LABS: Basophils % 0.1 %; Hematocrit 32.3 % (35.3-44.9); Hemoglobin 9.9 g/dL (11.5-15.4); Lymphocytes # 0.8 K/mcL (0.6-4.6); Lymphocytes % 5.9 %; Mean Corpuscular HGB Conc 30.7 g/dL (31.6-35.5); Mean Corpuscular Hemoglobin 30.2 pg (28.0-33.3); Mean Corpuscular Volume 98.5 fL (83.0-100.0); Mean Platelet Volume 10.6 fL (9.4-12.4); Monocytes # 0.4 K/mcL (0.0-1.3); Monocytes % 2.9 %; Platelet Count 289 K/mcL (140-400); Red Blood Count 3.28 M/mcL (3.82-4.97); Red Cell Distribution Width 12.4 % (11.5-14.5); Segmented Neutrophils % 90.1 %; White Blood Count 13.3 K/mcL (4.3-11.1)
[2020-02-05] MEDS: atenoloL 25 MG TABLET PO SCH ×2 (07:58→21:25)
[2020-02-05] MEDS: Folic Acid 1 MG TABLET PO SCH (07:58)
[2020-02-05] MEDS: Furosemide 20 MG TABLET PO SCH (07:59)
[2020-02-05] MEDS: Pregabalin 75 MG CAPSULE PO SCH ×2 (07:59→21:24)
[2020-02-05] MEDS: Piperacillin/Tazobactam 3.375 GM in 0.9 % Sodium Chloride Mini Bag 100 ML IVPB SCH ×2 (07:59→16:14)
[2020-02-05] MEDS: Aspirin Enteric Coated 81 MG Tablet PO SCH (07:59)
[2020-02-05] MEDS: methylPREDNISolone 125 MG/2 ML VIAL IVP SCH ×2 (08:00→14:41)
[2020-02-05] MEDS: sulfaSALAzine 500 MG TABLET PO SCH ×2 (08:11→21:32)
[2020-02-05] MEDS: (Roflumilast [Daliresp] 500 MCG) PO SCH (08:12)
[2020-02-05] MEDS: Vancomycin 1,250 MG/262.5 ML IV.SOLN IVPB SCH (08:20)
[2020-02-05] MEDS ORDERED: Azithromycin 250 MG TABLET PO SCH (09:00)
[2020-02-05 11:01] LABS: ABG Base Excess 1 mEq/L (-2 to 3); ABG HCO3 28 mEq/L (21-27); ABG Oxygen Saturation 97 % (95-98); ABG PCO2 57 mmHg (35-45); ABG PH 7.29 pH Units (7.32-7.45); ABG PO2 98 mmHg (85-104); ABG TCO2 30 mEq/L (20-26)
[2020-02-05] MEDS: clonazePAM 1 MG TABLET PO PRN ×2 (11:19→17:21)
[2020-02-05] MEDS ORDERED: Azithromycin 500 MG in 0.9 % Sodium Chloride 250 ML IVPB SCH (14:30)
[2020-02-05 16:34] LABS: ABG Base Excess 2 mEq/L (-2 to 3); ABG HCO3 29 mEq/L (21-27); ABG Oxygen Saturation 96 % (95-98); ABG PCO2 55 mmHg (35-45); ABG PH 7.33 pH Units (7.32-7.45); ABG PO2 90 mmHg (85-104); ABG TCO2 31 mEq/L (20-26); Blood Gas VT 500 cc
[2020-02-05] MEDS: *HR* Heparin 5,000 UNIT/ML VIAL SQ SCH (17:17)
[2020-02-05] MEDS: *HR* OxyCODONE/APAP 10/325 TABLET PO PRN (21:26)
[2020-02-06 01:37] LABS: Basophils % 0.1 %; Hematocrit 31.6 % (35.3-44.9); Hemoglobin 9.8 g/dL (11.5-15.4); Lymphocytes # 0.9 K/mcL (0.6-4.6); Mean Corpuscular Hemoglobin 31.2 pg (28.0-33.3); Mean Corpuscular Volume 100.6 fL (83.0-100.0); Mean Platelet Volume 10.4 fL (9.4-12.4); Monocytes # 0.9 K/mcL (0.0-1.3); Monocytes % 8.5 %; Neutrophils # 8.3 K/mcL (1.6-8.9); Platelet Count 286 K/mcL (140-400); Red Blood Count 3.14 M/mcL (3.82-4.97); Red Cell Distribution Width 12.7 % (11.5-14.5); Segmented Neutrophils % 81.4 %; White Blood Count 10.2 K/mcL (4.3-11.1)
[2020-02-06] MEDS: methylPREDNISolone 125 MG/2 ML VIAL IVP SCH ×3 (02:18→15:56)
[2020-02-06] MEDS: Piperacillin/Tazobactam 3.375 GM in 0.9 % Sodium Chloride Mini Bag 100 ML IVPB SCH ×3 (02:20→18:02)
[2020-02-06] MEDS: *HR* Heparin 5,000 UNIT/ML VIAL SQ SCH ×2 (06:08→18:02)
[2020-02-06] MEDS: Folic Acid 1 MG TABLET PO SCH (08:51)
[2020-02-06] MEDS: Aspirin Enteric Coated 81 MG Tablet PO SCH (08:51)
[2020-02-06] MEDS: Pregabalin 75 MG CAPSULE PO SCH ×2 (08:51→19:46)
[2020-02-06] MEDS: *HR* OxyCODONE/APAP 10/325 TABLET PO PRN ×2 (08:51→19:45)
[2020-02-06] MEDS: sulfaSALAzine 500 MG TABLET PO SCH ×2 (08:52→19:47)
[2020-02-06] MEDS: Furosemide 20 MG TABLET PO SCH (08:53)
[2020-02-06] MEDS: atenoloL 25 MG TABLET PO SCH ×2 (08:53→19:46)
[2020-02-06] MEDS: (Roflumilast [Daliresp] 500 MCG) PO SCH (08:54)
[2020-02-06] MEDS: clonazePAM 1 MG TABLET PO PRN ×2 (09:00→21:15)
[2020-02-06] MEDS ORDERED: Azithromycin 250 MG TABLET PO SCH (14:30)
[2020-02-06] MEDS: Azithromycin 500 MG in 0.9 % Sodium Chloride 250 ML IVPB SCH (15:56)
[2020-02-06] MEDS: Budesonide/Formoterol 80/4.5 1 PUFF INH IH SCH (20:15)
[2020-02-07] MEDS: methylPREDNISolone 125 MG/2 ML VIAL IVP SCH (00:37)
[2020-02-07] MEDS: Piperacillin/Tazobactam 3.375 GM in 0.9 % Sodium Chloride Mini Bag 100 ML IVPB SCH ×3 (00:38→15:52)
[2020-02-07 04:27] LABS: Hematocrit 34.4 % (35.3-44.9); Hemoglobin 10.1 g/dL (11.5-15.4); Mean Corpuscular HGB Conc 29.4 g/dL (31.6-35.5); Mean Corpuscular Hemoglobin 29.4 pg (28.0-33.3); Mean Corpuscular Volume 100.3 fL (83.0-100.0); Mean Platelet Volume 9.9 fL (9.4-12.4); Platelet Count 308 K/mcL (140-400); Red Blood Count 3.43 M/mcL (3.82-4.97); Red Cell Distribution Width 12.6 % (11.5-14.5); White Blood Count 7.3 K/mcL (4.3-11.1)
[2020-02-07 04:51] LABS: BUN/Creatinine Ratio 21 (6-26); Blood Urea Nitrogen 20 mg/dL (8-23); Calcium 8.4 mg/dL (8.6-10.3); Carbon Dioxide 30 mEq/L (23-29); Chloride 107 mEq/L (98-107); Glucose 123 mg/dL (70-105); Magnesium 2.2 mg/dL (1.6-2.6); Osmolality,Calculated 298 (280-300); Phosphorous 3.2 mg/dL (2.7-4.5); Potassium 3.9 mEq/L (3.5-5.1); Sodium 142 mEq/L (136-145); eGFR For African Americans > 60 (> 60); eGFR For Non-African Americans 59 (> 60)
[2020-02-07] MEDS: *HR* Heparin 5,000 UNIT/ML VIAL SQ SCH ×2 (05:03→17:27)
[2020-02-07] MEDS: Budesonide/Formoterol 80/4.5 1 PUFF INH IH SCH ×2 (07:33→20:06)
[2020-02-07] MEDS: *HR* OxyCODONE/APAP 10/325 TABLET PO PRN ×2 (08:38→21:26)
[2020-02-07] MEDS: predniSONE 20 MG TABLET PO SCH ×2 (08:38→15:51)
[2020-02-07] MEDS: Aspirin Enteric Coated 81 MG Tablet PO SCH (08:38)
[2020-02-07] MEDS: Pregabalin 75 MG CAPSULE PO SCH ×2 (08:39→21:19)
[2020-02-07] MEDS: sulfaSALAzine 500 MG TABLET PO SCH ×2 (08:39→21:20)
[2020-02-07] MEDS: Furosemide 20 MG TABLET PO SCH (08:39)
[2020-02-07] MEDS: atenoloL 25 MG TABLET PO SCH ×2 (08:40→21:19)
[2020-02-07] MEDS: clonazePAM 1 MG TABLET PO PRN ×2 (08:40→21:25)
[2020-02-07] MEDS: Folic Acid 1 MG TABLET PO SCH (08:40)
[2020-02-07] MEDS: (Roflumilast [Daliresp] 500 MCG) PO SCH (08:42)
[2020-02-07 12:24] LABS: ABG Base Excess 2 mEq/L (-2 to 3); ABG HCO3 33 mEq/L (21-27); ABG Oxygen Saturation 91 % (95-98); ABG PCO2 77 mmHg (35-45); ABG PH 7.23 pH Units (7.32-7.45); ABG PO2 76 mmHg (85-104); ABG TCO2 35 mEq/L (20-26)
[2020-02-07] MEDS: Azithromycin 500 MG in 0.9 % Sodium Chloride 250 ML IVPB SCH (14:07)
[2020-02-07] MEDS: Ipratropium/Albuterol Neb 3 ML IH PRN (20:05)
[2020-02-07] MEDS: Lactobacillus 1 EACH CAP.SPRINK PO SCH (21:17)
[2020-02-08] MEDS: Piperacillin/Tazobactam 3.375 GM in 0.9 % Sodium Chloride Mini Bag 100 ML IVPB SCH ×3 (01:45→16:12)
[2020-02-08 04:26] LABS: Hematocrit 33.4 % (35.3-44.9); Hemoglobin 10.1 g/dL (11.5-15.4); Mean Corpuscular HGB Conc 30.2 g/dL (31.6-35.5); Mean Corpuscular Hemoglobin 30.5 pg (28.0-33.3); Mean Corpuscular Volume 100.9 fL (83.0-100.0); Mean Platelet Volume 9.8 fL (9.4-12.4); Platelet Count 302 K/mcL (140-400); Red Blood Count 3.31 M/mcL (3.82-4.97); Red Cell Distribution Width 12.6 % (11.5-14.5); White Blood Count 6.8 K/mcL (4.3-11.1)
[2020-02-08 04:49] LABS: % Iron Saturation 32 % (15-50); BUN/Creatinine Ratio 18 (6-26); Blood Urea Nitrogen 18 mg/dL (8-23); Calcium 8.4 mg/dL (8.6-10.3); Carbon Dioxide 33 mEq/L (23-29); Chloride 103 mEq/L (98-107); Glucose 178 mg/dL (70-105); Iron 57 mcg/dL (50-170); Osmolality,Calculated 298 (280-300); Phosphorous 3.6 mg/dL (2.7-4.5); Potassium 3.7 mEq/L (3.5-5.1); Sodium 141 mEq/L (136-145); Transferrin 127 mg/dL (203-362); eGFR For African Americans > 60 (> 60); eGFR For Non-African Americans 56 (> 60)
[2020-02-08 05:03] LABS: Ferritin 90 ng/mL (10-120)
[2020-02-08 05:08] LABS: Folate 17.7 ng/mL (3.0-16.0)
[2020-02-08 05:33] LABS: Procalcitonin 0.02 ng/mL (0.00-0.15)
[2020-02-08] MEDS: *HR* OxyCODONE/APAP 10/325 TABLET PO PRN (06:28)
[2020-02-08] MEDS: *HR* Heparin 5,000 UNIT/ML VIAL SQ SCH (06:29)
[2020-02-08] MEDS: clonazePAM 1 MG TABLET PO PRN (06:29)
[2020-02-08] MEDS: Budesonide/Formoterol 80/4.5 1 PUFF INH IH SCH (08:00)
[2020-02-08] MEDS: Lactobacillus 1 EACH CAP.SPRINK PO SCH (09:42)
[2020-02-08] MEDS: Aspirin Enteric Coated 81 MG Tablet PO SCH (09:42)
[2020-02-08] MEDS: Furosemide 20 MG TABLET PO SCH (09:42)
[2020-02-08] MEDS: Folic Acid 1 MG TABLET PO SCH (09:42)
[2020-02-08] MEDS: (Roflumilast [Daliresp] 500 MCG) PO SCH (09:43)
[2020-02-08] MEDS: atenoloL 25 MG TABLET PO SCH (09:43)
[2020-02-08] MEDS: Pregabalin 75 MG CAPSULE PO SCH (09:43)
[2020-02-08] MEDS: predniSONE 20 MG TABLET PO SCH (09:43)
[2020-02-08] MEDS: sulfaSALAzine 500 MG TABLET PO SCH (09:43)
[2020-02-08 12:00] VITALS: BP 158/83
[2020-02-08] MEDS ORDERED: Azithromycin 250 MG TABLET PO SCH (14:00)
== END 2020-02-08 17:39 | disposition home health service (06) | DRG 871 ==
LOC: CDU → SUATTDRO 02-04 00:43 → 3BNU 02-04 01:55 → SUATTDRO 02-05 12:45 → 2ANU 02-05 14:31
PROVIDERS: ADMIT Internal Medicine; ATTEND Internal Medicine

== ENCOUNTER 2020-03-07 11:42 | Inpatient (IN) ==
[2020-03-07] MEDS ORDERED: 0.9 % Sodium Chloride 1,000 ML IVC ONE (12:08)
[2020-03-07 13:01] LABS: Basophils # 0.1 K/mcL (0.0-0.2); Basophils % 1.1 %; Eosinophils # 0.8 K/mcL (0.0-0.6); Eosinophils % 10.7 %; Hematocrit 38.1 % (35.3-44.9); Hemoglobin 11.6 g/dL (11.5-15.4); Immature Granulocytes % 1.1 % (0-4); Lymphocytes # 2.3 K/mcL (0.6-4.6); Lymphocytes % 30.4 %; Mean Corpuscular HGB Conc 30.4 g/dL (31.6-35.5); Mean Corpuscular Hemoglobin 30.8 pg (28.0-33.3); Mean Corpuscular Volume 101.1 fL (83.0-100.0); Mean Platelet Volume 9.6 fL (9.4-12.4); Monocytes % 13.5 %; Neutrophils # 3.2 K/mcL (1.6-8.9); Platelet Count 296 K/mcL (140-400); Red Blood Count 3.77 M/mcL (3.82-4.97); Red Cell Distribution Width 12.7 % (11.5-14.5); Segmented Neutrophils % 43.2 %; White Blood Count 7.5 K/mcL (4.3-11.1)
[2020-03-07 13:06] LABS: VBG HCO3 35 mEq/L (21-27); VBG PCO2 84 mmHg (41-51); VBG PH 7.23 pH Units (7.32-7.42); VBG PO2 231 mmHg (25-50)
[2020-03-07 13:24] LABS: BUN/Creatinine Ratio 10 (6-26); Blood Urea Nitrogen 10 mg/dL (8-23); Calcium 8.7 mg/dL (8.6-10.3); Carbon Dioxide 34 mEq/L (23-29); Chloride 100 mEq/L (98-107); Glucose 139 mg/dL (70-105); Osmolality,Calculated 291 (280-300); Sodium 140 mEq/L (136-145); Troponin I < 0.03 ng/mL (< 0.04); eGFR For African Americans > 60 (> 60); eGFR For Non-African Americans 54 (> 60)
[2020-03-07] MEDS ORDERED: Naloxone 0.4 MG/ML INJ IVP PRN (14:34)
[2020-03-07] MEDS ORDERED: Ondansetron 4 MG/2 ML VIAL IVP PRN (14:49)
[2020-03-07] MEDS ORDERED: Perflutren Lipid Microsphere 1.3 ML in 0.9 % Sodium Chloride 8.7 ML IVP PRN (15:13)
[2020-03-07 15:17] LABS: Adenovirus Not Detected (Not Detect); Bordetella Pertussis Not Detected (Not Detect); Chlamydophila pneumoniae Not Detected (Not Detect); Coronavirus 229E Not Detected (Not Detect); Coronavirus HKU1 Not Detected (Not Detect); Coronavirus NL63 Not Detected (Not Detect); Coronavirus OC43 Not Detected (Not Detect); Human Metapneumovirus Not Detected (Not Detect); Human Rhinovirus/Enterovirus Not Detected (Not Detect); Influenza A Subtype 2009 H1 Not Detected (Not Detect); Influenza B Not Detected (Not Detect); Mycoplasma pneumoniae Not Detected (Not Detect); Parainfluenza Virus 1 Not Detected (Not Detect); Parainfluenza Virus 2 Not Detected (Not Detect); Parainfluenza Virus 3 Not Detected (Not Detect); Parainfluenza Virus 4 Not Detected (Not Detect); Respiratory Syncytial Virus Not Detected (Not Detect); SARS-CoV-2 Not Detected (Not Detect)
[2020-03-07] MEDS ORDERED: Azithromycin 500 MG in 0.9 % Sodium Chloride 250 ML IVPB SCH (16:00)
[2020-03-07] MEDS: Albuterol 2.5 MG/3 ML NEBULIZER IH SCH ×3 (17:04→23:49)
[2020-03-07] MEDS: *HR* OxyCODONE/APAP 10/325 TABLET PO PRN (17:51)
[2020-03-07] MEDS: *HR* Heparin 5,000 UNIT/ML VIAL SQ SCH (17:52)
[2020-03-07] MEDS: MethylPREDNISolone 40 MG/ML VIAL IVP SCH (19:39)
[2020-03-07] MEDS ORDERED: clonazePAM 1 MG TABLET PO ONE (23:57)
[2020-03-08] MEDS: Albuterol 2.5 MG/3 ML NEBULIZER IH SCH ×6 (03:43→23:32)
[2020-03-08] MEDS: *HR* Heparin 5,000 UNIT/ML VIAL SQ SCH ×2 (04:58→17:53)
[2020-03-08 05:37] LABS: Basophils % 0.6 %; Eosinophils % 0.2 %; Hematocrit 34.8 % (35.3-44.9); Hemoglobin 10.5 g/dL (11.5-15.4); Immature Granulocytes % 1.2 % (0-4); Lymphocytes % 20.3 %; Mean Corpuscular HGB Conc 30.2 g/dL (31.6-35.5); Mean Corpuscular Hemoglobin 30.3 pg (28.0-33.3); Mean Corpuscular Volume 100.3 fL (83.0-100.0); Mean Platelet Volume 9.9 fL (9.4-12.4); Monocytes # 0.3 K/mcL (0.0-1.3); Monocytes % 6.5 %; Neutrophils # 3.6 K/mcL (1.6-8.9); Platelet Count 293 K/mcL (140-400); Red Blood Count 3.47 M/mcL (3.82-4.97); Red Cell Distribution Width 12.7 % (11.5-14.5); Segmented Neutrophils % 71.2 %; White Blood Count 5.1 K/mcL (4.3-11.1)
[2020-03-08 05:40] LABS: VBG HCO3 36 mEq/L (21-27); VBG PCO2 81 mmHg (41-51); VBG PH 7.26 pH Units (7.32-7.42); VBG PO2 157 mmHg (25-50)
[2020-03-08] MEDS: *HR* OxyCODONE/APAP 10/325 TABLET PO PRN ×3 (05:46→23:31)
[2020-03-08 05:55] LABS: BUN/Creatinine Ratio 12 (6-26); Blood Urea Nitrogen 11 mg/dL (8-23); Calcium 8.8 mg/dL (8.6-10.3); Carbon Dioxide 36 mEq/L (23-29); Chloride 101 mEq/L (98-107); Glucose 142 mg/dL (70-105); Osmolality,Calculated 294 (280-300); Potassium 3.9 mEq/L (3.5-5.1); Sodium 141 mEq/L (136-145); eGFR For African Americans > 60 (> 60); eGFR For Non-African Americans > 60 (> 60)
[2020-03-08] MEDS: MethylPREDNISolone 40 MG/ML VIAL IVP SCH ×3 (09:36→20:36)
[2020-03-08] MEDS ORDERED: NON-FORMULARY MEDICATION 1 EACH EACH (Acetaminophen [Acetaminophen Er] 650 MG) PO PRN (14:17)
[2020-03-08] MEDS ORDERED: *HR* OxyCODONE/APAP 10/325 TABLET PO PRN (14:17)
[2020-03-08] MEDS ORDERED: Acetaminophen 325 MG TABLET PO PRN (14:21)
[2020-03-08] MEDS: clonazePAM 1 MG TABLET PO PRN (15:10)
[2020-03-08] MEDS: Doxycycline 100 MG in 0.9 % Sodium Chloride Mini Bag 100 ML IVPB SCH (17:55)
[2020-03-08] MEDS: sulfaSALAzine 500 MG TABLET PO SCH (20:35)
[2020-03-08] MEDS: Pregabalin 75 MG CAPSULE PO SCH (20:36)
[2020-03-08] MEDS: atenoloL 25 MG TABLET PO SCH (20:36)
[2020-03-08] MEDS: THEOPHYLLINE ANHYDROUS 100 MG PO SCH (20:37)
[2020-03-09] MEDS: Albuterol 2.5 MG/3 ML NEBULIZER IH SCH ×5 (03:35→20:13)
[2020-03-09] MEDS: *HR* Heparin 5,000 UNIT/ML VIAL SQ SCH ×2 (05:34→17:54)
[2020-03-09] MEDS: Doxycycline 100 MG in 0.9 % Sodium Chloride Mini Bag 100 ML IVPB SCH ×2 (05:34→17:53)
[2020-03-09 05:53] LABS: Basophils % 0.3 %; Hematocrit 34.2 % (35.3-44.9); Hemoglobin 10.4 g/dL (11.5-15.4); Immature Granulocytes % 1.3 % (0-4); Lymphocytes # 1.2 K/mcL (0.6-4.6); Mean Corpuscular HGB Conc 30.4 g/dL (31.6-35.5); Mean Corpuscular Hemoglobin 30.2 pg (28.0-33.3); Mean Corpuscular Volume 99.4 fL (83.0-100.0); Mean Platelet Volume 9.7 fL (9.4-12.4); Monocytes # 0.6 K/mcL (0.0-1.3); Monocytes % 8.4 %; Neutrophils # 5.2 K/mcL (1.6-8.9); Nucleated Red Blood Cells 0.3 /100 WBC (0); Platelet Count 302 K/mcL (140-400); Red Blood Count 3.44 M/mcL (3.82-4.97); Red Cell Distribution Width 12.9 % (11.5-14.5); White Blood Count 7.1 K/mcL (4.3-11.1)
[2020-03-09 06:09] LABS: BUN/Creatinine Ratio 13 (6-26); Blood Urea Nitrogen 10 mg/dL (8-23); Calcium 9.4 mg/dL (8.6-10.3); Carbon Dioxide 37 mEq/L (23-29); Chloride 102 mEq/L (98-107); Glucose 130 mg/dL (70-105); Osmolality,Calculated 293 (280-300); Sodium 141 mEq/L (136-145); eGFR For African Americans > 60 (> 60); eGFR For Non-African Americans > 60 (> 60)
[2020-03-09] MEDS ORDERED: *HR* LORazepam 2 MG/ML VIAL IVP ONE ×2 (07:14→08:27)
[2020-03-09] MEDS ORDERED: *HR* LORazepam 2 MG/ML VIAL ONE ×2 (07:15→07:40)
[2020-03-09] MEDS: clonazePAM 1 MG TABLET PO PRN ×2 (10:13→20:49)
[2020-03-09] MEDS: MethylPREDNISolone 40 MG/ML VIAL IVP SCH ×3 (10:14→20:49)
[2020-03-09] MEDS: Folic Acid 1 MG TABLET PO SCH (10:15)
[2020-03-09] MEDS: Pregabalin 75 MG CAPSULE PO SCH ×2 (10:15→20:49)
[2020-03-09] MEDS: sulfaSALAzine 500 MG TABLET PO SCH ×2 (10:15→20:49)
[2020-03-09] MEDS: atenoloL 25 MG TABLET PO SCH ×2 (10:15→20:48)
[2020-03-09] MEDS: Furosemide 20 MG TABLET PO SCH (10:16)
[2020-03-09] MEDS: THEOPHYLLINE ANHYDROUS 100 MG PO SCH ×2 (10:24→20:49)
[2020-03-09] MEDS: *HR* OxyCODONE/APAP 10/325 TABLET PO PRN (15:18)
[2020-03-10] MEDS: Albuterol 2.5 MG/3 ML NEBULIZER IH SCH ×7 (00:10→23:52)
[2020-03-10] MEDS: *HR* OxyCODONE/APAP 10/325 TABLET PO PRN ×3 (03:03→23:51)
[2020-03-10 04:26] LABS: Basophils % 0.4 %; Hematocrit 36.3 % (35.3-44.9); Immature Granulocytes % 1.1 % (0-4); Lymphocytes % 13.7 %; Mean Corpuscular HGB Conc 30.3 g/dL (31.6-35.5); Mean Corpuscular Hemoglobin 30.6 pg (28.0-33.3); Mean Corpuscular Volume 100.8 fL (83.0-100.0); Mean Platelet Volume 9.8 fL (9.4-12.4); Monocytes # 0.4 K/mcL (0.0-1.3); Monocytes % 6.1 %; Neutrophils # 5.7 K/mcL (1.6-8.9); Platelet Count 327 K/mcL (140-400); Segmented Neutrophils % 78.7 %; White Blood Count 7.2 K/mcL (4.3-11.1)
[2020-03-10 04:43] LABS: BUN/Creatinine Ratio 19 (6-26); Blood Urea Nitrogen 18 mg/dL (8-23); Calcium 9.1 mg/dL (8.6-10.3); Carbon Dioxide 37 mEq/L (23-29); Chloride 99 mEq/L (98-107); Glucose 155 mg/dL (70-105); Osmolality,Calculated 295 (280-300); Potassium 3.6 mEq/L (3.5-5.1); Sodium 140 mEq/L (136-145); eGFR For African Americans > 60 (> 60); eGFR For Non-African Americans > 60 (> 60)
[2020-03-10 05:26] LABS: ABG Base Excess 7 mEq/L (-2 to 3); ABG HCO3 34 mEq/L (21-27); ABG Oxygen Saturation 97 % (95-98); ABG PCO2 61 mmHg (35-45); ABG PH 7.36 pH Units (7.32-7.45); ABG PO2 93 mmHg (85-104); ABG TCO2 36 mEq/L (20-26); Blood Gas Modality AVAPS; Blood Gas VT 500 cc
[2020-03-10] MEDS: Doxycycline 100 MG in 0.9 % Sodium Chloride Mini Bag 100 ML IVPB SCH ×2 (06:08→18:43)
[2020-03-10] MEDS: *HR* Heparin 5,000 UNIT/ML VIAL SQ SCH ×2 (06:08→18:42)
[2020-03-10] MEDS: Pregabalin 75 MG CAPSULE PO SCH ×2 (07:42→22:25)
[2020-03-10] MEDS: clonazePAM 1 MG TABLET PO PRN ×2 (07:42→20:21)
[2020-03-10] MEDS: Furosemide 20 MG TABLET PO SCH (07:42)
[2020-03-10] MEDS: atenoloL 25 MG TABLET PO SCH ×2 (07:43→22:25)
[2020-03-10] MEDS: Folic Acid 1 MG TABLET PO SCH (07:43)
[2020-03-10] MEDS: MethylPREDNISolone 40 MG/ML VIAL IVP SCH (07:44)
[2020-03-10] MEDS: sulfaSALAzine 500 MG TABLET PO SCH ×2 (07:44→22:26)
[2020-03-11] MEDS: Albuterol 2.5 MG/3 ML NEBULIZER IH SCH ×6 (03:21→23:20)
[2020-03-11 04:16] LABS: Basophils # 0.1 K/mcL (0.0-0.2); Basophils % 0.7 %; Eosinophils # 0.1 K/mcL (0.0-0.6); Eosinophils % 0.7 %; Hematocrit 35.2 % (35.3-44.9); Hemoglobin 10.7 g/dL (11.5-15.4); Immature Granulocytes % 1.4 % (0-4); Lymphocytes # 3.7 K/mcL (0.6-4.6); Lymphocytes % 41.3 %; Mean Corpuscular HGB Conc 30.4 g/dL (31.6-35.5); Mean Corpuscular Hemoglobin 30.3 pg (28.0-33.3); Mean Corpuscular Volume 99.7 fL (83.0-100.0); Mean Platelet Volume 9.7 fL (9.4-12.4); Monocytes # 1.2 K/mcL (0.0-1.3); Monocytes % 13.6 %; Neutrophils # 3.8 K/mcL (1.6-8.9); Platelet Count 307 K/mcL (140-400); Red Blood Count 3.53 M/mcL (3.82-4.97); Red Cell Distribution Width 13.2 % (11.5-14.5); Segmented Neutrophils % 42.3 %; White Blood Count 9.1 K/mcL (4.3-11.1)
[2020-03-11 04:33] LABS: BUN/Creatinine Ratio 23 (6-26); Blood Urea Nitrogen 24 mg/dL (8-23); Calcium 8.5 mg/dL (8.6-10.3); Carbon Dioxide 37 mEq/L (23-29); Chloride 99 mEq/L (98-107); Glucose 105 mg/dL (70-105); Osmolality,Calculated 296 (280-300); Potassium 3.3 mEq/L (3.5-5.1); Sodium 141 mEq/L (136-145); eGFR For African Americans > 60 (> 60); eGFR For Non-African Americans 53 (> 60)
[2020-03-11] MEDS: Doxycycline 100 MG in 0.9 % Sodium Chloride Mini Bag 100 ML IVPB SCH (06:49)
[2020-03-11] MEDS: *HR* Heparin 5,000 UNIT/ML VIAL SQ SCH ×2 (06:50→17:55)
[2020-03-11] MEDS: *HR* OxyCODONE/APAP 10/325 TABLET PO PRN ×2 (10:00→20:59)
[2020-03-11] MEDS: Pregabalin 75 MG CAPSULE PO SCH ×2 (10:01→20:58)
[2020-03-11] MEDS: predniSONE 20 MG TABLET PO SCH (10:02)
[2020-03-11] MEDS: Furosemide 20 MG TABLET PO SCH (10:02)
[2020-03-11] MEDS: Folic Acid 1 MG TABLET PO SCH (10:04)
[2020-03-11] MEDS: sulfaSALAzine 500 MG TABLET PO SCH ×2 (10:04→21:00)
[2020-03-11] MEDS: atenoloL 25 MG TABLET PO SCH ×2 (10:04→20:59)
[2020-03-11] MEDS: clonazePAM 1 MG TABLET PO PRN ×2 (10:07→21:00)
[2020-03-11] MEDS: Sennosides/Docusate Sodium TABLET PO SCH ×2 (12:00→21:00)
[2020-03-11] MEDS ORDERED: Aspirin Enteric Coated 81 MG Tablet PO SCH (14:17)
[2020-03-11] MEDS ORDERED: ALPHA 1 PROTEINASE INHIBITOR IV SCH (14:17)
[2020-03-11] MEDS ORDERED: Sennosides/Docusate Sodium TABLET PO SCH (21:00)
[2020-03-11] MEDS: Doxycycline 100 MG CAPSULE PO SCH (21:01)
[2020-03-12] MEDS: Albuterol 2.5 MG/3 ML NEBULIZER IH SCH ×3 (04:13→11:14)
[2020-03-12] MEDS: *HR* OxyCODONE/APAP 10/325 TABLET PO PRN (06:23)
[2020-03-12] MEDS: *HR* Heparin 5,000 UNIT/ML VIAL SQ SCH (06:23)
[2020-03-12 06:48] VITALS: BP 157/76
[2020-03-12 07:03] LABS: Basophils # 0.1 K/mcL (0.0-0.2); Basophils % 0.9 %; Eosinophils # 0.2 K/mcL (0.0-0.6); Eosinophils % 1.7 %; Hematocrit 39.7 % (35.3-44.9); Lymphocytes % 36.2 %; Mean Corpuscular HGB Conc 30.2 g/dL (31.6-35.5); Mean Corpuscular Hemoglobin 29.8 pg (28.0-33.3); Mean Corpuscular Volume 98.5 fL (83.0-100.0); Mean Platelet Volume 9.8 fL (9.4-12.4); Monocytes # 1.5 K/mcL (0.0-1.3); Monocytes % 13.5 %; Platelet Count 330 K/mcL (140-400); Red Blood Count 4.03 M/mcL (3.82-4.97); Red Cell Distribution Width 13.2 % (11.5-14.5); Segmented Neutrophils % 45.7 %
[2020-03-12 07:22] LABS: BUN/Creatinine Ratio 23 (6-26); Blood Urea Nitrogen 23 mg/dL (8-23); Calcium 9.1 mg/dL (8.6-10.3); Carbon Dioxide 35 mEq/L (23-29); Chloride 100 mEq/L (98-107); Glucose 99 mg/dL (70-105); Osmolality,Calculated 296 (280-300); Potassium 3.6 mEq/L (3.5-5.1); Sodium 141 mEq/L (136-145); eGFR For African Americans > 60 (> 60); eGFR For Non-African Americans 58 (> 60)
[2020-03-12] MEDS: Folic Acid 1 MG TABLET PO SCH (09:24)
[2020-03-12] MEDS: clonazePAM 1 MG TABLET PO PRN (09:24)
[2020-03-12] MEDS: predniSONE 20 MG TABLET PO SCH (09:24)
[2020-03-12] MEDS: Doxycycline 100 MG CAPSULE PO SCH (09:24)
[2020-03-12] MEDS: Furosemide 20 MG TABLET PO SCH (09:24)
[2020-03-12] MEDS: Sennosides/Docusate Sodium TABLET PO SCH (09:25)
[2020-03-12] MEDS: atenoloL 25 MG TABLET PO SCH (09:25)
[2020-03-12] MEDS: sulfaSALAzine 500 MG TABLET PO SCH (09:25)
[2020-03-12] MEDS: Pregabalin 75 MG CAPSULE PO SCH (09:25)
== END 2020-03-12 12:35 | disposition home health service (06) | DRG 189 ==
LOC: 3BNU 11:42 → EMEROOARM 11:42 → 3BNU 16:24 → SUATTDRO 03-08 15:47 → 2NNU 03-09 14:48 → 3ANU 03-10 20:36
PROVIDERS: ADMIT Internal Medicine; ATTEND Pharmacist

== ENCOUNTER 2020-07-01 03:01 | Inpatient (IN) ==
[2020-07-01] MEDS ORDERED: Ondansetron 4 MG/2 ML VIAL IVP PRN (05:31)
[2020-07-01] MEDS ORDERED: Melatonin 3 MG TABLET PO PRN (05:31)
[2020-07-01] MEDS ORDERED: Naloxone 0.4 MG/ML INJ IVP PRN (05:31)
[2020-07-01] MEDS ORDERED: 0.9 % Sodium Chloride 1,000 ML ONE ×2 (06:03→06:37)
[2020-07-01] MEDS ORDERED: 0.9 % Sodium Chloride 2,000 ML ONE (06:19)
[2020-07-01 06:21] LABS: Hemoglobin 16.3 g/dL (11.5-15.4); Mean Corpuscular HGB Conc 28.7 g/dL (31.6-35.5); Mean Corpuscular Hemoglobin 29.4 pg (28.0-33.3); Mean Corpuscular Volume 102.3 fL (83.0-100.0); Mean Platelet Volume 9.4 fL (9.4-12.4); Nucleated Red Blood Cells 0.3 /100 WBC (0); Platelet Count 513 K/mcL (140-400); Red Blood Count 5.54 M/mcL (3.82-4.97); Red Cell Distribution Width 12.6 % (11.5-14.5); White Blood Count 26.7 K/mcL (4.3-11.1)
[2020-07-01 06:23] LABS: Hematocrit 56.7 % (35.3-44.9)
[2020-07-01] MEDS ORDERED: methylPREDNISolone 125 MG/2 ML VIAL IVP ONE (06:33)
[2020-07-01] MEDS ORDERED: Vancomycin 1,250 MG/262.5 ML IV.SOLN IVPB ONE (06:46)
[2020-07-01 06:49] LABS: Troponin I 0.48 ng/mL (< 0.04)
[2020-07-01] MEDS ORDERED: *HR* Norepinephrine 4 MG/4 ML VIAL IVC ONE (06:49)
[2020-07-01] MEDS ORDERED: 0.9 % Sodium Chloride 250 ML ONE (06:49)
[2020-07-01 06:57] LABS: Albumin 3.4 g/dL (3.5-5.7); Albumin/Globulin Ratio 1.1 (1.1-2.2); Bilirubin,Total 0.2 mg/dL (0.3-1.0); Calcium 8.4 mg/dL (8.6-10.3); Globulin 3.1 g/dL (2.4-3.5); Magnesium 2.4 mg/dL (1.6-2.6); Phosphorous 9.3 mg/dL (2.7-4.5); Potassium 4.9 mEq/L (3.5-5.1); Thyroid Stimulating Hormone 2.031 mcIU/mL (0.340-5.600); Total Protein 6.5 g/dL (6.4-8.9)
[2020-07-01] MEDS ORDERED: Vancomycin 0 MG in 0.9 % Sodium Chloride 250 ML IVPB SCH (07:00)
[2020-07-01 07:01] LABS: Anisocytosis 1+ (Not Present); Lymphocytes # 4.3 K/mcL (0.6-4.6); Monocytes # 1.1 K/mcL (0.0-1.3); Neutrophils # 21.4 K/mcL (1.6-8.9); Reactive Lymphocytes Present (Not Present)
[2020-07-01 07:02] LABS: Large Platelets Present (Not Present); Toxic Granulation Present (Not Present)
[2020-07-01] MEDS ORDERED: Artificial Tears SOLN 15 ML BOTTLE BOTH EYES PRN (07:16)
[2020-07-01] MEDS ORDERED: FentaNYL (PF) 1,000 MCG/100 ML IV.SOLN IVC SCH (07:30)
[2020-07-01] MEDS: Norepinephrine 4 MG/254 ML IV.SOLN IVC SCH ×2 (08:06→13:25)
[2020-07-01 08:22] LABS: ABG Base Excess -11 mEq/L (-2 to 3); ABG HCO3 19 mEq/L (21-27); ABG Oxygen Saturation 88 % (95-98); ABG PCO2 57 mmHg (35-45); ABG PH 7.12 pH Units (7.32-7.45); ABG PO2 72 mmHg (85-104); ABG TCO2 20 mEq/L (20-26); Blood Gas VT 550 cc
[2020-07-01 08:34] LABS: Bacteria,Urine Few per hpf (None-Few); Bilirubin,Urine Small (Negative); Blood,Urine Negative (Negative); Clarity,Urine Turbid (Clear); Color,Urine Yellow (Yellow); Glucose,Urine (UA) Normal (Normal); Granular Casts,Urine Moderate per lpf (None Seen); Hyaline Casts,Urine Moderate per lpf (None Seen); Ketones,Urine 20 mg/dL (Negative); Leukocyte Esterase,Urine Negative (Negative); Mucus,Urine Few per lpf (None-Few); Nitrite,Urine Negative (Negative); PH,Urine 5.5 pH Units (5.0-8.0); Protein,Urine 100 mg/dL (Neg-Trace); Specific Gravity,Urine > 1.030 (1.010-1.025); Squamous Epithelial Cell,Urine Few per hpf (None-Few); Urobilinogen,Urine Normal (Normal)
[2020-07-01] MEDS: Piperacillin/Tazobactam 3.375 GM in 0.9 % Sodium Chloride Mini Bag 100 ML IVPB SCH ×2 (08:39→15:02)
[2020-07-01] MEDS: Artificial Tears SOLN 15 ML BOTTLE BOTH EYES SCH ×2 (08:39→11:55)
[2020-07-01] MEDS ORDERED: Chlorhexidine Rinse 15 ML MOUTHWASH MM SCH (09:00)
[2020-07-01] MEDS ORDERED: *HR* Heparin 5,000 UNIT/ML VIAL IVP PRN ×2 (09:31)
[2020-07-01] MEDS ORDERED: Aspirin 325 MG TABLET PO ONE (09:34)
[2020-07-01] MEDS ORDERED: Perflutren Lipid Microsphere 1.3 ML in 0.9 % Sodium Chloride 8.7 ML IVP PRN ×2 (09:42→09:47)
[2020-07-01 09:43] LABS: INR 1.2; Prothrombin Time 14.2 Seconds (9.4-12.1)
[2020-07-01] MEDS ORDERED: Sodium Bicarbonate 150 MEQ in D5% in Water 1,000 ML IVC SCH (09:45)
[2020-07-01] MEDS ORDERED: Heparin 25,000UNIT/250ML 1/2NS 25,000 UNIT/250 ML IV.SOLN IVC SCH (09:45)
[2020-07-01 11:33] LABS: ABG Base Excess -8 mEq/L (-2 to 3); ABG HCO3 22 mEq/L (21-27); ABG Oxygen Saturation 86 % (95-98); ABG PCO2 63 mmHg (35-45); ABG PH 7.14 pH Units (7.32-7.45); ABG PO2 67 mmHg (85-104); ABG TCO2 23 mEq/L (20-26); Blood Gas VT 580 cc
[2020-07-01 12:57] LABS: Albumin/Globulin Ratio 1.2 (1.1-2.2); Bilirubin,Direct 0.1 mg/dL (0.0-0.2); Bilirubin,Indirect 0.2 mg/dL (0.0-1.0); Bilirubin,Total 0.3 mg/dL (0.3-1.0); Calcium 7.5 mg/dL (8.6-10.3); Globulin 2.6 g/dL (2.4-3.5); Magnesium 2.1 mg/dL (1.6-2.6); Phosphorous 7.7 mg/dL (2.7-4.5); Potassium 5.7 mEq/L (3.5-5.1); Total Protein 5.6 g/dL (6.4-8.9); Troponin I 1.22 ng/mL (< 0.04)
[2020-07-01 13:54] LABS: ABG Base Excess -6 mEq/L (-2 to 3); ABG HCO3 23 mEq/L (21-27); ABG Oxygen Saturation 93 % (95-98); ABG PCO2 57 mmHg (35-45); ABG PH 7.21 pH Units (7.32-7.45); ABG PO2 80 mmHg (85-104); ABG TCO2 24 mEq/L (20-26); Blood Gas VT 600 cc
[2020-07-01] MEDS ORDERED: Calcium Chloride 1,000 MG in 0.9 % Sodium Chloride 100 ML IVPB ONE (14:47)
[2020-07-01] MEDS ORDERED: Pantoprazole 40 MG VIAL IVP ONE (16:55)
[2020-07-01 17:15] VITALS: BP 91/62
[2020-07-01] MEDS ORDERED: *HR* Succinylcholine 200 MG/10 ML VIAL IVP ONE (17:44)
[2020-07-01] MEDS ORDERED: *HR* Midazolam HCl 2 MG/2 ML VIAL IVP ONE (17:44)
[2020-07-01] MEDS ORDERED: MethylPREDNISolone 40 MG/ML VIAL IVP SCH (18:00)
[2020-07-01] MEDS ORDERED: Vancomycin 1,250 MG/262.5 ML IV.SOLN IVPB SCH (20:00)
[2020-07-02] MEDS ORDERED: Pantoprazole 40 MG VIAL IVP SCH (09:00)
[2020-07-02] MEDS ORDERED: Aspirin 81 MG TAB.CHEW GTUBE SCH (09:00)
[2020-07-03 13:27] LABS: VBG Ionized Calcium 0.91 mmol/L (1.15-1.35)
[2020-07-03 13:27] LABS: VBG HCO3 18 mEq/L (21-27); VBG PCO2 55 mmHg (41-51); VBG PH 7.13 pH Units (7.32-7.42); VBG PO2 224 mmHg (25-50)
== END 2020-07-01 17:45 | disposition short-term general hospital (02) | DRG 871 ==
LOC: 2NENU → ICNU 06:23
PROVIDERS: ADMIT Family Medicine; ATTEND Family Medicine